=== PATIENT | female | born 1975 | race Caucasian/White ===

== ENCOUNTER 2021-07-20 17:01 | Emergency (ER) | payer MEDICAID, SELFPAY ==
[2021-07-20 17:01] VITALS: BP 130/77; PULSE 76; RESP 18; TEMP 37.1; O2SAT 99; BMI 28.3
--- NOTE | 2021-07-20 18:15 | RAD_ITS ---
STUDY: X-RAY CHEST REASON FOR EXAM: Female, 46 years old. CHEST PAIN Cough TECHNIQUE: XR Chest 1 View COMPARISON: None FINDINGS: There is no demonstrated pleural abnormality. Normal size heart. Normal mediastinum and dakota. Normal visualized pulmonary arteries. Normal visualized aortic arch and descending thoracic aorta. Normal visualized thoracic spine. Normal visualized ribs, clavicles, and shoulders. There is no demonstrated abnormality of the visualized soft tissue structures of the upper abdomen. RAD/Chest 1 View (Portable) IMPRESSION: There are no acute findings. Electronically Signed: Max Vera MD at 18:55 EST , Service support ,
--- NOTE | 2021-07-20 18:46 | EX.ED.DYSGE1 ---
HPI History of Present Illness Chief Complaint: General Illness Informant: patient Onset/Context/Timing Onset: Yesterday Context: Gradual Onset Timing: Continuous Quality: Burning, sharp Location: Substernal Worsened by: Nothing Relieved by: Nothing Associated Symptoms Associated Symptoms: Headache, myalgias Narrative Narrative: Patient presents with cough, chest pain, and headache that began yesterday. Patient states it is gradually getting worse. Patient states her pain is over her lower substernal area. Patient states it is burning and stabbing. Patient states nothing makes it worse and nothing makes it better. Patient denies any fevers or chills. Patient admits to a cough but denies any sputum production. Patient admits to some shortness of breath. Patient admits to nausea but denies any vomiting. Patient also admits to general myalgias and a headache. [facility] Medical History (Updated 07/20/21 @ 20:[address] Quique Day DO) Physical exam, pre-employment Allergy/AdvReac Type Severity Reaction Status Date / Time No Known Allergies Allergy Verified 07/20/21 17:03 Surgical History History of bunionectomy History of section Hx of tympanostomy tubes Social History Smoking Status: Smoker, status unknown ROS ROS ED Constitutional Constitutional ED: Denies chills or fever(s) Eyes Eyes: Denies blurry vision or change in vision ENT ENT ED: Denies rhinorrhea or sore throat Cardiovascular Cardiovascular: Reports chest pain; Denies palpitations Respiratory/Chest Respiratory/Chest: Reports cough and dyspnea Gastrointestinal Gastrointestinal: Reports nausea; Denies vomiting Genitourinary Genitourinary ED: Denies dysuria or hematuria Musculoskeletal Musculoskeletal: Reports myalgias; Denies back pain or neck pain Integumentary Denies abscess or rash Neurologic Neurologic: Reports headache(s); Denies weakness Allergic/Immunologic Allergic/Immunologic ED: Denies mouth swelling or urticaria EXAM Physical Exam Const Vital Signs: 07/20/21 17:01 07/20/21 18:57 07/20/21 19:01 Temperature 98.7 F 97.5 F L Temperature Source Temporal Temporal Pulse Rate 76 88 Respiratory Rate 18 17 Respiratory Effort Non-Labored Short of Breath Respiratory Pattern Normal Blood Pressure 130/77 H Blood Pressure Mean 94 Pulse Ox 99 98 Oxygen Delivery Method Room Air 07/20/21 19:03 Temperature 97.8 F Temperature Source Temporal Pulse Rate 88 Respiratory Rate 17 Respiratory Effort Respiratory Pattern Blood Pressure 106/76 Blood Pressure Mean 86 Pulse Ox 98 Oxygen Delivery Method Room Air Positive well nourished and well developed General Appearance ED: well developed HEENT Reports moist mucous membranes Neck supple and no JVD Resp normal respiratory effort and clear to auscultation bilaterally Cardio regular rate, regular rhythm and no murmurs GI normal to inspection, nondistended, normoactive bowel sounds and non-tender Palpation: soft Extremity normal to inspection General Extremety ED: Negative for edema or tenderness General Extremity: Negative for edema Neuro oriented x3, CN's II-XII intact bilaterally and no sensory deficits noted Sensorium / Orientation: alert Motor Exam: strength 5/5 throughout Psych mental status grossly normal Skin no rashes or lesions noted MDM MDM MDM Narrative Medical decision making narrative: Portable 1 view chest x-ray was obtained. On my interpretation, lung oconnell are clear. There is normal cardiac silhouette. Bony thorax is normal. There is no acute process noted. Radiologist also interpreted the x-ray and agrees. COVID-19 rapid antigen was obtained was negative. Patient was advised of her findings. Patient was advised that this is most likely a viral upper respiratory infection. Patient was instructed to take Tylenol or ibuprofen as needed for aches or fevers. Patient was instructed to follow-up with her primary care physician in 5 to 7 days. Patient understood and was agreeable with the plan. All questions were answered. Radiography Diagnostic Testing: Clinical Impression(s) from Imaging Studies Chest X-Ray 07/20/21 18:15 IMPRESSION: There are no acute findings. Electronically Signed: Max Vera MD at 18:55 EST , Service support , Discharge Plan Triage Chief Complaint: General Illness ED Provider: Quique Day Dx/Rx/DC Orders Clinical Impression: Viral URI Instructions: ED URI, Viral, No Abx (Adult) Primary Care Provider: Care Physician,No Primary Referrals: Cari Anglin MD [STAFF PHYSICIAN] - 5-7 Days Care Physician,No Primary [Primary Care Provider] - Disposition Disposition: Home, Self Care
[2021-07-20 19:01] VITALS: PULSE 88; RESP 17; TEMP 36.4; O2SAT 98
[2021-07-20 19:03] VITALS: BP 106/76; PULSE 88; RESP 17; TEMP 36.6; O2SAT 98
--- NOTE | 2021-07-20 19:06 | CM.ED ---
03/13 19:05 - Case Management - ED by Leonela Deras Acccalos Num: [id number] : 12/25/2012 Patient Age: 8 SW Note Referral Source: Case Find Referral Reason: No Primary Care Physician (PCP) SW reviewed chart and noted that patient has no PCP. SW provided patient with list of [facility] and [facility] Physician List for reference. No other issues or concerns voiced at this time. SW remains available for any additional needs. Plan: Provided patient with PCP information Leonela EDMONDS
[2021-07-20 20:36] VITALS: BP 114/74; PULSE 78; RESP 18; O2SAT 98
== END 2021-07-20 20:36 | disposition home or self-care (01) ==
PROVIDERS: Emergency Provider Emergency Medicine
DX: J06.9 Acute upper respiratory infection, unspecified (principal); Z20.822 Contact with and (suspected) exposure to COVID-19; R07.9 Chest pain, unspecified; R11.0 Nausea
CPT/HCPCS: 71045; 87426; 99282

== ENCOUNTER → 2022-03-30 | Outpatient (CLI) | payer MEDICAID, SELFPAY ==
--- NOTE | 2022-03-30 12:27 | BI_ITS ---
MAMMOGRAPHY - BILATERAL SCREENING REASON FOR EXAM: Female, 47 years old. Routine annual screening examination. PERTINENT HISTORY: Grandmothers with breast cancer. TECHNIQUE: Digital bilateral breast delfina (3D mammographic acquisition) in the CC and MLO projections. 2-D mediolateral oblique (MLO) and craniocaudad (CC) views of both breasts were obtained. CAD: Full Field Digital Mammography with Computer Added Detection was performed. COMPARISON: Comparison is made with prior outside examination 12/08/2020. FINDINGS: Breast Composition: The breasts are heterogeneously dense, which may obscure small masses. There are no dominant masses or suspicious calcifications. A tissue clip marker is seen in the central lateral aspect of the left breast. Stable benign-appearing bilateral axillary lymph nodes. No other significant abnormalities are identified. There has been no significant change since the prior study. BI/SCRN MAMM (CAD)W/DELFINA BILAT IMPRESSION: Stable bilateral screening mammogram. Yearly follow-up mammogram recommended. (A) ASSESSMENT CATEGORY: BIRADS Category 2: Benign. A letter regarding these results will be sent to the patient by the facility within 30 days. Approximately 10% of breast cancers are not detected by mammography. A normal mammogram should not delay biopsy of a clinically suspicious abnormality. [id number] Electronically Signed: Arnoldo Vega MD at 13:27 EDT ,
== END | disposition home or self-care (01) ==
LOC: OPBI 12:22
PROVIDERS: Visit Provider Family Medicine
DX: Z12.31 Encounter for screening mammogram for malignant neoplasm of breast (principal)
CPT/HCPCS: 77063; 77067

== ENCOUNTER → 2022-11-29 | Outpatient (CLI) | payer MEDICAID, SELFPAY ==
[2022-11-29 12:37] LABS: Absolute Lymphocyte Count 2.04 X10^3/uL (0.83-4.51); Absolute Neutrophil Count 3.4 X10^3/uL (2.0-7.7); Basophil# 0.03 X10^3/uL; Basophil% 0.5 % (0-1); Eosinophil# 0.12 X10^3/uL; Hematocrit 42.7 % (37-47); Hemoglobin 14.1 g/dL (12.0-15.0); Lymphocyte # 2.04 X10^3/ul (0.83-4.51); Lymphocyte % 33.7 % (19-41); Mean Corpuscular Hgb 29.5 pg (27.0-32.0); Mean Corpuscular Volume 89.3 fL (81-99); Mean Platelet Vol. 12.1 fl (6.2-12.0); Monocyte# 0.43 X10^3/uL; Monocyte% 7.1 % (0-10); NRBC Flagged by Analyzer 0 % (0-5); Neutrophil # 3.41 X10^3/uL (2.7-7.7); Neutrophil % 56.4 % (47-70); Platelet Count 249 K/mm3 (150-450); RBC Distribution Width CV 12.2 % (11.6-14.6); RBC Distribution Width SD 40.4 fl (35.1-43.9); Red Blood Count 4.78 M/mm3 (4.2-5.4); White Blood Count 6.1 K/mm3 (4.4-11.0)
[2022-11-29 13:16] LABS: ALB/GLOB Ratio 1.2 RATIO (0.9-2.4); AST(SGOT) 26 U/L (15-37); Alanine Aminotransfer ALT/SGPT 53 U/L (13-56); Alkaline Phosphatase 70 U/L (45-117); Anion Gap 5 (5-15); BUN 16 mg/dL (7-18); BUN/Creat Ratio 16.3 RATIO (10-20); Calcium,Total 9.2 mg/dL (8.5-10.1); Chloride 107 mmol/L (98-107); Cholesterol 158 mg/dL (200); Creatinine, Serum 0.98 mg/dL (0.55-1.02); EST Glomerular Filtration Rate 65 mL/min (>60); Est Glom Filt Rate - Afr Amer 78 mL/min (>60); Globulin 3.2 g/dL (2.2-4.2); Glucose 92 mg/dL (74-106); High Density Lipoprotein 34 mg/dL; Potassium 4.1 mmol/L (3.5-5.1); Protein, Total 7.2 g/dL (6.4-8.2); Sodium Level 139 mmol/L (136-145); Thyroid Stim Hormone (TSH) 1.69 uIU/mL (0.358-3.74); Triglycerides 88 mg/dL; Very Low Density Lipoprotein 18 mg/dL (5-40)
== END | disposition home or self-care (01) ==
LOC: BIMLAB 09:30
PROVIDERS: Visit Provider Nurse Practitioner Family
DX: G43.909 Migraine, unspecified, not intractable, without status migrainosus (principal); F41.9 Anxiety disorder, unspecified; F32.A Depression, unspecified; Z13.220 Encounter for screening for lipoid disorders
CPT/HCPCS: 36415; 80053; 80061; 84443; 85025

== ENCOUNTER 2023-01-16 08:46 | Emergency (ER) | payer MEDICAID, SELFPAY ==
[2023-01-16 08:47] VITALS: BP 149/71; PULSE 71; RESP 18; TEMP 36; O2SAT 99; BMI 30.9
--- NOTE | 2023-01-16 08:49 | NURSING ---
NO OLD EKGS
[2023-01-16 09:02] VITALS: O2SAT 97
--- NOTE | 2023-01-16 09:02 | EKG12_ITS ---
Test Reason : CP Blood Pressure : / mmHG Vent. Rate : 069 BPM Atrial Rate : 069 BPM P-R Int : 120 ms QRS Dur : 082 ms QT Int : 378 ms P-R-T Axes : 061 -01 036 degrees QTc Int : 405 ms Normal sinus rhythm Normal ECG Confirmed by ERNESTO KILGORE, MARCELA ([id number]), avid editor VETO POLLARD ([id number]) on 01/17/2023 9:13:51 AM Referred By: BB Confirmed By:MARCELA OROZCO MD
--- NOTE | 2023-01-16 09:03 | EDS_ITS ---
HPI History of Present Illness Chief Complaint: Chest Pain Informant: patient Narrative Narrative: Healthy 47-year-old female has been having intermittent chest discomfort for the past 3 days. She states for the most part it felt like burning in her mid chest up to her throat, but she was also having instances of heaviness where it felt like someone was sitting on her chest, and discomfort in her left shoulder. She states at times when things felt heavy it made her feel like she was having a little bit of trouble breathing but never felt frankly winded. Symptoms were more prominent at nighttime when she is lying down. No exertional symptoms, no pleuritic symptoms. No leg pain or swelling history of DVT or PE, recent immobilization, long travel, hospitalization, or surgery. She states she did try taking some antiacid last night, and it did take the burning away that she had in her throat and her chest mostly. Right now she just has some discomfort in her left shoulder that went along with this but none of the chest or throat discomfort. CVD Risk Factors: Negative for Hypertension, Diabetes, Hypercholesterolemia, Family History 1' </=55 or Smoking [facility] Medical History Anxiety and depression H/O pyloric stenosis IBS (irritable bowel syndrome) Laceration of right hand Murmur Right foot sprain Scoliosis Home Medications medroxyprogesterone 150 mg/mL intramuscular syringe 150 mg IM [id number] 11/11/22 [History Last Taken Unknown] buspirone 5 mg tablet 5 mg PO BID #180 tabs 01/10/23 [Rx Last Taken Unknown] rimegepant 75 mg disintegrating tablet (Nurtec ODT) 75 mg PO QDAY PRN migraine headache #20 tabs 01/10/23 [Rx Last Taken Unknown] pantoprazole 40 mg tablet,delayed release 40 mg PO DAILY #14 tabs 01/16/23 [Rx Last Taken Unknown] Allergy/AdvReac Type Severity Reaction Status Date / Time No Known Allergies Allergy Verified 01/10/23 15:51 Family History Mother Arthritis Arthritis or polyarthritis, rheumatoid Osteoporosis Grandmother Breast cancer Father Skin cancer Brother Seizures Surgical History History of bunionectomy History of section Hx of tympanostomy tubes Social History Smoking Status: Smoker, status unknown alcohol intake: current alcohol intake frequency: holidays/special occasions only substance use type: does not use what type of physical activity do you participate in: none ROS ROS ED Constitutional Constitutional ED: Denies chills or fever(s) Eyes Eyes: Denies change in vision or diplopia ENT ENT ED: Denies rhinorrhea or sore throat Cardiovascular Cardiovascular: Reports as per HPI and chest pain; Denies palpitations Respiratory/Chest Respiratory/Chest: Reports as per HPI and dyspnea; Denies cough Gastrointestinal Gastrointestinal: Reports nausea; Denies abdominal pain, diarrhea or vomiting Genitourinary Genitourinary ED: Denies dysuria or hematuria Musculoskeletal Musculoskeletal: Reports as per HPI and extremity pain; Denies back pain or neck pain Integumentary Denies abscess or rash Neurologic Neurologic: Denies headache(s), paresthesias or weakness Psychiatric Psychiatric: Denies anxiety or suicidal thoughts EXAM Physical Exam Const Vital Signs: 01/16/23 08:47 01/16/23 09:03 01/16/23 09:02 Temperature 96.8 F L Temperature Source Temporal Pulse Rate 71 Respiratory Rate 18 Respiratory Effort Normal Non-Labored Respiratory Pattern Normal Blood Pressure 149/71 H Blood Pressure Mean 97 Pulse Ox 99 97 Oxygen Delivery Method Room Air Room Air Positive well nourished and well developed General Appearance ED: well developed and NAD HEENT Reports moist mucous membranes normocephalic and atraumatic Eyes PERRL and EOMs intact bilaterally Neck full ROM and supple Resp normal respiratory effort and clear to auscultation bilaterally Cardio regular rate, regular rhythm and no murmurs Rate: Negative for tachycardic Peripheral Pulses: pulses 2+ throughout GI non-tender and non-distended Auscultation: normoactive bowel sounds Palpation: soft Back/Spine no CVA tenderness General Back: other FROM Extremity normal to inspection General Extremety ED: Negative for edema, pulses abnormal or tenderness General Extremity: Negative for edema or pulses abnormal Neuro oriented x3, CN's II-XII intact bilaterally and no sensory deficits noted Sensorium / Orientation: awake and alert Motor Exam: strength 5/5 throughout Skin no rashes or lesions noted and no wounds Heart Score History: Slightly/Non-Suspicious ECG: Normal Age: </= 45 years Risk Factors: No Risk Factors Troponin: </= Normal Limit Score: 0 MDM MDM MDM Narrative Medical decision making narrative: Cardiac work-up is negative including x-ray and EKG and troponin. Her symptoms completely resolved with a GI cocktail she definitely feels better. I think this is all probably due to reflux. I am going to put her on a 2-week course of pantoprazole, and encouraged her to follow-up with her doctor for further evaluation she is comfortable with that plan. Lab Data Attestation: I reviewed the patient's lab results. Labs: Laboratory Results - last 24 hr 01/16/23 01/16/23 08:55 08:55 WBC 6.0 RBC 4.75 Hgb 14.2 Hct 41.3 MCV 86.9 MCH 29.9 MCHC 34.4 RDW Std Deviation 38.7 RDW Coeff of Mayuri 12.1 Plt Count 253 MPV 11.0 Immature Gran % (Auto) 0.300 Neut % (Auto) 50.7 Lymph % (Auto) 38.1 [place] % (Auto) 8.2 Eos % (Auto) 2.2 Baso % (Auto) 0.5 Absolute Neuts (auto) 3.0 Absolute Lymphs (auto) 2.28 Nucleated RBC % 0 Sodium 139 Potassium 3.7 Chloride 108 H Carbon Dioxide 25.0 Anion Gap 6 BUN 14 Creatinine 1.05 H Estim Creat Clear Calc 55.97 Est GFR (MDRD) Af Amer 73 Est GFR (MDRD) Non-Af 60 BUN/Creatinine Ratio 13.3 Glucose 101 Calcium 9.6 Troponin I High Sens 4 Radiography Chest X-Ray - ED: 2 View, Read by ED Physician, No Acute Disease and No Infiltrates Diagnostic Testing: Clinical Impression(s) from Imaging Studies Chest X-Ray 01/16/23 09:10 IMPRESSION: Normal x-ray examination of the chest. Electronically Signed: Arnoldo Vega MD at 9:30 EDT , Rhythm Strip Rhythm Strip: Sinus Rhythm Rate: 68 Ectopy: None EKG Initial EKG: Attestation: I personally reviewed and interpreted this EKG as follows: Interpretation: Sinus Rhythm and No Acute Injury Pattern Comments: Normal EKG Discharge Plan Triage Chief Complaint: Chest Pain Other Complaint: Shortness of Breath ED Provider: Garrett Waters Dx/Rx/DC Orders Clinical Impression: Chest pain due to GERD Instructions: ED GERD (Adult) Prescriptions: New pantoprazole 40 mg tablet,delayed release (DR/EC) 40 mg PO DAILY Qty: 14 0RF No Action medroxyprogesterone 150 mg/mL syringe 150 mg IM [id number] Nurtec ODT 75 mg tablet,disintegrating 75 mg PO QDAY PRN (Reason: migraine headache) Qty: 20 1RF Rx Instructions: as a single dose buspirone 5 mg tablet 5 mg PO BID Qty: 180 2RF Primary Care Provider: Eddy Gagnon NP Referrals: Eddy Gagnon NP, [employer] [Primary Care Provider] - 1-2 Weeks Disposition Disposition: Home, Self Care
--- NOTE | 2023-01-16 09:10 | RAD_ITS ---
STUDY: X-RAY CHEST REASON FOR EXAM: Female, 47 years old. Intermittent chest pain. TECHNIQUE: PA and lateral views of the chest. COMPARISON: Comparison is made with prior study July 20, 2021. FINDINGS: EKG electrodes are seen. The lungs are clear and expanded. There is no demonstrated pleural abnormality. Normal size heart. Normal mediastinum and dakota. Normal visualized pulmonary arteries. Normal visualized aortic arch and descending thoracic aorta. Normal visualized thoracic spine. Normal visualized ribs, clavicles, and shoulders. There is no demonstrated abnormality of the visualized soft tissue structures of the upper abdomen. RAD/Chest PA and Lateral IMPRESSION: Normal x-ray examination of the chest. Electronically Signed: Arnoldo Vega MD at 9:30 EDT ,
[2023-01-16 09:18] LABS: Absolute Lymphocyte Count 2.28 X10^3/uL (0.83-4.51); Basophil# 0.03 X10^3/uL; Basophil% 0.5 % (0-1); Eosinophil# 0.13 X10^3/uL; Eosinophils% 2.2 % (0-5); Hematocrit 41.3 % (37-47); Hemoglobin 14.2 g/dL (12.0-15.0); Lymphocyte # 2.28 X10^3/ul (0.83-4.51); Lymphocyte % 38.1 % (19-41); Mean Corp Hgb Conc 34.4 g/dL (32-36); Mean Corpuscular Hgb 29.9 pg (27.0-32.0); Mean Corpuscular Volume 86.9 fL (81-99); Monocyte# 0.49 X10^3/uL; Monocyte% 8.2 % (0-10); NRBC Flagged by Analyzer 0 % (0-5); Neutrophil # 3.04 X10^3/uL (2.7-7.7); Neutrophil % 50.7 % (47-70); Platelet Count 253 K/mm3 (150-450); RBC Distribution Width CV 12.1 % (11.6-14.6); RBC Distribution Width SD 38.7 fl (35.1-43.9); Red Blood Count 4.75 M/mm3 (4.2-5.4)
[2023-01-16] MEDS: Mag Hydrox/Al Hydrox/Simeth 30 ML UDC PO (09:36)
[2023-01-16 09:39] LABS: Anion Gap 6 (5-15); BUN 14 mg/dL (7-18); BUN/Creat Ratio 13.3 RATIO (10-20); Calcium,Total 9.6 mg/dL (8.5-10.1); Chloride 108 mmol/L (98-107); Creatinine, Serum 1.05 mg/dL (0.55-1.02); EST Glomerular Filtration Rate 60 mL/min (>60); Est Glom Filt Rate - Afr Amer 73 mL/min (>60); Estimated Creatinine Clearance 55.97 ml/min; Glucose 101 mg/dL (74-106); Potassium 3.7 mmol/L (3.5-5.1); Sodium Level 139 mmol/L (136-145); Troponin-I HS 4 pg/mL (3.0-54.0)
[2023-01-16] MEDS: Pantoprazole Sodium 40 MG Tablet PO (10:17)
[2023-01-16 10:19] VITALS: PULSE 83
== END 2023-01-16 10:20 | disposition home or self-care (01) ==
PROVIDERS: Emergency Provider Emergency Medicine; PCP Nurse Practitioner Family; Visit Provider Emergency Medicine
DX: K21.9 Gastro-esophageal reflux disease without esophagitis (principal); Z79.899 Other long term (current) drug therapy
CPT/HCPCS: 71046; 80048; 84484; 85025; 93005; 99285; A4216

== ENCOUNTER 2023-10-18 17:09 | Emergency (ER) | payer MEDICAID, SELFPAY ==
[2023-10-18 17:12] VITALS: BP 121/77; PULSE 75; RESP 14; TEMP 36.4; O2SAT 100; BMI 34.4
--- NOTE | 2023-10-18 17:59 | EX.ED.VIS.HA ---
HPI History of Present Illness Chief Complaint: Headache Informant: patient Onset/Context/Timing Onset: Today and Yesterday Context: Gradual Timing: Continuous Quality -Headache: Positive for Similar Prior Headaches and Sharp Current Severity: Moderate Maximum Severity: Moderate Associated Symptoms/Injury Associated Symptoms: Positive for Nausea and Photophobia; Negative for Fever, Vomiting, Sore Throat, Sinus Pressure, Numbness, Tingling, Preceding Aura, Visual Changes, Blurred Vision or Visual Loss Injury - AGARWAL: Negative for Direct Trauma, Fall or Assault Narrative Narrative: 48-year-old female history of migraine headaches. States that last night around 6 PM she had gradual onset of a right-sided headache similar to her prior migraines. Is behind her right eye. She has associated nausea no vomiting. No fever. No diarrhea. Denies any recent head trauma. She took Zofran at home which helped with the nausea but she still has a headache. She denies any recent head trauma. She denies being on any blood thinners. She denies any sinus congestion. Prior similar symptoms: Yes Recent Illness/Hospitalization: No PFSH PFSH Medical History Anxiety and depression H/O pyloric stenosis IBS (irritable bowel syndrome) Laceration of right hand Migraine Murmur Right foot sprain Scoliosis Home Medications medroxyprogesterone 150 mg/mL intramuscular syringe 150 mg IM [id number] 11/11/22 [History Last Taken Unknown] buspirone 5 mg tablet 5 mg PO BID #180 tabs 01/10/23 [Rx Last Taken Unknown] rimegepant 75 mg disintegrating tablet (Nurtec ODT) 75 mg PO QDAY PRN migraine headache #20 tabs 01/10/23 [Rx Last Taken Unknown] Allergy/AdvReac Type Severity Reaction Status Date / Time No Known Allergies Allergy Verified 10/18/23 17:15 Family History Mother Arthritis Arthritis or polyarthritis, rheumatoid Osteoporosis Grandmother Breast cancer Father Skin cancer Brother Seizures Surgical History History of bunionectomy History of section Hx of tympanostomy tubes Social History Smoking Status: Smoker, status unknown tobacco type: cigarettes alcohol intake: current alcohol intake frequency: holidays/special occasions only substance use type: does not use what type of physical activity do you participate in: none ROS ROS ED ROS Narrative Headache. Nausea. Review of Systems ROS Unobtainable: Denies due to encephalopathy Constitutional Constitutional ED: Denies chills or fever(s) Eyes Eyes: Denies blurry vision ENT ENT ED: Denies ear pain Cardiovascular Cardiovascular: Denies chest pain or palpitations Respiratory/Chest Respiratory/Chest: Denies cough or dyspnea Gastrointestinal Gastrointestinal: Reports nausea; Denies abdominal pain, constipation, diarrhea, melena or vomiting Genitourinary Genitourinary ED: Denies dysuria or hematuria Musculoskeletal Musculoskeletal: Denies arthralgias Integumentary Denies abscess Neurologic Neurologic: Denies headache(s) Psychiatric Psychiatric: Denies anxiety Endocrine Endocrinology: Denies polydipsia or polyphagia Hematologic/Lymphatic Hematologic/Lymphatic: Denies easy bleeding, easy bruising or lymphadenopathy Allergic/Immunologic Allergic/Immunologic ED: Denies mouth swelling, tongue swelling or urticaria EXAM Physical Exam Narrative Exam Narrative: Well-appearing 48-year-old female. Vital signs are stable afebrile. H EENT exam pupils round reactive light extra motions are intact. No signs of trauma to her face or scalp. Nontender. No hematomas. No facial droop. Normal speech. Neck nontender no meningismus. Able to flex chin to chest. Lungs clear to auscultation bilaterally. Heart regular rhythm no murmur. Abdomen soft nontender. Moving all 4 extremities. 5 out of 5 global director air and climate change strength. Dorsi plantarflexion intact. [id number] and fingertip to nose within normal limits. Neurologic exam normal. Awake alert and oriented. Answering questions following commands. NIH is 0. Back nontender. Const Vital Signs: 10/18/23 17:12 Temperature 97.6 F L Temperature Source Temporal Pulse Rate 75 Respiratory Rate 14 Blood Pressure 121/77 H Blood Pressure Mean 91 Pulse Ox 100 Oxygen Delivery Method Room Air Positive well nourished and well developed; Negative for cachectic, contractures or unkempt General Appearance ED: well developed and NAD; Negative for unkempt, cachectic, contractures, cyanotic, diaphoretic or pallor Nutritional Appearance: Negative for cachectic HEENT Reports normocephalic and moist mucous membranes; Denies dry mucous membranes atraumatic; Negative for trauma, tenderness, temporal artery tenderness or vesicular rash Face and Sinus: Negative for sinus tenderness Mouth ED: No dry mucous membranes Mouth: No dry mucous membranes Eyes EOMs intact bilaterally General Eye ED: Negative for pale conjunctiva or scleral icterus Neck no lymphadenopathy, supple, no meningeal signs and no JVD General: Negative for tenderness Resp normal respiratory effort and clear to auscultation bilaterally Effort and Inspection: Negative for retractions Auscultation: Negative for rales, rhonchi, wheezes or diminished lung sounds Cardio regular rate, regular rhythm, S1 normal heart sound, S2 normal heart sound and no murmurs Rate: Negative for bradycardia or tachycardic Rhythm: Negative for abnormal rhythm GI non-tender and non-distended Auscultation: normoactive bowel sounds Palpation: soft; Negative for firm or tender Back/Spine no CVA tenderness General Back: Negative for CVA tenderness Cervical Spine: Negative for cervical spine tenderness Thoracic Spine / Upper Back: Negative for thoracic spinal tenderness Lumbar Spine / Lower Back: Negative for lumbar spinal tenderness Extremity normal to inspection, full ROM and normal capillary refill General Extremety ED: Negative for edema or tenderness General Extremity: Negative for edema Neuro oriented x3 and CN's II-XII intact bilaterally Sensorium / Orientation: awake, alert, oriented to person, oriented to place and oriented to time; Negative for orientation impaired, lethargic or stuporous Coordination / Balance: [id number] test normal and [id number] test normal Speech: speech normal Motor Exam: strength 5/5 throughout Psych Appearance: Negative for unkempt Attitude: No agitated Mood & Affect: Negative for depressed, anxious or tearful Skin General Skin Exam: Negative for jaundice or pallor Lesions: no lesions Rashes: no rashes Trauma: Negative for abrasion MDM MDM MDM Narrative Medical decision making narrative: 48-year-old female gradual onset headache that began yesterday. Similar to prior migraines with migraine headache history. Has been no trauma. No fever. No sinus congestion. She is not on any blood thinners. She has a normal neurologic exam. I do not think she needs any imaging at this time. She will be treated with IV fluids, Toradol, Benadryl and Reglan and reassessed. Repeat exam at 7 PM patient is doing well. Says she feels a lot better. Headache is resolving. She did not want a additional medication. Repeat neurologic exam is unchanged remains normal. She will be discharged home. History & Record Review Discussion w/independent historian: Patient Additional record(s) reviewed:: Prior inpatient record, Prior outpatient record, Prior ED visit and Prior labs Discharge Plan Triage Chief Complaint: Headache ED Provider: Angelito Hatfield Dx/Rx/DC Orders Clinical Impression: Migraine Instructions: ED, Migraine (Classical) Prescriptions: No Action medroxyprogesterone 150 mg/mL syringe 150 mg IM [id number] Nurtec ODT 75 mg tablet,disintegrating 75 mg PO QDAY PRN (Reason: migraine headache) Qty: 20 1RF Rx Instructions: as a single dose buspirone 5 mg tablet 5 mg PO BID Qty: 180 2RF Primary Care Provider: Maribel Maurer Referrals: Maribel Maurer, DO [Primary Care Provider] - 3-5 Days if not improving Activity Restrictions/Additional Instructions: Plenty of fluids and rest. Motrin and Tylenol for pain. Follow-up if not improving or return if feeling a lot worse. Disposition Disposition: Home, Self Care
[2023-10-18] MEDS: 0.9% Normal Saline (1000mL) 1,000 ML 999 ML IV (18:11)
[2023-10-18] MEDS: Ketorolac 30 MG/ML Syringe IV (18:12)
[2023-10-18] MEDS: Metoclopramide 10 MG/2 ML Vial 5 MG IV (18:12)
[2023-10-18] MEDS: DiphenhydrAMINE 50 MG/ML Syringe IV (18:12)
[2023-10-18 19:11] VITALS: BP 120/70; PULSE 65; RESP 16; TEMP 36.7; O2SAT 99
== END 2023-10-18 19:17 | disposition home or self-care (01) ==
PROVIDERS: Emergency Provider Emergency Medicine; PCP Family Medicine; Visit Provider Emergency Medicine
DX: G43.909 Migraine, unspecified, not intractable, without status migrainosus (principal); F17.210 Nicotine dependence, cigarettes, uncomplicated; Z79.899 Other long term (current) drug therapy
CPT/HCPCS: 96361; 96374; 96375; 99283; J7030; A4216

== ENCOUNTER → 2023-12-22 | Outpatient (CLI) | payer MEDICAID, SELFPAY ==
--- NOTE | 2023-12-22 13:26 | RAD_ITS ---
STUDY: X-RAY - LEFT KNEE REASON FOR EXAM: Female, 48 years old. Knee pain. TECHNIQUE: 4 view(s) of the knee. COMPARISON: None. FINDINGS: Normal visualized distal femur. Normal visualized proximal tibia and fibula. Normal proximal tibiofibular articulation. Normal medial femorotibial compartment. Normal lateral femorotibial compartment. Normal patellofemoral articulation. The soft tissue structures are unremarkable. RAD/Knee 4 or More Views IMPRESSION: Normal x-ray examination of the knee. Electronically Signed: Arnoldo Vega MD at 13:58 EDT ,
== END | disposition home or self-care (01) ==
LOC: MTRAD 13:26
PROVIDERS: PCP Family Medicine; Referring Provider Physician Assistant; Visit Provider Physician Assistant
DX: M25.562 Pain in left knee (principal)
CPT/HCPCS: 73564

== ENCOUNTER → 2024-01-10 | Outpatient (CLI) | payer MEDICAID, SELFPAY ==
[2024-01-12 14:09] LABS: V-Zoster IgG (Immunity) 1869 index (Immune >165)
== END | disposition home or self-care (01) ==
LOC: BIMLAB 12:08
PROVIDERS: PCP Physician Assistant; Visit Provider Physician Assistant
DX: Z02.1 Encounter for pre-employment examination (principal)
CPT/HCPCS: 36415; 86787

== ENCOUNTER → 2024-02-22 | Outpatient (CLI) | payer MEDICAID, SELFPAY ==
--- NOTE | 2024-02-22 06:42 | MRI_ITS ---
STUDY: MRI LEFT KNEE REASON FOR EXAM: Female, 49 years old. Superior and lateral pain. TECHNIQUE: Standardized fat and water weighted pulse sequences were obtained in all 3 orthogonal planes. COMPARISON: Left knee radiographs dated 12/22/2023. FINDINGS: Normal medial meniscus. Normal hyaline cartilage of the medial femorotibial compartment. There is mild osteoarthritic spur formation of the medial knee compartment. Normal medial collateral ligamentous complex (MCL). Normal distal semimembranosus, gracilis and semitendinosus tendons. Normal lateral meniscus. Normal hyaline cartilage of the lateral femorotibial compartment. There is moderate osteoarthritic spur formation of the lateral knee compartment. Normal proximal tibiofibular articulation. Normal lateral collateral (fibular) ligament. Normal popliteus tendon. Normal biceps femoris tendon. Normal anterior cruciate ligament (ACL). Normal posterior cruciate ligament (PCL). 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 Congruent patellofemoral articulation. Normal medial and lateral patellar retinaculum. Normal quadriceps tendon. Normal patellar tendon. Normal Hoffa''s fat pad. There is a small joint effusion. There is are a cluster of low signal calcified loose bodies in the posterior femorotibial joint recess, the largest measuring 9 mm in diameter. The soft tissues are unremarkable. There is no acute fracture. MRI/Lower Ext Joint Only (Routine) IMPRESSION: Tricompartment degenerative arthrosis. Small joint effusion. Cluster of ossified loose bodies in the posterior femorotibial joint recess, the largest measuring 9 mm in diameter. No discrete meniscal tear or acute ligamentous injury. Electronically Signed: Adan Yanez MD at 8:07 EDT ,
== END | disposition home or self-care (01) ==
PROVIDERS: PCP Physician Assistant; Referring Provider Physician Assistant; Visit Provider Physician Assistant
DX: M25.562 Pain in left knee (principal)
CPT/HCPCS: 73721

== ENCOUNTER 2024-02-29 07:30 | Outpatient (RCR) | payer MEDICAID, SELFPAY ==
--- NOTE | 2023-12-27 18:51 | HP.PTEVAL_ITS ---
Patient's Visit Information Visit Information Visit Information: CLEVE MOROCHO is a 48 year old F referred to Physical Therapy by ROSE MARY Anthony with a diagnosis of Left Pain Knee-PF Arthralgia. Date of Evaluation: 12/27/23 Physical Therapist: Augustina Lai DPT Visit Plan Frequency: 2x /Week Duration: 4 Weeks Plan: Focus on LE and Core Strength/Stabilization- lower extremity range of silverio on- pain mgmt US and functional mobility HEP Given IE: quad set with towel, SLR, heel slide, hamstring stretch, hip abduction with OTB, hip adduction with pillow Subjective Subjective: Patient reports that she has been having a lot of left knee pain for the last 6 months and they have been buckling- going up and down stairs and walking. Insidious onset- just wear and tear. The pain is around the whole knee- the last couple of days its been shooting up into the thigh and down to the mid calf. Worst: 01/30 Agg: stairs, exercise, squats, running, getting in/out of her husbands truck. Best: 08/02. Eases: elevated in her recliner, mobic. Sharp and shooting as well as dull and achy depending on what she is doing. No N/T in the toes. X-rays- will do an MRI after PT. No injections. Sleep: disturbed- side sleeper- with her knees bent. 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 Objective Objective: Posture: forward head, rounded shoulders- can correct with verbal cues Gait: slightly antalgic- decreased stance on the right LE- poor heel/toe pattern HR/TR: able with UE A SLS: 15 sec without UE A Palpation: tender along medial and lateral joint line ROM: 0-85 degrees- with pain at end range Strength: Core: fair minus: Hip: 4-/5 throughout, Knee: 3+/5 with pain, Ankle: 5/5 Flex: HS: moderate Gastroc: moderate Balance/Special Test Scores Lower Extremity Functional Score: 43 Goals Goal 1:: Patient will be I with HEP and progression Goal Time Frame: 4-6 Weeks Goal 2:: Patient will ambulate with a normalized gait pattern without pain Goal Time Frame: 4-6 Weeks Goal 3:: Patient will asc/desc 8 stairs recip with no HR and good pattern Goal Time Frame: 4-6 Weeks Goal 4:: Patient will demo 0-125 degrees of ROM in the left knee Goal Time Frame: 4-6 Weeks Goal 5:: Patient will report 80% improvement Goal Time Frame: 4-6 Weeks Rehabilitation Potential Physical Therapy Diagnosis: Patient presents with hypomobility- she has decreased LE and core strength/stabilization, knee ROM and muscular endurance leading to abnormal gait pattern and increased pain with ADL's. Rehabilitation Potential: Good Anticipated Interventions Patient/Client Instruction: Educate patient on: Benefits of Fitness Program Therapeutic Exercise to Include: Strength training, Endurance training, Balance training, Coordination, Agility training, Body mechanics, Postural training, Flexibilty training, Gait and locomotor training, Neuromotor development, Dynamic Lumbar Stabilization and Scapular Strength/Stabilization For the Purpose of:: To improve muscle performance and motor function TENS: Yes Cryotherapy (ice pack, ice massage): Yes Thermo therapy (hot pack): Yes Ultrasound (thermal/non thermal): Yes For the Purpose of:: To decrease pain Text: Thank you for the opportunity to evaluate your patient. For Medicare and Medicare HMO plans, please review the plan of care and approve it. It will need to be FAXED BACK to us at [phone] for Medicare purposes. For Medicare only, by signing this I certify the plan of care. Please let me know if there are questions or concerns regarding this plan of care. Physician Signature: Date:
--- NOTE | 2024-01-31 16:54 | HP.PTREVAL ---
Re-Evaluation Intro: ROSE MARY Anthony, It has been my pleasure to treat CLEVE MOROCHO over the last 9 visits for Left Pain Knee-PF Arthralgia. Please see the progress note below for an update on the physical therapy plan of care! Subjective Subjective: Patients reports that she is getting a little bit better- its more of a discomfort and soreness- not as painful. Patient reports that she went to see the PA today and he will send her to ortho and MRI. Objective Objective/Function: Posture: forward head, rounded shoulders- can correct with verbal cues Gait: slightly antalgic- decreased stance on the right LE- poor heel/toe pattern HR/TR: able with UE A SLS: 15 sec without UE A Palpation: tender along medial and lateral joint line ROM: 0-95 degrees- with pain at end range Strength: Core: fair minus: Hip: 4/5 throughout, Knee: 4/5 with pain, Ankle: 5/5 Flex: HS: moderate Gastroc: moderate Plan Plan Plan: 01/31/24: Continue with POC 2x a week for 4 weeks Focus on LE and Core Strength/Stabilization- lower extremity range of motion- pain mgmt US and functional mobility. Balance/Gait/Functional tests Balance/Special Test Scores Lower Extremity Functional Score: 24 Goals Goals Goal 1:: Patient will be I with HEP and progression Goal Time Frame: 4-6 Weeks Goal Progress: Progressing Goal 2:: Patient will ambulate with a normalized gait pattern without pain Goal Time Frame: 4-6 Weeks Goal Progress: Progressing Goal 3:: Patient will asc/desc 8 stairs recip with no HR and good pattern Goal Time Frame: 4-6 Weeks Goal Progress: Progressing Goal 4:: Patient will demo 0-125 degrees of ROM in the left knee Goal Time Frame: 4-6 Weeks Goal Progress: Progressing Goal 5:: Patient will report 80% improvement Goal Time Frame: 4-6 Weeks Goal Progress: Progressing Anticipated Interventions Anticipated Interventions Patient/Client Instruction: Educate patient on: Benefits of Fitness Program Therapeutic Exercise to Include: Strength training, Endurance training, Balance training, Coordination, Agility training, Body mechanics, Postural training, Flexibilty training, Gait and locomotor training, Neuromotor development, Dynamic Lumbar Stabilization and Scapular Strength/Stabilization For the Purpose of:: To improve muscle performance and motor function TENS: Yes Cryotherapy (ice pack, ice massage): Yes Thermo therapy (hot pack): Yes Ultrasound (thermal/non thermal): Yes For the Purpose of:: To decrease pain Re-Evaluation Ending Re-evaluation ending: Please do not hesitate to contact me at [phone] by phone or if you have questions or concerns regarding this new plan of care! Sincerely, MONICA YeeT
--- NOTE | 2024-03-26 17:54 | HP.PT.NRP ---
Patient Information Patient Information: CLEVE MOROCHO was seen in my office for initial evaluation on 12/27/23. The following Plan of Care was established for this patient: POC Established Initial Frequency: 2x /Week Initial Duration: 4 Weeks Anticipated Interventions Patient/Client Instruction: Educate patient on: Benefits of Fitness Program Therapeutic Exercise to Include: Strength training, Endurance training, Balance training, Coordination, Agility training, Body mechanics, Postural training, Flexibilty training, Gait and locomotor training, Neuromotor development, Dynamic Lumbar Stabilization and Scapular Strength/Stabilization For the Purpose of:: To improve muscle performance and motor function TENS: Yes Cryotherapy (ice pack, ice massage): Yes Thermo therapy (hot pack): Yes Ultrasound (thermal/non thermal): Yes For the Purpose of:: To decrease pain Last Seen Last Seen: This patient was last seen in our office . Pertinent comments regarding their Physical therapy will appear below: Continue HEP -appropriate for d/c At this point I will be discontinuing this patient from physical therapy. I would be happy to see this patient again in the future if found appropriate by the physician. Thank you! Augustina Lai, DPT Balance/Gait/Functional tests Balance/Special Test Scores Lower Extremity Functional Score: 30
== END 2024-02-29 19:00 | disposition home or self-care (01) ==
LOC: PT 07:30
PROVIDERS: PCP Family Medicine; Referring Provider Physician Assistant; Visit Provider Physician Assistant
DX: M25.562 Pain in left knee (principal)
CPT/HCPCS: 97014; 97035; 97110; 97162; 97530; G0283

== ENCOUNTER 2025-05-11 15:51 | Emergency (ER) | payer OTHER, MEDICAID, SELFPAY ==
[2025-05-11 15:53] VITALS: BP 119/80; PULSE 74; RESP 14; TEMP 36.1; O2SAT 97; BMI 31.8
[2025-05-11 18:41] VITALS: BP 119/80; PULSE 74; RESP 14; TEMP 36.1; O2SAT 97
== END 2025-05-11 18:58 | disposition home or self-care (01) ==
PROVIDERS: Emergency Provider Emergency Medicine; PCP Nurse Practitioner Family; Visit Provider Emergency Medicine
DX: S83.91XA Sprain of unspecified site of right knee, initial encounter (principal); W10.9XXA Fall (on) (from) unspecified stairs and steps, initial encounter; Z87.891 Personal history of nicotine dependence
CPT/HCPCS: 73564; 99282

== ENCOUNTER → 2025-05-16 | Outpatient (CLI) | payer OTHER, MEDICAID, SELFPAY ==
[2025-05-16 10:25] LABS: Hematocrit 41.2 % (37-47); Hemoglobin 14.0 g/dL (12.0-15.0); Immature Granulocytes Count 0.010 X10^3/uL (0.0-0.0); Mean Corp Hgb Conc 34.0 g/dL (32-36); Mean Corpuscular Volume 86.0 fL (81-99); Mean Platelet Vol. 11.4 fl (6.2-12.0); NRBC Flagged by Analyzer 0 % (0-5); Platelet Count 255 K/mm3 (150-450); RBC Distribution Width CV 12.6 % (11.6-14.6); RBC Distribution Width SD 39.4 fl (35.1-43.9); Red Blood Count 4.79 M/mm3 (4.2-5.4); White Blood Count 6.0 K/mm3 (4.4-11.0)
[2025-05-16 11:05] LABS: AST(SGOT) 25 U/L (<=31); Alanine Aminotransfer ALT/SGPT 30 U/L (<=34); Albumin, Serum 4.4 g/dL (3.5-5.0); Alkaline Phosphatase 68 U/L (35-104); Anion Gap 10 (5-15); BUN 15 mg/dL (4-19); BUN/Creat Ratio 16.3 RATIO (10-20); Calcium,Total 9.3 mg/dL (7.6-11.0); Carbon Dioxide 23.0 mmol/L (21.0-32.0); Chloride 108 mmol/L (98-108); Cholesterol 142 mg/dL (<=200); Ferritin 124 ng/mL (22-378); Globulin 2.3 g/dL (2.2-4.2); Glucose 95 mg/dL (70-99); Low Density Lipoprotein Calc. 98 mg/dL; Potassium 4.4 mmol/L (3.3-5.1); Triglycerides 90 mg/dL; Very Low Density Lipoprotein 18 mg/dL (5-40); Vitamin B12 271 pg/mL (180-914); Vitamin D,25 Hydroxy 23.9 ng/mL (30-100); cholesterol:hdl ratio screen 5.28
[2025-05-16 12:16] LABS: Iron 105 ug/dL (50-170); Iron Binding Capacity,Total 312 ug/dL (250-450); Iron Binding Capacity,Unsat 207 ug/dL (228-428)
[2025-05-22 15:08] LABS: Zinc, Plasma or Serum 73 ug/dL (44-115)
== END | disposition home or self-care (01) ==
LOC: VSLAB 08:48
PROVIDERS: PCP Nurse Practitioner Family; Visit Provider Nurse Practitioner Family
DX: L65.9 Nonscarring hair loss, unspecified (principal); Z13.1 Encounter for screening for diabetes mellitus; Z13.220 Encounter for screening for lipoid disorders
CPT/HCPCS: 36415; 80053; 80061; 82306; 82607; 82728; 83036; 83540; 83550; 84439; 84443; 84630; 85025; 86376; 86800

== ENCOUNTER → 2025-05-30 | Outpatient (CLI) | payer OTHER, MEDICAID, SELFPAY ==
--- NOTE | 2025-05-30 15:55 | MRI_ITS ---
PROCEDURE: MRI/Lower Ext Joint Only (Routine)
== END | disposition home or self-care (01) ==
LOC: MRI 15:50
PROVIDERS: PCP Nurse Practitioner Family; Referring Provider Physician Assistant Surgical; Visit Provider Physician Assistant Surgical
DX: S83.8X1A Sprain of other specified parts of right knee, initial encounter (principal); X58.XXXA Exposure to other specified factors, initial encounter
CPT/HCPCS: 73721

== ENCOUNTER 2025-07-16 10:37 | Observation (INO) | payer OTHER, MEDICAID, SELFPAY ==
[2025-07-16] VITALS (34 sets, daily range): BP systolic 89–125; BP diastolic 65–95; PULSE 0–127; RESP 12–18; TEMP 35.8–36.7; O2SAT 92–100; BMI 30.4; BMI 32.1
--- OUTSIDE RECORDS SUMMARY | 2025-07-16 07:01 | XMS RPT_ITS | CCD ---
Author Organization [facility] Care Team Providers Care Oriental Medicine Practitioner Name Role Phone Iris QUISPE, Zahira Unavailable Unavailable Unavailable Primary Care Provider Unavailabl e Care Physician, No Primary Primary Care Provider Unavailable Care Physician, No Primary Referring Provider Un available ROSE MARY Sommers Attending Provider Jennifer Bhat MA Unavailable Unavailable Unavailable Primary Care Provider Unavailabl e Unavailable Primary Care Provider Unavailabl e Unavailable Primary Care Provider [facility], [facility] Primary Care Pro vider [facility], [facility] Referring Provid er ROSE MARY Cornejo Attending Provider ROSE MARY Sommers Attending Provider Chelsi PROFESSOR OF INDUSTRIAL TECHNOLOGY, PROFESSOR OF INDUSTRIAL TECHNOLOGY-C Vi Attending Provider Markus Maurer DO Primary Care Provider Chelsi PROFESSOR OF INDUSTRIAL TECHNOLOGY, PROFESSOR OF INDUSTRIAL TECHNOLOGY-C Vi Primary Care Provider Chelsi PROFESSOR OF INDUSTRIAL TECHNOLOGY, PROFESSOR OF INDUSTRIAL TECHNOLOGY-C Vi Referring Provider ROSE MARY Cornejo Attending Provider Markus Maurer DO Primary Care Provider Markus Maurer DO Primary Care Provider Markus Maurer DO Primary Care Provider Sonny Bertrand Primary Care Provider [phone] Sonny Bertrand Referring Provider Vicente Sommers Attending Provider MARKUS MAURER Primary Care Unavailabl e MARKUS MAURER Primary Care Unavailabl e ZENOBIA, LURDES Referring Unavailable MARIO, MARKUS RL Primary Care Unavailabl e MARIO, MARKUS RL Primary Care Unavailabl e MARIO, MARKUS RL Primary Care Unavailabl e SELF Referring Unavailable MARIO, MARKUS RL Primary Care Unavailabl e MARIO, MARKUS RL Primary Care Unavailabl e ZENOBIA, LURDES Attending Unavailable Glenny BAZZI, Sonny Primary Care Physician [phone] Vicente Sommers Attending Physician Sonny Bertrand Primary Care Physician Sonny Bertrand Referring Provider Vicente Sommers Attending Physician [phone] Pipo PROFESSOR OF INDUSTRIAL TECHNOLOGY-C, Ivet Primary Care Physician Liu KILGORE, Dr. Eaton Attending Physician Dr. Angelito Hatfield MD Emergency Department Physici an Holger PROFESSOR OF INDUSTRIAL TECHNOLOGY-C, Susanne Primary Care Physician Holger PROFESSOR OF INDUSTRIAL TECHNOLOGY-C, Susanne Attending Physician Girma PROFESSOR OF INDUSTRIAL TECHNOLOGY-CNancy Attending Physician [phone] Susanne Wren Primary Care Unavailable Lara Us Attending Unavailable Lara Us Referring Unavailable Wayt, Sonny Primary Care Unavailable Vicente Sommers Attending Unavailable Wayt, Sonny Referring Unavailable Wayt, Sonny Primary Care Unavailable WaytTonyew Attending Unavailable Wayt, Sonny Referring Unavailable Wayt, Sonny Primary Care Unavailable Vicente Sommers Attending Unavailable Wayt, Sonny Referring Unavailable Wayt, Sonny Primary Care Unavailable Wayt, Sonny Referring Unavailable Swapnil Cornejo Attending Unavailable Wayt, Sonny Primary Care Unavailable Vicente Sommers Attending Unavailable Wayt, Sonny Referring Unavailable Derrellho, Susanne Primary Care Unavailable Wayt, Sonny Referring Unavailable Nancy Rayo Attending Unavailable Holger Susanne Primary Care Unavailable Susanne Wren Attending Unavailable Angelito Hatfield Attending Unavailable Pipo [facility] Primary Care Unavailabl e Jeramie Fabian Attending [facility]available [facility] Unavailable Medications Current Medications Medication Drug Class(es) Dates Sig (Normalized) Sig (Original) cholecalciferol 0.125 mg oral capsule (1 source) Vitamin D Start: 05-26-2025 take 1 capsule by mouth once daily Cholecalciferol (Vitamin D3) 125 mcg (5,000 unit) capsule Active 125 ug PO daily May 26, 2025 12:00am Complies with drug therapy Start: 05-26-2025 take 1 capsule by mo [facility] once daily Cholecalciferol (Vitamin D3) 125 mcg (5,000 unit) capsule Active 125 ug PO daily May 26, 2025 12:00am Complies with drug therapy doxycycline monohydrate 100 mg oral tablet (2 sources) Tetracycline-class Drug Start: 07-14-2024 End: 07-21-2024 take 1 tablet by mouth twice daily doxycycline monohydrate 100 mg tablet Indications: Lower resp. tract infection Take 1 tablet by mouth two times a day for 7 days. 14 tablet 07/14/2024 07/21/2024 Active 12 hr guaiFENesin 600 mg extended release oral tablet (1 source) Start: 10-05-2022 End: 10-15-2022 take 1 tablet by mouth twice daily guaiFENesin (MUCINEX) 600 mg 12 hr tablet Indications: Viral URI with cough Take 1 tablet by mouth twice daily for 10 days. 20 tablet 0 10/05/2022 10/15/2022 Active Comment on above: Take [address] [facility] twice daily for 10 days. hydrocortisone 25 mg/ml topical cream (1 source) Corticosteroid Start: 05-26-2025 Hydrocortisone 2.5 % cream with perineal applicator Active 1 NMA RC 1 to 2 times per day as needed for rectal pain May 26, 2025 12:00am Complies with drug therapy Start: 05-26-2025 Hydrocortisone 2.5 % cream with perineal applicator Active 1 NMA RC 1 to 2 times per day as needed for rectal pain May 26, 2025 12:00am Complies with drug therapy 1 ml medroxyPROGESTERone acetate 150 mg/ml prefilled syringe (20 sources) Progestin Start: 10-09-2024 End: 09-10-2025 medroxyPROGESTERone 150 mg injection (DEPO-PROVERA) Start: 10-09-2024 End: 02-18-2026 150 mg, INTRAMUSCULAR, EVERY 12 WEEKS, 4 doses, First dose on Mon10/09/24 at 1630, Last dose on Mon06/18/25 at 1630, Hazardous Potential Reproductive Risk Drug: Use appropriate PPE. Start: 10-11-2023 End: 09-11-2024 150 mg, INTRAMUSCULAR, EVERY 12 WEEKS, 4 doses, First dose on Mon10/11/23 at 1600, Last dose on Mon06/19/24 at 1600, Hazardous Potential Reproductive Risk Drug: Use appropriate PPE. Start: 11-11-2022 inject 150 mg by int ramuscular injection every three months Medroxyprogesterone 150 mg/mL syringe Active 150 mg IM every 3 months November 10, 2022 11:00pm Complies with drug therapy Start: 09-10-2021 End: 09-11-2024 medroxyPROGESTERone 150 mg i njection (DEPO-PROVERA) Start: 09-02-2021 End: 01-17-2026 medroxyPROGESTERone (DEPO-KS OVERA) 150 mg/mL Inject 1 mL intramuscularly every 12 weeks. 1 each 01/17/2025 01/17/2026 Active Comment on above: Inject 1 mL intramus cularly every 12 weeks. meloxicam 15 mg oral tablet (10 sources) Nonsteroidal Anti-inflammatory Drug Start: take 1 tablet by mouth once daily Meloxicam 15 mg tablet Active 15 mg PO daily May 26, 2025 12:00am Complies with drug therapy Start: 12-22-2023 End: 11-07-2024 take 1 tablet by mouth once daily Meloxicam 15 mg tablet Discontinued 15 mg PO DAILY 30 0 February 27, 2024 7:11am November 07, 2024 2:19pm Sod Sulf-Pot Chloride-Mag Sulf (1 source) Start: 05-26-2025 Sod Sulf-Pot C hloride-Mag Sulf (Sutab) 1.479-0.188- 0.225 gram tablet Active 0 PO .COMPLEX 28 0 May 26, 2025 12:00am Take orally take as directed for split dose bowel prep. Do not follow instructions on box. Complies with drug therapy vitamin b12 1 mg oral capsule (1 source) Vitamin B12 Start: 05-26-2025 Cyanocobalamin (Vitamin B-12) 1,000 mcg capsule Active 1000 ug PO .[id number] May 26, 2025 12:00am Complies with drug therapy Start: 05-26-2025 Cyanocobalamin (Vitamin B-12) 1,000 mcg capsule Active 1000 ug PO .[id number] May 26, 2025 12:00am Complies with drug therapy Completed/Discontinued Medications Medication Drug Class(es) Dates Sig (Normalized) Sig (Original) amoxicillin 500 mg oral capsule (4 sources) Penicillin-class Antibacterial Start: 03-30-2024 End: 04-04-2024 take 1 capsule by mouth twice daily Amoxicillin 500 mg capsule Discontinued 500 mg PO TWICE A DAY 10 5 0 March 29, 2024 11:00pm April 02, 2024 11:00pm April 03, 2024 11:05pm Start: 10-05-2022 End: 10-12-2022 take 1 tablet by mouth twice daily amoxicillin (AMOXIL) 875 mg tablet Indications: Other acute nonsuppurative otitis media of both ears, recurrence not specified Take 1 tablet by mouth twice daily for 7 days. 14 tablet 0 10/05/2022 10/12/2022 Active Comment on above: Take 1 tablet by ramsey twice daily for 7 days. amoxicillin 875 mg / clavulanate 125 mg oral tablet (9 sources) Penicillin-class Antibacterial Start: 11-07-2024 End: 11-17-2024 Amoxicillin-Pot Clavulanate 875-125 mg tablet Discontinued 1 {tbl} PO Q12H 20 10 0 November 06, 2024 11:00pm November 15, 2024 11:00pm November 16, 2024 11:08pm Acute sinusitis, unspecified Start: 10-03-2022 End: 10-13-2022 Amoxicillin-Pot Clavulanate 875-125 mg tablet Discontinued 1 {tbl} PO Q12H 20 10 0 October 02, 2022 11:00pm October 11, 2022 11:00pm October 12, 2022 11:05pm Acute sinusitis, unspecified Start: 10-03-2022 End: 10-13-2022 take 1 tablet by mouth every twelve hours Amoxicillin-Pot Clavulanate Discontinued 1 TABLET PO Q12H 20 10 October 03, 2022 12:00am October 13, 2022 12:05am benzonatate 200 mg oral capsule (18 sources) Non-narcotic Antitussive Start: 08-07-2024 End: 11-07-2024 take 1 capsule by mouth three times daily as needed for cough Benzonatate 200 mg capsule Discontinued 200 mg PO THREE TIMES A DAY as needed for cough 20 0 August 07, 2024 12:00am November 07, 2024 2:19pm Start: 05-22-2023 End: 10-06-2023 take 1 capsule by mouth three times daily as needed for cough Benzonatate 200 mg capsule Discontinued 200 mg PO THREE TIMES A DAY as needed for cough 20 0 May 21, 2023 11:00pm October 06, 2023 2:31pm Start: 03-01-2023 End: 04-04-2023 take 2 capsules by mouth three times daily as needed for cough Benzonatate 100 mg capsule Discontinued 200 mg PO THREE TIMES A DAY as needed for cough 30 0 February 28, 2023 11:00pm April 04, 2023 2:23pm Start: 03-01-2023 End: 04-04-2023 take 200 mg by mouth three times daily Benzonatate Discontinued 200 MG PO THREE TIMES A DAY March 01, 2023 12:00am April 04, 2023 3:23pm Start: 02-13-2022 End: 09-06-2022 take 2 capsules by mouth three times daily as needed for cough benzonatate (TESSALON PERLES) 100 mg capsule Indications: Viral illness Take 2 capsules by mouth three times daily as needed for cough. 60 capsule 0 02/13/2022 09/06/2022 Discontinued Comment on above: Take 2 capsules by m outh three times daily as needed for cough. brompheniramine maleate 0.4 mg/ml / dextromethorphan hydrobromide 2 mg/ml / pseudoephedrine hydrochloride 6 mg/ml oral solution (10 sources) alpha-Adrenergic Agonist, Uncompetitive T-zvvwnw-F-aspartate Receptor Antagonist, Sigma-1 Agonist Start: 024 End: 025 take 5 mL by mouth four times daily as needed Brompheniramine-Pse udoeph-DM (BROMFED DM) 2-30-10 mg/5 mL syrup Indications: Viral URI with cough Take 5 mL by mouth four times a day as needed. 118 mL 07/14/2024 01/17/2025 Discontinued (Course of therapy completed) 24 hr buPROPion hydrochloride 150 mg extended release oral tablet (10 sources) Aminoketone Start: End: take 1 tablet by mouth once daily buPROPion XL (WELLBUTRIN XL) 150 mg 24 hr tablet Take 1 tablet by mouth once daily. 90 tablet 1 10/28/2021 09/06/2022 Discontinued Comment on above: Take 1 tablet by ramsey once daily. busPIRone hydrochloride 5 mg oral tablet (20 sources) Start: End: take 1 tablet by mouth twice daily Buspirone 5 mg tablet Discontinued 5 mg PO TWICE A DAY 180 2 January 10, 2023 3:22pm January 10, 2024 9:52am cephalexin 500 mg oral capsule (6 sources) Cephalosporin Antibacterial Start: End: take 1 capsule by mouth every twelve hours Cephalexin 500 mg capsule Discontinued 500 mg PO Q12H 20 10 May 19, 2022 11:00pm May 28, 2022 11:00pm May 30, 2022 12:03am fluticasone propionate 0.05 mg/actuat metered dose nasal spray (20 sources) Corticosteroid Start: End: take 2 spray(s) by mouth once daily fluticasone (FLONASE) 50 mcg/actuation nasal spray Indications: Viral URI with cough Use 2 Sprays in each nostril once daily. Rinse mouth after use. 1 Each 10/05/2022 10/09/2024 Discontinued Start: 10-03-2022 End: 11-11-2022 take 50 ug nasal route every twelve hours Fluticasone Propionate (Flonase Allergy Relief) 50 mcg/actuation spray,suspension Discontinued 1 NMA INTRANASAL Q12H October 02, 2022 11:00pm November 11, 2022 4:10pm administer into each nostril Start: 10-03-2022 End: 11-11-2022 take 1 spray(s) nasal route every twelve hours Fluticasone Propionate (Flonase Allergy Relief) 50 mcg/actuation spray,suspension Discontinued 1 SPRAY INTRANASAL Q12H October 03, 2022 12:00am November 11, 2022 5:10pm administer into each nostril Comment on above: Use 2 Sprays in each nostril once daily. Rinse mouth after use. ipratropium bromide 0.021 mg/actuat metered dose nasal spray (2 sources) Anticholinergic Start : 11-07 End: 03-14 Ipratropium [place] 21 mcg (0.03 %) spray,non-aerosol Discontinued 2 NMA INTRANASAL 2 to 3 times per day as needed for postnasal drainage November 06, 2024 11:00pm March 14, 2025 2:47pm administer into each nostril Ipratropium [place] 21 mcg (0.03 %) spray,non-aerosol (1 source) Start : 11-07 End: 03-14 Ipratropium [place] 21 mcg (0.03 %) spray,non-aerosol Discontinued 2 NMA INTRANASAL 2 to 3 times per day as needed for postnasal drainage November 07, 2024 12:00am March 14, 2025 3:47pm administer into each nostril methylPREDNISolone 4 mg oral tablet (3 sources) Corticosteroid Start : 08-07 End: 11-07 take 1 tablet by mouth once Methylprednisolone (Medrol (Donnell)) 4 mg tablets,dose pack Discontinued 0 PO per package directions August 07, 2024 12:00am November 07, 2024 2:19pm PO PER PKG DIR metroNIDAZOLE 7.5 mg/ml topical cream (3 sources) Nitroimidazole Antimicrobial Start : 05-14 End: 10-09 metroNIDAZOLE 0.75 % cream 05/14/2024 10/09/2024 Discontinued pantoprazole 40 mg delayed release oral tablet (5 sources) Proton Pump Inhibitor Start : 01-16 End: 03-01 take 1 tablet by mouth once daily Pantoprazole 40 mg tablet,delayed release (DR/EC) Discontinued 40 mg PO DAILY 14 0 January 15, 2023 11:00pm March 01, 2023 3:53pm polyethylene glycol 3350 306806 mg / potassium chloride 2970 mg / sodium bicarbonate 6740 mg / sodium chloride 5860 mg / sodium sulfate 46660 mg powder for oral solution (1 source) Osmotic Laxative Start : 09-15 End: 09-15 peg 3350-Electrolytes (GOLYTELY) 236-22.74-6.74 -5.86 gram suspension Indications: Screening for colon cancer Take 4,000 mL by mouth one time only for 1 dose. Refer to printed prep instructions from your provider. 4000 mL 0 09/15/2022 09/15/2022 Comment on above: Take 4,000 mL by ramsey th one time only for 1 dose. Refer to printed prep instructions from your provider. propranolol hydrochloride 20 mg oral tablet (3 sources) beta-Adrenergic Stewart Start : 02-28 End: 11-07 take 1 tablet by mouth twice daily Propranolol 20 mg tablet Discontinued 20 mg PO TWICE A DAY 30 February 28, 2024 11:00pm November 07, 2024 2:19pm rimegepant 75 mg disintegrating oral tablet (20 sources) Start : 01-10 End: 01-17 take 1 tablet by mouth once as needed for headache Rimegepant (Nurtec Odt) 75 mg tablet,disintegrating Discontinued 75 mg PO ONCE as needed for migraine headache 12 February 29, 2024 12:02pm November 07, 2024 2:19pm as a single dose Problems Active Problems Problem Classification Problem Date Documented Da te Episodic/Chronic Administrative/social admission (20 sources) Patient encounter status; Translations: [Encounter for pre-employment examination] Episodic Anxiety disorders (20 sources) Mixed anxiety and depressive disorder; Translations: [Anxiety disorder, unspecified] Onset: 11-29-2022 11-29-2022 Chronic Contraceptive and procreative management (9 sources) Contraception ; Translations: [Encounter for surveillance of injectable contraceptive] Onset: 01-09-2025 Episodic Digestive congenital anomalies (1 source) Congenital pyloric stenosis; 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] 05-26-2025 Chronic E Codes: Fall (1 source) Fall; Translations: [Unspecified fall, initial encounter] 05-19-2025 Episodic Esophageal disorders (5 sources) Chest pain; Translations: [Gastro-esophageal reflux disease without esophagitis] 01-16-2023 Chronic Gastrointestinal hemorrhage (2 sources) Rectal hemorrhage; Translations: [Hemorrhage of anus and rectum] 05-26-2025 Episodic Headache; including migraine (17 sources) Migraine; Translations: [Migraine, unspecified, not intractable, without status migrainosus] Onset: 04-24-2025 11-29-2022 Chronic Immunizations and screening for infectious disease (8 sources) Contact with and (suspected) exposure to other viral communicable diseases; Translations: [Contact with or suspected exposure to other viral communicable disease] 10-03-2022 Episodic Nonmalignant breast conditions (1 source) Breast finding ; Translations: [Dense breast tissue] 10-17-2023 Episodic Open wounds of extremities (6 sources) Laceration of hand; Translations: [Laceration without foreign body of right hand, initial encounter] 07-05-2022 Episodic Osteoarthritis (3 sources) Disorder of patellofemoral joint; Translations: [Unilateral primary osteoarthritis, unspecified knee] 02-26-2024 Chronic Other acquired deformities (20 sources) Scoliosis deformity of spine; Translations: [Scoliosis, unspecified] Onset: 04-18-2023 10-17-2023 Chronic Other bone disease and musculoskeletal deformities (16 sources) Segmental and somatic dysfunction; Translations: [Segmental and somatic dysfunction of cervical region] 04-06-2023 Episodic Other connective tissue disease (2 sources) Ganglion cyst; Translations: [Ganglion, unspecified site] Episodic Other gastrointestinal disorders (2 sources) Altered bowel function; Translations: [Change in bowel habit] 05-26-2025 Episodic Other injuries and conditions due to external causes (1 source) Encounter for examination and observation following other accident; Translations: [Encounter for examination and observation following other accident] Onset: 05-26-2025 Episodic Other lower respiratory disease (1 source) Lower respiratory tract infection; Translations: [Unspecified acute lower respiratory infection] 07-14-2024 Episodic Other non-traumatic joint disorders (6 sources) Pain in left knee; Translations: [Patellofemoral arthralgia of left knee] 12-22-2023 Episodic Other screening for suspected conditions (not mental disorders or infectious disease) (1 source) Encounter for screening mammogram for malignant neoplasm of breast; Translations: [Encounter for screening mammogram for breast cancer] Onset: 01-23-2025 Episodic Other skin disorders (1 source) Nonscarring hair loss, unspecified; Translations: [Nonscarring hair loss, unspecified] Onset: 05-24-2025 Episodic Other upper respiratory infections (3 sources) Sinusitis; Translations: [Chronic sinusitis, unspecified] 03-30-2024 Chronic Other upper respiratory infections (20 sources) Viral upper respiratory tract infection; Translations: [Acute upper respiratory infection, unspecified] Episodic Otitis media and related conditions (4 sources) Acute secretory otitis media; Translations: [Other acute nonsuppurative otitis media, bilateral] Episodic Spondylosis; intervertebral disc disorders; other back problems (4 sources) Backache; Translations: [Dorsalgia, unspecified] 04-06-2023 Episodic Sprains and strains (10 sources) Sprain of foot; Translations: [Unspecified sprain of right foot, initial encounter] Onset: 05-30-2025 Episodic Superficial injury; contusion (1 source) Contusion of knee; Translations: [Contusion of unspecified knee, initial encounter] 05-19-2025 Episodic Unclassified (2 sources) Patient encounter status 01-17-2025 Viral infection (1 source) Viral disease; Translations: [Viral infection, unspecified] Episodic Past or Other Problems Problem Classification Problem Date Documented Da te Episodic/Chronic Fever of unknown origin (1 source) Fever, unspecified; Translations: [Fever, unspecified] Onset: 08-07-2024 Episodic Results Test Name Value Interpretation Reference Range Facility Lower Ext Joint Only (Routin e)on 05-30-2025 Lower Ext Joint Only (Routine) [facility] [address] [place], [place] [id number] Lower Ext Joint Only (Routine) MR#: [id number] Acct: [id number] Name: EUNICE MUNOZ Rep #: [id number] : 1975 F 50 From: Lavelle Perez MD PCP: NINO Boateng Status: REG CLI Study: Lower Ext Joint Only (Routine) Date of Exam: 07/30/24 Exam# [id number] Ordering Dr: Lara Us PROCEDURE: LOWER EXT JOINT ONLY (ROUTINE) 05/30/2025 REASON FOR EXAM: SPRAIN OF OTHER SPECIFIED PARTS OF RIGHT KNEE, INIT ENCOUNTER TECHNIQUE: Procedure Code: MRILEJ Modality: MR Procedure: LOWER EXT JOINT ONLY (ROUTINE) Multiplanar and multisequence images were obtained without IV contrast administration. COMPARISON: COMPARISON : May 11, 2025 x-ray FINDINGS: Bone Marrow: There is bony contusion in the anterior medial tibial plateau. There are multiple corticated osteochondral fragments in the posterior joint space with the largest measuring 0.6 cm. There is a 1.6 x 1.2 cm osteochondral fragment in the superolateral joint space. Cruciate ligaments. There is increased T2 signal and attenuation in the distal 3rd of the anterior cruciate ligament without laxity, grade 2 sprain. There is increased T2 signal, thickening attenuation in the proximal 3rd of the posterior cruciate ligament without laxity, grade 2 sprain. Collateral ligaments: The medial collateral ligament appears intact. The lateral collateral ligament complex appears intact. Menisci: There is a horizontal tear of the posterior horn of the lateral meniscus which extends to the tibial surface and to the root. There is a horizontal tear in the body of the medial meniscus which extends to the tibial surface. Effusion: There is a trace joint effusion. There is no Walter's cyst. Ligaments and Tendons: The distal quadriceps shows moderate tendinopathy without tear. The patellar tendon appears intact. Cartilage: There is severe chondromalacia in the lateral patellar facet. MRI/Lower Ext Joint Only (Routine) IMPRESSION: There is bony contusion in the anterior medial tibial plateau. There are multiple corticated osteochondral fragments in the posterior joint space with the largest measuring 0.6 cm. There is a 1.6 x 1.2 cm osteochondral fragment in the superolateral joint space. There is increased T2 signal and attenuation in the distal 3rd of the anterior cruciate ligament without laxity, grade 2 sprain. There is increased T2 signal, thickening attenuation in the proximal 3rd of the posterior cruciate ligament without laxity, grade 2 sprain. There is a horizontal tear of the posterior horn of the lateral meniscus which extends to the tibial surface and to the root. There is a horizontal tear in the body of the medial meniscus which extends to the tibial surface. There is a trace joint effusion. The distal quadriceps shows moderate tendinopathy without tear. There is severe chondromalacia in the lateral patellar facet. Reading Location: [facility] CC: NINO Wren; ROSE MARY [employer] Supervisor: Signed Normal [facility] Gastroenterology Visit Repor ton 05-26-2025 Gastroenterology Visit Report [facility] [address] [place] [address] OFFICE VISIT Date of Service: 05/26/25 MR#: [id number] Acct: [id number] Name: EUNICE MUNOZ Rep #: [id number] : 1975 Provider: NINO martinez Age/Sex: 50/F Location: [facility] Status: Signed Intake Vital Signs 03/14/25 15:47 05/11/25 15:53 05/26/25 08:30 Height 5 ft 2 in 5 ft 2 in 5 ft 2 in Weight: 174 lb BMI 31.8 BP 125/80 H Respiration 16 Pulse 74 Temp 97.9 F Temp Source Temporal Pulse Oximetry (%) 98 Oxygen Delivery Method room air Intake Visit Reasons: HEMORRHOID DIARRHEA Chief Complaint: constipation, rectal bleeding Customer Service Correspondence Clerk Required: No Accompanied by: Self Is patient in pain?: No Allergies No Known Allergies Allergy (Verified 05/26/25 08:19) Medications ???Medication ???Instructions ???Recorded ???Confirmed ???Type medroxyprogesterone 150 mg/mL 150 mg IM [id number] 11/11/22 History intramuscular syringe cholecalciferol (vitamin D3) 125 125 mcg PO QDAY 05/26/25 05/26/25 History mcg (5,000 unit) capsule cyanocobalamin (vitamin B-12) 1,000 mcg PO .[id number] 05/26/2510/15 History 1,000 mcg capsule hydrocortisone 2.5 % topical cream 1 applic KS QD-BID PRN rectal pa in 05/26/25 05/26/25 Rx with perineal applicator #30 grams meloxicam 15 mg tablet 15 mg PO QDAY 05/26/25 05/26/25 Hi story sodium sul 1.479 gram-potas ch See Rx Instructions PO .COMPLEX 05/26/25 Rx 0.188 gram-magnes sul 0.225 gram #28 tabs tablet (Sutab) PFSH Medical History (Updated 05/26/25 @ 09:46 by NINO Humphreys) Pyloric stenosis, congenital Back problem Frequent headaches Arthritis Anxiety and depression Murmur IBS (irritable bowel syndrome) Scoliosis H/O pyloric stenosis Migraine Laceration of right hand Right foot sprain Surgical History Hx of tympanostomy tubes History of bunionectomy History of section Family History Mother Arthritis Arthritis or polyarthritis, rheumatoid Osteoporosis Grandmother Breast cancer Arthritis Father Skin cancer Brother Seizures Grandfather Cancer Arthritis Social History adopted: No current occupational status: unemployed Smoking Status: Former smoker quit date: 07/24/17 alcohol intake: current alcohol intake frequency: holidays/special occasions only substance use type: does not use what type of physical activity do you participate in: none frequency: 1-2 times per week seatbelt use: always do you feel safe at home: Yes HPI HPI Chief Complaint: constipation, rectal bleeding Details: EUNICE MUNOZ, is a 50 F who presents to the office today for rectal bleeding - stools range from hard to soft - bleeding, worse since last colonoscopy in 2022 - reports worsening of constipation, using supp. at times - has had to wear a panty liner due to spotting of rectal bleeding - Colon September 2022 at [facility] per patient revealed hemorrhoids - denies any family h/o colon CA - reports she typically has a BM daily - straining with BM - but can go up to 3d without a BM - internal rectal discomfort with a BM - she has used Prep H ointment and Tucks pads - denies any weight loss - denies any changes in diet or medications - reports her water intake is good - she is a non-smoker - seldom alcohol use - denies nay fiber supplements or a probiotic ROS Const Constitutional: Positive for fatigue; No fever(s) or weight change ENT ENT: No difficulty swallowing Gastro GI: Positive for constipation and Blood in stool; No abdominal pain, belching, bloating, change in bowel habits, change in stool character, coffee ground emesis, cramping, diarrhea, heartburn, difficulty swallowing, feeling full early, excessive flatus, incontinent of stools, Vomiting blood/hematemesis, loose stools, Black,tarry stools, nausea/dyspepsia, pain with swallowing, vomiting or other Musc Musculoskeletal: Positive for Arthritis; No joint pain Skin Skin: No yellowing of the eye or itchy eyes Psych Psychiatric: No anxiety and No depression Endo Endocrine: Positive for fatigue; No weight change Aller/Imm Allergy/Immunologic: No itchy eyes Jesse/Lymp Hematologic/Lymphatic: No easy bleeding or easy bruising ROS Narrative - Gastrointestinal: Reports rectal bleeding, changes in stool consistency, and constipation. Denies rectal pain but describes internal discomfort during bowel movements. - General: Denies recent weight loss, reports consistent dietary habits primarily of water and coffee intake. - Other systems reviewed were unremark (more content not included)... Normal [facility] Thyroid Antibodieson 10-30-2 025 TG AB < 1.0 Normal 0.0-0.9 [facility] Comment on above: Order Comment: Test( s) [id number], Plasma or Serumwas developed and its performance characteristicsdetermined by [employer]. It has not been cleared or approvedby the Food and Drug Administration. Result Comment: Thyr oglobulin Antibody measured by Jayda Pinky Methodology It should be noted that the presence of thyroglobulin antibodies may not be pathogenic nor diagnostic, especially at very low levels. The assay welding machine assembler has found that four percent of individuals without evidence of thyroid disease or autoimmunity will have positive TgAb levels up to 4 IU/mL. Performed By: #### L 503.6030, L3300.6750, L501.9985, L506.1001, L506.0400, L503.0106, L501.9520, L500.4050, L500.4100, L3300.9900, L503.6550, L100.0100 ####[facility] [id number] [place], [place], [id number] THYR PEROX AB < 9 Normal 0-34 [facility] Comment on above: Order Comment: Test( s) [id number], Plasma or Serumwas developed and its performance characteristicsdetermined by [employer]. It has not been cleared or approvedby the Food and Drug Administration. Performed By: #### L 503.6030, L3300.6750, L501.9985, L506.1001, L506.0400, L503.0106, L501.9520, L500.4050, L500.4100, L3300.9900, L503.6550, L100.0100 ####[facility] [id number] [place], [address] Zinc, Plasma or Serumon 04-25 ZINC,PLASMA/SER 73 ug/dL Normal 44-115 [facility] Comment on above: Order Comment: Test( s) [id number], Plasma or Serumwas developed and its performance characteristicsdetermined by [employer]. It has not been cleared or approvedby the Food and Drug Administration. Result Comment: Dete ction Limit = 5 Performed at: [address] [id number] Solution Strategist: Leon Linares PhD, Phone: [phone] Performed at: [address] [id number] Solution Strategist: Jarrod Gordon MD, Phone: [phone] Performed By: #### L 503.6030, L3300.6750, L501.9985, L506.1001, L506.0400, L503.0106, L501.9520, L500.4050, L500.4100, L3300.9900, L503.6550, L100.0100 ####[facility] [id number] [place], [place], [phone] Absolute lymphocyte countOrd ered By: Susanne Wren on 05-16-2025 Lymphocytes Auto (Unsp spec) [#/Vol] 1.77 10*3/uL 0.83-4.51 [facility] Absolute neutrophil countOrd ered By: Susanne Wren on 05-16-2025 Neutrophils (Bld) [#/Vol] 3.7 10*3/uL 2.0-7.7 [facility] Anion gap in Serum or Plasma Ordered By: Susanne Wren on 05-16-2025 Anion gap [Moles/Vol] 10 mmol/L 12-05 [facility] Automated lymphocyte count a s percentage of total leukocytesOrdered By: Susanne Wren on 05-16-2025 Lymphocytes/100 WBC Auto (Unsp spec) 29.5 % [facility] BUN/creatinine ratioOrdered By: Susannepreston Wren on 05-16-2025 Urea nitrogen/Creatinine [Mass ratio] 16.3 mg/mg 05-12 [facility] Basophil percentageOrdered B y: Susanne Wren on 05-16-2025 Basophils/100 WBC (Bld) 0.3 % 0-1 [facility] Bilirubin, totalOrdered By: Susanne Wren on 05-16-2025 Bilirubin [Mass/Vol] 0.53 mg/dL 0.00-1.30 [facility] CBC W/Diff, Automatedon 04-24 Absolute Lymph 1.77 X10 3/uL Normal 0.83-4.51 [facility] Comment on above: Performed By: #### L 503.6030, L3300.6750, L501.9985, L506.1001, L506.0400, L503.0106, L501.9520, L500.4050, L500.4100, L3300.9900, L503.6550, L100.0100 #### [facility] [address] [facility] [place], [place], [phone] (129) Absolute Neut 3.7 X10 3/uL Normal 2.0-7.7 [facility] Comment on above: Performed By: #### L 503.6030, L3300.6750, L501.9985, L506.1001, L506.0400, L503.0106, L501.9520, L500.4050, L500.4100, L3300.9900, L503.6550, L100.0100 #### [facility] [address] [facility] [place], [place], [id number] Basophils/100 WBC (Bld) 0.3 % Normal 0-1 [facility] Comment on above: Performed By: #### L 503.6030, L3300.6750, L501.9985, L506.1001, L506.0400, L503.0106, L501.9520, L500.4050, L500.4100, L3300.9900, L503.6550, L100.0100 #### [facility] [address] [place], [place], [phone] (677) Eosinophils/100 WBC (Bld) 1.8 % Normal 0-5 [facility] Comment on above: Performed By: #### L 503.6030, L3300.6750, L501.9985, L506.1001, L506.0400, L503.0106, L501.9520, L500.4050, L500.4100, L3300.9900, L503.6550, L100.0100 #### [facility] [address] [place], [place], [phone] (851) Erythrocyte distribution width (RBC) [Ratio] 12.6 % Normal 11.6-14.6 [facility] Comment on above: Performed By: #### L 503.6030, L3300.6750, L501.9985, L506.1001, L506.0400, L503.0106, L501.9520, L500.4050, L500.4100, L3300.9900, L503.6550, L100.0100 #### [facility] [address] [place], [place], [phone] (778) Hematocrit (Bld) [Volume fraction] 41.2 % Normal 37-47 [facility] Comment on above: Performed By: #### L 503.6030, L3300.6750, L501.9985, L506.1001, L506.0400, L503.0106, L501.9520, L500.4050, L500.4100, L3300.9900, L503.6550, L100.0100 #### [facility] [address] [place], [place], [phone] (489) Hemoglobin (Bld) [Mass/Vol] 14.0 g/dL Normal 12.0-15.0 [facility] Comment on above: Performed By: #### L 503.6030, L3300.6750, L501.9985, L506.1001, L506.0400, L503.0106, L501.9520, L500.4050, L500.4100, L3300.9900, L503.6550, L100.0100 #### [facility] [address] [place], [address] ( IG% 0.200 Normal 0.0-0.9 [facility] Comment on above: Result Comment: IG% - Immature Granulocytes (promyelocytes, myelocytes and metamyelocytes) > 1% indicates that a LEFT SHIFT is Present. Performed By: #### L 503.6030, L3300.6750, L501.9985, L506.1001, L506.0400, L503.0106, L501.9520, L500.4050, L500.4100, L3300.9900, L503.6550, L100.0100 #### [facility] [address] [facility], [address] Lymphocytes/100 WBC (Bld) 29.5 % Normal 19-41 [facility] Comment on above: Performed By: #### L 503.6030, L3300.6750, L501.9985, L506.1001, L506.0400, L503.0106, L501.9520, L500.4050, L500.4100, L3300.9900, L503.6550, L100.0100 #### [facility] [address] [place], [address] MCH (RBC) [Entitic mass] 29.2 pg Normal 27.0-32.0 [facility] Comment on above: Performed By: #### L 503.6030, L3300.6750, L501.9985, L506.1001, L506.0400, L503.0106, L501.9520, L500.4050, L500.4100, L3300.9900, L503.6550, L100.0100 #### [facility] [address] [place], [address] MCHC (RBC) [Mass/Vol] 34.0 g/dL Normal 32-36 [facility] Comment on above: Performed By: #### L 503.6030, L3300.6750, L501.9985, L506.1001, L506.0400, L503.0106, L501.9520, L500.4050, L500.4100, L3300.9900, L503.6550, L100.0100 #### [facility] [address] [place], [address] MCV (RBC) [Entitic vol] 86.0 fL Normal 81-99 [facility] Comment on above: Performed By: #### L 503.6030, L3300.6750, L501.9985, L506.1001, L506.0400, L503.0106, L501.9520, L500.4050, L500.4100, L3300.9900, L503.6550, L100.0100 #### [facility] [address] [place], [address] Monocytes/100 WBC (Bld) 6.3 % Normal 0-10 [facility] Comment on above: Performed By: #### L 503.6030, L3300.6750, L501.9985, L506.1001, L506.0400, L503.0106, L501.9520, L500.4050, L500.4100, L3300.9900, L503.6550, L100.0100 #### [facility] [address] [place], [address] Neutrophils/100 WBC (Bld) 61.9 % Normal 47-70 [facility] Comment on above: Performed By: #### L 503.6030, L3300.6750, L501.9985, L506.1001, L506.0400, L503.0106, L501.9520, L500.4050, L500.4100, L3300.9900, L503.6550, L100.0100 #### [facility] [address] [place], [address] Nucleated RBC (Bld) [#/Vol] 0 10*3/uL Normal 0-5 [facility] Comment on above: Performed By: #### L 503.6030, L3300.6750, L501.9985, L506.1001, L506.0400, L503.0106, L501.9520, L500.4050, L500.4100, L3300.9900, L503.6550, L100.0100 #### [facility] [address] [place], [address] Platelet mean volume (Bld) [Entitic vol] 11.4 fL Normal 6.2-12.0 [facility] Comment on above: Performed By: #### L 503.6030, L3300.6750, L501.9985, L506.1001, L506.0400, L503.0106, L501.9520, L500.4050, L500.4100, L3300.9900, L503.6550, L100.0100 #### [facility] [address] [place], [address] Platelets (Bld) [#/Vol] 255 10*3/uL Normal 150-450 [facility] Comment on above: Performed By: #### L 503.6030, L3300.6750, L501.9985, L506.1001, L506.0400, L503.0106, L501.9520, L500.4050, L500.4100, L3300.9900, L503.6550, L100.0100 #### [facility] [address] [place], [address] RBC (Bld) [#/Vol] 4.79 10*6/uL Normal 4.2-5.4 [facility] Comment on above: Performed By: #### L 503.6030, L3300.6750, L501.9985, L506.1001, L506.0400, L503.0106, L501.9520, L500.4050, L500.4100, L3300.9900, L503.6550, L100.0100 #### [facility] [address] [place], [address] RDW SD 39.4 fl Normal 35.1-43.9 [facility] Comment on above: Performed By: #### L 503.6030, L3300.6750, L501.9985, L506.1001, L506.0400, L503.0106, L501.9520, L500.4050, L500.4100, L3300.9900, L503.6550, L100.0100 #### [facility] [address] [facility], [address] WBC (Bld) [#/Vol] 6.0 10*3/uL Normal 4.4-11.0 [facility] Comment on above: Performed By: #### L 503.6030, L3300.6750, L501.9985, L506.1001, L506.0400, L503.0106, L501.9520, L500.4050, L500.4100, L3300.9900, L503.6550, L100.0100 #### [facility] [address] [facility], [address] Calculated very low density lipoprotein (VLDL) cholesterol measurementOrdered By: Susanne Wren on 05-16-2025 Calculated very low density lipoprotein (VLDL) cholesterol measurement 18 mg/dL 5-40 [facility] Carbon dioxide, total [Moles /volume] in Central venous bloodOrdered By: Susanne Wren on 05-16-2025 CO2 [Moles/Vol] 23.0 mmol/L 21.0-32.0 [facility] Chloride assayOrdered By: Theresa Wren on 05-16-2025 Chloride [Moles/Vol] 108 mmol/L 98-108 [facility] Comprehensive Metabolic Prof ilon 05-16-2025 Albumin [Mass/Vol] 4.4 g/dL Normal 3.5-5.0 [facility] Comment on above: Performed By: #### L 503.6030, L3300.6750, L501.9985, L506.1001, L506.0400, L503.0106, L501.9520, L500.4050, L500.4100, L3300.9900, L503.6550, L100.0100 #### [facility] [address] [place], [address] Albumin/Globulin [Mass ratio] 1.9 {ratio} Normal 0.9-2.4 [facility] Comment on above: Performed By: #### L 503.6030, L3300.6750, L501.9985, L506.1001, L506.0400, L503.0106, L501.9520, L500.4050, L500.4100, L3300.9900, L503.6550, L100.0100 #### [facility] [address] [place], [place], [id number] ALK PHOS 68 U/L Normal 35-104 [facility] Comment on above: Performed By: #### L 503.6030, L3300.6750, L501.9985, L506.1001, L506.0400, L503.0106, L501.9520, L500.4050, L500.4100, L3300.9900, L503.6550, L100.0100 #### [facility] [address] [place], [place], [id number] ALT [Catalytic activity/Vol] 30 U/L Normal <=34 [facility] Comment on above: Performed By: #### L 503.6030, L3300.6750, L501.9985, L506.1001, L506.0400, L503.0106, L501.9520, L500.4050, L500.4100, L3300.9900, L503.6550, L100.0100 #### [facility] [address] [place], [place], [id number] AST [Catalytic activity/Vol] 25 U/L Normal <=31 [facility] Comment on above: Performed By: #### L 503.6030, L3300.6750, L501.9985, L506.1001, L506.0400, L503.0106, L501.9520, L500.4050, L500.4100, L3300.9900, L503.6550, L100.0100 #### [facility] [address] [place], [place], [id number] Bilirubin [Mass/Vol] 0.53 mg/dL Normal 0.00-1.30 [facility] Comment on above: Performed By: #### L 503.6030, L3300.6750, L501.9985, L506.1001, L506.0400, L503.0106, L501.9520, L500.4050, L500.4100, L3300.9900, L503.6550, L100.0100 #### [facility] [address] [place], [address] BUN/CRE 16.3 RATIO Normal 10-20 [facility] Comment on above: Performed By: #### L 503.6030, L3300.6750, L501.9985, L506.1001, L506.0400, L503.0106, L501.9520, L500.4050, L500.4100, L3300.9900, L503.6550, L100.0100 #### [facility] [address] [place], [address] Calcium [Mass/Vol] 9.3 mg/dL Normal 7.6-11.0 [facility] Comment on above: Performed By: #### L 503.6030, L3300.6750, L501.9985, L506.1001, L506.0400, L503.0106, L501.9520, L500.4050, L500.4100, L3300.9900, L503.6550, L100.0100 #### [facility] [address] [place], [address] Chloride [Moles/Vol] 108 mmol/L Normal 98-108 [facility] Comment on above: Performed By: #### L 503.6030, L3300.6750, L501.9985, L506.1001, L506.0400, L503.0106, L501.9520, L500.4050, L500.4100, L3300.9900, L503.6550, L100.0100 #### [facility] [address] [place], [address] CO2 [Moles/Vol] 23.0 mmol/L Normal 21.0-32.0 [facility] Comment on above: Performed By: #### L 503.6030, L3300.6750, L501.9985, L506.1001, L506.0400, L503.0106, L501.9520, L500.4050, L500.4100, L3300.9900, L503.6550, L100.0100 #### [facility] [address] [place], [address] Creatinine [Mass/Vol] 0.93 mg/dL Normal 0.70-1.20 [facility] Comment on above: Performed By: #### L 503.6030, L3300.6750, L501.9985, L506.1001, L506.0400, L503.0106, L501.9520, L500.4050, L500.4100, L3300.9900, L503.6550, L100.0100 #### [facility] [address] [place], [place], [phone] (100) GAP 10 Normal 5-15 [facility] Comment on above: Performed By: #### L 503.6030, L3300.6750, L501.9985, L506.1001, L506.0400, L503.0106, L501.9520, L500.4050, L500.4100, L3300.9900, L503.6550, L100.0100 #### [facility] [address] [facility] [place], [place], [id number] GFR/1.73 sq M.predicted among non-blacks MDRD (S/P/Bld) [Vol rate/Area] 76 mL/min/{1.73_m2} Normal >60 [facility] Comment on above: Result Comment: mL/m in/1.73m2 CKD-EPI Creatinine Equation (2020) Performed By: #### L 503.6030, L3300.6750, L501.9985, L506.1001, L506.0400, L503.0106, L501.9520, L500.4050, L500.4100, L3300.9900, L503.6550, L100.0100 #### [facility] [address] [place], [place], [id number] Globulin (S) [Mass/Vol] 2.3 g/dL Normal 2.2-4.2 [facility] Comment on above: Performed By: #### L 503.6030, L3300.6750, L501.9985, L506.1001, L506.0400, L503.0106, L501.9520, L500.4050, L500.4100, L3300.9900, L503.6550, L100.0100 #### [facility] [address] [place], [address] Glucose [Mass/Vol] 95 mg/dL Normal 70-99 [facility] Comment on above: Performed By: #### L 503.6030, L3300.6750, L501.9985, L506.1001, L506.0400, L503.0106, L501.9520, L500.4050, L500.4100, L3300.9900, L503.6550, L100.0100 #### [facility] [address] [place], [address] Potassium [Moles/Vol] 4.4 mmol/L Normal 3.3-5.1 [facility] Comment on above: Performed By: #### L 503.6030, L3300.6750, L501.9985, L506.1001, L506.0400, L503.0106, L501.9520, L500.4050, L500.4100, L3300.9900, L503.6550, L100.0100 #### [facility] [address] [place], [address] Sodium [Moles/Vol] 141 mmol/L Normal 133-145 [facility] Comment on above: Performed By: #### L 503.6030, L3300.6750, L501.9985, L506.1001, L506.0400, L503.0106, L501.9520, L500.4050, L500.4100, L3300.9900, L503.6550, L100.0100 #### [facility] [address] [place], [address] T PROT 6.7 g/dL Normal 5.9-8.4 [facility] Comment on above: Performed By: #### L 503.6030, L3300.6750, L501.9985, L506.1001, L506.0400, L503.0106, L501.9520, L500.4050, L500.4100, L3300.9900, L503.6550, L100.0100 #### [facility] [address] [place], [address] Urea nitrogen [Mass/Vol] 15 mg/dL Normal 4-19 [facility] Comment on above: Performed By: #### L 503.6030, L3300.6750, L501.9985, L506.1001, L506.0400, L503.0106, L501.9520, L500.4050, L500.4100, L3300.9900, L503.6550, L100.0100 #### [facility] [address] [facility] [place], [address] Eosinophil percentageOrdered By: Susanne Wren on 05-16-2025 Eosinophils/100 WBC (Bld) 1.8 % 0-5 [facility] Erythrocyte distribution wid th ratioOrdered By: Susanne Wren on 05-16-2025 Erythrocyte distribution width (RBC) [Ratio] 12.6 % 11.6-14.6 [facility] Erythrocyte distribution wid th standard deviationOrdered By: Susannepreston Wren on 05-16-2025 Erythrocyte distribution width (RBC) [Ratio] 39.4 fl 35.1-43.9 [facility] Ferritinon 05-16-2025 Ferritin [Mass/Vol] 124 ng/mL Normal 22-378 [facility] Comment on above: Performed By: #### L 503.6030, L3300.6750, L501.9985, L506.1001, L506.0400, L503.0106, L501.9520, L500.4050, L500.4100, L3300.9900, L503.6550, L100.0100 ####[facility] [id number] [place], [address] Glomerular filtration rate ( GFR) estimation/1.73 sq m using serum, plasma, or whole bOrdered By: Susanne Wren on 05-16-2025 GFR/1.73 sq M.predicted among non-blacks MDRD (S/P/Bld) [Vol rate/Area] 76 mL/min/{1.73_m2} >60 [facility] Comment on above: mL/min/1.73m2 CKD-EP I Creatinine Equation (2020) Hematocrit Auto (Bld) [Volum e fraction]Ordered By: Susanne Wren on 05-16-2025 Hematocrit (Bld) [Volume fraction] 41.2 % 37-47 [facility] Hemoglobin A1con 05-16-2025 HbA1c (Bld) [Mass fraction] 5.1 % Normal <=5.6 [facility] Comment on above: Result Comment: Norm al < 5.7 % Prediabetic 5.7 - 6.4 % Diabetic >or= 6.5 % Please note range changes. Performed By: #### L 503.6030, L3300.6750, L501.9985, L506.1001, L506.0400, L503.0106, L501.9520, L500.4050, L500.4100, L3300.9900, L503.6550, L100.0100 #### [facility] [address] [place], [place], [id number] Hemoglobin A1c percentageOrd ered By: Susanne Wren on 05-16-2025 HbA1c (Bld) [Mass fraction] 5.1 % <5.7 [facility] Comment on above: Normal < 5.7 % Predi abetic 5.7 - 6.4 % Diabetic >or= 6.5 % Please note range changes. Hemoglobin measurementOrdere d By: Susanne Wren on 05-16-2025 Hemoglobin (Bld) [Mass/Vol] 14.0 g/dL 12.0-15.0 [facility] Immature granulocytes/100 WB C Auto (Bld)Ordered By: Susanne Wren on 05-16-2025 Immature granulocytes/100 WBC (Bld) 0.200 % 0.0-0.9 [facility] Comment on above: IG% - Immature Granu locytes (promyelocytes, myelocytes and metamyelocytes) > 1% indicates that a LEFT SHIFT is Present. Iron measurement (mass/mass) Ordered By: Susanne Wren on 05-16-2025 Iron (Unsp spec) [Mass/Mass] 105 ug/dL 50-170 [facility] Iron+Iron Binding Capacityon 05-16-2025 Iron [Mass/Vol] 105 ug/dL Normal 50-170 [facility] Comment on above: Performed By: #### L 503.6030, L3300.6750, L501.9985, L506.1001, L506.0400, L503.0106, L501.9520, L500.4050, L500.4100, L3300.9900, L503.6550, L100.0100 ####[facility] [id number], [address] IRON SATURATION 33.7 Normal 13-59 [facility] Comment on above: Performed By: #### L 503.6030, L3300.6750, L501.9985, L506.1001, L506.0400, L503.0106, L501.9520, L500.4050, L500.4100, L3300.9900, L503.6550, L100.0100 ####[facility] [id number] [place], [address] TIBC 312 ug/dL Normal 250-450 [facility] Comment on above: Performed By: #### L 503.6030, L3300.6750, L501.9985, L506.1001, L506.0400, L503.0106, L501.9520, L500.4050, L500.4100, L3300.9900, L503.6550, L100.0100 ####[facility] [id number] [place], [address] UIBC 207 ug/dL Low 228-428 [facility] Comment on above: Performed By: #### L 503.6030, L3300.6750, L501.9985, L506.1001, L506.0400, L503.0106, L501.9520, L500.4050, L500.4100, L3300.9900, L503.6550, L100.0100 ####[facility] [address] [place], [place], [id number](111) LDL calc ser/plasOrdered By: Susanne Wren on 05-16-2025 Cholesterol in LDL [Mass/Vol] 98 mg/dL [facility] Comment on above: Lgzxbwdgsj=031-617 m g/dL & Higher Uasc=218 mg/dL or greaterSampson Equation 2020 for LDL-C Laboratory - Chemistry and C hemistry - challengeOrdered By: Susanne Wren on 05-16-2025 AST [Catalytic activity/Vol] 25 U/L <32 [facility] Lipid Profileon 05-16-2025 CHOL:HDL 5.28 Normal [facility] Comment on above: Performed By: #### L 503.6030, L3300.6750, L501.9985, L506.1001, L506.0400, L503.0106, L501.9520, L500.4050, L500.4100, L3300.9900, L503.6550, L100.0100 #### [facility] [address] [place], [address] (129) Cholesterol [Mass/Vol] 142 mg/dL Normal <=200 [facility] Comment on above: Result Comment: Chol esterol level, Desirable <200 mg/dL Borderline high cholesterol 200-239 mg/dL High cholesterol >=240 mg/dL Recommendations of the NCEP Adult Treatment Panel for the following risk-cutoff thresholds for the [place] population. Performed By: #### L 503.6030, L3300.6750, L501.9985, L506.1001, L506.0400, L503.0106, L501.9520, L500.4050, L500.4100, L3300.9900, L503.6550, L100.0100 #### [facility] [address] [place], [address] Cholesterol in HDL [Mass/Vol] 27 mg/dL Low [facility] Comment on above: Result Comment: [place] onal Cholesterol Education Program (NCEP) guidelines: <40 mg/dL: Low HDL-cholesterol (major risk factor for CHD) >= 60 mg/dL: High HDL-cholesterol (negative risk factor for CHD) HDL-cholesterol is affected by a number of factors, e.g. smoking, exercise, hormones, sex and age. Performed By: #### L 503.6030, L3300.6750, L501.9985, L506.1001, L506.0400, L503.0106, L501.9520, L500.4050, L500.4100, L3300.9900, L503.6550, L100.0100 #### [facility] [address] [facility] [place], [address] (985) Cholesterol in LDL [Mass/Vol] 98 mg/dL Normal [facility] Comment on above: Result Comment: Bord rzcxrv=075-497 mg/dL Higher Ybzq=728 mg/dL or greater Trammell Equation 2020 for LDL-C Performed By: #### L 503.6030, L3300.6750, L501.9985, L506.1001, L506.0400, L503.0106, L501.9520, L500.4050, L500.4100, L3300.9900, L503.6550, L100.0100 #### [facility] [address] [place], [address] (443 Cholesterol in VLDL [Mass/Vol] 18 mg/dL Normal 5-40 [facility] Comment on above: Performed By: #### L 503.6030, L3300.6750, L501.9985, L506.1001, L506.0400, L503.0106, L501.9520, L500.4050, L500.4100, L3300.9900, L503.6550, L100.0100 #### [facility] [address] [place], [address] Triglyceride [Mass/Vol] 90 mg/dL Normal [facility] Comment on above: Result Comment: The drugs N-Acetylcysteine and Metamizole may falsely depress this assay. Normal range: <150 mg/dL Borderline High: 150-199 mg/dL High: 200-499 mg/dL Very High: >500 mg/dL Performed By: #### L 503.6030, L3300.6750, L501.9985, L506.1001, L506.0400, L503.0106, L501.9520, L500.4050, L500.4100, L3300.9900, L503.6550, L100.0100 #### [facility] [address] [place], [place], [address] MCV (mean corpuscular volume ) determinationOrdered By: Susanne Wren on 05-16-2025 MCV (RBC) [Entitic vol] 86.0 fL 81-99 [facility] Mean corpuscular hemoglobin (MCH) determinationOrdered By: Susanne Wren on 05-16-2025 MCH (RBC) [Entitic mass] 29.2 pg 27.0-32.0 [facility] Mean corpuscular hemoglobin concentration (MCHC) determinationOrdered By: Susanne Wren on 05-16-2025 MCHC (RBC) [Mass/Vol] 34.0 g/dL 32-36 [facility] Mean platelet volume determi nationOrdered By: Susanne Wren on 05-16-2025 Platelet mean volume (Bld) [Entitic vol] 11.4 fL 6.2-12.0 [facility] Monocyte percentageOrdered B y: Susanne Wren on 05-16-2025 Monocytes/100 WBC (Bld) 6.3 % 0-10 [facility] Neutrophil percentageOrdered By: Susanne Wren on 05-16-2025 Neutrophils/100 WBC (Bld) 61.9 % 47-70 [facility] No Panel InformationOrdered By: Susanne Wren on 05-16-2025 Unsaturated Iron Binding Capacity 207 ug/dL Low 228-428 [facility] Nucleated red blood cell per centageOrdered By: Susanne Wren on 05-16-2025 Nucleated RBC/100 WBC (Bld) [Ratio] 0 % 0-5 [facility] Platelet countOrdered By: Theresa Wren on 05-16-2025 Platelets (Bld) [#/Vol] 255 10*3/uL 150-450 [facility] Potassium measurement (mass/ volume)Ordered By: Susanne Wren on 05-16-2025 Potassium (Unsp spec) [Mass/Vol] 4.4 mmol/L 3.3-5.1 [facility] RBC Auto (Bld) [#/Vol]Ordere d By: Susanne Wren on 05-16-2025 RBC (Bld) [#/Vol] 4.79 10*6/uL 4.2-5.4 [facility] Screening total cholesterol/ high density lipoprotein (HDL) cholesterol ratioOrdered By: Susanne Wren on 05-16-2025 Cholesterol.total/Chol esterol in HDL [Mass ratio] 5.28 {ratio} [facility] Serum creatinine measurement (mass/volume)Ordered By: Susanne Wren on 05-16-2025 Creatinine [Mass/Vol] 0.93 mg/dL 0.70-1.20 [facility] Serum globulin measurementOr dered By: Susanne Wren on 05-16-2025 Globulin (S) [Mass/Vol] 2.3 g/dL 2.2-4.2 [facility] Serum glucose measurement (m ass/volume)Ordered By: Susanne Wren on 05-16-2025 Glucose [Mass/Vol] 95 mg/dL 70-99 [facility] Serum or plasma alanine parra otransferase (ALT) measurementOrdered By: Susanne Wren on 05-16-2025 ALT [Catalytic activity/Vol] 30 U/L <35 [facility] Serum or plasma albumin robbie urement (mass/volume)Ordered By: Susanne Wren on 05-16-2025 Albumin [Mass/Vol] 4.4 g/dL 3.5-5.0 [facility] Serum or plasma albumin/glob ulin mass ratioOrdered By: Susanne Wren on 05-16-2025 Albumin/Globulin [Mass ratio] 1.9 {ratio} 0.9-2.4 [facility] Serum or plasma alkaline coleman sphatase measurementOrdered By: Susanne Wren on 05-16-2025 ALP [Catalytic activity/Vol] 68 U/L 35-104 [facility] Serum or plasma calcium robbie urement (mass/volume)Ordered By: Susanne Wren on 05-16-2025 Calcium [Mass/Vol] 9.3 mg/dL 7.6-11.0 [facility] Serum or plasma cholesterol in HDL measurement (mass/volume)Ordered By: Susanne Wren on 05-16-2025 Cholesterol in HDL [Mass/Vol] 27 mg/dL Low >40 [facility] Comment on above: National Cholesterol Education Program (NCEP) guidelines:<40 mg/dL: Low HDL-cholesterol (major risk factor for CHD)>= 60 mg/dL: High HDL-cholesterol (negative risk factor for CHD)HDL-cholesterol is affected by a number of factors, e.g. smoking, exercise, hormones, sex and age. Serum or plasma cholesterol measurement (mass/volume)Ordered By: Susanne Wren on 05-16-2025 Cholesterol [Mass/Vol] 142 mg/dL <201 [facility] Comment on above: Cholesterol level, D esirable <200 mg/dLBorderline high cholesterol 200-239 mg/dLHigh cholesterol >=240 mg/dLRecommendations of the NCEP Adult Treatment Panel for the following risk-cutoff thresholds for the [place] population. Serum or plasma ferritin tamika surement (mass/volume)Ordered By: Susanne Wren on 05-16-2025 Ferritin [Mass/Vol] 124 ng/mL 22-378 [facility] Serum or plasma iron saturat ion measurement (mass fraction)Ordered By: Susanne Wren on 05-16-2025 Iron saturation [Mass fraction] 33.7 % 13-59 [facility] Serum or plasma thyroperoxid ase antibody assay (units/volume)Ordered By: Susanne Wren on 05-16-2025 TPO Ab Qn [IU]/mL 0-34 [facility] Serum or plasma urea nitroge n measurement (mass/volume)Ordered By: Susanne Wren on 05-16-2025 Urea nitrogen [Mass/Vol] 15 mg/dL 4-19 [facility] Serum or plasma zinc measure ment (mass/volume)Ordered By: Susanne Wren on 05-16-2025 Zinc [Mass/Vol] 73 ug/dL 44-115 [facility] Comment on above: Detection Limit = 5P erformed at: [facility] [id number] [place], [place] [id number] Director: Leon Linares PhD, Phone: [phone] at: [facility] [id number] Director: Jarrod Gordon MD, Phone: [phone] Sodium levelOrdered By: Julee Wren on 05-16-2025 Sodium [Moles/Vol] 141 mmol/L 133-145 [facility] T4 Free Directon 05-16-2025 T4 FREE DIRECT 1.20 ng/dL Normal 0.76-1.46 [facility] Comment on above: Performed By: #### L 503.6030, L3300.6750, L501.9985, L506.1001, L506.0400, L503.0106, L501.9520, L500.4050, L500.4100, L3300.9900, L503.6550, L100.0100 ####[facility] [id number] [place], [place], [phone] T4 freeOrdered By: Susanne schroeder on 05-16-2025 Free T4 [Mass/Vol] 1.20 ng/dL 0.76-1.46 [facility] TSH DL <= 0.005 mIU/L QnOrde red By: Susanne Wren on 05-16-2025 TSH Qn 1.250 uIU/mL 0.300-4.200 [facility] Thyroid Stim Hormone (TSH)on 05-16-2025 TSH 1.250 uIU/mL Normal 0.300-4.200 [facility] Comment on above: Performed By: #### L 503.6030, L3300.6750, L501.9985, L506.1001, L506.0400, L503.0106, L501.9520, L500.4050, L500.4100, L3300.9900, L503.6550, L100.0100 #### [facility] [address] [place], [place], [id number] Total proteinOrdered By: Hi Wren on 05-16-2025 Protein [Mass/Vol] 6.7 g/dL 5.9-8.4 [facility] Triglycerides measurementOrd ered By: Susanne Wren on 05-16-2025 Triglyceride [Mass/Vol] 90 mg/dL <199 [facility] Comment on above: The drugs N-Acetylcy steine and Metamizole may falsely depress this assay. Normal range: <150 mg/dLBorderline High: 150-199 mg/dLHigh: 200-499 mg/dLVery High: >500 mg/dL Vitamin B12on 05-16-2025 Cobalamin (Vitamin B12) [Mass/Vol] 271 pg/mL Normal 180-914 [facility] Comment on above: Performed By: #### L 503.6030, L3300.6750, L501.9985, L506.1001, L506.0400, L503.0106, L501.9520, L500.4050, L500.4100, L3300.9900, L503.6550, L100.0100 ####[facility] [address] [place], [address] Vitamin B12 ser/plasOrdered By: Susanne Wren on 05-16-2025 Cobalamin (Vitamin B12) [Mass/Vol] 271 pg/mL 180-914 [facility] Vitamin D,25 Hydroxyon 05-16 Vitamin D 25-OH 23.9 ng/mL Low 30-100 [facility] Comment on above: Result Comment: Anamaria min D Status Deficiency: <20 ng/mL (50nmol/L) Insufficiency: 20-30 ng/mL (50-75 nmol/L) Sufficiency: 30-100 ng/mL (75-250 nmol/L) Toxicity: >100 ng/mL (>250 nmol/L) Performed By: #### L 503.6030, L3300.6750, L501.9985, L506.1001, L506.0400, L503.0106, L501.9520, L500.4050, L500.4100, L3300.9900, L503.6550, L100.0100 ####[facility] [address] [place], [address] White blood cell (WBC) count Ordered By: Susanne Wren on 05-16-2025 WBC (Bld) [#/Vol] 6.0 10*3/uL 4.4-11.0 [facility] Emergency Department Summary on 05-11-2025 Emergency Department Summary [facility] Medical Records Department [address] [facility] [facility] [address] Emergency Department Summary 05/11/25 MR#: [id number] Acct: [id number] Name: EUNICE MUNOZ Rep #: [id number] : 1975 50 From: Angelito Hatfield MD PCP: DAVIDE Oliver, PROFESSOR OF INDUSTRIAL TECHNOLOGY-C Status:REG ER Location: ED HPI History of Present Illness HPI Narrative: 50-year-old female resident was going down steps and tripped or slipped landed on both knees awkwardly. Injuring her right medial knee. No prior history or surgery to her knees. Did not hit her head no LOC no other complaints. Chief Complaint: Lower Extremity Injury Informant: patient Occured/Mechanism Mechanism/Context: Yes injury and Yes blunt trauma Onset/Context/Timing Onset: Yesterday Context: Sudden Onset Timing: Continuous Quality of Pain: Dull and Aching Current Severity: Moderate Maximum Severity: Moderate Associated Symptoms Associated Symptoms: Negative for Parasthesia, Weakness or Loss of Funtion Narrative Narrative: 50-year-old female tripped or slipped going down steps last night landed on both knees injuring her right knee immediately. No prior history or surgery. No other complaints. Prior similar symptoms: No Recent Illness/Hospitalization: No PFSH PFSH Medical History Anxiety and depression Murmur IBS (irritable bowel syndrome) Scoliosis H/O pyloric stenosis Migraine Laceration of right hand Right foot sprain Home Medications ???Medication ???Instructions ???Recorded ???Last Taken ???Type medroxyprogesterone 150 mg/mL 150 mg IM [id number] 11/11/22 Unknow n History intramuscular syringe Allergy/AdvReac Type Severity Reaction Status Date / Time No Known Allergies Allergy Verified 05/11/25 15:53 Family History Mother Arthritis Arthritis or polyarthritis, rheumatoid Osteoporosis Grandmother Breast cancer Father Skin cancer Brother Seizures Surgical History Hx of tympanostomy tubes History of bunionectomy History of section Social History adopted: No current occupational status: unemployed Smoking Status: Former smoker quit date: 07/24/17 alcohol intake: current alcohol intake frequency: holidays/special occasions only substance use type: does not use what type of physical activity do you participate in: none frequency: 1-2 times per week seatbelt use: always do you feel safe at home: Yes ROS ROS ED ROS Narrative Denies recent illness. Constitutional Constitutional ED: Denies chills or fever(s) Eyes Eyes: Denies blurry vision ENT ENT ED: Denies ear pain Cardiovascular Cardiovascular: Denies chest pain Respiratory/Chest Respiratory/Chest: Denies cough or dyspnea Gastrointestinal Gastrointestinal: Denies abdominal pain Genitourinary Genitourinary ED: Denies dysuria or hematuria Musculoskeletal Musculoskeletal: Denies arthralgias Integumentary Denies abscess or Abrasions Neurologic Neurologic: Denies headache(s) Psychiatric Psychiatric: Denies anxiety Endocrine Endocrinology: Denies polydipsia Hematologic/Lymphatic Hematologic/Lymphatic: Denies easy bleeding, easy bruising or lymphadenopathy Allergic/Immunologic Allergic/Immunologic ED: Denies mouth swelling, tongue swelling or urticaria EXAM Physical Exam Narrative Exam Narrative: 50-year-old female. Vital signs stable afebrile. No acute distress. H EENT exam pupils round react light. No trauma. Nontender no contusion. C-spine neck nontender. Back nontender. Lungs clear to auscultation bilaterally. Heart regular rhythm rate about 75 no murmur. Chest wall ribs nontender. Abdomen soft nontender. Pelvic girdle intact. Hips are nontender. Patient has normal investment counselor strength and dorsi and plantarflexion bilaterally. Normal flexion extension of both knees and hips. Pacifically the right hip ankle and foot are nontender. Normal range of motion. Right knee she has mild bruising and swelling medial right knee. She has full flexion extension knee. ACL and PCL are intact. MCL is tenderness along the medial knee but has a good endpoint. LCL is intact. With good endpoint. There is no effusion. She has no patella or patellar tendon tenderness. She can do flexion extension of the knee. Right ankle and foot are nontender neurovascularly intact. Neurologic exam she is awake alert. Answering questions following commands. GCS of 15. Const Vital Signs: 05/11/25 15:53 05/11/25 18:41 Temperature 97 F L 97 F L Temperature Source Temporal Pulse Rate 74 74 Respiratory Rate 14 14 Blood Pressure 119/80 119/80 Blood Pressure Mean 93 93 Pulse Ox 97 97 O (more content not included)... Normal [facility] Knee 4 or More Viewson 05-11 Knee 4 or More Views [facility] [address] [place] [address] Knee 4 or More Views MR#: [id number] Acct: [id number] Name: EUNICE MUNOZ (JULIE) Rep #: [id number] : 1975 F 50 From: Shahab Garcia MD PCP: DAVIDE Oliver, PROFESSOR OF INDUSTRIAL TECHNOLOGY-C Status: PRE ER Study: Knee 4 or More Views Date of Exam: 05/11/25 Exam# [id number] Ordering Dr: Provider,Ed P. PROCEDURE: RIGHT KNEE 4 OR MORE VIEWS 05/11/2025 REASON FOR EXAM: FALL-PAIN TECHNIQUE: Procedure Code: RADKN Modality: DX Procedure: KNEE 4 OR MORE VIEWS Laterality: Right COMPARISON: None. FINDINGS: There is fragmentation of superior patellar pole degenerative osteophyte, which may be acutely fractured. No significant joint effusion appreciated. No other acute fracture or dislocation. Relatively well preserved joint spaces. Dorsal fabella noted. No marked soft tissue swelling. RAD/Knee 4 or More Views IMPRESSION: Fragmentation of superior patellar pole degenerative spur/osteophyte, which may be acutely fractured. Otherwise no acute fracture or dislocation. No significant joint effusion. Reading Location: [id number] CC: [facility] PROFESSOR OF INDUSTRIAL TECHNOLOGY-C Ivet Foss; ED PHYSICIAN PROVIDER Engine Repair Supervisor: Signed [facility] Office Visit Reporton 2024 Office Visit Report [facility] [address] [place] [address] OFFICE VISIT Date of Service: 04/22/25 MR#: [id number] Acct: [id number] Patient: EUNICE MUNOZ (JULIE) Rep #: [id number] : 1975 Provider: ROSE MARY Lovelace Age/Sex: 50/F Location: [facility] Status: Signed Intake Vital Signs 03/14/25 15:47 Height 5 ft 2 in Weight: 176 lb BMI 32.1 BP 110/72 Blood Pressure Location Lt brachial Position Sitting Pulse 67 Pulse Source Monitor Temp 98.1 F Temp Source Oral Pulse Oximetry (%) 97 Oxygen Delivery Method room air Intake Visit Reasons: PE NON DOT DRUG SCREEN/[place] Chief Complaint: mirgraine Allergies No Known Allergies Allergy (Verified 03/14/25 15:47) Office Procedures [facility] Billing Sheet Testing Drug Screen Collection Only: Yes 04/22/25 3784 Date Vicente BAZZI Cosigner Signature: Date (if applicable) CC: [facility] CNNURSEon 04-08-2025 CNNURSE Nurse Visit (OBGYWM) EUNICE MUNOZ ([id number]) 1975 F [facility] Date Time Provider Department 04/08/25 3:00 PM NURSE COAL EQUIPMENT OPERATOR [facility] WSTR OBGYWM During your visit today, we recorded the following information about you: Blood pressure Weight 108/80 78.7 kg Vicente Arzola RN 04/08/2025 3:10 PM Signed Patient identified by name and date of . Eunice Munoz is here for a Depo Provera injection. Patient brought medication. Date last injected: 01/09/2025 Depo-Provera, 150 mg, administered IM right upper quadrant gluteus, Lot # [id number], expiration date 03/23/2029. Depo-Provera was given without incident. Date of last menses: No LMP recorded (lmp unknown). Patient has had an injection. Irregular bleeding - No Menses ceased - Yes Patient instructed to return to clinic in 12 weeks. [email or web address] Provider SRAVAN was present in office at time of injection. Vicente Arzola RN Allergies As of Date: 04/08/2025 (No Known Allergies) Date Reviewed: 04/08/2025 Reviewed by: Vicente Arzola, RN - Fully Assessed Reason for Visit: Depo Provera Injection [1655] Primary Visit Diagnosis:Encounter for management and injection of depo-Provera [Z30.42] Prescriptions as of 04/08/2025 - medroxyPROGESTERone (DEPO-PROVERA) 150 mg/mL Inject 1 mL intramuscularly every 12 weeks. Facility-Administered Medications as of 04/08/2025 - medroxyPROGESTERone 150 mg injection (DEPO-PROVERA) Problem List As Of Date 04/08/2025 Noted Resolved Mixed anxiety depressive disorder [F41.8] 11/29/2022 Diagnosed: 10/17/2023 Scoliosis [M41.9] 04/18/2023 Diagnosed: 10/17/2023 Disposition: Return in 12 weeks (on 07/01/2025). Follow-up and Disposition History for Encounter Date Provider Department Center 04/08/2025 [id number] COAL EQUIPMENT OPERATOR [facility] *OBGYWM Vladislav Chinchilla Encounter Status:Closed by VICENTE ARZOLA on 04/08/25 [facility] Urgent Care Visit Reporton 0 03-14-2025 Urgent Care Visit Report [facility] [address] , [address] [place] [address] OFFICE VISIT Date of Service: 03/14/25 MR#: [id number] Acct: [id number] Name: EUNICE MUNOZ Rep #: [id number] : 1975 Provider: ROSE MARY Lovelace Age/Sex: 50/F Location: [facility] Status: Signed Intake Vital Signs 02/26/24 07:59 03/14/25 15:47 Height 5 ft 2 in 5 ft 2 in Weight: 176 lb BMI 32.1 BP 110/72 Blood Pressure Location Lt brachial Position Sitting Pulse 67 Pulse Source Monitor Temp 98.1 F Temp Source Oral Pulse Oximetry (%) 97 Oxygen Delivery Method room air Intake Visit Reasons: MIGRAINE Chief Complaint: mirgraine Accompanied by: Self Allergies No Known Allergies Allergy (Verified 03/14/25 15:47) Medications ???Medication ???Instructions ???Recorded ???Confirmed ???Type medroxyprogesterone 150 mg/mL 150 mg IM [id number] 11/11/22 History intramuscular syringe Nurse's Note: Migraine, light sensitivity, nausea, hot flashes, right side of face felt tingly. X 4 days. Pain comes/goes. PFSH Medical History Anxiety and depression Murmur IBS (irritable bowel syndrome) Scoliosis H/O pyloric stenosis Migraine Laceration of right hand Right foot sprain Surgical History Hx of tympanostomy tubes History of bunionectomy History of section Family History Mother Arthritis Arthritis or polyarthritis, rheumatoid Osteoporosis Grandmother Breast cancer Father Skin cancer Brother Seizures Social History adopted: No current occupational status: unemployed Smoking Status: Former smoker quit date: 07/24/17 alcohol intake: current alcohol intake frequency: holidays/special occasions only substance use type: does not use what type of physical activity do you participate in: none frequency: 1-2 times per week seatbelt use: always do you feel safe at home: Yes HPI HPI Chief Complaint: mirgraine Details: EUNICE MUNOZ, is a 50 F who presents to the office today for complaint of migraine for the past 3-4 days - describing symptoms as light sensitivity, nausea, hot flashes, right side of face felt tingly early (though not currently). Patient denies dizziness, vomiting, cough, congestion, fever or sore throat. Patient does state that she has a history of migraines, though without prn medication to treat currently. Patient denies syncopal or near syncopal symptoms. She admits moderate to severe aching headache predominantly on the right side of her scalp. No other associated symptoms or alleviating/aggravating factors. ROS Const Constitutional: No other (6 system ROS completed with pertinent findings in the HPI otherwise normal.) Exam Const General: cooperative and healthy appearing [facility] Head: normocephalic and atraumatic Ears: hearing grossly normal bilaterally Nose: external nose normal Face and sinus: normal facial exam and face symmetric Resp Effort Inspection: normal respiratory effort Cardio Rate: regular rate Skin General: no rashes or lesions noted Neuro General: patient alert and CN's II-XI intact bilaterally Psych Appearance: grossly normal Mental Status: mental status grossly normal Diagnoses Intractable migraine with status migrainosus, unspecified migraine type G43.911 Migraine type: unspecified Status migrainosus presence: with status migrainosus Intractability: intractable Assessment and Plan Assessment and Plan (1) Migraine: Status: Chronic Qualifiers: Migraine type: unspecified Status migrainosus presence: with status migrainosus Intractability: intractable Qualified Code(s): G43.911 - Migraine, unspecified, intractable, with status migrainosus Orders: Plan Toradol and Phenergan IM injections in the office today; monitored for 20 minutes thereafter - with patient noting tolerable reduction in pain w/ c/o lightheadedness or dizziness and otherwise feeling well. Encouraged to get plenty of rest, drink lots of clear liquids, and use Tylenol or Ibuprofen (unless contraindicated) for comfort. Patient also educated on other symptomatic management techniques. To be seen in by PCP in 3 to 5 days if without complete resolution; ED sooner if worsening of symptoms. Patient advised of potential red flags and when appropriate to report to the ED. Patient verbalized understanding and agreement with all the above. Office Procedures Injections Is this a patient provided medication?: No Office Meds ketorolac 30 mg/mL injection syringe Performing Provider: ROSE MARY Dao Performing Location: [facility] (more content not included)... Normal [facility] RYNE SCREENING W TOMOon 01-23 RYNE SCREENING W DELFINA * * *Final Report* * * DATE OF EXAM: Jan 23 2025 10:12AM W 0582 - RYNE SCREENING W DELFINA / PROCEDURE REASON: multiple diagnoses * * * * Physician Interpretation * * * * RESULT: [place] [address] #[id number] - RYNE SCREENING W DELFINA HISTORY: 50 year-old patient presents for screening. Patient is asymptomatic in both breasts. Patient states no personal history of breast cancer. The patient has a family history of breast cancer. COMPARISON STUDIES: The present examination has been compared to prior imaging studies dated 03/30/2022 (mammogram) and 10/17/2023 (mammogram). MAMMOGRAM TECHNIQUE: The study was acquired using full field digital technology and interpreted from soft copy. Digital Breast Tomosynthesis (DBT) images were obtained and used to assist in the interpretation of this examination. MAMMOGRAM FINDINGS: The breasts are heterogeneously dense, which may obscure small masses. There is a biopsy marker in the left breast. No suspicious masses, calcifications or other abnormalities are seen in either breast. IMPRESSION: There is no mammographic evidence of malignancy. Routine screening mammogram is recommended. Annual mammogram will be due in 1 year. BI-RADS Category 2: Benign RISK: Based on the Tyrer-Cuzick (TC) risk assessment model, this patient has a 17.0% lifetime risk of developing breast cancer, meaning they are at average risk for developing breast cancer. However, this is only an estimate based on available history provided on the patient's questionnaire. We encourage all patients to talk with their providers about these results, further recommendations for managing breast health, and appropriate supplemental screening options if the patient has dense breast tissue. Interpreting Radiologist: Marisela Leal M.D. Electronically signed on: 01/27/2025 Engine Repair Supervisor: CHANTEL Transcribe Date/Time: Jan 23 2025 9:38A Dictated by: MARISELA LEAL MD This examination was interpreted and the report reviewed and electronically signed by: MARISELA LEAL MD on Jan 27 2025 12:48PM EST [id number] Normal [facility] CNOVon 01-17-2025 CNOV Office Visit (OBGYWM ) EUNICE MUNOZ ([id number]) 1975 F [facility] Date Time Provider Department 01/17/25 3:30 PM LURDES FREGOSO OBGYWM During your visit today, we recorded the following information about you: Blood pressure Weight Height 116/64 79.1 kg 1.565 m Lurdes Fregoso APRN.CNP 01/17/2025 3:59 PM Signed Patient declined beehive kiln charcoal burnerSonia Lozano is a 49 year old who presents for an annual gynecologic exam without complaints. 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 History LMP: 09/10/2021, Injection Age at Menarche: Age at First : Age at Menopause: Substation Engineer History Comments: Sexual Activity: Yes; Male Contraception: Injection PAST MEDICAL HISTORY Diagnosis Date Migraine Scoliosis PAST SURGICAL HISTORY Procedure Laterality Date SECTION HX 2011 COLONOSCOPY 10/19/2022 repeat in 10 years FOOT SURGERY HX Bilateral 2002 bunion FOOT SURGERY HX Right 2020 INCISION OF PYLORIC MUSCLE 1976 TONSILLECTOMY HX FAMILY HISTORY Problem Relation Age of Onset other (osteoarthritis) Mother other (diverticulitis) Mother Prostate Cancer Father and skin No Known Problems Sister No Known Problems Sister No Known Problems Sister No Known Problems Brother No Known Problems Brother SOCIAL HISTORY Social History Tobacco Use Smoking status: Never Passive exposure: Never Smokeless tobacco: Never Vaping Use Vaping status: Never Used Substance Use Topics Alcohol use: Yes Comment: rare Drug use: Never REVIEW OF SYSTEMS Abdomen: No abdominal pain, nausea, vomiting, diarrhea, or constipation. No bloating, early satiety, indigestion, or increased flatulence. Bladder: No dysuria, gross hematuria, urinary frequency, urinary urgency, +stress incontinence. Breast: No breast lumps, nipple d/c, overlying skin changes, redness or skin retraction. Allergies and current medication updated:Yes SENSITIVE EXAM: The sensitive examination was discussed with the Patient or Patient's Authorized Electric Power Line Repairer. As applicable, any other physician, advance practice provider, medical student, or other health professional student that will be observing or involved in the sensitive examination for educational or training purposes was discussed with the Patient or Authorized Electric Power Line Repairer. The Patient or Authorized Electric Power Line Repairer has agreed to proceed with the sensitive examination. (Sensitive examination includes inspection and/or palpation of the breasts, pelvis, prostate and anorectal regions). EXAM: LMP 09/10/2021 GENERAL: pleasant, female in no apparent distress HEENT: Normocephalic, atraumatic, mucus membranes moist, and no lesions DERMATOLOGY: Normal, without lesions, non-icteric, and non-hirsute BREAST: soft, non-tender, symmetric, no dominant mass, normal nipple-areolar complex, no lymphadenopathy, and no nipple discharge CHEST: Normal inspiratory effort ABDOMEN: soft, non-tender, and no masses PELVIC: external genitalia normal, normal Bartholin's glands, urethra, Mabscott's glands, no vulvar lesions, no cervical lesions, good vaginal support, physiologic discharge present, normal appearing perineal body and perianal region BIMANUAL: uterus normal size, shape and consistency, no adnexal masses, and non-tender RECTOVAGINAL: deferred. NEURO: alert and oriented x3,exam grossly non-focal EXTREMITIES: normal ASSESSMENT/PLAN: 1) Health maintenance: Pap/HPV up to date. Mammogram ordered. Nutrition, exercise and routine health maintenance exams reviewed. Calcium/Vitamin D supplementation information provided. Colon cancer screening: up to date with screening 2) Contraception: Depo Provera. Contraceptive options reviewed and information provided. 3) STD screening: Declined STD check. 4) Follow up one year or sooner as needed Lurdes Fregoso APRN.PETROPHYSICAL ENGINEER Allergies As of Date: 01/17/2025 (No Known Allergies) Date Reviewed: 01/17/2025 Reviewed by: Lurdes Fregoso APRN.PETROPHYSICAL ENGINEER - Fully Assessed Reason for Visit: Well Woman [1463] Primary Visit Diagnosis:Encounter for gynecological examination (general) (routine) without abnormal findings [Z01.419] Other Visit Diagnosis:Encounter for screening mammogram for breast cancer [Z12.31] Order(s):RYNE SCREENING W DELFINA [[id number]] Order #: [id number] FUTURE medroxyPROGESTERone (DEPO-PROVERA) 150 mg/mLInject 1 mL intramuscularly every 12 weeks.Disp: 1 eachRfl: 3 Prescriptions as of 01/17/2025 - medroxyPROGESTERone (DEPO-PROVERA) 150 mg/mL Inject 1 mL intramuscularly every 12 weeks. Facility-Administered Medications as of 01/17/2025 - med (more content not included)... Normal [facility] CNNURSEon 01-09-2025 CNNURSE Nurse Visit (OBGYWM) EUNICE MUNOZ ([id number]) 1975 F [facility] Date Time Provider Department 01/09/25 9:00 AM NURSE COAL EQUIPMENT OPERATOR [facility] WSTR OBGYWM During your visit today, we recorded the following information about you: Blood pressure Weight 108/76 79.4 kg Kerwin Lynch MA 01/09/2025 9:01 AM Signed Patient identified by name and date of . Eunice Munoz is here for a Depo Provera injection. Patient brought medication. Date last injected: 10/16/2024 Depo-Provera, 150 mg, administered IM left upper quadrant gluteus, Lot # [id number] , expiration date 06/22/2028 . Depo-Provera was given without incident. Date of last menses: Patient's last menstrual period was 09/10/2021. Irregular bleeding - No Menses ceased - Yes STD prevention discussed: Yes Patient instructed to return to clinic in 12 weeks. [email or web address]%20 dosing%20calendar.pdf Provider Jessica Owen CNM was present in office at time of injection. Allergies As of Date: 01/09/2025 (No Known Allergies) Date Reviewed: 01/09/2025 Reviewed by: Kerwin Lynch MA - Fully Assessed Reason for Visit: Depo Provera Injection [1654] Depo Provera Injection [1654] Primary Visit Diagnosis:Encounter for surveillance of other contraceptive [Z30.49] Prescriptions as of 01/09/2025 - medroxyPROGESTERone (DEPO-PROVERA) 150 mg/mL Inject 1 mL intramuscularly every 12 weeks. - Krolngftpxluqjp-Oundxjerg-I M (BROMFED DM) 2-30-10 mg/5 mL syrup Take 5 mL by mouth four times a day as needed. - NURTEC ODT 75 mg disintegrating tablet Facility-Administered Medications as of 01/09/2025 - medroxyPROGESTERone 150 mg injection (DEPO-PROVERA) Problem List As Of Date 01/09/2025 Noted Resolved Mixed anxiety depressive disorder [F41.8] 11/29/2022 Diagnosed: 10/17/2023 Scoliosis [M41.9] 04/18/2023 Diagnosed: 10/17/2023 Disposition: Return in 12 weeks (on 04/03/2025). Follow-up and Disposition History for Encounter Date Provider Department Center 01/09/2025 [id number] COAL EQUIPMENT OPERATOR [facility] *OBGYWLana Chinchilla Encounter Status:Closed by KERWIN LYNCH on 01/09/25 Normal [facility] Urgent Care Visit Reporton 0 11-07-2024 Urgent Care Visit Report [facility] [address], [address] [place] [address] OFFICE VISIT Date of Service: 11/07/24 MR#: [id number] Acct: [id number] Name: EUNICE MUNOZ Rep #: [id number] : 1975 Provider: ROSE MARY Gomez Age/Sex: 49/F Location: [facility] Status: Signed Intake Vital Signs 02/26/24 07:59 11/07/24 15:12 Height 5 ft 2 in BP 118/80 Position Sitting Pulse 77 Temp 98.0 F Temp Source Oral Pulse Oximetry (%) 99 Oxygen Delivery Method room air Intake Visit Reasons: SINUS CONGESTION Accompanied by: Self Allergies No Known Allergies Allergy (Verified 11/07/24 15:16) Medications ???Medication ???Instructions ???Recorded ???Confirmed ???Type medroxyprogesterone 150 mg/mL 150 mg IM [id number] 11/11/22 History intramuscular syringe amoxicillin 875 mg-potassium 1 tab PO Q12H 10 days #20 tabs 11/07/24 Rx clavulanate 125 mg tablet ipratropium bromide 21 mcg (0.03 2 spray intranasal BID-TID PRN 11/07/24 Rx %) nasal spray postnasal drainage #30 mL Nurse's Note: Patient has sinus pressure,drainage,coughing and ST that started on . Patient states her right ear starting bothering her this morning. [facility] Medical History Anxiety and depression Murmur IBS (irritable bowel syndrome) Scoliosis H/O pyloric stenosis Migraine Laceration of right hand Right foot sprain Surgical History Hx of tympanostomy tubes History of bunionectomy History of section Family History Mother Arthritis Arthritis or polyarthritis, rheumatoid Osteoporosis Grandmother Breast cancer Father Skin cancer Brother Seizures Social History adopted: No current occupational status: unemployed Smoking Status: Former smoker quit date: 07/24/17 alcohol intake: current alcohol intake frequency: holidays/special occasions only substance use type: does not use what type of physical activity do you participate in: none frequency: 1-2 times per week seatbelt use: always do you feel safe at home: Yes HPI HPI Details: EUNICE MUNOZ, is a 49 F who presents to the office today for complaint of sinus congestion/pressure and pain as well as right ear pain. Patient denies fever, chills or sweats. No nausea, vomiting or diarrhea. No hemoptysis, shortness of breath or difficult breathing. No loss of taste or smell. No other associated symptoms or alleviating/aggravating factors. ROS Const Constitutional: Positive for other (ROS negative x6 except what was placed in HPI) Exam Const General: cooperative and healthy appearing HENMT Head: normal to inspection Ears: hearing grossly normal bilaterally, TM's normal bilaterally, EAC's normal and TM abnormal bulging on the right and erythematous on the left Nose: nasal discharge purulent Face and sinus: sinus tenderness frontal and maxillary Mouth: oral mucosae normal Throat: abnormal tonsil bilaterally erythema and hypertrophy 1+ and postnasal drainage Resp Effort Inspection: normal respiratory effort Auscultation: Bilateral: Clear to Auscultation Cardio Palpation: normal PMI Rate: regular rate Rhythm: regular rhythm Neuro General: patient alert and CN's II-XI intact bilaterally Psych Appearance: grossly normal Mental Status: mental status grossly normal Coding Level of Care Code Off vis,est,level 3 Diagnoses Acute non-recurrent maxillary sinusitis J01.00 Sinusitis location: maxillary Chronicity: acute Recurrence: non-recurrent Acute right otitis media H66.91 Assessment and Plan Assessment and Plan (1) Sinus infection: Status: Acute Qualifiers: Sinusitis location: maxillary Chronicity: acute Recurrence: non-recurrent Qualified Code(s): J01.00 - Acute maxillary sinusitis, unspecified (2) Acute right otitis media: Status: Acute Medications: New amoxicillin-pot clavulanate 875-125 mg 1 TAB PO Q12H 10 days 20 tabs 0RF J01.90 - Acute sinusitis, unspecified ipratropium bromide administer into each nostril 2 sprays intranasal BID-TID PRN 30 mL 0RF postnasal drainage Plan Augmentin and Atrovent as prescribed today. Encouraged to get plenty of rest, drink lots of clear liquids, and use Tylenol or Ibuprofen (unless contraindicated) for fever and comfort. Patient also educated on other symptomatic management techniques. To be seen in 7-10 days if no improvement; sooner if worsening of symptoms. Patient advised of potential red flags and when appropriate to report to the ED. Patient verbalized understanding and agreement with all the above. 11/07/24 1551 Date ____ (more content not included)... Normal [facility] CNNURSEon 10-18-2024 [facility] Nurse Visit (OBGYWM) EUNICE MUNOZ ([id number]) 1975 [facility] Date Time Provider Department 10/18/24 9:00 AM NURSE COAL EQUIPMENT OPERATOR [facility] WSTR OBGYWM During your visit today, we recorded the following information about you: Blood pressure Weight 122/76 78 kg Dayami Dejesus LPN 10/18/2024 9:46 AM Signed Patient identified by name and date of . Eunice Munoz is here for a Depo Provera injection. Patient brought medication. Date last injected: 07/15/2024 Depo-Provera, 150 mg, administered IM right upper quadrant gluteus, Lot # [id number], expiration date 12/21/2028. Depo-Provera was given without incident. Date of last menses: Patient's last menstrual period was 09/10/2021. Irregular bleeding - No Menses ceased - Yes STD prevention discussed: Yes Patient instructed to return to clinic in 12 weeks. [email or web address] [email or web address]-Provera%20 dosing%20calendar.pdf Provider Amy Velazquez was present in office at time of injection. Dayami Dejesus LPN Allergies As of Date: 10/18/2024 (No Known Allergies) Date Reviewed: 10/18/2024 Reviewed by: Dayami Dejesus LPN - Fully Assessed Reason for Visit: Depo Provera Injection [1655] Primary Visit Diagnosis:Encounter for surveillance of other contraceptive [Z30.49] Order(s):UA DIP,URINE HCG (POC) [[id number]] Order #: [id number]. #:[id number] Prescriptions as of 10/18/2024 - medroxyPROGESTERone (DEPO-PROVERA) 150 mg/mL Inject 1 mL intramuscularly every 12 weeks. - Zoasnwepdmkrufi-Qrokabjtf-P M (BROMFED DM) 2-30-10 mg/5 mL syrup Take 5 mL by mouth four times a day as needed. - NURTEC ODT 75 mg disintegrating tablet Facility-Administered Medications as of 10/18/2024 - medroxyPROGESTERone 150 mg injection (DEPO-PROVERA) Problem List As Of Date 10/18/2024 Noted Resolved Mixed anxiety depressive disorder [F41.8] 11/29/2022 Diagnosed: 10/17/2023 Scoliosis [M41.9] 04/18/2023 Diagnosed: 10/17/2023 Disposition: Return in 12 weeks (on 01/10/2025). Follow-up and Disposition History for Encounter Date Provider Department Center 10/18/2024 [id number] COAL EQUIPMENT OPERATOR [facility] *OBGYWM [place] Chinchilla Encounter Status:Closed by DAYAMI DEJESUS on 10/18/24 Normal [facility] UA DIP,URINE HCG (POC)on Beta HCG ( test) Ql (U) Negative Negative [facility] Comment on above: Location:[facility], [address], [place], [address] Form Grader Operator (POCT) Internal QC [facility] Location:[facility], [address], [place], [address] [facility] POINT OF CARE [facility] Ginger 10-09-2024 CNPN Telephone (OBGYWM) EUNICE MUNOZ ([id number]) 1975 F [facility] Date Time Provider Department 10/09/24 LURDES FREGOSO OBANGIE During your visit today, we recorded the following information about you: Savanna Jimenez RN 10/09/2024 1:45 PM Signed Patient coming in today for depo nurse visit. Please file CAM order. Savanna Jimenez RN Allergies As of Date: 10/09/2024 (No Known Allergies) Date Reviewed: 07/14/2024 Reviewed by: Mireya Sorenson MA - Fully Assessed Reason for Visit: Orders [681] Primary Visit Diagnosis:Depo-Provera contraceptive status [Z30.42] Order(s):medroxyPROGESTERon e 150 mg injection (DEPO-PROVERA)Disp: Rfl: Prescriptions as of 10/09/2024 - Ebupnjvmornclkt-Swhkjrsje-L M (BROMFED DM) 2-30-10 mg/5 mL syrup Take 5 mL by mouth four times a day as needed. - medroxyPROGESTERone (DEPO-PROVERA) 150 mg/mL Inject 1 mL intramuscularly every 12 weeks. - NURTE ODT 75 mg disintegrating tablet Facility-Administered Medications as of 10/09/2024 - medroxyPROGESTERone 150 mg injection (DEPO-PROVERA) Problem List As Of Date 10/09/2024 Noted Resolved Mixed anxiety depressive disorder [F41.8] 11/29/2022 Diagnosed: 10/17/2023 Scoliosis [M41.9] 04/18/2023 Diagnosed: 10/17/2023 Prescriptions ordered this encounter Disp Refills Start End MEDROXYPROGESTERONE 150 MG/ML INTRAM* 10/09/2024 09/10/2025 Route: INTRAMUSCULA Medications Discontinued During This Encounter Prescriptions - busPIRone (BUSPAR) 5 mg tablet (Discontinued) Reported on 07/14/2024 - fluticasone (FLONASE) 50 mcg/actuation nasal spray (Discontinued) Reported on 07/14/2024 - metroNIDAZOLE 0.75 % cream (Discontinued) Encounter Status:Closed by ROMAIN DUFF on 10/09/24 Normal [facility] Urgent Care Visit Reporton 0 - Urgent Care Visit Report [facility] [address], [address] [place] [address] OFFICE VISIT Date of Service: 08/07/24 MR#: [id number] Acct: [id number] Name: EUNICE MUNOZ Rep #: [id number] : 1975 Provider: ROSE MARY Lovelace Age/Sex: 49/F Location: [facility] Status: Signed Intake Vital Signs 02/26/24 07:59 08/07/24 11:49 Height 5 ft 2 in Weight: 176 lb BMI 32.1 BP 118/70 Blood Pressure Location Lt brachial Position Sitting Respiration 12 Pulse 97 Pulse Source NIBP Temp 100.0 F H Temp Source Oral Pulse Oximetry (%) 98 Oxygen Delivery Method room air Intake Visit Reasons: BODY ACHES, COUGH, CONGESTION Chief Complaint: BA, Cough, Congestion Customer Service Correspondence Clerk Required: No Is patient in pain?: No Allergies No Known Allergies Allergy (Verified 08/07/24 11:50) Medications ???Medication ???Instructions ???Recorded ???Confirmed ???Type medroxyprogesterone 150 mg/mL 150 mg IM [id number] 11/11/22 08/07/24 History intramuscular syringe meloxicam 15 mg tablet 15 mg PO DAILY #30 tabs 02/27/24 08/07/24 Rx propranolol 20 mg tablet 20 mg PO BID #30 tabs 02/29/24 08/07/24 Rx rimegepant 75 mg disintegrating 75 mg PO ONCE PRN migraine 02/29/24 08/07/24 Rx tablet (Nurtec ODT) headache #12 tabs benzonatate 200 mg capsule 200 mg PO TID PRN cough #20 caps 08/07/24 08/07/24 Rx methylprednisolone 4 mg tablets in See Rx Instructions PO PER PKG DIR 08/07/24 08/07/24 Rx a dose pack (Medrol (Donnell)) #21 tabs Is last menstrual period known: No Post menopausal: No Patient : No Have you fallen in the past year?: No Nurse's Note: patient here for cough, BA, Congestion, wheezing, fever x2 days. Ran rapid covid/flu and RSV test. PFSH Medical History Anxiety and depression Murmur IBS (irritable bowel syndrome) Scoliosis H/O pyloric stenosis Migraine Laceration of right hand Right foot sprain Surgical History Hx of tympanostomy tubes History of bunionectomy History of section Family History Mother Arthritis Arthritis or polyarthritis, rheumatoid Osteoporosis Grandmother Breast cancer Father Skin cancer Brother Seizures Social History adopted: No current occupational status: unemployed Smoking Status: Former smoker quit date: 07/24/17 alcohol intake: current alcohol intake frequency: holidays/special occasions only substance use type: does not use what type of physical activity do you participate in: none frequency: 1-2 times per week seatbelt use: always do you feel safe at home: Yes HPI HPI Chief Complaint: BA, Cough, Congestion Details: EUNICE MUNOZ, is a 49 F who presents to the office today for [facility] for approximately 3 day history of persistent fever, chills, cough, AGARWAL, myalgias, fatigue, congestion/ runny nose, nausea, and diarrhea. Patient notes no complaints of chest pain or shortness of breath or dyspnea on exertion. Several close contacts recently dx???d w/ similar URI complaints, including family members with both influenza A and RSV currently. No xhpd-wwp-jucerwk taken to assist. No other associated symptoms and no other alleviating/aggravating factors. ROS Const Constitutional: No other (As above) Exam Const General: cooperative, healthy appearing and no acute distress Orientation: alert, awake and oriented x3 HENMT Head: normal to inspection Ears: hearing grossly normal bilaterally, external ears normal, TM's normal bilaterally and EAC's normal Nose: external nose normal, nares normal, septum normal and clear nasal discharge Face and sinus: normal facial exam, sinuses nontender and face symmetric Mouth: oral mucosae normal, lip normal, tongue normal and oropharynx normal Throat: posterior oropharynx normal, tonsils normal, uvula midline and no postnasal drainage Eyes General: appearance normal, both eyes and all related structures Neck Neck: normal visual inspection, full ROM, no lymphadenopathy, no meningeal signs and supple Neck mass: No Thyroid: thyroid normal Lymphatic: no lymphadenopathy noted Chest Chest palpation inspection: normal inspection of the chest Resp Effort Inspection: normal respiratory effort, able to speak in complete sentences and cough Quality of cough: wet (nonproductive in office today) Auscultation: Bilateral: Clear to Auscultation Cardio Palpation: normal PMI Rate: tachycardic Rhythm: regular rhythm Heart Sounds: S1 normal, S2 normal, no gallops, no murmurs and no rubs Pulses: radial pulses present Skin General: no rashes or lesions noted Neuro General: patient al (more content not included)... Normal [facility] CNNURSEon 07-15-2024 [facility] Nurse Visit (OBGYWM) EUNICE MUNOZ ([id number]) 1975 F [facility] Date Time Provider Department 07/15/24 10:00 AM NURSE COAL EQUIPMENT OPERATOR [facility] During your visit today, we recorded the following information about you: Blood pressure Weight 108/74 80.3 kg Nancy Sethi, RN 07/15/2024 10:08 AM Signed Patient identified by name and date of . Eunice Munoz is here for a Depo Provera injection. Patient brought medication. Date last injected: 04/08/24 negative UPT Depo-Provera, 150 mg, administered IM left upper quadrant gluteus, Lot # [id number], expiration date 11/21/2027. Depo-Provera was given without incident. Date of last menses: Patient's last menstrual period was 09/10/2021. Irregular bleeding - No Menses ceased - Yes Patient instructed to return to clinic on 12 weeks +/- 5 days. [email or web address] Provider Ivet Velazquez CNM was present in office at time of injection. Nancy Sethi RN Referring Provider: SELF [[id number]] Allergies As of Date: 07/15/2024 (No Known Allergies) Date Reviewed: 07/14/2024 Reviewed by: Mireya Sorenson MA - Fully Assessed Reason for Visit: Depo Provera Injection [1655] Primary Visit Diagnosis:Depo-Provera contraceptive status [Z30.42] Other Visit Diagnosis:Encounter for management and injection of depo-Provera [Z30.42] Order(s):UA DIP,URINE HCG (POC) [4746905] Order #: [id number]. #:[id number] -LAB Prescriptions as of 07/15/2024 - metroNIDAZOLE 0.75 % cream - doxycycline monohydrate 100 mg tablet Take 1 tablet by mouth two times a day for 7 days. - Vuqhrxhkacvcfas-Qewvxifnt-P M (BROMFED DM) 2-30-10 mg/5 mL syrup Take 5 mL by mouth four times a day as needed. - medroxyPROGESTERone (DEPO-PROVERA) 150 mg/mL Inject 1 mL intramuscularly every 12 weeks. - busPIRone (BUSPAR) 5 mg tablet - NURTEC ODT 75 mg disintegrating tablet - fluticasone (FLONASE) 50 mcg/actuation nasal spray Use 2 Sprays in each nostril once daily. Rinse mouth after use. Problem List As Of Date 07/15/2024 Noted Resolved Mixed anxiety depressive disorder [F41.8] 11/29/2022 Diagnosed: 10/17/2023 Scoliosis [M41.9] 04/18/2023 Diagnosed: 10/17/2023 Disposition: Return in 12 weeks (on 10/07/2024). Follow-up and Disposition History for Encounter Date Provider Department Center 07/15/2024 [id number]-MOEFO COAL EQUIPMENT OPERATOR [facility] *OBGYWM Vladislav Chinchilla Encounter Status:Closed by NANCY SETHI on 07/15/24 Normal [facility] UA DIP,URINE HCG (POC)on Beta HCG ( test) Ql (U) Negative Negative [facility] Comment on above: Location:[facility], [address], [place], [address] Form Grader Operator (POCT) Internal QC [facility] Location:[facility], [address], [place], [address] [facility] POINT OF CARE [facility] CNOVon 07-14-2024 CNOV Office Visit (UCWSTR ) EUNICE MUNOZ ([id number]) 1975 [facility] Date Time Provider Department 07/14/24 11:[address] [facility] During your visit today, we recorded the following information about you: Temperature Pulse Respiration Blood pressure 99.4 degrees 72/minute 18/minute 121/71 Weight 80.9 kg Essie Bearden APRN.PETROPHYSICAL ENGINEER 07/14/2024 12:33 PM Signed Subjective Cough Associated symptoms include chest pain (burning pain with cough) and shortness of breath. Pertinent negatives include no chills, no ear pain and no sore throat. Eunice Munoz is a 49 year old female who presents with cough, sinus and chest congestion for the past 4 days. In the past couple days cough is worse, she is having chills and she feels short of breath with activity. Feels a burning pain in her chest with the cough. She has been taking OTC cough syrup and dayquil and tessalon perles at home. None of these have helped with the cough. Cough seems worse at night. Review of Systems Constitutional: Negative for chills and fever. HENT: Positive for congestion. Negative for ear pain and sore throat. Respiratory: Positive for cough and shortness of breath. Cardiovascular: Positive for chest pain (burning pain with cough). Musculoskeletal: Negative. BP 121/71 Pulse 72 Temp 37.4 ?C (99.4 ?F) Resp 18 Wt 80.9 kg (178 lb 5.6 oz) LMP 09/10/2021 SpO2 99% BMI 33.42 kg/m? PAST MEDICAL HISTORY Diagnosis Date Migraine Scoliosis PAST SURGICAL HISTORY Procedure Laterality Date SECTION HX 2010 COLONOSCOPY 10/19/2022 repeat in 10 years FOOT SURGERY HX Bilateral 2002 bunion FOOT SURGERY HX Right 2020 INCISION OF PYLORIC MUSCLE 1976 TONSILLECTOMY HX ALLERGIES Patient has no known allergies. MEDICATIONS metroNIDAZOLE 0.75 % creamDisp: Rfl: medroxyPROGESTERone (DEPO-PROVERA) 150 mg/mLInject 1 mL intramuscularly every 12 weeks.Disp: 1 EachRfl: 3 NURTEC ODT 75 mg disintegrating tabletDisp: Rfl: doxycycline monohydrate 100 mg tabletTake 1 tablet by mouth two times a day for 7 days.Disp: 14 tabletRfl: 0 Tgifqxioaabqxal-Fsngsbhei-Z M (BROMFED DM) 2-30-10 mg/5 mL syrupTake 5 mL by mouth four times a day as needed.Disp: 118 mLRfl: 0 busPIRone (BUSPAR) 5 mg tabletDisp: Rfl: (Patient not taking: Reported on 07/14/2024) fluticasone (FLONASE) 50 mcg/actuation nasal sprayUse 2 Sprays in each nostril once daily. Rinse mouth after use.Disp: 1 EachRfl: 0 (Patient not taking: Reported on 07/14/2024) FAMILY HISTORY Problem Relation Age of Onset other (osteoarthritis) Mother other (diverticulitis) Mother Prostate Cancer Father and skin No Known Problems Sister No Known Problems Sister No Known Problems Sister No Known Problems Brother No Known Problems Brother Social History Tobacco Use Smoking status: Never Passive exposure: Never Smokeless tobacco: Never Vaping Use Vaping status: Never Used Substance Use Topics Alcohol use: Yes Comment: rare Drug use: Never Objective Physical Exam Vitals and nursing note reviewed. Constitutional: Appearance: Normal appearance. HENT: Right Ear: Tympanic membrane, ear canal and external ear normal. Left Ear: Tympanic membrane, ear canal and external ear normal. Nose: Congestion present. Mouth/Throat: Mouth: Mucous membranes are moist. Pharynx: Oropharynx is clear. Uvula midline. No oropharyngeal exudate or posterior oropharyngeal erythema. Cardiovascular: Rate and Rhythm: Normal rate and regular rhythm. Heart sounds: Normal heart sounds. Pulmonary: Effort: Pulmonary effort is normal. No respiratory distress. Breath sounds: No wheezing or rales. Comments: Right lower lobe with fine crackles Musculoskeletal: Cervical back: Neck supple. Lymphadenopathy: Cervical: No cervical adenopathy. Skin: General: Skin is warm and dry. Findings: No erythema or rash. Neurological: Mental Status: She is alert. ASSESSMENT/PLAN: 1. Viral URI with cough - ICD9: 465.9, ICD10: J06.9 (primary diagnosis) - Discussed viral etiology and rationale for treatment. - Symptomatic treatment with prn analgesia - Supportive care with fluids and rest - COVID AND INFLUENZA A/B AND RSV PCR, ROUTINE - BROMPHENIRAMINE-PSEUDOEPHED RINE-DM 2 MG-30 MG-10 MG/5 ML ORAL SYRUP 2. Lower resp. tract infection - ICD9: 519.8, ICD10: J22 - DOXYCYCLINE MONOHYDRATE 100 MG TABLET - Follow-up with your PCP in 3-5 days if symptoms have not improved or sooner if symptoms worsen - Discussed red flags and need for immediate medical evaluation if any occur. - Discussed supportive care treatment with fluids, rest and analgesia. - Discussed expected course of illness Essie Bearden APRN.Essie Colindres APRN.ANA PAULA 07/14/2024 12:33 PM Signed ASSESSMENT/PLAN: 1. Viral URI with cough - ICD9: 465.9, ICD10: J06.9 (primar (more content not included)... Normal [facility] COVID AND INFLUENZA A/B AND RSV PCR, ROUTINEon 07-14-2024 SARS-CoV-2 (COVID-19) RNA TZE+probe Ql (Unsp spec) SARS-COV-2 (AGENT OF COVID-19) RNA: Not detected INFLUENZA A RNA: Not detected INFLUENZA B RNA: Not detected RESPIRATORY SYNCYTIAL VIRUS (RSV) RNA: Not detected Normal [facility] Comment on above: Performed By: #### C VFLRS ####[facility] LABCLIA [id number] [place] [address] [place] UA DIP,URINE HCG (POC)on Beta HCG ( test) Ql (U) Negative Negative [facility] Comment on above: Location:[facility], [address] [place] [address], [place], [address] Form Grader Operator (POCT) Internal QC [facility] Location:[facility], [facility] [address], [place], [place], [id number] [place] [address] POINT OF CARE [facility] UA DIP,URINE HCG (POC)on Beta HCG ( test) Ql (U) Negative Negative [facility] Form Grader Operator (POCT) Internal QC [facility] Absolute lymphocyte countOrd ered By: Dr. Waters on 01-16-2023 Lymphocytes Auto (Unsp spec) [#/Vol] 2.28 10*3/uL 0.83-4.51 [facility] Basophil percentageOrdered B y: Dr. Waters on 01-16-2023 Basophils/100 WBC (Bld) 0.5 % 0-1 [facility] Chloride [Moles/Vol] 108 mmol/L 98-107 [facility] Eosinophils/100 WBC (Bld) 2.2 % 0-5 [facility] Glucose [Mass/Vol] 101 mg/dL 74-106 [facility] Comment on above: Fasting Glucose resu lt from 100 to 125 mg/dL suggests IMPAIRED HOMEOSTASIS per A.D.A. criteria. Neutrophils (Bld) [#/Vol] 3.0 10*3/uL 2.0-7.7 [facility] Neutrophils/100 WBC (Bld) 50.7 % 47-70 [facility] Potassium [Moles/Vol] 3.7 mmol/L 3.5-5.1 [facility] Sodium [Moles/Vol] 139 mmol/L 136-145 [facility] WBC (Bld) [#/Vol] 6.0 10*3/uL 4.4-11.0 [facility] Blood erythrocytes count (nu mber/volume)Ordered By: Dr. Waters on 01-16-2023 RBC (Bld) [#/Vol] 4.75 10*6/uL 4.2-5.4 [facility] Blood hemoglobin measurement (mass/volume)Ordered By: Dr. Waters on 01-16-2023 Hemoglobin (Bld) [Mass/Vol] 14.2 g/dL 12.0-15.0 [facility] Blood lymphocytes/100 leukoc ytesOrdered By: Dr. Waters on 01-16-2023 Lymphocytes/100 WBC (Bld) 38.1 % 19-41 [facility] Blood monocytes/100 leukocyt esOrdered By: Dr. Waters on 01-16-2023 Monocytes/100 WBC (Bld) 8.2 % 0-10 [facility] Blood platelet mean volumeOr dered By: Dr. Waters on 01-16-2023 Platelet mean volume (Bld) [Entitic vol] 11.0 fL 6.2-12.0 [facility] Determination of erythrocyte mean corpuscular volume (MCV)Ordered By: Dr. Waters on 01-16-2023 MCV (RBC) [Entitic vol] 86.9 fL 81-99 [facility] Hematocrit Auto (Bld) [Volum e fraction]Ordered By: Dr. Waters on 01-16-2023 Hematocrit (Bld) [Volume fraction] 41.3 % 37-47 [facility] Laboratory - Chemistry and C hemistry - challengeOrdered By: Dr. Waters on 01-16-2023 CO2 [Moles/Vol] 25.0 mmol/L 21.0-32.0 [facility] Urea nitrogen/Creatinine [Mass ratio] 13.3 mg/mg 10-20 [facility] Laboratory - Hematology and Cell countsOrdered By: Dr. Waters on 01-16-2023 Erythrocyte distribution width (RBC) [Entitic vol] 38.7 fL 35.1-43.9 [facility] Erythrocyte distribution width (RBC) [Ratio] 12.1 % 11.6-14.6 [facility] Immature granulocytes/100 WBC (Bld) 0.300 % 0.0-0.9 [facility] Comment on above: IG% - Immature Granu locytes (promyelocytes, myelocytes and metamyelocytes) > 1% indicates that a LEFT SHIFT is Present. MCH (RBC) [Entitic mass] 29.9 pg 27.0-32.0 [facility] Nucleated RBC/100 WBC (Bld) [Ratio] 0 % 0-5 [facility] MCHC Auto (RBC) [Mass/Vol]Or dered By: Dr. Waters on 01-16-2023 MCHC (RBC) [Mass/Vol] 34.4 g/dL 32-36 [facility] No Panel InformationOrdered By: Dr. Waters on 01-16-2023 Estimated Creatinine Clearance Calc 55.97 ml/min [facility] Estimated GFR (MDRD) Amer 73 mL/min >60 [facility] Comment on above: GFR Calc Estimated GFR (MDRD) Non-Af Amer 60 mL/min >60 [facility] Comment on above: Non- GFR Calc Troponin I High Sensitivity 4 pg/mL 3.0-54.0 [facility] Comment on above: Please Note: New [place] t Units and Gender Specific Reference Ranges. For more information see Policy Stat Procedure [place] High Sensitivity Troponin (TNIH) and attachments. Platelets bldOrdered By: Dr. Waters on 01-16-2023 Platelets (Bld) [#/Vol] 253 10*3/uL 150-450 [facility] Serum or plasma calcium robbie urement (mass/volume)Ordered By: Dr. Waters on 01-16-2023 Calcium [Mass/Vol] 9.6 mg/dL 8.5-10.1 [facility] Serum or plasma creatinine m easurement (mass/volume)Ordered By: Dr. Waters on 01-16-2023 Creatinine [Mass/Vol] 1.05 mg/dL 0.55-1.02 [facility] Comment on above: The validity of the calculated GFR & GFRAA in patients over 70 years has not been determined. Clinical correlation is essential. Serum or plasma urea nitroge n measurement (mass/volume)Ordered By: Dr. Waters on 01-16-2023 Urea nitrogen [Mass/Vol] 14 mg/dL 7-18 [facility] Thin prep Papanicolaou smear with manual screeningOrdered By: Dr. Waters on 01-16-2023 Thin prep Papanicolaou smear with manual screening 6 5-15 [facility] HCG QUAL UR B/Oon 12-26-2022 status Negative neg - pos [facility] Quality Check Yes [facility] Absolute lymphocyte countOrd ered By: Vi Gagnon on 11-29-2022 Lymphocytes Auto (Unsp spec) [#/Vol] 2.04 10*3/uL 0.83-4.51 [facility] Basophil percentageOrdered B y: Vi Chelsi on 11-29-2022 Basophils/100 WBC (Bld) 0.5 % 0-1 [facility] Bilirubin [Mass/Vol] 0.40 mg/dL 0.20-1.00 [facility] Comment on above: For patients on eltr ombopag therapy, use of Dimension [place] TBIL is not recommended. Chloride [Moles/Vol] 107 mmol/L 98-107 [facility] Cholesterol [Mass/Vol] 158 mg/dL <200 [facility] Comment on above: <200 mg/dL Desirable 200-240 mg/dL Borderline >240 mg/dL High Risk Eosinophils/100 WBC (Bld) 2.0 % 0-5 [facility] Glucose [Mass/Vol] 92 mg/dL 74-106 [facility] Neutrophils (Bld) [#/Vol] 3.4 10*3/uL 2.0-7.7 [facility] Neutrophils/100 WBC (Bld) 56.4 % 47-70 [facility] Potassium [Moles/Vol] 4.1 mmol/L 3.5-5.1 [facility] Protein [Mass/Vol] 7.2 g/dL 6.4-8.2 [facility] Sodium [Moles/Vol] 139 mmol/L 136-145 [facility] Triglyceride [Mass/Vol] 88 mg/dL <199 [facility] Comment on above: The drugs N-Acetylcy steine and Metamizole may falsely depress this assay.Serum Triglycerides Reference Interval Normal <150 mg/dL Borderline high 150 - 199 mg/dL High 200 - 499 mg/dL Very High > or = 500 mg/dL WBC (Bld) [#/Vol] 6.1 10*3/uL 4.4-11.0 [facility] Blood erythrocytes count (nu mber/volume)Ordered By: Vi Gagnon on 11-29-2022 RBC (Bld) [#/Vol] 4.78 10*6/uL 4.2-5.4 [facility] Blood hemoglobin measurement (mass/volume)Ordered By: Vi Gagnon on 11-29-2022 Hemoglobin (Bld) [Mass/Vol] 14.1 g/dL 12.0-15.0 [facility] Blood lymphocytes/100 leukoc ytesOrdered By: Vi Gagnon on 11-29-2022 Lymphocytes/100 WBC (Bld) 33.7 % 19-41 [facility] Blood monocytes/100 leukocyt esOrdered By: Vi Gagnon on 11-29-2022 Monocytes/100 WBC (Bld) 7.1 % 0-10 [facility] Blood platelet mean volumeOr dered By: Vi Gagnon on 11-29-2022 Platelet mean volume (Bld) [Entitic vol] 12.1 fL 6.2-12.0 [facility] Determination of erythrocyte mean corpuscular volume (MCV)Ordered By: Vi Gagnon on 11-29-2022 MCV (RBC) [Entitic vol] 89.3 fL 81-99 [facility] Hematocrit Auto (Bld) [Volum e fraction]Ordered By: Vi Gagnon on 11-29-2022 Hematocrit (Bld) [Volume fraction] 42.7 % 37-47 [facility] Laboratory - Chemistry and C hemistry - challengeOrdered By: Vi Gagnon on 11-29-2022 ALP [Catalytic activity/Vol] 70 U/L 45-117 [facility] ALT [Catalytic activity/Vol] 53 U/L 13-56 [facility] CO2 [Moles/Vol] 27.0 mmol/L 21.0-32.0 [facility] Globulin (S) [Mass/Vol] 3.2 g/dL 2.2-4.2 [facility] Urea nitrogen/Creatinine [Mass ratio] 16.3 mg/mg 10-20 [facility] Laboratory - Hematology and Cell countsOrdered By: Vi Gagnon on 11-29-2022 Erythrocyte distribution width (RBC) [Entitic vol] 40.4 fL 35.1-43.9 [facility] Erythrocyte distribution width (RBC) [Ratio] 12.2 % 11.6-14.6 [facility] Immature granulocytes/100 WBC (Bld) 0.300 % 0.0-0.9 [facility] Comment on above: IG% - Immature Granu locytes (promyelocytes, myelocytes and metamyelocytes) > 1% indicates that a LEFT SHIFT is Present. MCH (RBC) [Entitic mass] 29.5 pg 27.0-32.0 [facility] Nucleated RBC/100 WBC (Bld) [Ratio] 0 % 0-5 [facility] MCHC Auto (RBC) [Mass/Vol]Or dered By: Vi Gagnon on 11-29-2022 MCHC (RBC) [Mass/Vol] 33.0 g/dL 32-36 [facility] No Panel InformationOrdered By: Vi Gagnon on 11-29-2022 Estimated GFR (MDRD) Amer 78 mL/min >60 [facility] Comment on above: GFR Calc Estimated GFR (MDRD) Non-Af Amer 65 mL/min >60 [facility] Comment on above: Non- GFR Calc Thyroid Stimulating Hormone (TSH) 1.69 uIU/mL 0.358-3.74 [facility] Platelets bldOrdered By: Rebeca Gagnon on 11-29-2022 Platelets (Bld) [#/Vol] 249 10*3/uL 150-450 [facility] Serum or plasma albumin robbie urement (mass/volume)Ordered By: Vi Gagnon on 11-29-2022 Albumin [Mass/Vol] 4.0 g/dL 3.2-5.0 [facility] Serum or plasma albumin/glob ulin mass ratioOrdered By: Vi Gagnon on 11-29-2022 Albumin/Globulin [Mass ratio] 1.2 {ratio} 0.9-2.4 [facility] Serum or plasma calcium robbie urement (mass/volume)Ordered By: Vi Gagnon on 11-29-2022 Calcium [Mass/Vol] 9.2 mg/dL 8.5-10.1 [facility] Serum or plasma cholesterol in HDL measurement (mass/volume)Ordered By: Vi Gagnon on 11-29-2022 Cholesterol in HDL [Mass/Vol] 34 mg/dL >40 [facility] Comment on above: The drugs N-Acetylcy steine and Metamizole may falsely depress this assay. Reference Range HDL <40 mg/dL Low HDL Cholesterol HDL >or= 60 mg/dL High HDL Cholesterol Serum or plasma cholesterol in VLDL measurement (mass/volume)Ordered By: Vi Gagnon on 11-29-2022 Cholesterol in VLDL [Mass/Vol] 18 mg/dL 5-40 [facility] Serum or plasma creatinine m easurement (mass/volume)Ordered By: Vi Gagnon on 11-29-2022 Creatinine [Mass/Vol] 0.98 mg/dL 0.55-1.02 [facility] Comment on above: The validity of the calculated GFR & GFRAA in patients over 70 years has not been determined. Clinical correlation is essential. Serum or plasma low density lipoprotein (LDL) cholesterol measurement (mass/volume)Ordered By: Vi Gagnon on 11-29-2022 Cholesterol in LDL [Mass/Vol] 106 mg/dL 0-130 [facility] Serum or plasma urea nitroge n measurement (mass/volume)Ordered By: Vi Gagnon on 11-29-2022 Urea nitrogen [Mass/Vol] 16 mg/dL 7-18 [facility] Thin prep Papanicolaou smear with manual screeningOrdered By: Vi Gagnon on 11-29-2022 Thin prep Papanicolaou smear with manual screening 26 U/L 15-37 [facility] Thin prep Papanicolaou smear with manual screening 5 5-15 [facility] COLONOSCOPY SCREENINGon 09-22 [facility] Laboratory - Microbiology an d Antimicrobial susceptibilityon 10-03-2022 SARS-CoV-2 (COVID-19) RNA TEZ+probe Ql (Unsp spec) Not detected [facility] XR FOOT GENERAL 3V AP/LAT/OB L RIGHTon 08-31-2022 [facility] Vital Signs Date Time Vital Sign Value Performing Clinician Facility 05-26-2025 08:30-0500 Body height 157.48 cm Sonny BAZZI Work Phone: [facility] 05-26-2025 08:30-0500 Body mass index (BMI) [Ratio] 31.8 kg/m2 Sonny Wayt PA Work Phone: [facility] 05-26-2025 08:30-0500 Body temperature 97.9 [degF] Sonny Wayt PA Work Phone: [facility] 05-26-2025 08:30-0500 Body weight 78.92 kg Sonny Wayt PA Work Phone: [facility] 05-26-2025 08:30-0500 Diastolic blood pressure 80 mm[Hg] Sonny Wayt PA Work Phone: [facility] 05-26-2025 08:30-0500 Heart rate 74 /min Sonny Wayt PA Work Phone: [facility] 05-26-2025 08:30-0500 Respiratory rate 16 /min Sonny Wayt PA Work Phone: [facility] 05-26-2025 08:30-0500 SaO2% (BldA) [Mass fraction] 98 % Sonny Wayt PA Work Phone: [facility] 05-26-2025 08:30-0500 Systolic blood pressure 125 mm[Hg] Sonny Wayt PA Work Phone: [facility] 05-11-2025 18:41-0400 Body temperature 97 [degF] Sonny Wayt PA Work Phone: [facility] 05-11-2025 18:41-0400 Diastolic blood pressure 80 mm[Hg] Sonny Wayt PA Work Phone: [facility] 05-11-2025 18:41-0400 Heart rate 74 /min Sonny Wayt PA Work Phone: [facility] 05-11-2025 18:41-0400 Respiratory rate 14 /min Sonny Wayt PA Work Phone: [facility] 05-11-2025 18:41-0400 SaO2% (BldA) [Mass fraction] 97 % Sonny Wayt PA Work Phone: [facility] 05-11-2025 18:41-0400 Systolic blood pressure 119 mm[Hg] Sonny Horvatht PA Work Phone: [facility] 05-11-2025 15:53-0400 Body mass index (BMI) [Ratio] 31.8 kg/m2 Sonny Wayt PA Work Phone: [facility] 05-11-2025 15:53-0400 Body weight 79.06 kg Sonny Wayt PA Work Phone: [facility] 04-08-2025 15:04-0400 Body mass index (BMI) [Ratio] 32.15 kg/m2 Nurse Wstr Work Phone: [facility] 04-08-2025 15:04-0400 Body weight 78.74 kg Nurse Wstr Work Phone: [facility] 04-08-2025 15:04-0400 Diastolic blood pressure 80 mm[Hg] Nurse Wstr Work Phone: [facility] 04-08-2025 15:04-0400 Systolic blood pressure 108 mm[Hg] Nurse Wstr Work Phone: [facility] 03-14-2025 15:47-0400 Body height 157.48 cm Sonny Wayt PA Work Phone: [facility] 03-14-2025 15:47-0400 Body mass index (BMI) [Ratio] 32.1 kg/m2 Sonny Horvatht PA Work Phone: [facility] 03-14-2025 15:47-0400 Body temperature 98.1 [degF] Sonny Wayt PA Work Phone: [facility] 03-14-2025 15:47-0400 Body weight 79.83 kg Sonny Wayt PA Work Phone: [facility] 03-14-2025 15:47-0400 Diastolic blood pressure 72 mm[Hg] Sonny Horvatht PA Work Phone: [facility] 03-14-2025 15:47-0400 Heart rate 67 /min Sonny Murrieta PA Work Phone: [facility] 03-14-2025 15:47-0400 SaO2% (BldA) [Mass fraction] 97 % Sonny Murrieta PA Work Phone: [facility] 03-14-2025 15:47-0400 Systolic blood pressure 110 mm[Hg] Sonny Murrieta PA Work Phone: [facility] 01-17-2025 15:31-0400 Body height 156.5 cm Lurdes Koyuk INDUSTRIAL MAINTENANCE MECHANIC.PETROPHYSICAL ENGINEER Work Phone: [facility] 01-17-2025 15:31-0400 Body mass index (BMI) [Ratio] 32.3 kg/m2 Lurdes Zenobia INDUSTRIAL MAINTENANCE MECHANIC.PETROPHYSICAL ENGINEER Work Phone: [facility] 01-17-2025 15:31-0400 Body weight 79.11 kg Lurdes Koyuk INDUSTRIAL MAINTENANCE MECHANIC.PETROPHYSICAL ENGINEER Work Phone: [facility] 01-17-2025 15:31-0400 Diastolic blood pressure 64 mm[Hg] Lurdes Koyuk INDUSTRIAL MAINTENANCE MECHANIC.PETROPHYSICAL ENGINEER Work Phone: [facility] 01-17-2025 15:31-0400 Systolic blood pressure 116 mm[Hg] Lurdes Zenobia INDUSTRIAL MAINTENANCE MECHANIC.PETROPHYSICAL ENGINEER Work Phone: [facility] 01-09-2025 08:51-0400 Body mass index (BMI) [Ratio] 32.8 kg/m2 Nurse Wstr Work Phone: [facility] 01-09-2025 08:51-0400 Body weight 79.38 kg Nurse Wstr Work Phone: [facility] 01-09-2025 08:51-0400 Diastolic blood pressure 76 mm[Hg] Nurse Wstr Work Phone: [facility] 01-09-2025 08:51-0400 Systolic blood pressure 108 mm[Hg] Nurse Wstr Work Phone: [facility] 10-18-2024 09:18-0400 Body mass index (BMI) [Ratio] 32.23 kg/m2 Nurse Wstr Work Phone: [facility] 10-18-2024 09:18-0400 Body weight 78.02 kg Nurse Wstr Work Phone: [facility] 10-18-2024 09:18-0400 Diastolic blood pressure 76 mm[Hg] Nurse Wstr Work Phone: [facility] 10-18-2024 09:18-0400 Systolic blood pressure 122 mm[Hg] Nurse Wstr Work Phone: [facility] 07-15-2024 09:53-0500 Body mass index (BMI) [Ratio] 33.17 kg/m2 Nurse Wstr Work Phone: [facility] 07-15-2024 09:53-0500 Body weight 80.29 kg Nurse Wstr Work Phone: [facility] 07-15-2024 09:53-0500 Diastolic blood pressure 74 mm[Hg] Nurse Wstr Work Phone: [facility] 07-15-2024 09:53-0500 Systolic blood pressure 108 mm[Hg] Nurse Wstr Work Phone: [facility] 07-14-2024 12:15-0500 Body mass index (BMI) [Ratio] 33.42 kg/m2 Essie Bearden INDUSTRIAL MAINTENANCE MECHANIC.PETROPHYSICAL ENGINEER Work Phone: [facility] 07-14-2024 12:15-0500 Body temperature 99.39 [degF] Essie Praisler-Wood INDUSTRIAL MAINTENANCE MECHANIC.PETROPHYSICAL ENGINEER Work Phone: [facility] 07-14-2024 12:15-0500 Body weight 80.9 kg Essie Praisler-Wood INDUSTRIAL MAINTENANCE MECHANIC.PETROPHYSICAL ENGINEER Work Phone: [facility] 07-14-2024 12:15-0500 Diastolic blood pressure 71 mm[Hg] Essie Praisler-Michael INDUSTRIAL MAINTENANCE MECHANIC.PETROPHYSICAL ENGINEER Work Phone: [facility] 07-14-2024 12:15-0500 Heart rate 72 /min Essie Praluz marina-Michael INDUSTRIAL MAINTENANCE MECHANIC.PETROPHYSICAL ENGINEER Work Phone: [facility] 07-14-2024 12:15-0500 Respiratory rate 18 /min Essiehannah Bearden INDUSTRIAL MAINTENANCE MECHANIC.PETROPHYSICAL ENGINEER Work Phone: [facility] 07-14-2024 12:15-0500 SaO2% (BldA) [Mass fraction] 99 % Essiehannah Meraz-Michael INDUSTRIAL MAINTENANCE MECHANIC.PETROPHYSICAL ENGINEER Work Phone: [facility] 07-14-2024 12:15-0500 Systolic blood pressure 121 mm[Hg] Essiehannah Bearden INDUSTRIAL MAINTENANCE MECHANIC.PETROPHYSICAL ENGINEER Work Phone: [facility] 04-08-2024 15:55-0400 Body mass index (BMI) [Ratio] 32.61 kg/m2 Nurse Wstr Work Phone: [facility] 04-08-2024 15:55-0400 Body weight 78.93 kg Nurse Wstr Work Phone: [facility] 04-08-2024 15:55-0400 Diastolic blood pressure 70 mm[Hg] Nurse Wstr Work Phone: [facility] 04-08-2024 15:55-0400 Systolic blood pressure 105 mm[Hg] Nurse Wstr Work Phone: [facility] 01-05-2024 09:32-0400 Body mass index (BMI) [Ratio] 33.55 kg/m2 Nurse Wstr Work Phone: [facility] 01-05-2024 09:32-0400 Body weight 81.19 kg Nurse Wstr Work Phone: [facility] 01-05-2024 09:32-0400 Diastolic blood pressure 70 mm[Hg] Nurse Wstr Work Phone: [facility] 01-05-2024 09:32-0400 Systolic blood pressure 98 mm[Hg] Nurse Wstr Work Phone: [facility] 10-18-2023 19:11-0400 Body temperature 98.1 [degF] NINO Gagnon NP Work Phone: [facility] 10-18-2023 19:11-0400 Diastolic blood pressure 70 mm[Hg] PROFESSOR OF INDUSTRIAL TECHNOLOGY-C Vi Gagnon PROFESSOR OF INDUSTRIAL TECHNOLOGY Work Phone: [facility] 10-18-2023 19:11-0400 Heart rate 65 /min PROFESSOR OF INDUSTRIAL TECHNOLOGY-C Vi Gagnon PROFESSOR OF INDUSTRIAL TECHNOLOGY Work Phone: [facility] 10-18-2023 19:11-0400 Respiratory rate 16 /min PROFESSOR OF INDUSTRIAL TECHNOLOGY-C Vi Gagnon PROFESSOR OF INDUSTRIAL TECHNOLOGY Work Phone: [facility] 10-18-2023 19:11-0400 SaO2% (BldA) [Mass fraction] 99 % PROFESSOR OF INDUSTRIAL TECHNOLOGY-C Vi Gagnon PROFESSOR OF INDUSTRIAL TECHNOLOGY Work Phone: [facility] 10-18-2023 19:11-0400 Systolic blood pressure 120 mm[Hg] PROFESSOR OF INDUSTRIAL TECHNOLOGY-C Vi Gagnon PROFESSOR OF INDUSTRIAL TECHNOLOGY Work Phone: [facility] 10-18-2023 17:12-0400 Body height 154.94 cm PROFESSOR OF INDUSTRIAL TECHNOLOGY-C Vi Gagnon PROFESSOR OF INDUSTRIAL TECHNOLOGY Work Phone: [facility] 10-18-2023 17:12-0400 Body mass index (BMI) [Ratio] 34.4 kg/m2 PROFESSOR OF INDUSTRIAL TECHNOLOGY-C Vi Gagnon PROFESSOR OF INDUSTRIAL TECHNOLOGY Work Phone: [facility] 10-18-2023 17:12-0400 Body weight 82.72 kg PROFESSOR OF INDUSTRIAL TECHNOLOGY-C Vi Gagnon PROFESSOR OF INDUSTRIAL TECHNOLOGY Work Phone: [facility] 10-17-2023 11:29-0400 Body height 155.6 cm Lurdes Koyuk INDUSTRIAL MAINTENANCE MECHANIC.PETROPHYSICAL ENGINEER Work Phone: [facility] 10-17-2023 11:29-0400 Body weight 82.28 kg Lurdes Zenobia INDUSTRIAL MAINTENANCE MECHANIC.PETROPHYSICAL ENGINEER Work Phone: [facility] 10-17-2023 11:29-0400 Diastolic blood pressure 60 mm[Hg] Lurdes Zenobia INDUSTRIAL MAINTENANCE MECHANIC.PETROPHYSICAL ENGINEER Work Phone: [facility] 10-17-2023 11:29-0400 Systolic blood pressure 90 mm[Hg] Lurdes Zenobia INDUSTRIAL MAINTENANCE MECHANIC.PETROPHYSICAL ENGINEER Work Phone: [facility] 10-11-2023 16:11-0400 Body weight 82.56 kg Nurse Wstr Work Phone: [facility] 10-11-2023 16:11-0400 Diastolic blood pressure 70 mm[Hg] Nurse Wstr Work Phone: [facility] 10-11-2023 16:11-0400 Systolic blood pressure 102 mm[Hg] Nurse Wstr Work Phone: [facility] 10-06-2023 15:25-0400 Body temperature 98 [degF] PROFESSOR OF INDUSTRIAL TECHNOLOGY-C Vi Gagnon PROFESSOR OF INDUSTRIAL TECHNOLOGY Work Phone: [facility] 10-06-2023 15:25-0400 Diastolic blood pressure 68 mm[Hg] PROFESSOR OF INDUSTRIAL TECHNOLOGY-C Vi Gagnon PROFESSOR OF INDUSTRIAL TECHNOLOGY Work Phone: [facility] 10-06-2023 15:25-0400 Heart rate 87 /min PROFESSOR OF INDUSTRIAL TECHNOLOGY-C Vi Gagnon PROFESSOR OF INDUSTRIAL TECHNOLOGY Work Phone: [facility] 10-06-2023 15:25-0400 Respiratory rate 15 /min PROFESSOR OF INDUSTRIAL TECHNOLOGY-C Vi Gagnon PROFESSOR OF INDUSTRIAL TECHNOLOGY Work Phone: [facility] 10-06-2023 15:25-0400 SaO2% (BldA) [Mass fraction] 98 % PROFESSOR OF INDUSTRIAL TECHNOLOGY-C Vi Gagnon PROFESSOR OF INDUSTRIAL TECHNOLOGY Work Phone: [facility] 10-06-2023 15:25-0400 Systolic blood pressure 110 mm[Hg] PROFESSOR OF INDUSTRIAL TECHNOLOGY-C Vi Gagnon PROFESSOR OF INDUSTRIAL TECHNOLOGY Work Phone: [facility] 03-21-2023 09:18-0400 Body weight 81.19 kg Nurse Wstr Work Phone: [facility] 03-21-2023 09:18-0400 Diastolic blood pressure 64 mm[Hg] Nurse Wstr Work Phone: [facility] 03-21-2023 09:18-0400 Systolic blood pressure 102 mm[Hg] Nurse Wstr Work Phone: [facility] 01-16-2023 10:19-0400 Heart rate 83 /min [facility] Work Phone: 1(559)280-791526 [place] [address] 01-16-2023 09:02-0400 SaO2% (BldA) [Mass fraction] 97 % [facility] Work Phone: 7(802)347-382226 [place] [address] 01-16-2023 08:47-0400 Body height 160.02 cm [facility] Work Phone: 9(007)313-915726 [place] [address] 01-16-2023 08:47-0400 Body mass index (BMI) [Ratio] 30.9 kg/m2 [facility] Work Phone: 7(249)103-798526 [place] [address] 01-16-2023 08:47-0400 Body temperature 96.8 [degF] [facility] Work Phone: 4(198)688-157426 [place] [address] 01-16-2023 08:47-0400 Body weight 79.37 kg [facility] Work Phone: 7(826)754-669126 [place] [address] 01-16-2023 08:47-0400 Diastolic blood pressure 71 mm[Hg] [facility] Work Phone: 0(941)192-505726 [place] [address] 01-16-2023 08:47-0400 Respiratory rate 18 /min [facility] Work Phone: 4(687)428-415026 [place] [address] 01-16-2023 08:47-0400 Systolic blood pressure 149 mm[Hg] [facility] Work Phone: 6(370)112-829826 [place] [address] 01-10-2023 15:53-0400 Body mass index (BMI) [Ratio] 31.3 kg/m2 [facility] Work Phone: 2(330)880-674326 [place] [address] 01-10-2023 15:53-0400 Body temperature 98 [degF] [facility] Work Phone: 2(841)273-940326 [place] [address] 01-10-2023 15:53-0400 Body weight 80.28 kg [facility] Work Phone: 3(637)239-996726 [place] [address] 01-10-2023 15:53-0400 Diastolic blood pressure 60 mm[Hg] [facility] Work Phone: 5(779)338-794726 [place] [address] 01-10-2023 15:53-0400 Heart rate 82 /min [facility] Work Phone: 7(027)328-023895 [address] 01-10-2023 15:53-0400 Respiratory rate 16 /min [facility] Work Phone: 9(671)520-111326 [place] [address] 01-10-2023 15:53-0400 SaO2% (BldA) [Mass fraction] 97 % [facility] Work Phone: 7(834)644-256826 [place] [address] 01-10-2023 15:53-0400 Systolic blood pressure 108 mm[Hg] [facility] Work Phone: 3(443)875-861126 [place] [address] 12-26-2022 15:57-0400 Body weight 79.83 kg Nurse Wstr Work Phone: [facility] 12-26-2022 15:57-0400 Diastolic blood pressure 62 mm[Hg] Nurse Wstr Work Phone: [facility] 12-26-2022 15:57-0400 Systolic blood pressure 98 mm[Hg] Nurse Wstr Work Phone: [facility] 11-29-2022 08:51-0400 Body height 160.02 cm [facility] Work Phone: 1(180)127-902626 [place] [address] 11-29-2022 08:51-0400 Body mass index (BMI) [Ratio] 29.4 kg/m2 [facility] Work Phone: 8(958)063-002526 [place] [address] 11-29-2022 08:51-0400 Body temperature 98.8 [degF] [facility] Work Phone: 2(624)314-069226 [place] [address] 11-29-2022 08:51-0400 Body weight 75.29 kg [facility] Work Phone: 6(270)746-471026 [place] [address] 11-29-2022 08:51-0400 Diastolic blood pressure 74 mm[Hg] [facility] Work Phone: 9(931)530-401026 [place] [address] 11-29-2022 08:51-0400 Heart rate 74 /min [facility] Work Phone: 9(435)147-767226 [place] [address] 11-29-2022 08:51-0400 Respiratory rate 12 /min [facility] Work Phone: 0(779)409-796626 [place] [address] 11-29-2022 08:51-0400 SaO2% (BldA) [Mass fraction] 98 % [facility] Work Phone: [facility] 11-29-2022 08:51-0400 Systolic blood pressure 106 mm[Hg] [facility] Work Phone: [facility] 10-19-2022 10:28-0400 Heart rate 63 /min Aaliyah Aguilar MD Work Phone: [facility] 10-19-2022 10:28-0400 Respiratory rate 16 /min Aaliyah Aguilar MD Work Phone: [facility] 10-19-2022 10:28-0400 SaO2% (BldA) [Mass fraction] 100 % Aaliyah Aguilar MD Work Phone: [facility] 10-19-2022 10:18-0400 Diastolic blood pressure 61 mm[Hg] Aaliyah Aguilar MD Work Phone: [facility] 10-19-2022 10:18-0400 Systolic blood pressure 113 mm[Hg] Aaliyah Aguilar MD Work Phone: [facility] 10-19-2022 09:08-0400 Body temperature 97.39 [degF] Aaliyah Aguilar MD Work Phone: [facility] 10-05-2022 11:07-0400 Body temperature 98.6 [degF] Essie Praisler-Wood INDUSTRIAL MAINTENANCE MECHANIC.PETROPHYSICAL ENGINEER Work Phone: [facility] 10-05-2022 11:07-0400 Body weight 77.29 kg Essie Praisler-Wood INDUSTRIAL MAINTENANCE MECHANIC.PETROPHYSICAL ENGINEER Work Phone: [facility] 10-05-2022 11:07-0400 Diastolic blood pressure 64 mm[Hg] Essie Praisler-Wood INDUSTRIAL MAINTENANCE MECHANIC.PETROPHYSICAL ENGINEER Work Phone: [facility] 10-05-2022 11:07-0400 Heart rate 72 /min Essie Praisler-Wood INDUSTRIAL MAINTENANCE MECHANIC.PETROPHYSICAL ENGINEER Work Phone: [facility] 10-05-2022 11:07-0400 Respiratory rate 23 /min Essie Praluz marina-Wood INDUSTRIAL MAINTENANCE MECHANIC.PETROPHYSICAL ENGINEER Work Phone: [facility] 10-05-2022 11:07-0400 SaO2% (BldA) [Mass fraction] 100 % Essie Praisler-Wood INDUSTRIAL MAINTENANCE MECHANIC.PETROPHYSICAL ENGINEER Work Phone: [facility] 10-05-2022 11:07-0400 Systolic blood pressure 98 mm[Hg] Essie Praisler-Wood INDUSTRIAL MAINTENANCE MECHANIC.PETROPHYSICAL ENGINEER Work Phone: [facility] 10-03-2022 08:20-0400 Body temperature 97.6 [degF] [facility] Work Phone: [facility] 10-03-2022 08:20-0400 Diastolic blood pressure 76 mm[Hg] [facility] Work Phone: [facility] 10-03-2022 08:20-0400 Heart rate 71 /min [facility] Work Phone: 0(083)308-684600 [place] [address] 10-03-2022 08:20-0400 Respiratory rate 16 /min [facility] Work Phone: 2(435)230-05[address] [place] [address] 10-03-2022 08:20-0400 SaO2% (BldA) [Mass fraction] 98 % [facility] Work Phone: [facility] 10-03-2022 08:20-0400 Systolic blood pressure 108 mm[Hg] [facility] Work Phone: [facility] 09-15-2022 08:15-0500 Body height 160 cm Aaliyah Aguilar MD Work Phone: [facility] 09-15-2022 08:15-0500 Body temperature 97.9 [degF] Aaliyah Aguilar MD Work Phone: [facility] 09-15-2022 08:15-0500 Body weight 77.29 kg Aaliyah Aguilar MD Work Phone: [facility] 09-15-2022 08:15-0500 Diastolic blood pressure 78 mm[Hg] Aaliyah Aguilar MD Work Phone: [facility] 09-15-2022 08:15-0500 Heart rate 89 /min Aaliyah Aguilar MD Work Phone: [facility] 09-15-2022 08:15-0500 SaO2% (BldA) [Mass fraction] 100 % Aaliyah Aguilar MD Work Phone: [facility] 09-15-2022 08:15-0500 Systolic blood pressure 110 mm[Hg] Aaliyah Aguilar MD Work Phone: [facility] 09-06-2022 08:00-0500 Body height 156.8 cm Lurdes Zenobia INDUSTRIAL MAINTENANCE MECHANIC.PETROPHYSICAL ENGINEER Work Phone: [facility] 09-06-2022 08:00-0500 Body weight 77.47 kg Lurdes Zenobia INDUSTRIAL MAINTENANCE MECHANIC.PETROPHYSICAL ENGINEER Work Phone: [facility] 09-06-2022 08:00-0500 Diastolic blood pressure 70 mm[Hg] Lurdes Koyuk INDUSTRIAL MAINTENANCE MECHANIC.PETROPHYSICAL ENGINEER Work Phone: [facility] 09-06-2022 08:00-0500 Systolic blood pressure 100 mm[Hg] Lurdes Zenobia INDUSTRIAL MAINTENANCE MECHANIC.PETROPHYSICAL ENGINEER Work Phone: [facility] 06-08-2022 14:48-0500 Body weight 74.39 kg Nurse Wstr Work Phone: [facility] 06-08-2022 14:48-0500 Diastolic blood pressure 64 mm[Hg] Nurse Wstr Work Phone: [facility] 06-08-2022 14:48-0500 Systolic blood pressure 108 mm[Hg] Nurse Wstr Work Phone: [facility] 03-23-2022 08:23-0400 Body temperature 98.2 [degF] No Primary Care Physician [facility] Work Phone: 03-23-2022 08:23-0400 Diastolic blood pressure 66 mm[Hg] No Primary Care Physician [facility] Work Phone: 03-23-2022 08:23-0400 Heart rate 74 /min No Primary Care Physician [facility] Work Phone: 03-23-2022 08:23-0400 Respiratory rate 14 /min No Primary Care Physician [facility] Work Phone: 03-23-2022 08:23-0400 SaO2% (BldA) [Mass fraction] 99 % No Primary Care Physician [facility] Work Phone: 03-23-2022 08:23-0400 Systolic blood pressure 118 mm[Hg] No Primary Care Physician [facility] Work Phone: 02-13-2022 10:13-0400 Body temperature 98.29 [degF] Essie Praisler-Wood INDUSTRIAL MAINTENANCE MECHANIC.PETROPHYSICAL ENGINEER Work Phone: [facility] 02-13-2022 10:13-0400 Body weight 74.39 kg Essie Praisler-Wood INDUSTRIAL MAINTENANCE MECHANIC.PETROPHYSICAL ENGINEER Work Phone: [facility] 02-13-2022 10:13-0400 Diastolic blood pressure 80 mm[Hg] Essie Praisler-Wood INDUSTRIAL MAINTENANCE MECHANIC.PETROPHYSICAL ENGINEER Work Phone: [facility] 02-13-2022 10:13-0400 Heart rate 63 /min Essie Praisler-Wood INDUSTRIAL MAINTENANCE MECHANIC.PETROPHYSICAL ENGINEER Work Phone: [facility] 02-13-2022 10:13-0400 Respiratory rate 16 /min Essie Praisler-Wood INDUSTRIAL MAINTENANCE MECHANIC.PETROPHYSICAL ENGINEER Work Phone: [facility] 02-13-2022 10:13-0400 SaO2% (BldA) [Mass fraction] 98 % Essie Praisler-Wood INDUSTRIAL MAINTENANCE MECHANIC.PETROPHYSICAL ENGINEER Work Phone: [facility] 02-13-2022 10:13-0400 Systolic blood pressure 106 mm[Hg] Essie Praisler-Wood INDUSTRIAL MAINTENANCE MECHANIC.PETROPHYSICAL ENGINEER Work Phone: [facility] Encounters Encounter Date Encounter Type Care Provider Facility Start: 06-17-2025 ambulatory Jeramie Fabian Facility :[facility] Start: 05-30-2025 ambulatory Susanne Wren Facility :[facility] Start: 05-26-2025 End: 05-26-2025 ambulatory [facility] Start: 05-16-2025 End: 05-16-2025 ambulatory [facility] Facility:[facility] Start: 05-11-2025 End: 05-11-2025 Emergency department patient visit Dr. Angelito Hatfield MD -Emergency Department Work Phone: Start: 04-22-2025 End: 04-22-2025 Patient encounter procedure Vicente Ross [facility] Work Phone: Start: 04-22-2025 End: 04-22-2025 ambulatory Sonny BAZZI Work Phone: [facility] Start: 04-08-2025 End: 04-08-2025 Nursing evaluation of patient and report Nurse Ladle Puller [facility] Work Phone: OB/Gynecology Comment on above: Encounter for manage ment and injection of depo-Provera (Primary Dx) Start: 04-08-2025 End: 04-08-2025 ambulatory MARKUS MAURER Facility:[facility] Start: 04-04-2025 ambulatory Sonny Murrieta Facility:[facility] Start: 03-14-2025 End: 03-14-2025 Patient encounter procedure Vicente Ross [place] [facility] Work Phone: Start: 03-14-2025 End: 03-14-2025 ambulatory Sonny BAZZI Work Phone: -[facility] Start: 01-28-2025 End: 03-30-2025 Follow-up encounter Romain Duff MD Work Phone: OB/Gynecology Start: 01-23-2025 ambulatory MARKUS MAURER Fa cility:[facility] Start: 01-23-2025 Encounter for gynecological examination (general) (routine) without abnormal findings [facility]US MAURER [facility] Start: 01-23-2025 End: 01-23-2025 Patient encounter status [facility] Start: 01-23-2025 End: 01-23-2025 Subsequent hospital visit by physician Screen Mammo [facility] Mammogram Comment on above: Encounter for gyneco logical examination (general) (routine) without abnormal findings [Z01.419] Start: 01-17-2025 End: 01-17-2025 Patient encounter procedure Lurdes Fregoso KIM.PETROPHYSICAL ENGINEER Work Phone: OB/Gynecology Comment on above: Encounter for gyneco logical examination (general) (routine) without abnormal findings (Primary Dx); Encounter for screening mammogram for breast cancer Start: 01-17-2025 End: 01-17-2025 Patient encounter status Lurdes Fregoso KIM.PETROPHYSICAL ENGINEER Work Phone: [facility] Start: 01-17-2025 End: 01-17-2025 [facility] Facility:[facility] Start: 01-09-2025 End: 01-09-2025 Nursing evaluation of patient and report Nurse Ladle Puller [facility] Work Phone: OB/Gynecology Comment on above: Encounter for survei llance of other contraceptive (Primary Dx) Start: 01-09-2025 End: 01-09-2025 [facility] Facility:[facility] Start: 01-06-2025 End: 01-06-2025 Refill Ashly Berumen APRN.PETROPHYSICAL ENGINEER Work Phone: OB/Gynecology Comment on above: Refill Request Start: 01-03-2025 End: 01-03-2025 Refill Ashly Berumen APRN.PETROPHYSICAL ENGINEER Work Phone: OB/Gynecology Comment on above: Refill Request Start: 11-07-2024 End: 11-07-2024 ambulatory [facility] [place] Facility:[facility] Start: 10-18-2024 End: 10-18-2024 ambulatory [facility] Facility:[facility] Start: 10-18-2024 End: 10-18-2024 Nursing evaluation of patient and report Nurse Ladle Puller [facility] Work Phone: OB/Gynecology Comment on above: Encounter for survei llance of other contraceptive (Primary Dx) Start: 10-16-2024 End: 10-18-2024 Refill Ashly Berumen KIM.PETROPHYSICAL ENGINEER Work Phone: OB/Gynecology Comment on above: Appointment Start: 10-09-2024 End: 10-09-2024 Telephone encounter Lurdes Fregoso APRN.PETROPHYSICAL ENGINEER Work Phone: OB/Gynecology Comment on above: Orders Start: 08-07-2024 End: 08-07-2024 ambulatory Sonny Glenny Facility:[facility] Start: 08-03-2024 End: 08-03-2024 Letter encounter [facility] Start: 07-15-2024 End: 07-15-2024 [facility] Start: 07-15-2024 End: 07-15-2024 Nursing evaluation of patient and report Nurse Ladle Puller [facility] Work Phone: OB/Gynecology Comment on above: Depo-Provera contrac eptive status (Primary Dx); Encounter for management and injection of depo-Provera Start: 07-14-2024 End: 07-14-2024 [facility] Facility:[facility] Start: 07-14-2024 End: 07-14-2024 Patient encounter procedure Essie Bearden APRN.PETROPHYSICAL ENGINEER Work Phone: [facility] Comment on above: Viral URI with cough (Primary Dx); Lower resp. tract infection Start: 04-28-2024 End: 04-28-2024 Letter encounter [facility] Start: 04-08-2024 End: 04-08-2024 Nursing evaluation of patient and report Nurse Ladle Puller [facility] Work Phone: OB/Gynecology Comment on above: Encounter for manage ment and injection of depo-Provera (Primary Dx) Start: 01-10-2024 Patient encounter status Tony ruben Murrieta PA Work Phone: [facility] Start: 01-05-2024 End: 01-05-2024 Nursing evaluation of patient and report Nurse Ladle Puller [facility] Work Phone: OB/Gynecology Comment on above: Encounter for manage ment and injection of depo-Provera (Primary Dx) Start: 10-31-2023 Documentation procedure Mammog leti Coordinator [facility] Start: 10-31-2023 Letter encounter Mammography Coordinator [facility] Department Start: 10-18-2023 End: 10-18-2023 Emergency department patient visit PROFESSOR OF INDUSTRIAL TECHNOLOGY-C Vi Gagnon PROFESSOR OF INDUSTRIAL TECHNOLOGY Work Phone: [facility]-Emergency Department Work Phone: Start: 10-17-2023 End: 10-17-2023 Patient encounter procedure Lurdes Fregoso APRN.PETROPHYSICAL ENGINEER Work Phone: OB/Gynecology Comment on above: Encounter for gyneco logical examination (general) (routine) without abnormal findings (Primary Dx); Encounter for screening mammogram for breast cancer; Dense breast tissue; Encounter for surveillance of injectable contraceptive Start: 10-17-2023 End: 10-17-2023 Patient encounter status Lurdes Fregoso APRN.PETROPHYSICAL ENGINEER Work Phone: [facility] Start: 10-17-2023 End: 10-17-2023 Subsequent hospital visit by physician Screen Mammo [facility] Mammogram Comment on above: Encounter for screen ing mammogram for malignant neoplasm of breast [Z12.31] Start: 10-11-2023 End: 10-11-2023 Nursing evaluation of patient and report Nurse Ladle Puller [facility] Work Phone: OB/Gynecology Comment on above: Encounter for manage ment and injection of depo-Provera (Primary Dx) Start: 10-10-2023 Refill Lurdes Fregoso APRN.PETROPHYSICAL ENGINEER Work Phone: OB/Gynecology Comment on above: Refill Request Start: 10-06-2023 End: 10-06-2023 Patient encounter procedure PROFESSOR OF INDUSTRIAL TECHNOLOGY-C Vi Gagnon PROFESSOR OF INDUSTRIAL TECHNOLOGY Work Phone: [facility] Work Phone: Start: 06-23-2023 End: 06-23-2023 Patient encounter procedure PROFESSOR OF INDUSTRIAL TECHNOLOGY-C Vi Gagnon PROFESSOR OF INDUSTRIAL TECHNOLOGY Work Phone: [facility] Work Phone: Start: 03-21-2023 End: 03-21-2023 Nursing evaluation of patient and report Nurse Ladle Puller [facility] Work Phone: OB/Gynecology Comment on above: Encounter for manage ment and injection of depo-Provera (Primary Dx) Start: 01-16-2023 End: 01-16-2023 Emergency department patient visit [facility] Work Phone: [facility]-Emergency Department Start: 01-10-2023 End: 01-10-2023 Patient encounter procedure [facility] Work Phone: [facility] Start: 12-26-2022 End: 12-26-2022 Nursing evaluation of patient and report Nurse Ladle Puller [facility] Work Phone: OB/Gynecology Comment on above: Depo-Provera contrac eptive status (Primary Dx); Encounter for management and injection of depo-Provera Start: 11-29-2022 End: 11-29-2022 ambulatory [facility] [place] Work Phone: [facility] Work Phone: Start: 11-29-2022 End: 11-29-2022 Patient encounter procedure [facility] Work Phone: [facility]-Laboratory, [facility] Start: 11-29-2022 End: 11-29-2022 Patient encounter procedure [facility] Work Phone: [facility] Start: 11-14-2022 End: 11-14-2022 Patient encounter procedure [facility] Work Phone: [facility] Start: 11-11-2022 End: 11-11-2022 Patient encounter procedure [facility] Work Phone: [facility] Start: 10-24-2022 Letter encounter Blake zuniga Start: 10-19-2022 End: 10-19-2022 Subsequent hospital visit by physician Aaliyah Aguilar MD Work Phone: Ambulatory Surgery Comment on above: Screening for colon cancer [Z12.11] Start: 10-14-2022 End: 10-14-2022 Patient encounter procedure [facility] Work Phone: [facility] Start: 10-12-2022 End: 10-12-2022 Patient encounter procedure [facility] Work Phone: [facility] Start: 10-10-2022 End: 10-10-2022 Patient encounter procedure [facility] Work Phone: [facility] Start: 10-05-2022 End: 10-05-2022 Patient encounter procedure Essie Bearden APRN.PETROPHYSICAL ENGINEER Work Phone: [facility] Comment on above: Other acute nonsuppu rative otitis media of both ears, recurrence not specified (Primary Dx); Viral URI with cough Start: 10-03-2022 End: 10-03-2022 Patient encounter procedure [facility] Work Phone: [facility] Start: 09-15-2022 End: 09-15-2022 Patient encounter procedure Aaliyah Aguilar MD Work Phone: General Surgery Comment on above: Screening for colon cancer (Primary Dx) Start: 09-06-2022 End: 09-06-2022 Patient encounter procedure Lurdes Fregoso APRN.PETROPHYSICAL ENGINEER Work Phone: OB/Gynecology Comment on above: Encounter for gyneco logical examination (general) (routine) without abnormal findings (Primary Dx); Encounter for surveillance of injectable contraceptive; Encounter for screening for malignant neoplasm of colon Start: 09-06-2022 End: 09-06-2022 Patient encounter status Lurdes Fregoso APRN.PETROPHYSICAL ENGINEER Work Phone: OB/Gynecology Start: 08-31-2022 End: 08-31-2022 Subsequent hospital visit by physician Xr [facility] Work Phone: Radiology Comment on above: Ganglion cyst [M67.4 0] Start: 08-31-2022 End: 08-31-2022 Patient encounter procedure Sonny Staton Work Phone: Podiatry Comment on above: Ganglion cyst (Prima ry Dx) Start: 06-08-2022 End: 06-08-2022 Nursing evaluation of patient and report Nurse Ladle Puller [facility] Work Phone: OB/Gynecology Comment on above: Encounter for manage ment and injection of depo-Provera (Primary Dx) Start: 06-02-2022 Telephone encounter Lurdes lindsey INDUSTRIAL MAINTENANCE MECHANIC.PETROPHYSICAL ENGINEER Work Phone: OB/Gynecology Comment on above: Orders Start: 03-30-2022 End: 03-30-2022 ambulatory No Primary Care Physician [facility] Work Phone: Start: 03-30-2022 End: 03-30-2022 Patient encounter procedure No Primary Care Physician [facility]-Outpatient Breast Imaging Start: 03-24-2022 Registered Recurring No Primar y Care Physician [facility] Start: 03-23-2022 End: 03-23-2022 Patient encounter procedure No Primary Care Physician [facility] Start: 03-08-2022 Refill Lurdesluke Fregoso INDUSTRIAL MAINTENANCE MECHANIC.PETROPHYSICAL ENGINEER Work Phone: OB/Gynecology Comment on above: Refill Request Start: 02-13-2022 End: 02-13-2022 Patient encounter procedure Essie Bearden INDUSTRIAL MAINTENANCE MECHANIC.PETROPHYSICAL ENGINEER Work Phone: [facility] Comment on above: Viral illness (Prima ry Dx) Start: 12-22-2021 End: 12-22-2021 Patient encounter procedure No Primary Care Physician [facility] Start: 12-17-2021 ambulatory Jennifer Bhat MA [facility] Mirror Fabrication Supervisor rdinated Care Comment on above: POWER HOUSE ENGINEER - O THER Start: 11-01-2021 ambulatory Zahira Simmons RN [facility] C oordinated Care Comment on above: WEIGHT PROBLEM Start: 10-27-2021 ambulatory Mercedes Jackman MA [facility] Coordinated Care Comment on above: POWER HOUSE ENGINEER - O THER Procedures Date Procedure Procedure Detail Performing Clinician Start: 05-16-2025 Thyroglobulin antibo dy measurement Sonny BAZZI Work Phone: Comment on above: Thyroglobulin Antibo dy measured by [employer] InternationalMethodologyIt should be noted that the presence of thyroglobulinantibodies may not be pathogenic nor diagnostic, especiallyat very low levels. The assay welding machine assembler has found thatfour percent of individuals without evidence of thyroiddisease or autoimmunity will have positive TgAb levels upto 4 IU/mL. Start: 05-16-2025 Total iron binding c apacity measurement Sonny BAZZI Work Phone: Start: 05-16-2025 Vitamin D, 25-hydrox y measurement Sonny BAZZI Work Phone: Comment on above: Vitamin D StatusDefi ciency: <20 ng/mL (50nmol/L)Insufficiency: 20-30 ng/mL (50-75 nmol/L)Sufficiency: 30-100 ng/mL (75-250 nmol/L)Toxicity: >100 ng/mL (>250 nmol/L) Start: 05-11-2025 Radiologic exam knee complete 4/more views Sonny BAZZI Work Phone: Start: 10-18-2024 UA DIP,URINE HCG (POC) Ivet Velazquez APRN.CNM Work Phone: Start: 07-15-2024 UA DIP,URINE HCG (POC) Ivet Velazquez APRN.CNM Work Phone: Start: 04-08-2024 UA DIP,URINE HCG (POC) [facility] Provider Start: 10-11-2023 UA DIP,URINE HCG (POC) [facility] Provider Start: 01-16-2023 Plain chest X-ray [facility] Work Phone: Start: 12-26-2022 Urine test visual color cmprsn sadiq Owen INDUSTRIAL MAINTENANCE MECHANIC.CNM Work Phone: Start: 10-19-2022 Colonoscopy flx dx w /collj spec when pfrmd Aaliyah Aguilar MD Work Phone: Start: 10-19-2022 Colonoscopy Nurse Wstr Work Phone: Start: 08-31-2022 Radex foot complete minimum 3 views Sonny Staton Work Phone: Start: 03-30-2022 Screening mammography N o Primary Care Physician Start: 03-23-2022 X-ray of both feet No P rimary Care Physician Start: 10-15-2021 Lipid 1996 panel - S darius or Plasma Aaliyah Aguilar MD Work Phone: Plan of Treatment Date Care Activity Detail Author Start: 10-19-2032 Colonoscopy COLONOSCOPY [facility] Start: 10-19-2032 COLORECTAL CANCER SCREENING COLORECTAL CANCER SCREENING [facility] Start: 10-19-2032 Screening for malignant neoplasm of colon [facility] Start: 04-21-2032 Urine microalbumin profile DTaP,Tdap,Td Vaccine (3 - Td or Tdap) [facility] Start: 2027 Shingles (RZV) Vaccine (1 of 2) Shingles (RZV) Vaccine (1 of 2) [facility] Start: 10-15-2026 Lipid 1996 panel - Serum or Plasma Lipid Screening [facility] Start: 10-15-2026 Lipid panel Lipid Screening [facility] Start: 10-15-2026 LIPID SCREEN LIPID SCREEN [facility] Start: 09-02-2026 HPV TESTING HPV TESTING [facility] Start: 09-02-2026 PAP TESTING PAP TESTING [facility] Start: 09-02-2026 Screening for malignant neoplasm of cervix [facility] Start: 01-23-2026 Screening for malignant neoplasm of breast Mammogram Screening [facility] Start: 01-20-2026 End: 01-20-2026 Patient encounter procedure 01/20/2026 11:30 AM EDT Office Visit OB/Gynecology [address] [place] [address] Lurdes Fregoso APRN.PETROPHYSICAL ENGINEER [address] [place] [address] Annual OB/Gynecology Comment on above: Annual Start: 07-01-2025 End: 07-01-2025 Nursing evaluation of patient and report 07/01/2025 4:00 PM EST Nurse Visit OB/Gynecology [address] [place] [address] Wstr, Nurse Ladle Puller [facility] [address] [place] [address] Depo OB/Gynecology Comment on above: Depo Start: 05-26-2025 End: 05-26-2025 Patient encounter procedure Change in bowel habits -[facility] Work Phone: Start: 05-16-2025 End: 05-16-2025 Patient encounter procedure Departed Clinical -Laboratory Rosalia Ascencio Start: 05-11-2025 [facility] Start: 04-03-2025 End: 04-03-2025 Nursing evaluation of patient and report 04/03/2025 3:00 PM EDT Nurse Visit OB/Gynecology [address] [address] Wstr, Nurse Ladle Puller [facility] [address] [facility] [place] [address] Depo injection OB/Gynecology Comment on above: Depo injection Start: 03-24-2025 Influenza vaccination [facility] Start: 01-23-2025 End: 01-23-2025 Patient encounter procedure 01/23/2025 9:30 AM EDT Appointment Mammogram [address] [place] [address] Encounter for gynecological examination (general) (routine) without abnormal findings [Z01.419]; Encounter for screening mammogram for breast cancer [Z12.31] Mammogram Comment on above: Encounter for gynecological examination (general) (routine) without abnormal findings [Z01.419]; Encounter for screening mammogram for breast cancer [Z12.31] Start: 01-10-2025 End: 01-10-2025 Patient encounter procedure 01/10/2025 3:00 PM EDT Office Visit OB/Gynecology [address] [place] [address] Lurdes Fregoso APRN.PETROPHYSICAL ENGINEER [address] [place] [address] Annual OB/Gynecology Comment on above: Annual Start: 01-09-2025 End: 01-09-2025 Nursing evaluation of patient and report OB/Gynecology Comment on above: Depo Depo-Pt. needs to sc hedule Annual Exam Start: 10-29-2024 End: 10-29-2024 Patient encounter procedure Mammogram Comment on above: screen annual (R/S from pro vider out on 10/17) Start: 10-17-2024 End: 10-17-2024 Patient encounter procedure Mammogram Comment on above: annual Start: 10-17-2024 End: 10-17-2024 Nursing evaluation of patient and report 10/17/2024 9:00 AM EDT Nurse Visit OB/Gynecology [address] [place] [address] Wstr, Nurse Ladle Puller [facility] [address] [place] [address] Depo OB/Gynecology Comment on above: Depo Start: 10-16-2024 Screening for malignant neoplasm of breast Mammogram Screening [facility] Start: 10-07-2024 End: 10-07-2024 Nursing evaluation of patient and report 10/07/2024 4:00 PM EDT Nurse Visit OB/Gynecology [address] [place] [address] Wstr, Nurse Ladle Puller [facility] [address] [place] [address] Depo OB/Gynecology Comment on above: Depo Start: 07-15-2024 End: 07-15-2024 Nursing evaluation of patient and report 07/15/2024 10:00 AM EST Nurse Visit OB/Gynecology [address] [place] [address] Wstr, Nurse Ladle Puller [facility] [address] [facility] [place] [address] depo OB/Gynecology Comment on above: depo Start: 07-01-2024 End: 07-01-2024 Nursing evaluation of patient and report 07/01/2024 3:00 PM EST Nurse Visit OB/Gynecology [address] [place] [address] Wstr, Nurse Ladle Puller [facility] [address] [facility] [place] [address] depo shot OB/Gynecology Comment on above: depo shot Start: 03-29-2024 End: 03-29-2024 Nursing evaluation of patient and report 03/29/2024 9:00 AM EDT Nurse Visit OB/Gynecology [address] [place] [address] Wstr, Nurse Ladle Puller [facility] [address] [place] [address] Depo OB/Gynecology Comment on above: Depo Start: 03-24-2024 COVID-19 Vaccine ( season) COVID-19 Vaccine ( season) [facility] Start: 03-24-2024 COVID-19 Vaccine ( season) COVID-19 Vaccine ( season) [facility] Start: 03-24-2024 Covid-19 Vaccine ( season) Covid-19 Vaccine () [facility] Start: 03-24-2024 Covid-19 Vaccine ( season) Covid-19 Vaccine ( season) [facility] Start: 03-24-2024 Influenza vaccination Influenza Vaccine (#1) [facility] Start: 10-18-2023 [facility] Start: 07-24-2023 Depression Assessment Depression Assessment [facility] Start: 03-24-2023 Covid-19 Vaccine ( season) Covid-19 Vaccine () [facility] Start: 03-24-2023 Influenza vaccination [facility] Start: 01-16-2023 End: 01-16-2023 [facility] Start: 07-24-2022 DEPRESSION ASSESSMENT DEPRESSION ASSESSMENT [facility] Start: 03-24-2022 Influenza vaccination INFLUENZA (#1) [facility] Start: 02-13-2022 End: 02-27-2022 Influenza virus A and B RNA and SARS-CoV-2 (COVID-19) N gene panel - Respiratory specimen by TEZ with probe detection CAREGIVER COVID + FLU A/B, ROUTINE Microbiology Routine Viral illness Expected: 02/13/2022, Expires: 02/27/[address] [facility] Work Phone: Comment on above: Expected: 02/13/2022, Expires: Start: 2022 Cholesterol [Mass/volume] in Serum or Plasma Cholesterol [facility] Start: 2022 COLOGUARD (FIT-DNA) COLOGUARD (FIT-DNA) [facility] Start: 2022 Colonoscopy COLONOSCOPY [facility] Start: 2022 COLORECTAL CANCER SCREENING COLORECTAL CANCER SCREENING [facility] Start: [address] COLONOGRAPHY [facility] Start: 2022 DIABETES SCREEN DIABETES SCREEN [facility] Start: 2022 Diabetes Screening Diabetes Screening [facility] Start: 2022 FECAL OCCULT BLOOD FECAL OCCULT BLOOD [facility] Start: 2022 Lipid panel Cholesterol [facility] Start: 2022 Screening for malignant neoplasm of colon [facility] Start: 2022 SIGMOIDOSCOPY SIGMOIDOSCOPY [facility] Start: 12-01-2021 COVID-19 VACCINE (3 - Booster for Ananya series) COVID-19 VACCINE (3 - Booster for Ananya series) [facility] Start: 07-24-2021 DEPRESSION ASSESSMENT DEPRESSION ASSESSMENT [facility] Start: 2017 Mammography [facility] Start: 2017 Screening for malignant neoplasm of breast [facility] Start: 1998 Screening for malignant neoplasm of cervix Pap Smear [facility] Start: 01-22-1996 Hepatitis A (HAV) Vaccine (optional start 19+ years) Hepatitis A (HAV) Vaccine (optional start 19+ years) [facility] Start: 01-22-1996 Hepatitis B vaccination Hepatitis B (HBV) Vaccine (1 of 3 - 19+ 3-dose series) [facility] Start: 01-22-1996 Hepatitis B Vaccine (1 of 3 - 19+ 3-dose series) Hepatitis B Vaccine (1 of 3 - 19+ 3-dose series) [facility] Start: 01-22-1996 Tetanus vaccination Tetanus (Td or Tdap) Booster [facility] Start: 01-22-1996 Urine microalbumin profile DTAP,TDAP,TD (1 - Tdap) [facility] Start: 1995 HEPATITIS C SCREENING HEPATITIS C SCREENING [facility] Start: 1995 [facility] Start: 1995 HIV SCREENING HIV SCREENING [facility] Start: 1995 HIV screening HIV Screening [facility] Start: 1995 Tetanus + diphtheria + acellular pertussis vaccine (product) Tdap Booster [facility] Start: 01-22-1992 HIV screening HIV Test [facility] Start: 1989 Adult depression screening assessment DEPRESSION SCREENING [facility] Start: 1977 COVID-19 Vaccine (#1) COVID-19 Vaccine (#1) [facility] Start: 1977 HEPATITIS B (1 of 3 - 3-dose series) HEPATITIS B (1 of 3 - 3-dose series) [facility] Start: 1977 Hepatitis B Vaccine (1 of 3 - 3-dose series) Hepatitis B Vaccine (1 of 3 - 3-dose series) [facility] Start: 1977 Screening for malignant neoplasm of colon Colonoscopy [facility] COVID & INFLUENZA A/ B & RSV PCR, ROUTINE COVID & INFLUENZA A/B & RSV PCR, ROUTINE Microbiology Routine Viral URI with cough Ordered: 07/14/[address] [facility] Work Phone: Comment on above: Ordered: 07/14/2024 End: 11-15-2024 DBT Breast - bilateral screening RYNE SCREENING [facility] Radiology Routine Encounter for screening mammogram for breast cancer Dense breast tissue 1 Occurrences starting 10/17/2023 until 11/15/[address] [facility] Work Phone: Comment on above: 1 Occurrences starting 10/17/2023 until 11/15/2024 DBT Breast - bilater al screening RYNE SCREENING [facility] Radiology Routine Encounter for screening mammogram for malignant neoplasm of breast 10/17/2023 11:20 AM EDT [facility] Work Phone: End: 02-16-2026 DBT Breast - bilateral screening RYNE SCREENING [facility] Radiology Routine Encounter for gynecological examination (general) (routine) without abnormal findings Encounter for screening mammogram for breast cancer 1 Occurrences starting 01/17/2025 until 02/16/[address] [facility] Work Phone: Comment on above: 1 Occurrences starting 01/17/2025 until 02/16/2026 DBT Breast - bilater al screening RYNE SCREENING [facility] Radiology Routine Encounter for gynecological examination (general) (routine) without abnormal findings Encounter for screening mammogram for breast cancer 01/23/2025 10:12 AM EDT [facility] Work Phone: Patient Education [facility] Work Phone: Patient referral [facility] Work Phone: End: 09-15-2023 Screening colonoscopy COLONOSCOPY SCREENING Endoscopy Routine Screening for colon cancer 1 Occurrences starting 09/15/2022 until 09/15/[address] [facility] Work Phone: Comment on above: 1 Occurrences starting 09/15/2022 until 09/15/2023 End: 09-30-2023 XR FOOT GENERAL 3V AP/LAT/OBL RIGHT XR FOOT GENERAL 3V AP/LAT/OBL RIGHT Radiology Routine Ganglion cyst 1 Occurrences starting 08/31/2022 until 09/30/[address] [facility] Work Phone: Comment on above: 1 Occurrences starting 08/31/2022 until 09/30/2023 XR FOOT GENERAL 3V AP/LAT/OBL RIGHT XR FOOT GENERAL 3V AP/LAT/OBL RIGHT Radiology Routine Ganglion cyst 08/31/2022 1:48 PM EST [facility] Work Phone: [facility] Immunizations Immunization Date Immunization Notes Care Provider Shaila beaver 06-23-2023 influenza, injectabl e, quadrivalent, preservative free PROFESSOR OF INDUSTRIAL TECHNOLOGY-C Vi Gagnon PROFESSOR OF INDUSTRIAL TECHNOLOGY Work Phone: [facility] 06-23-2023 influenza virus vaccine, unspecified formulation Nurse [facility]str Work Phone: [facility] 06-10-2022 influenza, injectabl e, quadrivalent, preservative free PROFESSOR OF INDUSTRIAL TECHNOLOGY-C Vi Gagnon PROFESSOR OF INDUSTRIAL TECHNOLOGY Work Phone: [facility] 06-10-2022 influenza, seasonal, injectable [facility] Work Phone: [facility] 06-10-2022 influenza virus vaccine, unspecified formulation Aaliyah Aguilar MD Work Phone: [facility] 04-21-2022 tetanus toxoid, redu eldon diphtheria toxoid, and acellular pertussis vaccine, adsorbed [facility] Work Phone: [facility] 2022 tetanus toxoid, redu eldon diphtheria toxoid, and acellular pertussis vaccine, adsorbed No Primary Care Physician [facility] 10-06-2021 Covid (Pfizer) [facility] Work Phone: [facility] 10-06-2021 COVID-19 vaccine, ag e 12+ yr ([employer] - [facility]) Mercedes Jackman MA [facility] Work Phone: 07-26-2021 influenza, injectabl e, quadrivalent, contains preservative Lurdes Zenobia INDUSTRIAL MAINTENANCE MECHANIC.PETROPHYSICAL ENGINEER Work Phone: [facility] 07-26-2021 influenza, injectabl e, quadrivalent, preservative free PROFESSOR OF INDUSTRIAL TECHNOLOGY-C Vi Gagnon PROFESSOR OF INDUSTRIAL TECHNOLOGY Work Phone: [facility] 07-26-2021 influenza, seasonal, injectable [facility] Work Phone: [facility] 12-08-2020 COVID-19 vaccine (ANANYA) Mercedes Jackman MA [facility] Work Phone: Payers Date Payer Category Payer Unknown [id number] 2024 Self-pay [id number] 2023 Medicaid [id number] 2023 Private Health Insurance [facility] [id number] 2023-Present [phone] [address] [place] [address] PPO [id number] 2021 Private Health Insurance EHP AET NA EHP STAFF/NON STAFF / EHP [facility] [id number] 2021-Present [address] [place] [phone] EPO [id number] 2021 Medicaid [employer] [employer] [employer] [id number] 2021-Present [phone] [address] [place] [address] Medicaid [id number] 2021 Medicaid [id number] Unknown [facility] [id number] Unknown [id number] Unknown [id number] Unknown [id number] Unknown [id number] Unknown [id number] Unknown [id number] Unknown [id number] Unknown [id number] Unknown [id number] Unknown [id number] Social History Date Type Detail Facility Start: 07-24-2021 End: 10-17-2023 Tobacco smoking status NHIS Never smoked tobacco [facility] Start: 07-24-2021 End: 10-17-2023 Tobacco use and exposure Smokeless tobacco non-user [facility] Start: 10-13-2021 End: 01-17-2025 Alcohol intake Current drinker of alcohol (finding) [facility] Start: 09-02-2021 History SDOH Alcohol Comment rare [facility] Start: 1975 Sex Assigned At Female C [facility] Start: 10-03-2021 End: 03-09-2022 Exposure to SARS-CoV-2 (event) Not sure [facility] Start: 03-23-2022 End: 10-18-2023 Tobacco smoking status NHIS Unknown if ever smoked [facility] Start: 1975 Sex Assigned At Not on file [facility] Start: 11-23-2022 End: 03-21-2023 History of Social function [facility] Start: 11-23-2022 End: 03-21-2023 Tobacco use panel [facility] Start: 06-23-2021 National Score (1-100), lower number is lower risk 72 [facility] Start: 08-31-2021 Gender identity Identifies as female gender (finding) [facility] Start: 08-31-2021 Sexual orientation Heterosexual (fin ding) [facility] Start: 07-29-2022 Sex Female (finding) [facility] Start: 01-10-2024 End: 05-26-2025 Tobacco smoking status NHIS Ex-smoker (finding) [facility] NEGATED: Highlighted row [facility] NEGATED: Highlighted rowStart: NINF History of tobacco use Passive smoker [facility] Goals Date Patient Goal Desired Activity /State Mental Status Date Assessment Result Facility 10-18-2023 Cognitive function Level Of Cons ciousness Awake;Alert;Appropriate;Follow s Commands [facility] Work Phone: 01-16-2023 Cognitive function Voice/Name [facility] [place] Work Phone: Clinical Notes 11-01-2021 to 05-11-2025 Note Date & Type Note Facility 05-11-2025 Discharge summary [facility] 05-11-2025 Radiology Diagnostic study note [facility] Imaging Services [address] [place] [id number] Knee 4 or More Views MR#: [id number] Acct: [id number] Name: EUNICE MUNOZ (JULIE) Rep #: [id number] : 1975 F 50 From: Juan Manuel Garcia MD PCP: DAVIDE Oliver, PROFESSOR OF INDUSTRIAL TECHNOLOGY-C Status: PRE ER Study:Knee 4 or More Views Date of Exam: 05/11/25 Exam# [id number] Ordering Dr: Provider ,Ed P. PROCEDURE: RIGHT KNEE 4 OR MORE VIEWS 05/11/2025 REASON FOR EXAM: FALL-PAIN TECHNIQUE: Procedure Code: RADKN Modality: DX Procedure: KNEE 4 OR MORE VIEWS Laterality: Right COMPARISON: None. FINDINGS: There is fragmentation of superior patellar pole degenerative osteophyte, which may be acutely fractured. No significant joint effusion appreciated. No other acute fracture or dislocation. Relatively well preserved joint spaces. Dorsal fabella noted. No marked soft tissue swelling. RAD/Knee 4 or More Views IMPRESSION: Fragmentation of superior patellar pole degenerative spur/osteophyte, which may be acutely fractured. Otherwise no acute fracture or dislocation. No significant joint effusion. Reading Location: [id number] CC: [facility] PROFESSOR OF INDUSTRIAL TECHNOLOGY-C Ivet Foss; ED PHYSICIAN PROVIDER ~ Engine Repair Supervisor: Signed [facility] 05-11-2025 Discharge summary Note Date/Time May 11, 2025 7:47pm [facility] Medical Records Department [address] [place] [address] Emergency Department Summary 05/11/25 MR#: [id number] Acct: [id number] Name: EUNICE MUNOZ HARSH Rep #:[id number] : 1975 50 From: Angelito Hatfield MD PCP: Ivet Foss, Joey, PROFESSOR OF INDUSTRIAL TECHNOLOGY-C Statu s:REG ER Location: ED HPI History of Present Illness HPI Narrative: 50-year-old female resident was going down steps and tripped or slipped landed on both knees awkwardly. Injuring her right medial knee. No prior history or surgery to her knees. Did not hit her head no LOC no other complaints. Chief Complaint: Lower Extremity Injury Informant: patient Occured/Mechanism Mechanism/Context: Yes injury and Yes blunt trauma Onset/Context/Timing Onset: Yesterday Context: Sudden Onset Timing: Continuous Quality of Pain: Dull and Aching Current Severity: Moderate Maximum Severity: Moderate Associated Symptoms Associated Symptoms: Negative for Parasthesia, Weakness or Loss of Funtion Narrative Narrative: 50-year-old female tripped or slipped going down steps last night landed on bothknees injuring her right knee immediately. No prior history or surgery. No other complaints. Prior similar symptoms: No Recent Illness/Hospitalization: No PFSH PFSH Medical History Anxiety and depression Murmur IBS (irritable bowel syndrome) Scoliosis H/O pyloric stenosis Migraine Laceration of right hand Right foot sprain Home Medications ?Medication ?Instructions ?Recorded ?Last Taken ?Type medroxyprogesterone 150 mg/mL 150 mg IM [id number] 11/11 Unknown History intramuscular syringe Allergy/AdvReac Type Severity Reaction Status Date / Time No Known Allergies Allergy Verified 05/11/25 15:53 Family History Mother Arthritis Arthritis or polyarthritis, rheumatoid Osteoporosis Grandmother Breast cancer Father Skin cancer Brother Seizures Surgical History Hx of tympanostomy tubes History of bunionectomy History of section Social History adopted: No current occupational status: unemployed Smoking Status: Former smoker quit date: 07/24/17 alcohol intake: current alcohol intake frequency: holidays/special occasions only substance use type: does not use what type of physical activity do you participate in: none frequency: 1-2 times per week seatbelt use: always do you feel safe at home: Yes ROS ROS ED ROS Narrative Denies recent illness. Constitutional Constitutional ED: Denies chills or fever(s) Eyes Eyes: Denies blurry vision ENT ENT ED: Denies ear pain Cardiovascular Cardiovascular: Denies chest pain Respiratory/Chest Respiratory/Chest: Denies cough or dyspnea Gastrointestinal Gastrointestinal: Denies abdominal pain Genitourinary Genitourinary ED: Denies dysuria or hematuria Musculoskeletal Musculoskeletal: Denies arthralgias Integumentary Denies abscess or Abrasions Neurologic Neurologic: Denies headache(s) Psychiatric Psychiatric: Denies anxiety Endocrine Endocrinology: Denies polydipsia Hematologic/Lymphatic Hematologic/Lymphatic: Denies easy bleeding, easy bruising or lymphadenopathy Allergic/Immunologic Allergic/Immunologic ED: Denies mouth swelling, tongue swelling or urticaria EXAM Physical Exam Narrative Exam Narrative: 50-year-old female. Vital signs stable afebrile. No acute distress. H EENT exam pupils round react light. No trauma. Nontender no contusion. C-spine neck nontender. Back nontender. Lungs clear to auscultation bilaterally. Heart regular rhythm rate about 75 no murmur. Chest wall ribs nontender. Abdomen soft nontender. Pelvic girdle intact. Hips are nontender. Patient hasnormal investment counselor strength and dorsi and plantarflexion bilaterally. Normal flexion extension of both knees and hips. Pacifically the right hip ankle and foot are nontender. Normal range of motion. Right knee she has mild bruising and swelling medial right knee. She has full flexion extension knee. ACL and PCL are intact. MCL is tenderness along the medial knee but has a good endpoint. LCL is intact. With good endpoint. There is no effusion. She has no patella or patellar tendon tenderness. She can do flexion extension of the knee. Rightankle and foot are nontender neurovascularly intact. Neurologic exam she is awake alert. Answering questions following commands. GCS of 15. Const Vital Signs: 05/11/25 15:53 05/11/25 18:41 Temperature 97 F L 97 F L Temperature Source Temporal Pulse Rate 74 74 Respiratory Rate 14 14 Blood Pressure 119/80 119/80 Blood Pressure Mean 93 93 Pulse Ox 97 97 Oxygen Delivery Method Room Air MDM MDM MDM Narrative Medical decision making narrative: 50-year-old fell yesterday going down steps injuring her right knee. Exam is consistent with a contusion and may be right MCL sprain. She has normal flexionextension. There is no effusion. No bony deformity. There is no suprapatellartenderness. History & Record Review Discussion w/independent historian: Patient Additional record(s) reviewed:: Prior outpatient record, Prior ED visit and Prior labs Radiography Diagnostic Testing: Clinical Impression(s) from Imaging Studies Knee X-Ray 05/11/25 16:20 IMPRESSION: Fragmentation of superior patellar pole degenerative spur/osteophyte, which may be acutely fractured. Otherwise no acute fracture or dislocation. No significant joint effusion. Reading Location: [id number] Right knee x-ray, 4 views, interpreted by myself and the radiologist shows chronic calcifications consistent with arthritis and suprapatellar tendon calcification acute. No acute fracture. No dislocation. Radiologist made noteof suprapatellar tendon calcification. She has absolutely no tenderness over that site. This is not an acute fracture. Discharge Plan Triage Chief Complaint: Lower Extremity Injury ED Provider: Angelito Hatfield Dx/Rx/DC Orders Clinical Impression: Contusion of knee, Knee sprain, Fall Instructions: ED Contusion, Lower Extremity, ED Knee Sprain Prescriptions: No Action medroxyprogesterone 150 mg/mL syringe 150 mg IM [id number] Primary Care Provider: Ivet Foss Referrals: Ivet Foss, PROFESSOR OF INDUSTRIAL TECHNOLOGY-C [Primary Care Provider, Family Practice] - 1 Week if not improving Activity Restrictions/Additional Instructions: Direct trauma to the knee causing a contusion and sprain or strain of your rightmedial collateral ligament. Ice to the area decrease pain and swelling. Elevate. Motrin for pain and swelling Tylenol for pain. This should progressively improve. You can get an [id number] copper or a neoprene or Velcro sleeve for your knee at like a sporting goods store or a pharmacy. Just use it for a week or 2 and it should progressively get better. Follow-up if not improving. Print Language: Japanese Disposition Disposition: Home, Self Care What to do if you have Problems For any increased pain, shortness of breath, bleeding, nausea or vomiting, chestpain, or any unexpected problems, contact your Primary Care Provider. Call [facility] ([phone]) or report to the closest Emergency Room. Call 911 if necessary. 05/11/251846 <Electronically signed by Angelito Hatfield MD> Cosigner Signature (if applicable): CC: Joey PROFESSOR OF INDUSTRIAL TECHNOLOGYCindy Foss ~ Signed [facility] Work Phone: 1(194) 176-860809-30-2025 [facility] [address] [place] [address] OFFICE VISIT Date of Service: 04/22/25 MR#: [id number] Acct: [id number] Patient: EUNICE MUNOZ (JULIE) Rep #: [id number] : 1975 Provider: ROSE MARY Lovelace Age/Sex: 50/F Location: [facility] Status: Signed Intake Vital Signs 03/14/25 15:47 Height 5 ft 2 in Weight: 176 lb BMI 32.1 BP 110/72 Blood Pressure Location Lt brachial Position Sitting Pulse 67 Pulse Source Monitor Temp 98.1 F Temp Source Oral Pulse Oximetry (%) 97 Oxygen Delivery Method room air Intake Visit Reasons: PE NON DOT DRUG SCREEN/[facility] AVALOS Chief Complaint: mirgraine Allergies No Known Allergies Allergy (Verified 03/14/25 15:47) Office Procedures [facility] Billing Sheet Testing Drug Screen Collection Only: Yes 04/22/25 1704 s ROSE MARY BAZZI> Date _ Vicente Parnell Signature: Date (if applicable) CC: ~ [facility]09-30-2025 Progress note Author Vicente Ross [facility] Note Date/Time April 22, 2025 5:04pm [facility] [address] [place] [address] OFFICE VISIT Date of Service: 04/22/25 MR#: [id number] Acct: [id number] Patient: EUNICE MUNOZ (JULIE) Rep #: [id number] : 1975 Provider: ROSE MARY Lovelace Age/Sex: 50/F Location: [facility] Status: Signed Intake Vital Signs 03/14/25 15:47 Height 5 ft 2 in Weight: 176 lb BMI 32.1 BP 110/72 Blood Pressure Location Lt brachial Position Sitting Pulse 67 Pulse Source Monitor Temp 98.1 F Temp Source Oral Pulse Oximetry (%) 97 Oxygen Delivery Method room air Intake Visit Reasons: PE NON DOT DRUG SCREEN/[facility] Chief Complaint: mirgraine Allergies No Known Allergies Allergy (Verified 03/14/25 15:47) Office Procedures [facility] Billing Sheet Testing Drug Screen Collection Only: Yes 04/22/25 8031 <Electronically signed by Vicente BAZZI> Date _ Vicente BAZZI Cosigner Signature: Date (if applicable) CC: ~ [facility] Work Phone: 1(400) 368-180509-16-2025 NoteHNO ID: [id number] Author: VICENTE ARZOLA RN Service: ? Author Type: Registered Nurse Type: Progress Notes Filed: 04/08/2025 15:10 Note Text: Patient identified by name and date of . Eunice Munoz is here for a Depo Provera injection. Patient brought medication. Date last injected: 01/09/2025 Depo-Provera, 150 mg, administered IM right upper quadrant gluteus, Lot # [id number], expiration date 03/23/2029. Depo-Provera was given without incident. Date of last menses: No LMP recorded (lmp unknown). Patient has had an injection. Irregular bleeding - No Menses ceased - Yes Patient instructed to return to clinic in 12 weeks. [email or web address] Provider SRAVAN was present in office at time of injection. Vic[facility] History of Present illness Narrative* Vicente Arzola RN - 04/08/2025 2:53 PM EDT Patient identified by name and date of . Eunice Munoz is here for a Depo Provera injection. Patient brought medication. Date last injected: 01/09/2025 Depo-Provera, 150 mg, administered IM right upper quadrant gluteus, Lot # [id number], expiration date 03/23/2029. Depo-Provera was given without incident. Date of last menses: No LMP recorded (lmp unknown). Patient has had an injection. Irregular bleeding - No Menses ceased - Yes Patient instructed to return to clinic in 12 weeks. [email or web address] Provider SRAVAN was present in office at time of injection. Vicente Arzola RN documented [facility] History of Present illness Narrative* Emelia Mary, Aaliyah Tech - 01/23/2025 9:30 AM EDT Radiology Service Progress Note PATIENT NAME: Eunice Munoz DATE OF SERVICE: January 23, 2025 TIME: 9:10 AM PATIENT IDENTITY VERIFICATION COMPLETED USING TWO (2) IDENTIFIERS: Name and Date of confirmedby patient verbally. FALL SCREENING: Has the patient had 2 falls in the last year or 1 fall with injury or currently using an Ambulatory Assistive Device (Walker, Cane, Wheelchair, Crutches, etc.)? No PATIENT GENDER DATA: Assigned female at . status: : No status:NO. PATIENT RELEVANT IMPLANT DATA REVIEWED: Not Applicable PATIENT PRESENTS WITH AN IMPLANTABLE OR ATTACHED JOURNEYMAN PRESSMAN: No RADIOLOGY DEPARTMENT: Mammography PERIPHERAL IV DATA: Not applicable SIGNED BY: Aaliyah Drummond January 23, 2025 9:10 AM documented in this encounterMer[facility]-2025 NoteHNO ID: [id number] Author: EMELIA MARY Mammo Tech Service: ? Author Type: Conservation Policy Analyst Type: Progress Notes Filed: 01/23/2025 09:10 Note Text: Radiology Service Progress Note PATIENT NAME: Eunice Munoz DATE OF SERVICE: January 23, 2025 TIME: 9:10 AM PATIENT IDENTITY VERIFICATION COMPLETED USING TWO (2) IDENTIFIERS: Name and Date of confirmed by patient verbally. FALL SCREENING: Has the patient had 2 falls in the last year or 1 fall with injury or currently using an Ambulatory Assistive Device (Walker, Cane, Wheelchair, Crutches, etc.)? No PATIENT GENDER DATA: Assigned female at . status: : No status: NO. PATIENT RELEVANT IMPLANT DATA REVIEWED: Not Applicable PATIENT PRESENTS WITH AN IMPLANTABLE OR ATTACHED JOURNEYMAN PRESSMAN: No RADIOLOGY DEPARTMENT: Mammography PERIPHERAL IV DATA: Not applicable SIGNED BY: Aaliyah Drummond January 23, 2025 9:10 [facility]06-27-2025 NoteHNO ID: [id number] Author: LURDES FREGOSO APRN.PETROPHYSICAL ENGINEER Service: ? Author Type: Nurse Practitioner Type: Progress Notes Filed: 01/17/2025 15:59 Note Text: Patient declined beehive kiln charcoal burnerSonia Lozano is a 49 year old who presents for an annual gynecologic exam without complaints. 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 History LMP: 09/10/2021, Injection Age at Menarche: Age at First : Age at Menopause: Substation Engineer History Comments: Sexual Activity: Yes; Male Contraception: Injection PAST MEDICAL HISTORY Diagnosis Date Migraine Scoliosis PAST SURGICAL HISTORY Procedure Laterality Date SECTION HX 2010 COLONOSCOPY 10/19/2022 repeat in 10 years FOOT SURGERY HX Bilateral 2002 bunion FOOT SURGERY HX Right 2020 INCISION OF PYLORIC MUSCLE 1977 TONSILLECTOMY HX FAMILY HISTORY Problem Relation Age of Onset other (osteoarthritis) Mother other (diverticulitis) Mother Prostate Cancer Father and skin No Known Problems Sister No Known Problems Sister No Known Problems Sister No Known Problems Brother No Known Problems Brother SOCIAL HISTORY Social History Tobacco Use Smoking status: Never Passive exposure: Never Smokeless tobacco: Never Vaping Use Vaping status: Never Used Substance Use Topics Alcohol use: Yes Comment: rare Drug use: Never REVIEW OF SYSTEMS Abdomen: No abdominal pain, nausea, vomiting, diarrhea, or constipation. No bloating, early satiety, indigestion, or increased flatulence. Bladder: No dysuria, gross hematuria, urinary frequency, urinary urgency, +stress incontinence. Breast: No breast lumps, nipple d/c, overlying skin changes, redness or skin retraction. Allergies and current medication updated:Yes SENSITIVE EXAM: The sensitive examination was discussed with the Patient or Patient's Authorized Electric Power Line Repairer. As applicable, any other physician, advance practice provider, medical student, or other health professional student that will be observing or involved in the sensitive examination for educational or training purposes was discussed with the Patient or Authorized Electric Power Line Repairer. The Patient or Authorized Electric Power Line Repairer has agreed to proceed with the sensitive examination. (Sensitive examination includes inspection and/or palpation of the breasts, pelvis, prostate and anorectal regions). EXAM: LMP 09/10/2021 GENERAL: pleasant, female in no apparent distress HEENT: Normocephalic, atraumatic, mucus membranes moist, and no lesions DERMATOLOGY: Normal, without lesions, non-icteric, and non-hirsute BREAST: soft, non-tender, symmetric, no dominant mass, normal nipple-areolar complex, no lymphadenopathy, and no nipple discharge CHEST: Normal inspiratory effort ABDOMEN: soft, non-tender, and no masses PELVIC: external genitalia normal, normal Bartholin's glands, urethra, Mabscott's glands, no vulvar lesions, no cervical lesions, good vaginal support, physiologic discharge present, normal appearing perineal body and perianal region BIMANUAL: uterus normal size, shape and consistency, no adnexal masses, and non-tender RECTOVAGINAL: deferred. NEURO: alert and oriented x3,exam grossly non-focal EXTREMITIES: normal ASSESSMENT/PLAN: 1) Health maintenance: Pap/HPV up to date. Mammogram ordered. Nutrition, exercise and routine health maintenance exams reviewed. Calcium/Vitamin D supplementation information provided. Colon cancer screening: up to date with screening 2) Contraception: Depo Provera. Contraceptive options reviewed and information provided. 3) STD screening: Declined STD check. 4) Follow up one year or sooner as needed Lurdes Fregoso APRN.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 Marta is a 49 year old who presents for an annual gynecologic exam without complaints. 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 History LMP: 09/10/2021, Injection Age at Menarche: Age at First : Age at Menopause: Substation Engineer History Comments: Sexual Activity: Yes; Male Contraception: Injection PAST MEDICAL HISTORY Diagnosis Date Migraine Scoliosis PAST SURGICAL HISTORY Procedure Laterality Date SECTION HX 2011 COLONOSCOPY 10/19/2022 repeat in 10 years FOOT SURGERY HX Bilateral 2002 bunion FOOT SURGERY HX Right 2020 INCISION OF PYLORIC MUSCLE 1976 TONSILLECTOMY HX FAMILY HISTORY Problem Relation Age of Onset other (osteoarthritis) Mother other (diverticulitis) Mother Prostate Cancer Father and skin No Known Problems Sister No Known Problems Sister No Known Problems Sister No Known Problems Brother No Known Problems Brother SOCIAL HISTORY Social History Tobacco Use Smoking status: Never Passive exposure: Never Smokeless tobacco: Never Vaping Use Vaping status: Never Used Substance Use Topics Alcohol use: Yes Comment: rare Drug use: Never REVIEW OF SYSTEMS Abdomen: No abdominal pain, nausea, vomiting, diarrhea, or constipation. No bloating, early satiety, indigestion, or increased flatulence. Bladder: No dysuria, gross hematuria, urinary frequency, urinary urgency, +stress incontinence. Breast: No breast lumps, nipple d/c, overlying skin changes, redness or skin retraction. Allergies and current medication updated:Yes SENSITIVE EXAM: The sensitive examination was discussed with the Patient or Patient's Authorized Electric Power Line Repairer. As applicable, any other physician, advance practice provider, medical student, or other health professional student that will be observing or involved in the sensitive examination for educational or training purposes was discussed with the Patient or Authorized Electric Power Line Repairer. The Patient or Authorized Electric Power Line Repairer has agreed to proceed with the sensitive examination. (Sensitive examination includes inspection and/or palpation of the breasts, pelvis, prostate and anorectal regions). EXAM: LMP 09/10/2021 GENERAL: pleasant, female in no apparent distress HEENT: Normocephalic, atraumatic, mucus membranes moist, and no lesions DERMATOLOGY: Normal, without lesions, non-icteric, and non-hirsute BREAST: soft, non-tender, symmetric, no dominant mass, normal nipple-areolar complex, no lymphadenopathy, and no nipple discharge CHEST: Normal inspiratory effort ABDOMEN: soft, non-tender, and no masses PELVIC: external genitalia normal, normal Bartholin's glands, urethra, Mabscott's glands, no vulvar lesions, no cervical lesions, good vaginal support, physiologic discharge present, normal appearing perineal body and perianal region BIMANUAL: uterus normal size, shape and consistency, no adnexal masses, and non-tender RECTOVAGINAL: deferred. NEURO: alert and oriented x3,exam grossly non-focal EXTREMITIES: normal ASSESSMENT/PLAN: 1) Health maintenance: Pap/HPV up to date. Mammogram ordered. Nutrition, exercise and routine health maintenance exams reviewed. Calcium/Vitamin D supplementation information provided. Colon cancer screening: up to date with screening 2) Contraception: Depo Provera. Contraceptive options reviewed and information provided. 3) STD screening: Declined STD check. 4) Follow up one year or sooner as needed Lurdes Fregoso APRN.ANA PAULA documented in this encounterMer[facility]06-19-2025 NoteHNO ID: [id number] Author: KERWIN LYNCH MA Service: ? Author Type: Install Technician Type: Progress Notes Filed: 01/09/2025 09:01 Note Text: Patient identified by name and date of . Eunice Munoz is here for a Depo Provera injection. Patient brought medication. Date last injected: 10/16/2024 Depo-Provera, 150 mg, administered IM left upper quadrant gluteus, Lot # [id number] , expiration date 06/22/2028 . Depo-Provera was given without incident. Date of last menses: Patient's last menstrual period was 09/10/2021. Irregular bleeding - No Menses ceased - Yes STD prevention discussed: Yes Patient instructed to return to clinic in 12 weeks. [email or web address] Provider Jessica Owen CNM was present in office at time of injection. [facility]06-19-2025 History of Present illness Narrative* Kerwin Lynch MA - 01/09/2025 8:48 AM EDT Patient identified by name and date of . Eunice Munoz is here for a Depo Provera injection. Patient brought medication. Date last injected: 10/16/2024 Depo-Provera, 150 mg, administered IM left upper quadrant gluteus, Lot # [id number] , expiration date 06/22/2028 . Depo-Provera was given without incident. Date of last menses: Patient's last menstrual period was 09/10/2021. Irregular bleeding - No Menses ceased - Yes STD prevention discussed: Yes Patient instructed to return to clinic in 12 weeks. [email or web address] Provider Jessica Owen CNM was present in office at time of injection. [facility] Telephone encounter Note * Telephone Encounter - Sapphire Bateman RN - 01/06/2025 11:17 AM EDT Refill request received via [employer]. Patient last seen for annual exam on 10/17/23. Patient has upcoming nurse visit for Depo injection on 01/09/25. Appointment note updated to have patient schedule annual. Sapphire Bateman RN [facility]06-16-2025 Miscellaneous Notes* Telephone Encounter - Sapphire Bateman RN - 01/06/2025 11:17 AM EDT Refill request received via [employer]. Patient last seen for annual exam on 10/17/23. Patient has upcoming nurse visit for Depo injection on 01/09/25. Appointment note updated to have patient schedule annual. Sapphire Bateman RN documented [facility] encounter[facility]03-28-[facility] Telephone encounter Note * Telephone Encounter - Nancy Sethi RN - 10/18/2024 9:11 AM EDT Patient here in the office now for Depo. Nancy Sethi RN [facility]03-28-2025 Miscellaneous Notes* Telephone Encounter - Nancy Sethi RN - 10/18/2024 9:11 AM EDT Patient here in the office now for Depo. Nancy Sethi RN documented in this encounterMer[facility]03-28-2025 NoteHNO ID: [id number] Author: DAYAMI DEJESUS LPN Service: ? Author Type: LICENSED NURSE Type: Progress Notes Filed: 10/18/2024 09:46 Note Text: Patient identified by name and date of . Eunice Munoz is here for a Depo Provera injection. Patient brought medication. Date last injected: 07/15/2024 Depo-Provera, 150 mg, administered IM right upper quadrant gluteus, Lot # [id number], expiration date 12/21/2028. Depo-Provera was given without incident. Date of last menses: Patient's last menstrual period was 09/10/2021. Irregular bleeding - No Menses ceased - Yes STD prevention discussed: Yes Patient instructed to return to clinic in 12 weeks. [email or web address] Provider Amy Velazquez was present in office at time of injection. [facility] History of Present illness Narrative* Dayami Dejesus LPN - 10/18/2024 9:02 AM EDT Patient identified by name and date of . Eunice Munoz is here for a Depo Provera injection. Patient brought medication. Date last injected: 07/15/2024 Depo-Provera, 150 mg, administered IM right upper quadrant gluteus, Lot # [id number], expiration date 12/21/2028. Depo-Provera was given without incident. Date of last menses: Patient's last menstrual period was 09/10/2021. Irregular bleeding - No Menses ceased - Yes STD prevention discussed: Yes Patient instructed to return to clinic in 12 weeks. [email or web address] Provider Amy Velazquez was present in office at time of injection. Dayami Dejesus LPN documented in this encounterMer[facility]03-[facility]25 Telephone encounter Note * Telephone Encounter - Dayami Dejesus LPN - 10/16/2024 4:54 PM EDT RM patient called to schedule nurse visit for depo injection. [facility]03-26-[facility] Miscellaneous Notes* Telephone Encounter - Dayami Dejesus LPN - 10/16/2024 4:54 PM EDT RM patient called to schedule nurse visit for depo injection. Needs Rx sent to [facility] documented in this encounterMer[facility]03-[facility]25 Telephone encounter Note * Telephone Encounter - Savanna Jimenez RN - 10/09/2024 1:44 PM EDT Patient coming in today for depo nurse visit. Please file CAM order. Savanna Jimenez RN [facility]03-19-2025 Miscellaneous Notes* Telephone Encounter - Savnana Jimenez RN - 10/09/2024 1:44 PM EDT Patient coming in today for depo nurse visit. Please file CAM order. Savanna Jimenez RN documented in this encounterMer[facility]12-23-2024 NoteHNO ID: [id number] Author: NANCY SETHI RN Service: ? Author Type: Registered Nurse Type: Progress Notes Filed: 07/15/2024 10:08 Note Text: Patient identified by name and date of . Eunice Munoz is here for a Depo Provera injection. Patient brought medication. Date last injected: 04/08/24 negative UPT Depo-Provera, 150 mg, administered IM left upper quadrant gluteus, Lot # [id number], expiration date 11/21/2027. Depo-Provera was given without incident. Date of last menses: Patient's last menstrual period was 09/10/2021. Irregular bleeding - No Menses ceased - Yes Patient instructed to return to clinic on 12 weeks +/- 5 days. [email or web address] Provider Ivet Velazquez CNM was present in office at time of injection. [facility] RN[facility] History of Present illness Narrative* Nancy Sethi RN - 07/15/2024 9:46 AM EST Patient identified by name and date of . Eunice Munoz is here for a Depo Provera injection. Patient brought medication. Date last injected: 04/08/24 negative UPT Depo-Provera, 150 mg, administered IM left upper quadrant gluteus, Lot # [id number], expiration date 11/21/2027. Depo-Provera was given without incident. Date of last menses: Patient's last menstrual period was 09/10/2021. Irregular bleeding - No Menses ceased - Yes Patient instructed to return to clinic on 12 weeks +/- 5 days. [email or web address] Provider Ivet Velazquez CNM was present in office at time of injection. Nancy Sethi RN documented in this encounterMer[facility]12-22-2024 Instructions* Patient Instructions* Essie Bearden, KIM.PETROPHYSICAL ENGINEER - 07/14/2024 12:33 PM EST ASSESSMENT/PLAN: 1. Viral URI with cough - ICD9: 465.9, ICD10: J06.9 (primary diagnosis) - Discussed viral etiology and rationale for treatment. - Symptomatic treatment with prn analgesia - Supportive care with fluids and rest - COVID & INFLUENZA A/B & RSV PCR, ROUTINE - [id number] 2 MG-30 MG-10 MG/5 ML ORAL SYRUP 2. Lower resp. tract infection - ICD9: 519.8, ICD10: J22 - DOXYCYCLINE MONOHYDRATE 100 MG TABLET - Follow-up with your PCP in 3-5 days if symptoms have not improved or sooner if symptoms worsen - Discussed red flags and need for immediate medical evaluation if any occur. - Discussed supportive care treatment with fluids, rest and analgesia. - Discussed expected course of illness Essie Bearden APRN.[facility] PATIENT INFO PNEUMONIA OVERVIEW Pneumonia is an infection of the lungs. It is a serious illness that can affect people of any age, although it is most serious in the very young, people over the age of 65, and those with underlying medical problems such as congestive heart disease, diabetes, and chronic lung disease. It is most common during the winter months, and occurs more often in smokers and men. This article will focus on community-acquired pneumonia (CAP), which refers to pneumonia that develops in people in the community, rather than in a hospital, fdc, or assisted-living facility. About four million cases of CAP occur each year in the [place], and approximately 20 percentof people require hospitalization. LUNG FUNCTION As we breathe, air is inhaled through the nose and mouth, and travels through the trachea and the bronchi to the bronchioles. At the end of the bronchioles, there are tiny air sacs, called alveoli. Alveoli have thin, porous santiago that contain capillaries. The mouth and respiratory tract are constantly exposed to microorganisms as air is inhaled through the nose and mouth. However, the body's defenses are usually able prevent microorganisms from entering and infecting the lungs. These defenses include the immune system, the specialized shape of the nose and pharynx, the ability to cough, and fine hair-like structures called cilia located on the bronchi. Pneumonia can develop if your defenses are not adequate or the microorganism is particularly strong. As microorganisms multiply, the alveoli become inflamed and accumulate fluid. These changes lead tothe symptoms of pneumonia. HIGH-RISK GROUPS Some groups of adults are at a greater risk of developing pneumonia. These include people who: Are greater than 65 years old Are cigarette smokers Are malnourished due to health conditions or lack of access to food Have underlying lung disease, including cystic fibrosis, asthma, or chronic obstructive pulmonary disease (emphysema) Have other underlying medical problems, including diabetes or heart disease Have a weakened immune system due to HIV, organ transplant, chemotherapy, or chronic steroid use Have difficulty coughing due to stroke, sedating drugs or alcohol, or limited mobility Have had a recent viral upper respiratory tract infection including influenza PNEUMONIA CAUSES Pneumonia can be caused by a variety of microorganisms, including viruses, bacteria, and less commonly, fungi. The most common cause of pneumonia in the [place] is the bacterium Streptococcus pneumoniae, or pneumococcus. Viruses are estimated to be the cause of adult CAP in at least 20 percent of cases. Fungi rarely cause pneumonia in people who are generally healthy; people with a weakened immune system (those with HIV, organ transplant patients, or those on chemotherapy) are at higher risk of fungal infection. Other organisms, such as Mycoplasma, are a common cause of mild pneumonia but can occasionally cause serious disease. PNEUMONIA SYMPTOMS Common symptoms of pneumonia include shortness of breath, pain with breathing, a rapid heart and breathing rate, nausea, vomiting, diarrhea, and a cough that often produces green or yellow sputum; occasionally the sputum is rust colored. Most people have a fever (temperature greater than 100.5 F or38 C), although elderly people have fever less often. Shaking chills (called rigors) and a change in mental status (confusion, unclear thinking) can occur. The characteristics of pneumonia are different than those of a more common infection, acute viral bronchitis, which does not usually cause fever and does not require treatment with an antibiotic. PNEUMONIA DIAGNOSIS Pneumonia is usually diagnosed with a medical history and physical examination, and sometimes a chest x-ray. The need for further testing depends upon the severity of the illness and the person's risk of complications. Blood oxygen measurement -- Pneumonia can decrease the amount of oxygen available in the blood. As a result, a blood oxygen level is often measured by attaching a small clip to the finger or ear thatuses infrared light. In those who are sicker, the oxygen level may be measured by withdrawing a sample of blood from an artery. PNEUMONIA TREATMENT The goal of treatment for patients with CAP is to treat the infection and prevent complications. Initial treatment of CAP is based upon the organism that is likely to be causing pneumonia (called empiric treatment). Most patients improve with empiric treatment. Hospital versus home care -- Most patients are treated for CAP at home with oral antibiotics. People who are seriously ill or are at increased risk for complications may be hospitalized. Hospital monitoring usually includes measurement of heart and breathing rate, temperature, and oxygen levels. Hos pitalized patients are usually given intravenous (IV) antibiotics initially. The number of days spent in the hospital is variable, and depends upon how a person responds to treatment and if there areunderlying medical problems. Some patients, including people with previous lung damage or disease, a weakened immune system, or infection in more than one lobe of the lungs (called multilobar pneumonia), may be slow to recover and require a longer hospitalization. Antibiotic choice -- A number of antibiotic treatment regimens exist for treatment of CAP. The choice of which antibiotic to use is based upon several factors, including the person's underlying medical problems and the likelihood of being infected with a bacteria that is resistant to specific drugs. People with certain underlying medical problems and those who have used antibiotics in the past three months have a higher risk of infection with drug resistant bacteria. For all antibiotic regimens,it is important to finish the entire course of medication and take it exactly as directed. EXPECTED RECOVERY FROM PNEUMONIA A person with pneumonia usually begins to improve after three to five days of antibiotic treatment.Improvement may be defined as feeling better or having fewer symptoms, such as cough and fever. Fatigue and a persistent, but milder, cough can last for up to one month, although most people are ableto resume their usual activities within seven days. Patients treated in the hospital may require three weeks or more to resume normal activities. All patients, whether treated at home or in the hospital, should take special care of themselves during the recovery period. This includes getting adequate rest at night and taking naps during the day if needed. Patients should drink fluids to avoid becoming dehydrated; there is no specific amount of fluid recommended, but thirst is a good indicator of the need to drink more fluids. Patients should be sure to finish all of their antibiotic medication, even if they feel better after a few days. WHEN TO SEEK HELP Anyone who suspects that they have pneumonia should seek medical care as soon as possible. Pneumonia is a serious illness that can be life-threatening if not treated, especially for people who are older than 65 years, alcoholic, have underlying medical problems, or a weakened immune system. People with the following symptoms should see their healthcare provider promptly: Fever and cough with phlegm that does not improve or worsens New shortness of breath with normal daily activities Chest pain with breathing Feeling suddenly worse after a cold or the flu PREVENTION The pneumococcal vaccine is one of the most effective ways to prevent pneumonia. Smoking cessation is another important way to prevent pneumonia. Infection control -- Infection control measures can help to prevent the spread of any type of infection, including pneumonia. Infection control is most commonly practiced in healthcare settings, but is useful in the community as well. Simple practices such as frequent hand washing with soap and water or alcohol-based hand rubs can be effective. Because pneumonia is spread by contact with infected respiratory secretions, people with pneumonia should limit [id number] contact with uninfected family and friends. The mouth and nose should be covered while coughing or sneezing, and tissues should be disposed of immediately. Sneezing/coughing into the sleeve of one's clothing (at the inner elbow) is another means of containing sprays of saliva and secretions and has the advantage of not contaminating the hands. documented in this encounterMer[facility]12-22-2024 NoteHNO ID: [id number] Author: ESSIE BEARDEN APRN.PETROPHYSICAL ENGINEER Service: ? Author Type: Nurse Practitioner Type: Progress Notes Filed: 07/14/2024 12:33 Note Text: Subjective Cough Associated symptoms include chest pain (burning pain with cough) and shortness of breath. Pertinent negatives include no chills, no ear pain and no sore throat. Eunice Munoz is a 49 year old female who presents with cough, sinus and chest congestion for the past 4 days. In the past couple days cough is worse, she is having chills and she feels short of breath with activity. Feels a burning pain in her chest with the cough. She has been taking OTC cough syrup and dayquil and tessalon perles at home. None of these have helped with the cough. Cough seems worse at night. Review of Systems Constitutional: Negative for chills and fever. HENT: Positive for congestion. Negative for ear pain and sore throat. Respiratory: Positive for cough and shortness of breath. Cardiovascular: Positive for chest pain (burning pain with cough). Musculoskeletal: Negative. BP 121/71 Pulse 72 Temp 37.4 ?C (99.4 ?F) Resp 18 Wt 80.9 kg (178 lb 5.6 oz) LMP 09/10/2021 SpO2 99% BMI 33.42 kg/m? PAST MEDICAL HISTORY Diagnosis Date Migraine Scoliosis PAST SURGICAL HISTORY Procedure Laterality Date SECTION HX 2011 COLONOSCOPY 10/19/2022 repeat in 10 years FOOT SURGERY HX Bilateral 2002 bunion FOOT SURGERY HX Right 2020 INCISION OF PYLORIC MUSCLE 1976 TONSILLECTOMY HX ALLERGIES Patient has no known allergies. MEDICATIONS metroNIDAZOLE 0.75 % creamDisp: Rfl: medroxyPROGESTERone (DEPO-PROVERA) 150 mg/mLInject 1 mL intramuscularly every 12 weeks.Disp: 1 EachRfl: 3 NURTEC ODT 75 mg disintegrating tabletDisp: Rfl: doxycycline monohydrate 100 mg tabletTake 1 tablet by mouth two times a day for 7 days.Disp: 14 tabletRfl: 0 Tbkungrcxznyoob-Mwnpegzgd-LD (BROMFED DM) 2-30-10 mg/5 mL syrupTake 5 mL by mouth four times a day as needed.Disp: 118 mLRfl: 0 busPIRone (BUSPAR) 5 mg tabletDisp: Rfl: (Patient not taking: Reported on 07/14/2024) fluticasone (FLONASE) 50 mcg/actuation nasal sprayUse 2 Sprays in each nostril once daily. Rinse mouth after use.Disp: 1 EachRfl: 0 (Patient not taking: Reported on 07/14/2024) FAMILY HISTORY Problem Relation Age of Onset other (osteoarthritis) Mother other (diverticulitis) Mother Prostate Cancer Father and skin No Known Problems Sister No Known Problems Sister No Known Problems Sister No Known Problems Brother No Known Problems Brother Social History Tobacco Use Smoking status: Never Passive exposure: Never Smokeless tobacco: Never Vaping Use Vaping status: Never Used Substance Use Topics Alcohol use: Yes Comment: rare Drug use: Never Objective Physical Exam Vitals and nursing note reviewed. Constitutional: Appearance: Normal appearance. HENT: Right Ear: Tympanic membrane, ear canal and external ear normal. Left Ear: Tympanic membrane, ear canal and external ear normal. Nose: Congestion present. Mouth/Throat: Mouth: Mucous membranes are moist. Pharynx: Oropharynx is clear. Uvula midline. No oropharyngeal exudate or posterior oropharyngeal erythema. Cardiovascular: Rate and Rhythm: Normal rate and regular rhythm. Heart sounds: Normal heart sounds. Pulmonary: Effort: Pulmonary effort is normal. No respiratory distress. Breath sounds: No wheezing or rales. Comments: Right lower lobe with fine crackles Musculoskeletal: Cervical back: Neck supple. Lymphadenopathy: Cervical: No cervical adenopathy. Skin: General: Skin is warm and dry. Findings: No erythema or rash. Neurological: Mental Status: She is alert. ASSESSMENT/PLAN: 1. Viral URI with cough - ICD9: 465.9, ICD10: J06.9 (primary diagnosis) - Discussed viral etiology and rationale for treatment. - Symptomatic treatment with prn analgesia - Supportive care with fluids and rest - COVID AND INFLUENZA A/B AND RSV PCR, ROUTINE - [id number] 2 MG-30 MG-10 MG/5 ML ORAL SYRUP 2. Lower resp. tract infection - ICD9: 519.8, ICD10: J22 - DOXYCYCLINE MONOHYDRATE 100 MG TABLET - Follow-up with your PCP in 3-5 days if symptoms have not improved or sooner if symptoms worsen - Discussed red flags and need for immediate medical evaluation if any occur. - Discussed supportive care treatment with fluids, rest and analgesia. - Discussed expected course of illness Essie Bearden APRN.[facility]12-22-2024 History of Present illness Narrative* Essie Bearden APRN.PETROPHYSICAL ENGINEER - 07/14/2024 12:27 PM EST Subjective Cough Associated symptoms include chest pain (burning pain with cough) and shortness of breath. Pertinentnegatives include no chills, no ear pain and no sore throat. Eunice Munoz is a 49 year old female who presents with cough, sinus and chest congestion for the past 4 days. In the past couple days cough is worse, she is having chills and she feels short of breath with activity. Feels a burning pain in her chest with the cough. She has been taking OTC cough syrup and dayquil and tessalon perles at home. None of these have helped with the cough. Cough seems worse at night. Review of Systems Constitutional: Negative for chills and fever. HENT: Positive for congestion. Negative for ear pain and sore throat. Respiratory: Positive for cough and shortness of breath. Cardiovascular: Positive for chest pain (burning pain with cough). Musculoskeletal: Negative. BP 121/71 Pulse 72 Temp 37.4 C (99.4 F) Resp 18 Wt 80.9 kg (178 lb 5.6 oz) LMP 09/10/2021 SpO2 99% BMI 33.42 kg/m PAST MEDICAL HISTORY Diagnosis Date Migraine Scoliosis PAST SURGICAL HISTORY Procedure Laterality Date SECTION HX 2010 COLONOSCOPY 10/19/2022 repeat in 10 years FOOT SURGERY HX Bilateral 2002 bunion FOOT SURGERY HX Right 2020 INCISION OF PYLORIC MUSCLE 1976 TONSILLECTOMY HX ALLERGIES Patient has no known allergies. MEDICATIONS metroNIDAZOLE 0.75 % cream^^Disp: ^Rfl: medroxyPROGESTERone (DEPO-PROVERA) 150 mg/mL^Inject 1 mL intramuscularly every 12 weeks.^Disp: 1 Each^Rfl: 3 NURTEC ODT 75 mg disintegrating tablet^^Disp: ^Rfl: doxycycline monohydrate 100 mg tablet^Take 1 tablet by mouth two times a day for 7 days.^Disp: 14 tablet^Rfl: 0 Xsuxalampgtftnu-Pgmrzuuos-NH (BROMFED DM) 2-30-10 mg/5 mL syrup^Take 5 mL by mouth four times a dayas needed.^Disp: 118 mL^Rfl: 0 busPIRone (BUSPAR) 5 mg tablet^^Disp: ^Rfl: (Patient not taking: Reported on 07/14/2024) fluticasone (FLONASE) 50 mcg/actuation nasal spray^Use 2 Sprays in each nostril once daily. Rinse mouth after use.^Disp: 1 Each^Rfl: 0 (Patient not taking: Reported on 07/14/2024) FAMILY HISTORY Problem Relation Age of Onset other (osteoarthritis) Mother other (diverticulitis) Mother Prostate Cancer Father and skin No Known Problems Sister No Known Problems Sister No Known Problems Sister No Known Problems Brother No Known Problems Brother Social History Tobacco Use Smoking status: Never Passive exposure: Never Smokeless tobacco: Never Vaping Use Vaping status: Never Used Substance Use Topics Alcohol use: Yes Comment: rare Drug use: Never Objective Physical Exam Vitals and nursing note reviewed. Constitutional: Appearance: Normal appearance. HENT: Right Ear: Tympanic membrane, ear canal and external ear normal. Left Ear: Tympanic membrane, ear canal and external ear normal. Nose: Congestion present. Mouth/Throat: Mouth: Mucous membranes are moist. Pharynx: Oropharynx is clear. Uvula midline. No oropharyngeal exudate or posterior oropharyngeal erythema. Cardiovascular: Rate and Rhythm: Normal rate and regular rhythm. Heart sounds: Normal heart sounds. Pulmonary: Effort: Pulmonary effort is normal. No respiratory distress. Breath sounds: No wheezing or rales. Comments: Right lower lobe with fine crackles Musculoskeletal: Cervical back: Neck supple. Lymphadenopathy: Cervical: No cervical adenopathy. Skin: General: Skin is warm and dry. Findings: No erythema or rash. Neurological: Mental Status: She is alert. ASSESSMENT/PLAN: 1. Viral URI with cough - ICD9: 465.9, ICD10: J06.9 (primary diagnosis) - Discussed viral etiology and rationale for treatment. - Symptomatic treatment with prn analgesia - Supportive care with fluids and rest - COVID & INFLUENZA A/B & RSV PCR, ROUTINE - [id number] 2 MG-30 MG-10 MG/5 ML ORAL SYRUP 2. Lower resp. tract infection - ICD9: 519.8, ICD10: J22 - DOXYCYCLINE MONOHYDRATE 100 MG TABLET - Follow-up with your PCP in 3-5 days if symptoms have not improved or sooner if symptoms worsen - Discussed red flags and need for immediate medical evaluation if any occur. - Discussed supportive care treatment with fluids, rest and analgesia. - Discussed expected course of illness Essie Bearden APRN.PETROPHYSICAL ENGINEER documented in this encounterMer[facility]09-16-[facility] History of Present illness Narrative* Savanna Jimenez RN - 04/08/2024 3:54 PM EDT Patient identified by name and date of . Eunice Munoz is here for a Depo Provera injection. Patient brought medication. Date last injected: 01/05/2024 - negative test Depo-Provera, 150 mg, administered IM right upper quadrant gluteus, Lot # [id number], expiration date 10/22/2027. Depo-Provera was given without incident. Date of last menses: Patient's last menstrual period was 09/10/2021. Irregular bleeding - No Menses ceased - Yes Patient instructed to return to clinic on 12 weeks. [email or web address] Provider Dr. Duff was present in office at time of injection. Savanna Jimenez RN documented in this encounterMer[facility]06-14-2024 History of Present illness Narrative* Nancy Sethi RN - 01/05/2024 9:29 AM EDT Patient identified by name and date of . Eunice Munoz is here for a Depo Provera injection. Patient brought medication. Date last injected: 10/11/23 Depo-Provera, 150 mg, administered IM left upper quadrant gluteus, Lot # [id number], expiration date 08/2025. Depo-Provera was given without incident. Date of last menses: Patient's last menstrual period was 09/10/2021. Medication verified by dispensing pharmacist. Patient instructed to return to clinic on 12 weeks. [email or web address] Provider Lori Briceño MD was present in office at time of injection. Nancy Sethi RN documented in this encounterMercy Health [facility]iff[facility]04-09-2024 Miscellaneous Notes* Letter - Coordinator, Mammography - 10/31/2023 1:04 PM EDT October 31, 2023 PID: [id number] Eunice Munoz [address] [place] [address] Dear Ms. Munoz, Your prior imaging studies have arrived and been compared to your current study. We are pleased to inform you that the results of your recent breast imaging exam on 10/17/2023 are normal. Your mammogram demonstrates that you have dense breast tissue, which could hide abnormalities. Dense breast tissue, in and of itself, is a relatively common condition. Therefore, this information is not provided to cause undue concern; rather, it is to raise your awareness and promote discussion with your health care provider regarding the presence of dense breast tissue in addition to other riskfactors. Early detection of cancer is very important. We also understand recommendations regarding breast cancer screening are controversial. Please discuss with your primary care provider which strategy is best for you and whether a mammogram is right for you. Your imaging studies and report will be kept on [facility] as part of your permanent medical record and are available for your continuing care. Thank you for allowing us to help in meeting your health care needs. Sincerely, Dr. Santoyo Interpreting Radiologist [facility] (Normal Old Films compared) documented in this encounterMercy Health Tiff[facility]03-27-2024 Discharge summary Author Angelito Hatfield [facility] October 18, 2023 7:04pm Note Date/Time October 18, 2023 6:0 3pm [facility] Medical Records Department [address] [place] [address] Emergency Department Summary 10/18/23 MR#: [id number] Acct: [id number] Name: EUNICE MUNOZ Rep #:[id number] : 1975 48 From: Angelito Hatfield MD PCP: Markus Maurer, DO Status:REG E R Location: ED HPI History of Present Illness Chief Complaint: Headache Informant: patient Onset/Context/Timing Onset: Today and Yesterday Context: Gradual Timing: Continuous Quality -Headache: Positive for Similar Prior Headaches and Sharp Current Severity: Moderate Maximum Severity: Moderate Associated Symptoms/Injury Associated Symptoms: Positive for Nausea and Photophobia; Negative for Fever, Vomiting, Sore Throat, Sinus Pressure, Numbness, Tingling, Preceding Aura, Visual Changes, Blurred Vision or Visual Loss Injury - AGARWAL: Negative for Direct Trauma, Fall or Assault Narrative Narrative: 48-year-old female history of migraine headaches. States that last night around6 PM she had gradual onset of a right-sided headache similar to her prior migraines. Is behind her right eye. She has associated nausea no vomiting. Nofever. No diarrhea. Denies any recent head trauma. She took Zofran at home which helped with the nausea but she still has a headache. She denies any recent head trauma. She denies being on any blood thinners. She denies any sinus congestion. Prior similar symptoms: Yes Recent Illness/Hospitalization: No PFSH PFSH Medical History Anxiety and depression H/O pyloric stenosis IBS (irritable bowel syndrome) Laceration of right hand Migraine Murmur Right foot sprain Scoliosis Home Medications medroxyprogesterone 150 mg/mL intramuscular syringe 150 mg IM [id number] 11/11/22 [History Last Taken Unknown] buspirone 5 mg tablet 5 mg PO BID #180 tabs 01/10/23 [Rx Last Taken Unknown] rimegepant 75 mg disintegrating tablet (Nurtec ODT) 75 mg PO QDAY PRN migraine headache #20 tabs 01/10/23 [Rx Last Taken Unknown] Allergy/AdvReac Type Severity Reaction Status Date / Time No Known Allergies Allergy Verified 10/18/23 17:15 Family History Mother Arthritis Arthritis or polyarthritis, rheumatoid Osteoporosis Grandmother Breast cancer Father Skin cancer Brother Seizures Surgical History History of bunionectomy History of section Hx of tympanostomy tubes Social History Smoking Status: Smoker, status unknown tobacco type: cigarettes alcohol intake: current alcohol intake frequency: holidays/special occasions only substance use type: does not use what type of physical activity do you participate in: none ROS ROS ED ROS Narrative Headache. Nausea. Review of Systems ROS Unobtainable: Denies due to encephalopathy Constitutional Constitutional ED: Denies chills or fever(s) Eyes Eyes: Denies blurry vision ENT ENT ED: Denies ear pain Cardiovascular Cardiovascular: Denies chest pain or palpitations Respiratory/Chest Respiratory/Chest: Denies cough or dyspnea Gastrointestinal Gastrointestinal: Reports nausea; Denies abdominal pain, constipation, diarrhea,melena or vomiting Genitourinary Genitourinary ED: Denies dysuria or hematuria Musculoskeletal Musculoskeletal: Denies arthralgias Integumentary Denies abscess Neurologic Neurologic: Denies headache(s) Psychiatric Psychiatric: Denies anxiety Endocrine Endocrinology: Denies polydipsia or polyphagia Hematologic/Lymphatic Hematologic/Lymphatic: Denies easy bleeding, easy bruising or lymphadenopathy Allergic/Immunologic Allergic/Immunologic ED: Denies mouth swelling, tongue swelling or urticaria EXAM Physical Exam Narrative Exam Narrative: Well-appearing 48-year-old female. Vital signs are stable afebrile. H EENT exam pupils round reactive light extra motions are intact. No signs of trauma to her face or scalp. Nontender. No hematomas. No facial droop. Normal speech. Neck nontender no meningismus. Able to flex chin to chest. Lungs clear to auscultation bilaterally. Heart regular rhythm no murmur. Abdomen soft nontender. Moving all 4 extremities. 5 out of 5 investment counselor strength. Dorsi plantarflexion intact. [id number] and fingertip to nose within normal limits. Neurologic exam normal. Awake alert and oriented. Answering questions following commands. NIH is 0. Back nontender. Const Vital Signs: 10/18/23 17:12 Temperature 97.6 F L Temperature Source Temporal Pulse Rate 75 Respiratory Rate 14 Blood Pressure 121/77 H Blood Pressure Mean 91 Pulse Ox 100 Oxygen Delivery Method Room Air Positive well nourished and well developed; Negative for cachectic, contracturesor unkempt General Appearance ED: well developed and NAD; Negative for unkempt, cachectic, contractures, cyanotic, diaphoretic or pallor Nutritional Appearance: Negative for cachectic HEENT Reports normocephalic and moist mucous membranes; Denies dry mucous membranes atraumatic; Negative for trauma, tenderness, temporal artery tenderness or vesicular rash Face and Sinus: Negative for sinus tenderness Mouth ED: No dry mucous membranes Mouth: No dry mucous membranes Eyes EOMs intact bilaterally General Eye ED: Negative for pale conjunctiva or scleral icterus Neck no lymphadenopathy, supple, no meningeal signs and no JVD General: Negative for tenderness Resp normal respiratory effort and clear to auscultation bilaterally Effort and Inspection: Negative for retractions Auscultation: Negative for rales, rhonchi, wheezes or diminished lung sounds Cardio regular rate, regular rhythm, S1 normal heart sound, S2 normal heart sound and no murmurs Rate: Negative for bradycardia or tachycardic Rhythm: Negative for abnormal rhythm GI non-tender and non-distended Auscultation: normoactive bowel sounds Palpation: soft; Negative for firm or tender Back/Spine no CVA tenderness General Back: Negative for CVA tenderness Cervical Spine: Negative for cervical spine tenderness Thoracic Spine / Upper Back: Negative for thoracic spinal tenderness Lumbar Spine / Lower Back: Negative for lumbar spinal tenderness Extremity normal to inspection, full ROM and normal capillary refill General Extremety ED: Negative for edema or tenderness General Extremity: Negative for edema Neuro oriented x3 and CN's II-XII intact bilaterally Sensorium / Orientation: awake, alert, oriented to person, oriented to place andoriented to time; Negative for orientation impaired, lethargic or stuporous Coordination / Balance: [id number] test normal and qnxi-to-lour test normal Speech: speech normal Motor Exam: strength 5/5 throughout Psych Appearance: Negative for unkempt Attitude: No agitated Mood & Affect: Negative for depressed, anxious or tearful Skin General Skin Exam: Negative for jaundice or pallor Lesions: no lesions Rashes: no rashes Trauma: Negative for abrasion MDM MDM MDM Narrative Medical decision making narrative: 48-year-old female gradual onset headache that began yesterday. Similar to prior migraines with migraine headache history. Has been no trauma. No fever. No sinus congestion. She is not on any blood thinners. She has a normal neurologic exam. I do not think she needs any imaging at this time. She will be treated with IV fluids, Toradol, Benadryl and Reglan and reassessed. Repeat exam at 7 PM patient is doing well. Says she feels a lot better. Headache is resolving. She did not want a additional medication. Repeat neurologic exam is unchanged remains normal. She will be discharged home. History & Record Review Discussion w/independent historian: Patient Additional record(s) reviewed:: Prior inpatient record, Prior outpatient record,Prior ED visit and Prior labs Discharge Plan Triage Chief Complaint: Headache ED Provider: Angelito Hatfield Dx/Rx/DC Orders Clinical Impression: Migraine Instructions: ED, Migraine (Classical) Prescriptions: No Action medroxyprogesterone 150 mg/mL syringe 150 mg IM [id number] Nurtec ODT 75 mg tablet,disintegrating 75 mg PO QDAY PRN (Reason: migraine headache) Qty: 20 1RF Rx Instructions: as a single dose buspirone 5 mg tablet 5 mg PO BID Qty: 180 2RF Primary Care Provider: Markus Maurer Referrals: Markus Maurer, DO [Primary Care Provider] - 3-5 Days if not improving Activity Restrictions/Additional Instructions: Plenty of fluids and rest. Motrin and Tylenol for pain. Follow-up if not improving or return if feeling a lot worse. Disposition Disposition: Home, Self Care What to do if you have Problems For any increased pain, shortness of breath, bleeding, nausea or vomiting, chestpain, or any unexpected problems, contact your Primary Care Provider. Call [facility] ([phone]) or report to the closest Emergency Room. Call 911 if necessary. 10/18/231903 <Electronically signed by Angelito Hatfield MD> Cosigner Signature (if applicable): CC: Markus Maurer DO ~ Signed [facility] Work Phone: 1(856) 331-218103-26-2024 History of Present illness Narrative* Lurdes Fregoso APRN.PETROPHYSICAL ENGINEER - 10/17/2023 11:29 AM EDT Mens Locker Room Attendant offered: Patient declines. Marta is a 48 year old who presents for an annual gynecologic exam without complaints. Menses: no menses Contraception: Depo Provera HPV vaccine: No Last Pap: 09/10/2021 normal HPV: 09/07/2021 negative History of abnormal pap: Yes Last mammogram: 2023 pending Sexually active: Yes Pain with intercourse: No Postcoital bleeding: No OB History T2 L2 SAB1 IAB0 Ectopic0 Multiple0 Live Births2 Substation Engineer History LMP: 09/10/2021, Injection Age at Menarche: Age at First : Age at Menopause: Substation Engineer History Comments: Sexual Activity: Yes; Male Contraception: Injection PAST MEDICAL HISTORY Diagnosis Date Migraine Scoliosis PAST SURGICAL HISTORY Procedure Laterality Date SECTION HX 2011 COLONOSCOPY 10/19/2022 repeat in 10 years FOOT SURGERY HX Bilateral 2002 bunion FOOT SURGERY HX Right 2020 INCISION OF PYLORIC MUSCLE 1977 TONSILLECTOMY HX FAMILY HISTORY Problem Relation Age of Onset other (osteoarthritis) Mother other (diverticulitis) Mother Prostate Cancer Father and skin No Known Problems Sister No Known Problems Sister No Known Problems Sister No Known Problems Brother No Known Problems Brother SOCIAL HISTORY Social History Tobacco Use Smoking status: Never Passive exposure: Never Smokeless tobacco: Never Vaping Use Vaping Use: Never used Substance Use Topics Alcohol use: Yes Comment: rare Drug use: Never REVIEW OF SYSTEMS Abdomen: No abdominal pain, nausea, vomiting, diarrhea, or constipation. No bloating, early satiety, indigestion, or increased flatulence. Bladder: No dysuria, gross hematuria, urinary frequency, urinary urgency, or incontinence. Breast: No breast lumps, nipple d/c, overlying skin changes, redness or skin retraction. Allergies and current medication updated:Yes EXAM: Ht 5' 1.25 (1.56m) Wt 181 lb 6.4 oz (82.3kg) LMP 09/10/2021 BMI 33.99 kg/(m^2). GENERAL: pleasant, female in no apparent distress HEENT: Normocephalic, atraumatic, mucus membranes moist, and no lesions NECK: Supple, full range of motion, no adenopathy, and thyroid normal DERMATOLOGY: Normal, without lesions, non-icteric, and non-hirsute BREAST: soft, non-tender, symmetric, no dominant mass, normal nipple-areolar complex, no lymphadenopathy, and no nipple discharge CHEST: Normal inspiratory effort ABDOMEN: soft, non-tender, and no masses PELVIC: external genitalia normal, normal Bartholin's glands, urethra, Mabscott's glands, no vulvar lesions, no cervical lesions, good vaginal support, physiologic discharge present, normal appearing perineal body and perianal region BIMANUAL: uterus normal size, shape and consistency, no adnexal masses, and non-tender RECTOVAGINAL: deferred. NEURO: alert and oriented x3,exam grossly non-focal EXTREMITIES: normal ASSESSMENT/PLAN: 1) Health maintenance: Pap/HPV up to date. Mammogram up to date . Nutrition, exercise and routine health maintenance exams reviewed. Calcium/Vitamin D supplementation information provided. 2) Contraception: Depo Provera. Contraceptive options reviewed and information provided. 3) STD screening: Declined STD check. 4) Follow up one year or sooner as needed Lurdes Fregoso APRN.CNP documented in this encounterMercy [facility]03-26-2024 History of Present illness Narrative* Jessica Yeager, RT(R) - 10/17/2023 10:50 AM EDT Radiology Service Progress Note PATIENT NAME: Eunice Munoz DATE OF SERVICE: October 17, 2023 TIME: 10:48 AM PATIENT IDENTITY VERIFICATION COMPLETED USING TWO (2) IDENTIFIERS: Name and Date of confirmedby patient verbally. FALL SCREENING: Has the patient had 2 falls in the last year or 1 fall with injury or currently using an Ambulatory Assistive Device (Walker, Cane, Wheelchair, Crutches, etc.)? No PATIENT GENDER DATA: Female. status: : No status: NO. PATIENT RELEVANT IMPLANT DATA REVIEWED: Not Applicable PATIENT PRESENTS WITH AN IMPLANTABLE OR ATTACHED JOURNEYMAN PRESSMAN: No RADIOLOGY DEPARTMENT: Mammography PERIPHERAL IV DATA: Not applicable SIGNED BY: RT Dionicio(R) October 17, 2023 10:48 AM documented in this encounterMercy Health [facility]03-20-2024 History of Present illness Narrative* Nancy Sethi RN - 10/11/2023 4:08 PM EDT Patient identified by name and date of . Eunice Munoz is here for a Depo Provera injection. Patient brought medication. Date last injected: out of range - negative UPT Depo-Provera, 150 mg, administered IM right upper quadrant gluteus, Lot # [id number], expiration date 10/2024. Depo-Provera was given without incident. Date of last menses: Patient's last menstrual period was 09/10/2021. Medication verified by dispensing pharmacist Patient instructed to return to clinic on 12 weeks. [email or web address] Provider Ivet Velazquez CNM was present in office at time of injection. Nancy Sethi RN documented in this encounterMercy Health [facility]03-19-2024 Miscellaneous Notes* Telephone Encounter - Savanna Jimenez RN - 10/10/2023 1:22 PM EDT Next depo nurse visit scheduled for tomorrow. DNA Directhart message sent in different encounter to schedule annual while in office tomorrow. CAM order pending too. Requested Prescriptions Pending Prescriptions Disp Refills medroxyPROGESTERone (DEPO-PROVERA) 150 mg/mL 1 Each 0 Sig: Inject 1 mL intramuscularly every 12 weeks. medroxyPROGESTERone 150 mg injection (DEPO-PROVERA) Savanna Jimenez RN documented in this encounterMercy Health [facility]08-29-2023 History of Present illness Narrative* Savanna Jimenez RN - 03/21/2023 9:16 AM EDT Patient identified by name and date of . Eunice Munoz is here for a Depo Provera injection. Patient brought medication. Date last injected: 12/26/22 Depo-Provera, 150 mg, administered IM left upper quadrant gluteus, Lot # [id number], expiration date 10/21/2024. Depo-Provera was given without incident. Date of last menses: Patient's last menstrual period was 09/10/2021. Irregular bleeding - No Menses ceased - Yes STD prevention discussed: Yes Patient instructed to return to clinic on 12 weeks. [email or web address] Provider Dr. Briceño was present in office at time of injection. Savanna Jimenez RN documented in this encounterMercy Health [facility]06-05-2023 History of Present illness Narrative* Nancy Sethi RN - 12/26/2022 3:55 PM EDT Patient identified by name and date of . Eunice Munoz is here for a Depo Provera injection. Patient brought medication. Date last injected: 08/31/22 - negative test. Depo-Provera, 150 mg, administered IM right upper quadrant gluteus, Lot # [id number], expiration date 08/2024. Depo-Provera was given without incident. Medication verified by dispensing pharmacist Patient instructed to return to clinic on 12 weeks. [email or web address] Provider Jessica Owen CNM was present in office at time of injection. Nancy Sethi RN documented in this encounterMercy Health [facility]03-29-2023 History and physical note * Aaliyah Aguilar MD - 10/19/2022 10:30 AM EDT UPDATED PROCEDURAL SEDATION HISTORY AND PHYSICAL EXAMINATION SERVICE DATE: 10/19/2022 SERVICE TIME: 9:02 PHYSICAL EXAM MUST BE COMPLETED ON ADMISSION PROCEDURE: colonoscopy, possible biopsies Procedure Indications: screening for colon cancer The History and Physical (completed in the past 30 days) has been reviewed and the patient has beenexamined. The contents accurately reflect the patient's condition with the following additions or revisions since the H&P was completed. ASA Class: ASA Class:: Patient with mild systemic disease Examination indicates no changes. AIRWAY: Airway Visualization of Uvula: Yes Mouth opening greater than 2 fingerbreadths: Yes Neck Full Range of Motion: Yes LUNGS: Lungs clear to auscultation CARDIAC: Regular rhythm,Regular rate Provisional Diagnosis/Treatment Plan: colonoscopy, possible biopsies SEDATION GOAL: Moderate This H&P can be found in the Electronic Medical Record. SIGNATURE: Aaliyah Aguilar MD PATIENT NAME: Eunice Munoz DATE: October 19, 2022 TIME: 9:04 AM Source Note - Aaliyah Aguilar MD - 10/19/2022 10:30 AM EDT HISTORY AND PHYSICAL Eunice Munoz 1975 REFERRING PHYSICIAN: No ref. provider found CHIEF COMPLAINT: Consult (colonoscopy) HPI: The patient is a 47 year old female referred for endoscopy. Eunice notes occasional BRBPR, she states that she has known hemorrhoids. She complains of abdominal bloating. She states that she [place] colon[place], no report available at the time of this encounter. She notes chronic constipation, may not have a bowel movement up to three days and needs to take a laxative. She notes hard stools. She notes no colon cancer in her immediate family. PAST MEDICAL HISTORY Diagnosis Date Migraine Scoliosis PAST SURGICAL HISTORY Procedure Laterality Date SECTION HX 2010 FOOT SURGERY HX Bilateral 2002 bunion FOOT SURGERY HX Right 2020 INCISION OF PYLORIC MUSCLE 1976 Current Outpatient Medications Medication Sig medroxyPROGESTERone (DEPO-PROVERA) 150 mg/mL Inject 1 mL intramuscularly every 12 weeks. ALLERGIES: Patient has no known allergies. PERSONAL HISTORY: Social History Tobacco Use Smoking status: Never Smokeless tobacco: Never Vaping Use Vaping Use: Never used Substance Use Topics Alcohol use: Yes Comment: rare Drug use: Never FAMILY HISTORY Problem Relation Age of Onset Prostate Cancer Father and skin The review of systems data was entered by the nurse and reviewed by in Nursing Notes: Iza Jean-Baptiste LPN 09/15/2022 8:20 AM Signed REVIEW OF SYSTEMS: General: The patient denies fatigue, denies weight loss, NOTES weight gain, denies feeling hot, anddenies feelings of cold. Eyes: The patient denies glaucoma, denies eye injury/surgery, wears glasses or contacts. Ear/Nose/Throat: The patient denies allergies, denies hayfever, NOTES ear infections, and denies bloody noses. Cardiovascular: The patient denies chest pain, denies heart disease, denies high blood pressure,denies cardiac stent, denies prior heart attack, denies irregular heart beat, denies high cholesterol, denies poor circulation, denies heart failure, other cardiac issues, denies claudication, denies cold feet, denies peripheral arterial stent. Respiratory: The patient denies tuberculosis, denies pneumonia, denies frequent cough, denies pulmonary embolism, denies shortness of breath, and denies coughing up blood. Gastrointestinal: The patient denies difficulty swallowing, denies acid reflux, denies ulcers, denies vomiting, denies jaundice/hepatitis, denies gallbladder problems, denies black or tarry stools, NOTES hemorrhoids, NOTES bleeding from rectum, denies diverticulitis, NOTES constipation, denies diarrhea, denies loss of stool control, and denies hernias. Kidney/Bladder: The patient denies kidney stones, denies urine infections, and denies bloody urine. Skin: The patient denies a history of skin cancer, denies bleeding/changing moles, and denies a history of skin rash. Neurologic: The patient denies a history of epilepsy/convulsions, denies headaches, denies head/spinal injuries, and denies stroke/TIA. Psychiatric: The patient denies psychiatric medications, denies depression, and denies voices, denies substance abuse. Endocrine: The patient denies thyroid disorders, denies diabetes, and denies hormonal problems. Hematologic: The patient denies a history of bruising, denies bleeding, and denies anemia, denies blood clots. Infections: The patient denies a history of measles and mumps, denies rheumatic fever, and denies sexually transmitted diseases. Musculoskeletal: The patient denies back pain/injury, NOTES back problems, denies sciatica, denies knee/foot trouble, denies arthritis, or denies gout. When was patient's last Mammogram screening? 2021 Last Colonoscopy: 2017 Iza Jean-Baptiste LPN PHYSICAL EXAMINATION: General: The patient is 47 year old female, well nourished, well hydrated in no acute distress. Thepatient is oriented to time, place, and person. VITALS: Blood pressure 110/78, pulse 89, temperature 36.6 C (97.9 F), height 160 cm (5' 3), pgigbr53.3 kg (170 lb 6.4 oz), last menstrual period 09/10/2021, SpO2 100 %. Body mass index is 30.19 kg/m . Head: Normal cephalic, atraumatic Eyes: pupils are equally round, sclera are clear/anicteric Neck is supple with no tracheal deviation Respiratory: Normal respiratory excursion and pattern. Abdominal exam: benign Extremities: no clubbing, cyanosis or edema. Neuro: non focal Psych: normal mood IMPRESSION: screening for colon cancer PLAN: I have discussed the above with the patient. I have offered colonoscopy, possible biopsies I have explained the procedure to the patient. I have counseled the patient as to the risks of the procedure, including but not limited to: infection, bleeding, injury to any intrabdominal organs such as liver/spleen, perforation of the GI tract,inability to complete the procedure, complications of anesthesia, etc. - the patient understands. The patient wishes to proceed. I have answered all questions to the patient s satisfaction and the patient has no further questions. Diagnoses: (Z12.11) Screening for colon cancer (primary encounter diagnosis) * Aaliyah Aguilar MD - 10/19/2022 10:30 AM EDT HISTORY AND PHYSICAL Eunice Munoz 1975 REFERRING PHYSICIAN: No ref. provider found CHIEF COMPLAINT: Consult (colonoscopy) HPI: The patient is a 47 year old female referred for endoscopy. Eunice notes occasional BRBPR, she states that she has known hemorrhoids. She complains of abdominal bloating. She states that she [place], no report available at the time of this encounter. She notes chronic constipation, may not have a bowel movement up to three days and needs to take a laxative. She notes hard stools. She notes no colon cancer in her immediate family. PAST MEDICAL HISTORY Diagnosis Date Migraine Scoliosis PAST SURGICAL HISTORY Procedure Laterality Date SECTION HX 2011 FOOT SURGERY HX Bilateral 2002 bunion FOOT SURGERY HX Right 2020 INCISION OF PYLORIC MUSCLE 1976 Current Outpatient Medications Medication Sig medroxyPROGESTERone (DEPO-PROVERA) 150 mg/mL Inject 1 mL intramuscularly every 12 weeks. ALLERGIES: Patient has no known allergies. PERSONAL HISTORY: Social History Tobacco Use Smoking status: Never Smokeless tobacco: Never Vaping Use Vaping Use: Never used Substance Use Topics Alcohol use: Yes Comment: rare Drug use: Never FAMILY HISTORY Problem Relation Age of Onset Prostate Cancer Father and skin The review of systems data was entered by the nurse and reviewed by in Nursing Notes: Iza Jean-Baptiste LPN 09/15/2022 8:20 AM Signed REVIEW OF SYSTEMS: General: The patient denies fatigue, denies weight loss, NOTES weight gain, denies feeling hot, anddenies feelings of cold. Eyes: The patient denies glaucoma, denies eye injury/surgery, wears glasses or contacts. Ear/Nose/Throat: The patient denies allergies, denies hayfever, NOTES ear infections, and denies bloody noses. Cardiovascular: The patient denies chest pain, denies heart disease, denies high blood pressure,denies cardiac stent, denies prior heart attack, denies irregular heart beat, denies high cholesterol, denies poor circulation, denies heart failure, other cardiac issues, denies claudication, denies cold feet, denies peripheral arterial stent. Respiratory: The patient denies tuberculosis, denies pneumonia, denies frequent cough, denies pulmonary embolism, denies shortness of breath, and denies coughing up blood. Gastrointestinal: The patient denies difficulty swallowing, denies acid reflux, denies ulcers, denies vomiting, denies jaundice/hepatitis, denies gallbladder problems, denies black or tarry stools, NOTES hemorrhoids, NOTES bleeding from rectum, denies diverticulitis, NOTES constipation, denies diarrhea, denies loss of stool control, and denies hernias. Kidney/Bladder: The patient denies kidney stones, denies urine infections, and denies bloody urine. Skin: The patient denies a history of skin cancer, denies bleeding/changing moles, and denies a history of skin rash. Neurologic: The patient denies a history of epilepsy/convulsions, denies headaches, denies head/spinal injuries, and denies stroke/TIA. Psychiatric: The patient denies psychiatric medications, denies depression, and denies voices, denies substance abuse. Endocrine: The patient denies thyroid disorders, denies diabetes, and denies hormonal problems. Hematologic: The patient denies a history of bruising, denies bleeding, and denies anemia, denies blood clots. Infections: The patient denies a history of measles and mumps, denies rheumatic fever, and denies sexually transmitted diseases. Musculoskeletal: The patient denies back pain/injury, NOTES back problems, denies sciatica, denies knee/foot trouble, denies arthritis, or denies gout. When was patient's last Mammogram screening? 2021 Last Colonoscopy: 2018 Iza Jean-Baptiste LPN PHYSICAL EXAMINATION: General: The patient is 47 year old female, well nourished, well hydrated in no acute distress. Thepatient is oriented to time, place, and person. VITALS: Blood pressure 110/78, pulse 89, temperature 36.6 C (97.9 F), height 160 cm (5' 3), gohoql40.3 kg (170 lb 6.4 oz), last menstrual period 09/10/2021, SpO2 100 %. Body mass index is 30.19 kg/m . Head: Normal cephalic, atraumatic Eyes: pupils are equally round, sclera are clear/anicteric Neck is supple with no tracheal deviation Respiratory: Normal respiratory excursion and pattern. Abdominal exam: benign Extremities: no clubbing, cyanosis or edema. Neuro: non focal Psych: normal mood IMPRESSION: screening for colon cancer PLAN: I have discussed the above with the patient. I have offered colonoscopy, possible biopsies I have explained the procedure to the patient. I have counseled the patient as to the risks of the procedure, including but not limited to: infection, bleeding, injury to any intrabdominal organs such as liver/spleen, perforation of the GI tract,inability to complete the procedure, complications of anesthesia, etc. - the patient understands. The patient wishes to proceed. I have answered all questions to the patient s satisfaction and the patient has no further questions. Diagnoses: (Z12.11) Screening for colon cancer (primary encounter diagnosis) documented in [facility]Mer[facility] Nurse Note* Kristina Vázquez RN - 10/19/2022 9:48 AM EDT Arrived in phase II via cart. Left lateral position. Sedated, but responds to verbal stimuli. Colornormal; skin warm and dry. Respirations wnl and unlabored. Abdomen soft and with + bowel sounds in quads X 4. Patient resting comfortably. Kristina Vázquez RN documented in this encounterMer[facility]03-15-2023 Instructions* Patient Instructions* Essie Bearden APRN.ANA PAULA - 10/05/2022 11:23 AM EDT ASSESSMENT/PLAN: 1. Other acute nonsuppurative otitis media of both ears, recurrence not specified - ICD9: 381.00, ICD10: H65.193 (primary diagnosis) - Will begin treatment with as per antibiotic as written, see orders - Supportive care with plenty of fluids, rest, and analgesia prn. - AMOXICILLIN 875 MG TABLET 2. Viral URI with cough - ICD9: 465.9, ICD10: J06.9 - Discussed viral etiology and rationale for treatment. - Symptomatic treatment with prn analgesia - Supportive care with fluids and rest - GUAIFENESIN ER 600 MG TABLET, EXTENDED RELEASE 12 HR - FLUTICASONE PROPIONATE 50 MCG/ACTUATION NASAL SPRAY,SUSPENSION - offered COVID/flu testing, patient declined. - Follow-up with your PCP in 3-5 days if symptoms have not improved or sooner if symptoms worsen - Discussed red flags and need for immediate medical evaluation if any occur. - Discussed supportive care treatment with fluids, rest and analgesia. - Discussed expected course of illness Essie Bearden APRN.ANA PAULA documented in this encounterMer[facility]03-[facility]-2023 History of Present illness Narrative* Essie Bearden APRN.ANA PAULA - 10/05/2022 11:20 AM EDT Subjective Cough Associated symptoms include ear pain and sore throat. Pertinent negatives include no chest pain, nochills, no myalgias and no shortness of breath. Eunice Munoz is a 47 year old female who presents with 3 days of sore throat, cough, congestion, right ear ache. She states at the onset of the illness she had chills, body aches and headache but these have resolved. She has not had any known sick contacts. She took 2 days of amoxicillin and tessalon perles and dayquil. Review of Systems Constitutional: Negative for chills, fever and malaise/fatigue. HENT: Positive for congestion, ear pain and sore throat. Respiratory: Positive for cough. Negative for shortness of breath. Cardiovascular: Negative for chest pain. Gastrointestinal: Negative for diarrhea, nausea and vomiting. Musculoskeletal: Negative for myalgias. BP 98/64 Pulse 72 Temp 37 C (98.6 F) Resp 23 Wt 77.3 kg (170 lb 6.4 oz) LMP 09/10/2021 SpO2 100% BMI 30.19 kg/m PAST MEDICAL HISTORY Diagnosis Date Migraine Scoliosis PAST SURGICAL HISTORY Procedure Laterality Date SECTION HX 2011 FOOT SURGERY HX Bilateral 2002 bunion FOOT SURGERY HX Right 2020 INCISION OF PYLORIC MUSCLE 1976 ALLERGIES Patient has no known allergies. MEDICATIONS medroxyPROGESTERone (DEPO-PROVERA) 150 mg/mL^Inject 1 mL intramuscularly every 12 weeks.^Disp: 1 Each^Rfl: 3 amoxicillin (AMOXIL) 875 mg tablet^Take 1 tablet by mouth twice daily for 7 days.^Disp: 14 tablet^Rfl: 0 guaiFENesin (MUCINEX) 600 mg 12 hr tablet^Take 1 tablet by mouth twice daily for 10 days.^Disp: 20 tablet^Rfl: 0 fluticasone (FLONASE) 50 mcg/actuation nasal spray^Use 2 Sprays in each nostril once daily. Rinse mouth after use.^Disp: 1 Each^Rfl: 0 FAMILY HISTORY Problem Relation Age of Onset Prostate Cancer Father and skin Social History Tobacco Use Smoking status: Never Smokeless tobacco: Never Vaping Use Vaping Use: Never used Substance Use Topics Alcohol use: Yes Comment: rare Drug use: Never Objective Physical Exam Vitals and nursing note reviewed. Constitutional: General: She is not in acute distress. Appearance: Normal appearance. She is not toxic-appearing. HENT: Right Ear: Ear canal and external ear normal. Tympanic membrane is injected and bulging. Left Ear: Ear canal and external ear normal. Tympanic membrane is injected and erythematous. Nose: Nose normal. Mouth/Throat: Pharynx: Uvula midline. No oropharyngeal exudate or posterior oropharyngeal erythema. Cardiovascular: Rate and Rhythm: Normal rate and regular rhythm. Heart sounds: Normal heart sounds. Pulmonary: Effort: Pulmonary effort is normal. No respiratory distress. Breath sounds: Normal breath sounds. No wheezing or rales. Musculoskeletal: Cervical back: Neck supple. Lymphadenopathy: Cervical: No cervical adenopathy. Skin: General: Skin is warm and dry. Findings: No erythema or rash. Neurological: Mental Status: She is alert. ASSESSMENT/PLAN: 1. Other acute nonsuppurative otitis media of both ears, recurrence not specified - ICD9: 381.00, ICD10: H65.193 (primary diagnosis) - Will begin treatment with as per antibiotic as written, see orders - Supportive care with plenty of fluids, rest, and analgesia prn. - AMOXICILLIN 875 MG TABLET 2. Viral URI with cough - ICD9: 465.9, ICD10: J06.9 - Discussed viral etiology and rationale for treatment. - Symptomatic treatment with prn analgesia - Supportive care with fluids and rest - GUAIFENESIN ER 600 MG TABLET, EXTENDED RELEASE 12 HR - FLUTICASONE PROPIONATE 50 MCG/ACTUATION NASAL SPRAY,SUSPENSION - offered COVID/flu testing, patient declined. - Follow-up with your PCP in 3-5 days if symptoms have not improved or sooner if symptoms worsen - Discussed red flags and need for immediate medical evaluation if any occur. - Discussed supportive care treatment with fluids, rest and analgesia. - Discussed expected course of illness Essie Bearden APRN.ANA PAULA documented in this encounterMer[facility]02-24-[facility]23 History of Present illness Narrative* Aaliyah Aguilar MD - 09/16/2022 1:58 PM EST HISTORY AND PHYSICAL Eunice Munoz 1975 REFERRING PHYSICIAN: No ref. provider found CHIEF COMPLAINT: Consult (colonoscopy) HPI: The patient is a 47 year old female referred for endoscopy. Eunice notes occasional BRBPR, she states that she has known hemorrhoids. She complains of abdominal bloating. She states that she had a colonoscopy several [place] ago, [place], no report available at the time of this encounter. She notes chronic constipation, may not have a bowel movement up to three days and needs to take a laxative. She notes hard stools. She notes no colon cancer in her immediate family. PAST MEDICAL HISTORY Diagnosis Date Migraine Scoliosis PAST SURGICAL HISTORY Procedure Laterality Date SECTION HX 2010 FOOT SURGERY HX Bilateral 2002 bunion FOOT SURGERY HX Right 2020 INCISION OF PYLORIC MUSCLE 1976 Current Outpatient Medications Medication Sig medroxyPROGESTERone (DEPO-PROVERA) 150 mg/mL Inject 1 mL intramuscularly every 12 weeks. ALLERGIES: Patient has no known allergies. PERSONAL HISTORY: Social History Tobacco Use Smoking status: Never Smokeless tobacco: Never Vaping Use Vaping Use: Never used Substance Use Topics Alcohol use: Yes Comment: rare Drug use: Never FAMILY HISTORY Problem Relation Age of Onset Prostate Cancer Father and skin The review of systems data was entered by the nurse and reviewed by me Nursing Notes: Iza Jean-Baptiste LPN 09/15/2022 8:20 AM Signed REVIEW OF SYSTEMS: General: The patient denies fatigue, denies weight loss, NOTES weight gain, denies feeling hot, anddenies feelings of cold. Eyes: The patient denies glaucoma, denies eye injury/surgery, wears glasses or contacts. Ear/Nose/Throat: The patient denies allergies, denies hayfever, NOTES ear infections, and denies bloody noses. Cardiovascular: The patient denies chest pain, denies heart disease, denies high blood pressure,denies cardiac stent, denies prior heart attack, denies irregular heart beat, denies high cholesterol, denies poor circulation, denies heart failure, other cardiac issues, denies claudication, denies cold feet, denies peripheral arterial stent. Respiratory: The patient denies tuberculosis, denies pneumonia, denies frequent cough, denies pulmonary embolism, denies shortness of breath, and denies coughing up blood. Gastrointestinal: The patient denies difficulty swallowing, denies acid reflux, denies ulcers, denies vomiting, denies jaundice/hepatitis, denies gallbladder problems, denies black or tarry stools, NOTES hemorrhoids, NOTES bleeding from rectum, denies diverticulitis, NOTES constipation, denies diarrhea, denies loss of stool control, and denies hernias. Kidney/Bladder: The patient denies kidney stones, denies urine infections, and denies bloody urine. Skin: The patient denies a history of skin cancer, denies bleeding/changing moles, and denies a history of skin rash. Neurologic: The patient denies a history of epilepsy/convulsions, denies headaches, denies head/spinal injuries, and denies stroke/TIA. Psychiatric: The patient denies psychiatric medications, denies depression, and denies voices, denies substance abuse. Endocrine: The patient denies thyroid disorders, denies diabetes, and denies hormonal problems. Hematologic: The patient denies a history of bruising, denies bleeding, and denies anemia, denies blood clots. Infections: The patient denies a history of measles and mumps, denies rheumatic fever, and denies sexually transmitted diseases. Musculoskeletal: The patient denies back pain/injury, NOTES back problems, denies sciatica, denies knee/foot trouble, denies arthritis, or denies gout. When was patient's last Mammogram screening? 2021 Last Colonoscopy: 2017 Iza Jean-Baptiste LPN PHYSICAL EXAMINATION: General: The patient is 47 year old female, well nourished, well hydrated in no acute distress. Thepatient is oriented to time, place, and person. VITALS: Blood pressure 110/78, pulse 89, temperature 36.6 C (97.9 F), height 160 cm (5' 3), jqxluw63.3 kg (170 lb 6.4 oz), last menstrual period 09/10/2021, SpO2 100 %. Body mass index is 30.19 kg/m . Head: Normal cephalic, atraumatic Eyes: pupils are equally round, sclera are clear/anicteric Neck is supple with no tracheal deviation Respiratory: Normal respiratory excursion and pattern. Abdominal exam: benign Extremities: no clubbing, cyanosis or edema. Neuro: non focal Psych: normal mood Assessment IMPRESSION: screening for colon cancer PLAN: I have discussed the above with the patient. I have offered colonoscopy, possible biopsies I have explained the procedure to the patient. I have counseled the patient as to the risks of the procedure, including but not limited to: infection, bleeding, injury to any intrabdominal organs such as liver/spleen, perforation of the GI tract,inability to complete the procedure, complications of anesthesia, etc. - the patient understands. The patient wishes to proceed. I have answered all questions to the patient s satisfaction and the patient has no further questions. Diagnoses: (Z12.11) Screening for colon cancer (primary encounter diagnosis) I have confirmed and edited as necessary, the PFSH and ROS obtained by others. Return to Clinic: The patient will be scheduled [facility]. I spent a total of 35 minutes on the date of the service which included preparing to see the patient with review of any pertinent laboratory studies/radiological imaging/medical records, fyia-jx-xhevbywzdyk care, obtaining oral medical history from the patient in this encounter, performing a medically appropriate examination, counseling and educating the patient/family/caregiver, and ordering and/or scheduling of medications/tests/procedures, and completing appropriate medical documentation. Aaliyah Aguilar MD documented in this encounterMer[facility]02-23-2023 Instructions* Patient Instructions* Aaliyah Aguilar MD - 09/15/2022 8:29 AM EST Images from the original note were not included. Bowel Preparation Instructions for: Golytely, Nulytely, Trilyte or Colyte (polyethylene glycol 3350and electrolytes) IF YOU DO NOT FOLLOW THESE DIRECTIONS, YOUR COLONOSCOPY WILL BE CANCELLED. Wu Instructions: Your bowel must be empty so that your doctor can clearly view your colon. Follow all of the instructions in this handout EXACTLY as they are written. Do NOT eat any solid food the ENTIRE day before your colonoscopy. Drink only clear liquids. Buy your bowel preparation at least 5 days before your colonoscopy. TRANSPORTATION on the Day of Your Exam A responsible person MUST be present with you at Check In prior to your colonoscopy and REMAIN in the endoscopy area until you are discharged. You are NOT ALLOWED to drive, take a taxi or bus, or leave the Endoscopy Center ALONE. If you do not have a responsible truck driver instructor (family member or friend) with you to take you home, your exam cannot be done with sedation and will be cancelled. Please bring a list of all of your current medications, including any Over-the Counter medications with you. Medications If you take insulin, diabetic medications or blood thinners such as Coumadin (warfarin), Plavix (clopidogrel), Ticlid (ticlopidine hydrochloride), Agrylin (anagrelide), Xarelto (Rivaroxaban), Pradaxa(Dabigatran), Eliquis (Apixaban), and Effient (Prasugrel). You MUST call the doctors who orders those medicines for instructions on altering the dosage before your colonoscopy. All other medications should be taken the day of the exam with a sip of water including ASPIRIN. Five (5) Days Before Your Colonoscopy Do NOT take medicines that stop diarrhea - such as Imodium, Kaopectate, or Pepto Bismol. Do NOT take fiber supplements - such as Metamucil, Citrucel, or Perdiem. Do NOT take products that contain iron - such as multi-vitamins (the label lists what is in the products). Do NOT take Vitamin E. Buy the prescription bowel preparation solution at your local pharmacy or drugstore pharmacy. 1 06/2019 Bowel Preparation Instructions for: Golytely, Nulytely, Trilyte or Colyte (polyethylene glycol 3350and electrolytes) Three (3) Days Before Your Colonoscopy Do NOT eat high-fiber foods - such as popcorn, beans, seeds (flax, sunflower, quinoa), multigrain bread, nuts, salad/vegetables, or fresh and dried fruit. One (1) Day Before Your Colonoscopy Only drink clear liquids the ENTIRE DAY before your colonoscopy. Do NOT eat any solid foods. Drink at least 8 ounces of clear liquids every hour after waking up. The clear liquids you can drink include: Clear Liquid (NO RED LIQUIDS) DO NOT DRINK Gatorade, Pedialyte or Powerade Clear broth or bouillon Coffee or tea (no milk or non-dairy creamer) Carbonated and non-carbonated soft drinks Shawn-Aid or other fruit flavored drinks Strained fruit juices (no pulp) Jell-O, popsicles, hard candy Water Alcohol Milk or non-dairy creamers Noodles or vegetables in soup Juice with pulp Liquid you cannot see through Do not use tobacco/vaping products The bowel preparation solution will be consumed in two parts. Mix the solution the evening before your colonoscopy and refrigerate before drinking. You may add the flavor pack that came with the bowel preparation. Do NOT add ice, sugar or any other flavorings to the solution. Part 1 At 6:00 PM - Evening before your colonoscopy Drink an 8-oz glass of bowel preparation every 10 minutes for a total of 8 glasses. You may continue to drink clear liquids until midnight. Part 2 On the day of your colonoscopy you may drink clear liquids up to (three) 3 hours before your procedure. 4 1/2 hours before your colonoscopy Drink an 8-oz glass of bowel preparation every 10 minutes for a total of 8 glasses. Fifteen (15) minutes later, drink an 8-oz glass of clear liquids every 15 minutes for a total of 2 glasses. You may continue to drink clear liquids up to (three) 3 hours before your exam. 2 06/2019 documented in this encounterMer[facility]02-[facility]23 Nurse Note* Iza Jean-Baptiste LPN - 09/15/2022 8:19 AM EST REVIEW OF SYSTEMS: General: The patient denies fatigue, denies weight loss, NOTES weight gain, denies feeling hot, anddenies feelings of cold. Eyes: The patient denies glaucoma, denies eye injury/surgery, wears glasses or contacts. Ear/Nose/Throat: The patient denies allergies, denies hayfever, NOTES ear infections, and denies bloody noses. Cardiovascular: The patient denies chest pain, denies heart disease, denies high blood pressure,denies cardiac stent, denies prior heart attack, denies irregular heart beat, denies high cholesterol, denies poor circulation, denies heart failure, other cardiac issues, denies claudication, denies cold feet, denies peripheral arterial stent. Respiratory: The patient denies tuberculosis, denies pneumonia, denies frequent cough, denies pulmonary embolism, denies shortness of breath, and denies coughing up blood. Gastrointestinal: The patient denies difficulty swallowing, denies acid reflux, denies ulcers, denies vomiting, denies jaundice/hepatitis, denies gallbladder problems, denies black or tarry stools, NOTES hemorrhoids, NOTES bleeding from rectum, denies diverticulitis, NOTES constipation, denies diarrhea, denies loss of stool control, and denies hernias. Kidney/Bladder: The patient denies kidney stones, denies urine infections, and denies bloody urine. Skin: The patient denies a history of skin cancer, denies bleeding/changing moles, and denies a history of skin rash. Neurologic: The patient denies a history of epilepsy/convulsions, denies headaches, denies head/spinal injuries, and denies stroke/TIA. Psychiatric: The patient denies psychiatric medications, denies depression, and denies voices, denies substance abuse. Endocrine: The patient denies thyroid disorders, denies diabetes, and denies hormonal problems. Hematologic: The patient denies a history of bruising, denies bleeding, and denies anemia, denies blood clots. Infections: The patient denies a history of measles and mumps, denies rheumatic fever, and denies sexually transmitted diseases. Musculoskeletal: The patient denies back pain/injury, NOTES back problems, denies sciatica, denies knee/foot trouble, denies arthritis, or denies gout. When was patient's last Mammogram screening? 2021 Last Colonoscopy: 2017 Iza Jean-Baptiste LPN documented in this encounterMer[facility]02-14-[facility] History of Present illness Narrative* Lurdes Fregoso, INDUSTRIAL MAINTENANCE MECHANIC.PETROPHYSICAL ENGINEER - 09/06/2022 7:58 AM EST Marta is a 47 year old who presents for an annual gynecologic exam without complaints. 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 LMP: 09/10/2021, Injection Age at Menarche: Age at First : Age at Menopause: Substation Engineer History Comments: Sexual Activity: Yes; Male Contraception: None PAST MEDICAL HISTORY Diagnosis Date Migraine Scoliosis PAST SURGICAL HISTORY Procedure Laterality Date SECTION HX 2011 FOOT SURGERY HX Bilateral 2002 bunion FOOT SURGERY HX Right 2020 INCISION OF PYLORIC MUSCLE 1976 FAMILY HISTORY Problem Relation Age of Onset Prostate Cancer Father and skin SOCIAL HISTORY Social History Tobacco Use Smoking status: Never Smokeless tobacco: Never Vaping Use Vaping Use: Never used Substance Use Topics Alcohol use: Yes Comment: rare Drug use: Never REVIEW OF SYSTEMS Abdomen: No abdominal pain, nausea, vomiting, diarrhea. No early satiety, indigestion, or increasedflatulence. +bloating +constipation Bladder: No dysuria, gross hematuria, urinary frequency, urinary urgency, or incontinence. Breast: No breast lumps, nipple d/c, overlying skin changes, redness or skin retraction. Allergies and current medication updated:Yes EXAM: Ht 5' 1.75 (1.57m) Wt 170 lb 12.8 oz (77.5kg) LMP 09/10/2021 BMI 31.51 kg/(m^2). GENERAL: pleasant, female in no apparent distress HEENT: Normocephalic, atraumatic, and no lesions NECK: Supple, full range of motion, no adenopathy, and thyroid normal DERMATOLOGY: Normal, without lesions, non-icteric, and non-hirsute BREAST: soft, non-tender, symmetric, no dominant mass, normal nipple-areolar complex, no lymphadenopathy, and no nipple discharge CHEST: Normal inspiratory effort ABDOMEN: soft, non-tender, and no masses PELVIC: external genitalia normal, normal Bartholin's glands, urethra, Mabscott's glands, no vulvar lesions, no cervical lesions, good vaginal support, physiologic discharge present, normal appearing perineal body and perianal region BIMANUAL: uterus normal size, shape and consistency, no adnexal masses, and non-tender RECTOVAGINAL: deferred. NEURO: alert and oriented x3,exam grossly non-focal EXTREMITIES: normal ASSESSMENT/PLAN: 1. Encounter for gynecological examination (general) (routine) without abnormal findings - ICD9: V72.31, ICD10: Z01.419 (primary diagnosis) - Completed pelvic and breast exam - Colon cancer screening reviewed and colonoscopy recommended - Follow up for annual exam in one year. 2. Encounter for surveillance of injectable contraceptive - ICD9: V25.49, ICD10: Z30.42 - Depo Provera renewed. 3. Encounter for screening for malignant neoplasm of colon - ICD9: V76.51, ICD10: Z12.11 - CONSULT TO GENERAL SURGERY Lurdes Fregoso APRN.CNP documented in this encounterMercy Health [facility]02-08-2023 History of Present illness Narrative* Johana Collado RT(R) - 08/31/2022 1:30 PM EST Radiology Service Progress Note PATIENT NAME: Eunice Munoz DATE OF SERVICE: August 31, 2022 TIME: 1:40 PM PATIENT IDENTITY VERIFICATION COMPLETED USING TWO (2) IDENTIFIERS: Name and Date of confirmedby patient verbally. FALL SCREENING: Has the patient had 2 falls in the last year or 1 fall with injury or currently using an Ambulatory Assistive Device (Walker, Cane, Wheelchair, Crutches, etc.)? No PATIENT GENDER DATA: Female. status: : No status: NO. PATIENT RELEVANT IMPLANT DATA REVIEWED: Yes RADIOLOGY DEPARTMENT: General X-ray: Exam(s) Completed: Lower Extremity X- Ray(s): Foot, Right and Wt. Bearing PERIPHERAL IV DATA: Not applicable SIGNED BY: RT Jeb(R) August 31, 2022 1:40 PM documented in this encounterMercy Health [facility]02-08-2023 Instructions* Patient Instructions* Sonny Maderamino - 08/31/2022 1:23 PM EST Get xray to further access Could pop the cyst vs aspirate vs removal Will get xrays and then discuss further thereafter. documented in this encounterMercy Health [facility]02-08-2023 History of Present illness Narrative* Sonny Maderamino - 08/31/2022 1:15 PM EST Initial Podiatric Office Visit: Chief Complaint: This 47 year old female who presents with chief complaint:cyst of right 4th toe HPI Patient presents to clinic for evaluation of right foot She has small cyst of right 4th toe, distal aspect. This has been present for several years. She has had multiple surgeris on her foot which did help with the cyst but the cyst is slowly returning. She denies any pain but she states the cyst is getting larger. PAIN EVALUATION No data found in the last 1 encounters. No results found for: HBA1C PCP: No primary care provider on file. PAST MEDICAL HISTORY Diagnosis Date Migraine Current Outpatient Medications Medication Sig medroxyPROGESTERone (DEPO-PROVERA) 150 mg/mL Inject 1 mL intramuscularly every 12 weeks. benzonatate (TESSALON PERLES) 100 mg capsule Take 2 capsules by mouth three times daily as needed for cough. (Patient not taking: Reported on 08/31/2022) buPROPion XL (WELLBUTRIN XL) 150 mg 24 hr tablet Take 1 tablet by mouth once daily. (Patient not taking: No sig reported) Current Facility-Administered Medications Medication Dose Route Frequency medroxyPROGESTERone 150 mg injection (DEPO-PROVERA) 150 mg INTRAMUSCULAR every 12 weeks ALLERGIES No Known Allergies PAST SURGICAL HISTORY Procedure Laterality Date SECTION HX 2011 FOOT SURGERY HX Bilateral 2002 bunion FOOT SURGERY HX Right 2020 INCISION OF PYLORIC MUSCLE 1976 FAMILY HISTORY Problem Relation Age of Onset Prostate Cancer Father and skin Social History Tobacco Use Smoking status: Never Smokeless tobacco: Never Vaping Use Vaping Use: Never used Substance Use Topics Alcohol use: Yes Comment: rare Drug use: Never REVIEW OF SYSTEMS GENERAL: Negative for Malaise, significant weight loss, fever RESPIRATORY: Negative for cough, wheezing and shortness of breath CARDIOVASCULAR: Negative for chest pain, leg swelling and palpitations GI: Negative for abdominal discomfort, blood in stools or black stools and change in bowel habits : Negative for dysuria, frequency and incontinence MUSCULOSKELETAL: Negative for joint pain or swelling, back pain, and muscle pain. SKIN: Negative for lesions, rash, and itching. HEMATOLOGY/LYMPHOLOGY Negative for prolonged bleeding, bruising easily, and swollen nodes. ENDOCRINE: Negative for cold or heat intolerance, polyuria, polydipsia and goiter. NEURO: negative Physical Exam: Constitutional: Pt is a well developed 47 year old female who is alert, oriented and cooperative Eyes: Following during examination. No redness or drainage. Respiratory: RR normal and nonlabored. Even breathing. No evidence of distress or shortness of breath. Psychology: Patient is engaged during conversation. Normal affect and mood. Does not appear depressed or anxious during encounter. Vascular: Dorsalis pedis and posterior tibial pulses palpable right Capillary Fill time < 5 seconds to digits 1-5 right Skin temperature warm to warm proximal to distal right Hair growth present to digits Neurological: intact light touch/epicritic sensation right intact protective sensation no significant neurological deficits Dermatological: Nails 1-5 right appear normal. Webspaces clean and dry 1-4 right. Skin appears well hydrated and supple. good color, texture, turgor. No open lesions present. No callosities present. 2 mm cyst to medial aspect of right 4th toe Musculoskeletal/Orthopaedic: Patient has no pain to palpation of right foot Radiographs: ordered ASSESSMENT: (M67.40) Ganglion cyst (primary encounter diagnosis) PLAN: 1. History and physical examination performed. 2. Discussed likley ganglion of right 4th toe. She has popped this multiple of times. Discussed aspiration vs surgical removal vs surgical removal with fusion of dipj. 3. Will get xrays and can discuss options thereafter. 4. Patient states there is no pain at this time. Can monitor but will call with results of xrays Sonny Staton DPM Podiatry [address] [facility] [address] Dept: [phone] Dept * Diane Perez RN - 08/31/2022 1:06 PM EST Patient presents with: Right 4th Toe - New Patient, Cyst Patient c/o cyst to R 4th toe. Rubs when she wears certain shoes - hey dudes. She has popped it before and clear drainage came out. She has had these in the past. documented in this encounterMercy Health [facility]11-16-2022 History of Present illness Narrative* Savanna Jimenez RN - 06/08/2022 2:47 PM EST Patient identified by name and date of . Eunice Munoz is here for a Depo Provera injection. Patient brought medication. Date last injected: 03/09/22 Depo-Provera, 150 mg, administered IM left upper quadrant gluteus, Lot # [id number], expiration date 11/2023. Depo-Provera was given without incident. Date of last menses: Patient's last menstrual period was 09/10/2021. Irregular bleeding - No Menses ceased - Yes Patient instructed to return to clinic on 12 weeks. [email or web address] Provider Dr. Gusman was present in office at time of injection. Savanna Jimenez RN documented in this encounterMercy Health [facility]11-10-2022 Miscellaneous Notes* Telephone Encounter - Lurdes Fregoso APRN.CNP - 06/02/2022 8:28 AM EST Order filed. Lurdes Fregoso APRN.CNP * Telephone Encounter - Deepthi Mccain LPN - 06/02/2022 7:59 AM EST Please see pended cam order below. Deepthi Mccain LPN documented in this encounterMercy Health [facility]10-05-2022 Miscellaneous Notes* [facility] Outreach Note - Jennifer Bhat MA - 04/27/2022 2:08 PM EDT Member on Termed list. No [facility] Number Coverage Terminated on 11/20/21 Closed from Weight Program documented in this encounterMercy Health [facility]07-24-2022 History of Present illness Narrative* Essie Bearden APRN.PETROPHYSICAL ENGINEER - 02/13/2022 10:33 AM EDT Subjective HPI Eunice Munoz is a 47 year old female who presents 3 days of cough, congestion, sore throatand runny nose. Also had some body aches and chills. She denies any known sick contacts. She took sudafed and nasal spray. Review of Systems Constitutional: Positive for chills. Negative for fever. HENT: Positive for congestion and sore throat. Respiratory: Positive for cough. Cardiovascular: Negative. Musculoskeletal: Positive for myalgias. Neurological: Negative for headaches. BP 106/80 Pulse 63 Temp 36.8 C (98.3 F) Resp 16 Wt 74.4 kg (164 lb) LMP 09/10/2021 [id number]% BMI 29.05 kg/m PAST MEDICAL HISTORY Diagnosis Date Migraine PAST SURGICAL HISTORY Procedure Laterality Date SECTION HX 2011 FOOT SURGERY HX Bilateral 2002 bunion FOOT SURGERY HX Right 2020 INCISION OF PYLORIC MUSCLE 1976 ALLERGIES Patient has no known allergies. MEDICATIONS buPROPion XL (WELLBUTRIN XL) 150 mg 24 hr tablet Take 1 tablet by mouth once daily. medroxyPROGESTERone (DEPO-PROVERA) 150 mg/mL Inject 1 mL intramuscularly every 12 weeks. benzonatate (TESSALON PERLES) 100 mg capsule Take 2 capsules by mouth three times daily as needed for cough. FAMILY HISTORY Problem Relation Age of Onset Prostate Cancer Father and skin Social History Tobacco Use Smoking status: Never Smoker Smokeless tobacco: Never Used Vaping Use Vaping Use: Never used Substance Use Topics Alcohol use: Yes Comment: rare Drug use: Never Objective Physical Exam Vitals and nursing note reviewed. Constitutional: Appearance: Normal appearance. HENT: Right Ear: Tympanic membrane, ear canal and external ear normal. Left Ear: Tympanic membrane, ear canal and external ear normal. Nose: Nose normal. Mouth/Throat: Mouth: Mucous membranes are moist. Pharynx: Oropharynx is clear. Uvula midline. No oropharyngeal exudate or posterior oropharyngeal erythema. Cardiovascular: Rate and Rhythm: Normal rate and regular rhythm. Heart sounds: Normal heart sounds. Pulmonary: Effort: Pulmonary effort is normal. No respiratory distress. Breath sounds: Normal breath sounds. No wheezing or rales. Musculoskeletal: Cervical back: Neck supple. Lymphadenopathy: Cervical: No cervical adenopathy. Skin: General: Skin is warm and dry. Findings: No erythema or rash. Neurological: Mental Status: She is alert. ASSESSMENT/PLAN: 1. Viral illness - ICD9: 079.99, ICD10: B34.9 - Discussed viral etiology and rationale for treatment. - Symptomatic treatment with prn analgesia - Supportive care with fluids and rest - CAREGIVER COVID + FLU A/B, ROUTINE - BENZONATATE 100 MG CAPSULE - Follow-up with your PCP in 3-5 days if symptoms have not improved or sooner if symptoms worsen - Discussed red flags and need for immediate medical evaluation if any occur. - Discussed supportive care treatment with fluids, rest and analgesia. - Discussed expected course of illness Essie Bearden APRN.CNP documented in this encounterMercy Health [facility]07-24-2022 Instructions* Patient Instructions* Essie Bearden APRN.CNP - 02/13/2022 10:32 AM EDT ASSESSMENT/PLAN: 1. Viral illness - ICD9: 079.99, ICD10: B34.9 - Discussed viral etiology and rationale for treatment. - Symptomatic treatment with prn analgesia - Supportive care with fluids and rest - CAREGIVER COVID + FLU A/B, ROUTINE - BENZONATATE 100 MG CAPSULE - Follow-up with your PCP in 3-5 days if symptoms have not improved or sooner if symptoms worsen - Discussed red flags and need for immediate medical evaluation if any occur. - Discussed supportive care treatment with fluids, rest and analgesia. - Discussed expected course of illness Essie Bearden APRN.PETROPHYSICAL ENGINEER Beginning Home Isolation Isolation is used to separate people infected with SARS-CoV-2, the virus that causes COVID-19, frompeople who are not infected. People who are in isolation should stay home until it s safe for them to be around others. In the home, anyone sick or infected should separate themselves from others by staying in a specific sick room or area and using a separate bathroom (if available). Isolation or Quarantine: What's the difference? Quarantine keeps someone who might have been exposed to the virus away from others. Isolation keeps someone who is infected with the virus away from others, even in their home. Who needs to isolate People who have COVID-19 People who have symptoms of COVID-19 and are able to recover at home People who have no symptoms (are asymptomatic) but have tested positive for infection with SARS-CoV-2 Steps to take Stay home except to get medical care Monitor your symptoms. Stay in a separate room from other household members, if possible Use a separate bathroom, if possible Avoid contact with other members of the household and pets Don t share personal household items, like cups, towels, and utensils Wear a mask when around other people, if you are able to When to seek emergency medical attention Look for emergency warning signs* for COVID-19. If someone is showing any of these signs, seek emergency medical care immediately: Trouble breathing Persistent pain or pressure in the chest New confusion Inability to wake or stay awake Bluish lips or face *This list is not all possible symptoms. Please call your medical provider for any other symptoms that are severe or concerning to you. Call 911 or call ahead to your local emergency facility: Notify the unisaw operator that you are seeking care for someone who has or may have COVID-19. Ending Home Isolation - When you can be around others after you had or likely had COVID-19 When you can be around others after you had or likely had COVID-19 If You Test Positive for COVID-19 (Isolation) Everyone, regardless of vaccination status: 1. Stay home for 5 days. Note: Day 0 is your first day of symptoms or the date of collection of a positive viral test if no symptoms. Day 1 is the first full day after symptoms developed or test specimen was collected. 2. If you have no symptoms or your symptoms are resolving after 5 days, you can leave your house. 3. Continue to wear a mask around others for 5 additional days. If you have a fever, continue to stay home until your fever resolves, even if it is longer than 5 days. If You Were Exposed to Someone with COVID-19 (Quarantine) If you: 1. Have been boosted OR 2. Completed the primary series of Pfizer or Moderna vaccine within the last 6 months OR 3. Completed the primary series of J&J vaccine within the last 2 months THEN: 1. Wear a mask around others for 10 days. 2. Test on day 5, if possible. If you develop symptoms get a test and stay home. If You Were Exposed to Someone with COVID-19 (Quarantine) If you: 1. Completed the primary series of Pfizer or Moderna vaccine over 6 months ago and are not boosted OR 2. Completed the primary series of J&J over 2 months ago and are not boosted OR 3. Are unvaccinated THEN: 1. Stay home for 5 days. After that continue to wear a mask around others for 5 additional days. 2. If you can't quarantine you must wear a mask for 10 days. 3. Test on day 5 if possible. If you develop symptoms get a test and stay home. I had COVID-19 or I tested positive for COVID-19 and I have a weakened immune system If you have a weakened immune system (immunocompromised) due to a health condition or medication, you might need to stay home and isolate longer than 10 days. Talk to your healthcare provider for more information. Your doctor may work with an infectious disease expert at your local health department to determinewhen you can be around others. How to Manage Common Symptoms Associated with COVID for Adults Fever- Fever is a temperature over 100.4 F and can occur when the body is fighting an infection. Tohelp treat a fever: Drink plenty of fluids and stay well hydrated. Eat small amounts of easy to digest food. Rest. Your body needs rest to recover, but getting up and moving around the house frequently is a good idea. You should try to continue doing your normal daily activities (bathing, toileting, grooming, cooking), though you will probably feel tired, and need to rest often. Avoid any heavy activity or exercise, as this will increase your body temperature. Dress in light clothing and stay covered in a light sheet. Keep the room temperature cool. Take a slightly warm (not cold or cool) bath, or apply damp washcloths to the forehead and wrists. Cough- Cough is a common symptom associated with COVID and can be bothersome. To help treat a cough: Stay well hydrated. Try warm water or tea with lemon and/or honey to help soothe the cough. Use a humidifier to add moisture to the air. Try a product with menthol, like a cough drop or a rub for your chest such as Vicks, which can helpreduce cough. Try cough drops. Avoid smoking and other strong odors or perfumes. Try breathing exercises to keep your lungs open and clear. Take a big deep breath through your noseand hold for 5 seconds before slowly releasing. Repeat frequently, while you are awake. Congestion- Runny nose or nasal congestion can occur with COVID. Treatment can help relieve symptoms: Try OTC nasal saline spray, or nasal saline rinse to relieve mucus congestion. Nasal strips can help keep nasal passages open, to increase airflow. Elevating your head with an extra pillow in bed can help reduce congestion. Using a humidifier can increase moisture in the air, and make breathing easier. Sore Throat- Another common symptom with COVID, can be managed at home by: Stay well hydrated. Gargle with salt water mix teaspoon salt with 1 cup of warm water and gargle. This helps to loosen mucus in the back of the throat and may reduce discomfort. Try ice chips, popsicles or lozenges to soothe the throat. Nausea/Vomiting/Diarrhea- These are common symptoms, and staying hydrated is most important. If you are nauseous or vomiting, start with small sips of water every 10-15 minutes and increase astolerated. You can try sucking an ice cube too. If tolerating, you can try pedialyte or Gatorade, or flat sprite or sol-patricia. Start slowly and increase as you are able to. Instead of meals, try smaller, more frequent snacks. Try eating bland foods like crackers, toast, rice, and applesauce. Avoid spicy, greasy or fried foods and dairy containing foods. Even if you aren't feeling hungry due to lack of smell or taste, it is important to try to take in some food when you are able. After drinking and eating, rest in an upright position for up to two hours as needed to help decrease nauseous feelings. Try closing your eyes, avoid moving and watching TV. Avoid strong odors that can make you feel more nauseated. When to seek emergency medical attention Look for emergency warning signs for COVID-19. If having any of these symptoms, seek emergency medical care immediately: Trouble breathing Persistent pain or pressure in the chest New confusion Inability to wake or stay awake Bluish lips or face *This list is not all possible symptoms. Please call your medical provider for any other symptoms that are severe or concerning to you. documented in this encounterMercy Health [facility]iffin Hospital04-11-2022 Miscellaneous Notes* [facility] Outreach Note - Zahira Simmons RN - 11/01/2021 8:55 AM EDT WEIGHT GOAL lbs BMI Points Last 3 Encounter BP Readings: Date: BP: 10/13/2021 102/68 09/23/2021 118/78 09/02/2021 112/68 Last 3 LDL readings: LDL Cholesterol (mg/dL) Date Value 10/15/2021 94 No results found for: LDLCHOLDIR No results found for: HBA1C) MEDICATIONS PER RX DATABASE none Adherent with medication refills N/A Enroll in weight management [facility] Transfer to [place] documented in this encounterMercy Health Tiffin HospitalDischarge summary Author Dr. Waters [facility] January 16, 2023 10:08am Note Date/Time January 16, 2023 9:07 am [facility] Medical Records Department [address] [place] [address] Emergency Department Summary 01/16/23 MR#: [id number] Acct: [id number] Name: EUNICE MUNOZ Rep #:[id number] : 1975 47 From: Garrett Waters MD PCP: Vi Gagnon, PROFESSOR OF INDUSTRIAL TECHNOLOGY-C Status:REG ER Location: ED HPI History of Present Illness Chief Complaint: Chest Pain Informant: patient Narrative Narrative: Healthy 47-year-old female has been having intermittent chest discomfort for thepast 3 days. She states for the most part it felt like burning in her mid chestup to her throat, but she was also having instances of heaviness where it felt like someone was sitting on her chest, and discomfort in her left shoulder. Shestates at times when things felt heavy it made her feel like she was having a little bit of trouble breathing but never felt frankly winded. Symptoms were more prominent at nighttime when she is lying down. No exertional symptoms, no pleuritic symptoms. No leg pain or swelling history of DVT or PE, recent immobilization, long travel, hospitalization, or surgery. She states she did try taking some antiacid last night, and it did take the burning away that she had in her throat and her chest mostly. Right now she just has some discomfort in her left shoulder that went along with this but none of the chest or throat discomfort. CVD Risk Factors: Negative for Hypertension, Diabetes, Hypercholesterolemia, Family History 1' </=55 or Smoking [facility] Medical History Anxiety and depression H/O pyloric stenosis IBS (irritable bowel syndrome) Laceration of right hand Murmur Right foot sprain Scoliosis Home Medications medroxyprogesterone 150 mg/mL intramuscular syringe 150 mg IM [id number] 11/11/22 [History Last Taken Unknown] buspirone 5 mg tablet 5 mg PO BID #180 tabs 01/10/23 [Rx Last Taken Unknown] rimegepant 75 mg disintegrating tablet (Nurtec ODT) 75 mg PO QDAY PRN migraine headache #20 tabs 01/10/23 [Rx Last Taken Unknown] pantoprazole 40 mg tablet,delayed release 40 mg PO DAILY #14 tabs 01/16/23 [Rx Last Taken Unknown] Allergy/AdvReac Type Severity Reaction Status Date / Time No Known Allergies Allergy Verified 01/10/23 15:51 Family History Mother Arthritis Arthritis or polyarthritis, rheumatoid Osteoporosis Grandmother Breast cancer Father Skin cancer Brother Seizures Surgical History History of bunionectomy History of section Hx of tympanostomy tubes Social History Smoking Status: Smoker, status unknown alcohol intake: current alcohol intake frequency: holidays/special occasions only substance use type: does not use what type of physical activity do you participate in: none ROS ROS ED Constitutional Constitutional ED: Denies chills or fever(s) Eyes Eyes: Denies change in vision or diplopia ENT ENT ED: Denies rhinorrhea or sore throat Cardiovascular Cardiovascular: Reports as per HPI and chest pain; Denies palpitations Respiratory/Chest Respiratory/Chest: Reports as per HPI and dyspnea; Denies cough Gastrointestinal Gastrointestinal: Reports nausea; Denies abdominal pain, diarrhea or vomiting Genitourinary Genitourinary ED: Denies dysuria or hematuria Musculoskeletal Musculoskeletal: Reports as per HPI and extremity pain; Denies back pain or neckpain Integumentary Denies abscess or rash Neurologic Neurologic: Denies headache(s), paresthesias or weakness Psychiatric Psychiatric: Denies anxiety or suicidal thoughts EXAM Physical Exam Const Vital Signs: 01/16/23 08:47 01/16/23 09:03 01/16/23 09:02 Temperature 96.8 F L Temperature Source Temporal Pulse Rate 71 Respiratory Rate 18 Respiratory Effort Normal Non-Labored Respiratory Pattern Normal Blood Pressure 149/71 H Blood Pressure Mean 97 Pulse Ox 99 97 Oxygen Delivery Method Room Air Room Air Positive well nourished and well developed General Appearance ED: well developed and NAD HEENT Reports moist mucous membranes normocephalic and atraumatic Eyes PERRL and EOMs intact bilaterally Neck full ROM and supple Resp normal respiratory effort and clear to auscultation bilaterally Cardio regular rate, regular rhythm and no murmurs Rate: Negative for tachycardic Peripheral Pulses: pulses 2+ throughout GI non-tender and non-distended Auscultation: normoactive bowel sounds Palpation: soft Back/Spine no CVA tenderness General Back: other FROM Extremity normal to inspection General Extremety ED: Negative for edema, pulses abnormal or tenderness General Extremity: Negative for edema or pulses abnormal Neuro oriented x3, CN's II-XII intact bilaterally and no sensory deficits noted Sensorium / Orientation: awake and alert Motor Exam: strength 5/5 throughout Skin no rashes or lesions noted and no wounds Heart Score History: Slightly/Non-Suspicious ECG: Normal Age: </= 45 years Risk Factors: No Risk Factors Troponin: </= Normal Limit Score: 0 MDM MDM MDM Narrative Medical decision making narrative: Cardiac work-up is negative including x-ray and EKG and troponin. Her symptoms completely resolved with a GI cocktail she definitely feels better. I think this is all probably due to reflux. I am going to put her on a 2-week course ofpantoprazole, and encouraged her to follow-up with her doctor for further evaluation she is comfortable with that plan. Lab Data Attestation: I reviewed the patient's lab results. Labs: Laboratory Results - last 24 hr 01/16/23 01/16/23 08:55 08:55 WBC 6.0 RBC 4.75 Hgb 14.2 Hct 41.3 MCV 86.9 MCH 29.9 MCHC 34.4 RDW Std Deviation 38.7 RDW Coeff of Mayuri 12.1 Plt Count 253 MPV 11.0 Immature Gran % (Auto) 0.300 Neut % (Auto) 50.7 Lymph % (Auto) 38.1 Hockley % (Auto) 8.2 Eos % (Auto) 2.2 Baso % (Auto) 0.5 Absolute Neuts (auto) 3.0 Absolute Lymphs (auto) 2.28 Nucleated RBC % 0 Sodium 139 Potassium 3.7 Chloride 108 H Carbon Dioxide 25.0 Anion Gap 6 BUN 14 Creatinine 1.05 H Estim Creat Clear Calc 55.97 Est GFR (MDRD) Af Amer 73 Est GFR (MDRD) Non-Af 60 BUN/Creatinine Ratio 13.3 Glucose 101 Calcium 9.6 Troponin I High Sens 4 Radiography Chest X-Ray - ED: 2 View, Read by ED Physician, No Acute Disease and No Infiltrates Diagnostic Testing: Clinical Impression(s) from Imaging Studies Chest X-Ray 01/16/23 09:10 IMPRESSION: Normal x-ray examination of the chest. Electronically Signed: Arnoldo Vega MD at 9:30 EDT , Rhythm Strip Rhythm Strip: Sinus Rhythm Rate: 68 Ectopy: None EKG Initial EKG: Attestation: I personally reviewed and interpreted this EKG as follows: Interpretation: Sinus Rhythm and No Acute Injury Pattern Comments: Normal EKG Discharge Plan Triage Chief Complaint: Chest Pain Other Complaint: Shortness of Breath ED Provider: Garrett Waters Dx/Rx/DC Orders Clinical Impression: Chest pain due to GERD Instructions: ED GERD (Adult) Prescriptions: New pantoprazole 40 mg tablet,delayed release (DR/EC) 40 mg PO DAILY Qty: 14 0RF No Action medroxyprogesterone 150 mg/mL syringe 150 mg IM [id number] Nurtec ODT 75 mg tablet,disintegrating 75 mg PO QDAY PRN (Reason: migraine headache) Qty: 20 1RF Rx Instructions: as a single dose buspirone 5 mg tablet 5 mg PO BID Qty: 180 2RF Primary Care Provider: Vi Gagnon NP Referrals: Vi Gagnon NP, PROFESSOR OF INDUSTRIAL TECHNOLOGY-C [Primary Care Provider] - 1-2 Weeks Disposition Disposition: Home, Self Care What to do if you have Problems For any increased pain, shortness of breath, bleeding, nausea or vomiting, chestpain, or any unexpected problems, contact your Primary Care Provider. Call [facility] ([phone]) or report to the closest Emergency Room. Call 911 if necessary. 01/16/23 1008 <Electronically signed by Garrett Waters MD> Cosigner Signature (if applicable): CC: PROFESSOR OF INDUSTRIAL TECHNOLOGY-Joey Gagnon ~ Signed [facility] Work Phone: Evaluation note* Diagnosis Viral illness- Primary Unspecified viral infection, in conditions classified elsewhere and of unspecified site documented in this encounter [facility] note* Diagnosis Onset Date Resolution Status Physical exam, pre-employment acute Right foot sprain acute [facility] Work Phone: Evaluation note* Diagnosis Encounter for management and injection of depo-Provera- Primary Surveillance of other previously prescribed contraceptive method documented in this encounter [facility] note* Diagnosis Encounter for management and injection of depo-Provera- Primary Surveillance of other previously prescribed contraceptive method documented in this encounter [facility] note* Diagnosis Ganglion cyst- Primary Ganglion, unspecified documented in this encounter [facility] note* Diagnosis Encounter for gynecological examination (general) (routine) without abnormal findings- Primary Encounter for surveillance of injectable contraceptive Surveillance of other previously prescribed contraceptive method Encounter for screening for malignant neoplasm of colon Special screening for malignant neoplasms, colon [facility] Diagnosis Screening for colon cancer- Primary Special screening for malignant neoplasms, colon [facility] Diagnosis Other acute nonsuppurative otitis media of both ears, recurrence not specified- Primary Viral URI with cough Acute upper respiratory infections of unspecified site [facility] Diagnosis Onset Date Resolution Status Acute sinusitis acute Contact with or suspected ex posure to other viral communicable disease acute Migraine chronic Anxiety and depression chron ic Migraine chronic [facility] Work Phone: Evaluation note* Diagnosis Depo-Provera contraceptive status- Primary Surveillance of other previously prescribed contraceptive method Encounter for management and injection of depo-Provera Surveillance of other previously prescribed contraceptive method [facility] Diagnosis Onset Date Resolution Status Acute sinusitis acute Contact with or suspected ex posure to other viral communicable disease acute Migraine chronic Anxiety and depression chron ic Migraine chronic Anxiety and depression chron ic Migraine chronic [facility] Work Phone: Evaluation note* Diagnosis Encounter for management and injection of depo-Provera- Primary Surveillance of other previously prescribed contraceptive method [facility] Diagnosis Ganglion cyst Ganglion, unspecified [facility] Diagnosis Screening for colon cancer- Primary Special screening for malignant neoplasms, colon [facility] Diagnosis Encounter for management and injection of depo-Provera- Primary Surveillance of other previously prescribed contraceptive method [facility] Diagnosis Encounter for gynecological examination (general) (routine) without abnormal findings- Primary Encounter for screening mammogram for breast cancer Dense breast tissue Encounter for surveillance of injectable contraceptive Surveillance of other previously prescribed contraceptive method [facility] Diagnosis Encounter for screening mammogram for malignant neoplasm of breast Other screening mammogram [facility]* Diagnosis Onset Date Resolution Status Migraine chronic [facility] Work Phone: Evaluation note* Diagnosis Encounter for management and injection of depo-Provera- Primary Surveillance of other previously prescribed contraceptive method documented in this encounter [facility] note* Diagnosis Viral URI with cough- Primary Acute upper respiratory infections of unspecified site Lower resp. tract infection Other diseases of respiratory system, not elsewhere classified documented in this encounter [facility] note* Diagnosis Depo-Provera contraceptive status- Primary Surveillance of other previously prescribed contraceptive method Encounter for management and injection of depo-Provera Surveillance of other previously prescribed contraceptive method documented in this encounter [facility] note* Diagnosis Depo-Provera contraceptive status- Primary Surveillance of other previously prescribed contraceptive method [facility] Diagnosis Encounter for surveillance of other contraceptive- Primary [facility] Diagnosis Encounter for surveillance of other contraceptive- Primary documented in this encounter [facility] note* Diagnosis Encounter for gynecological examination (general) (routine) without abnormal findings- Primary Encounter for screening mammogram for breast cancer documented in this encounter [facility] note* Diagnosis Encounter for gynecological examination (general) (routine) without abnormal findings Encounter for screening mammogram for breast cancer documented in this encounter [facility] noteNo assessment information availableEman[facility] Work Phone: Evaluation [facility]* Diagnosis Onset Date Resolution Status Admit Date Change in bowel habits acute No [id number] 8:11am Rectal bleeding acute May 26, 2025 8:11am [facility] Work Phone: Hospital Discharge instructions Additional Instructions Plenty of fluids and rest. Motrin and Tylenol for pain. Follow-up if not improving or return if feeling a lot worse.[facility] Work Phone: Hospital Discharge instructionsAdditional Instructions Direct trauma to the knee causing a contusion and sprain or strain of your right medial collateral ligament. Ice to the area decrease pain and swelling. Elevate. Motrin for pain and swelling Tylenol for pain. This should progressively improve. You can get an [id number] copper or a neoprene or Velcro sleeve for your knee at like a sporting goods store or a pharmacy. Just use it for a week or 2 and it should progressively get better. Follow-up if not improving.[facility]: [facility] Diagnostic Procedure Only (Routine) - Closed Specialty Diagnoses / Procedures Referred By Contac t Referred To Contact XR IMAGING Diagnoses Ganglion cyst Procedures XR FOOT GENERAL 3V AP/LAT/OBL RIGHT RADEX FOOT COMPLETE MINIMUM 3 VIEWS Sonny Staton [address] [place] [address] Xr Imaging Referral ID Status Reason Start Date Expiration Date V isits Requested Visits Authorized [id number] Closed Auto-Generate d Referral 08/31/2022 09/30/2023 1 1 [facility] for referral (narrative)* Outpatient Procedure (Routine) - Authorized Specialty Diagnoses / Procedures Referred By Contac t Referred To Contact [facility] Diagnoses Screening for colon cancer Procedures COLONOSCOPY SCREENING COLONOSCOPY FLX DX W/COLLJ SPEC WHEN PFRMD Aaliyah Aguilar MD [address] [place] [address] [facility] [address] [place] [address] Referral ID Status Reason Start Date Expiration Date Visits Requested Visits Authorized [id number] Authorized Auto-Generat ed Referral 09/15/2022 09/15/2023 1 1 [facility] for referral (narrative)* Diagnostic Procedure Only (Routine) - Closed Specialty Diagnoses / Procedures Referred By Contac t Referred To Contact XR IMAGING Diagnoses Ganglion cyst Procedures XR FOOT GENERAL 3V AP/LAT/OBL RIGHT RADEX FOOT COMPLETE MINIMUM 3 VIEWS Sonny Staton [address] [place] [address] [place] [address] Referral ID Status Reason Start Date Expiration Date V isits Requested Visits Authorized [id number] Closed Auto-Generate d Referral 08/31/2022 09/30/2023 1 1 [facility] for referral (narrative)* Outpatient Procedure (Routine) - Closed Specialty Diagnoses / Procedures Referred By Contac t Referred To Contact [facility] Diagnoses Screening for colon cancer Procedures COLONOSCOPY SCREENING COLONOSCOPY FLX DX W/COLLJ SPEC WHEN Aaliyah Nelson MD [address] [place] [address] [facility] [address] [place] [address] Referral ID Status Reason Start Date Expiration Date V isits Requested Visits Authorized [id number] Closed Auto-Generate d Referral 09/15/2022 09/15/2023 1 1 [facility] for referral (narrative)* Diagnostic Procedure Only (Routine) - Authorized Specialty Diagnoses / Procedures Referred By Contac t Referred To Contact [facility] Diagnoses Encounter for screening mammogram for breast cancer Dense breast tissue Procedures RYNE SCREENING W DELFINA SCREENING DIGITAL BREAST TOMOSYNTHESIS BI SCREENING MAMMOGRAPHY BI 2-VIEW BREAST INC Lurdes Perdomo, RADHA [address] [place] [address] [facility] [address] [place] [phone] Referral ID Status Reason Start Date Expiration Date Visits Requested Visits Authorized [id number] Authorized Auto-Generat ed Referral 10/17/2023 11/15/2024 1 1 [facility] for referral (narrative)No reason for referral information availableW[facility] Work Phone: Reason for visit Narrative* Diagnostic Procedure Only (Routine) - Closed Specialty Diagnoses / Procedures Referred By Contac t Referred To Contact XR IMAGING Diagnoses Ganglion cyst Procedures XR FOOT GENERAL 3V AP/LAT/OBL RIGHT RADEX FOOT COMPLETE MINIMUM 3 VIEWS Sonny Staton [address] [place] [address] [place] [address] Referral ID Status Reason Start Date Expiration Date V isits Requested Visits Authorized [id number] Closed Auto-Generate d Referral 08/31/2022 09/30/2023 1 1 [facility] for visit Narrative* Outpatient Procedure (Routine) - Closed Specialty Diagnoses / Procedures Referred By Ezio t Referred To Contact [facility] Diagnoses Screening for colon cancer Procedures COLONOSCOPY SCREENING COLONOSCOPY FLX DX W/COLLJ SPEC WHEN Aaliyah Nelson MD [address] [place] [address] [facility] [address] [place] [address] Referral ID Status Reason Start Date Expiration Date V isits Requested Visits Authorized [id number] Closed Auto-Generate d Referral 09/15/2022 09/15/2023 1 1 [facility] for visit Narrative* Diagnostic Procedure Only (Routine) - Closed Specialty Diagnoses / Procedures Referred By Ezio live Referred To Contact [facility] Diagnoses Encounter for screening mammogram for malignant neoplasm of breast Procedures RYNE SCREENING W DELFINA SCREENING DIGITAL BREAST TOMOSYNTHESIS BI SCREENING MAMMOGRAPHY BI 2-VIEW BREAST INC CAD KoyukLurdes, INDUSTRIAL MAINTENANCE MECHANIC.PETROPHYSICAL ENGINEER [address] [place] [address] [facility] [address] [place] [address] Referral ID Status Reason Start Date Expiration Date V isits Requested Visits Authorized [id number] Closed Auto-Generate d Referral 07/28/2023 08/25/2024 1 1 [facility] for visit Narrative* Diagnostic Procedure Only (Routine) - Closed Specialty Diagnoses / Procedures Referred By Ezio t Referred To Contact [facility] Diagnoses Encounter for gynecological examination (general) (routine) without abnormal findings Encounter for screening mammogram for breast cancer Procedures RYNE SCREENING W DELFINA SCREENING DIGITAL BREAST TOMOSYNTHESIS BI SCREENING MAMMOGRAPHY BI 2-VIEW BREAST INC CAD ZenobiaLurdes, INDUSTRIAL MAINTENANCE MECHANIC.PETROPHYSICAL ENGINEER [address] [facility] [place] [address] Phone: tel: fax: [facility] [address] [place] [address] Referral ID Status Reason Start Date Expiration Date V isits Requested Visits Authorized [id number] Closed Auto-Generate d Referral 01/17/2025 02/16/2026 1 1 [facility] Health Concerns Infection Onset Date Last Indicated Resolved Time COVID-19 Rule-Out 02/13/2022 02/13/2022 Infection Onset Date Last Indicated Resolved Time COVID-19 Rule-Out 02/13/2022 02/13/2022 02/13/2022 8:41 PM EDT Chief Complaint and Reason for Visit Chief Complaint PE PHYSICAL/[employer] RIGHT FOOT PAIN RIGHT FOOT XRAY screening Reason for Visit Physical exam, pre-e mployment Right foot sprain Chief Complaint CONGESTION/AGARWAL/BA/SOR E THROAT COVID TEST/BMS EMPLOYEE TB TEST/SELF PAY TB READ MIGRAINE 2ND STEP TB PROFESSOR OF INDUSTRIAL TECHNOLOGY. EST CARE (REQ. VI) Reason for Visit Acute sinusitis Contact with or suspected exposure to other viral communicable disease Migraine Anxiety and depression Migraine Chief Complaint CONGESTION/AGARWAL/BA/SOR E THROAT COVID TEST/BMS EMPLOYEE TB TEST/SELF PAY TB READ MIGRAINE 2ND STEP TB PROFESSOR OF INDUSTRIAL TECHNOLOGY. EST CARE (REQ. VI) 6 wk FU chest pain, sob Reason for Visit Acute sinusitis Contact with or suspected exposure to other viral communicable disease Migraine Anxiety and depression Migraine Anxiety and depression Migraine Chief Complaint FLU VACCINE migraine MIGRAINE Reason for Visit Migraine Chief Complaint Admit Date MIGRAINE March 14, 2025 3: 41pm Chief Complaint Admit Date MIGRAINE March 14, 2025 3: 41pm PE NON DOT DRUG SCREEN/[place] S eptember 2024 3:28pm Chief Complaint Admit Date MIGRAINE March 14, 2025 3: 41pm PE NON DOT DRUG SCREEN/[place] eptember 2024 3:28pm knee pain May 11, 2025 3 :51pm HEMORRHOID DIARRHEA May 26, 2025 8 :11am Reason for Visit Admit Date Change in bowel habits May 26 8:11am Rectal bleeding May 26, 2025 8 :11am Advance Directives No Advanced Directives Records Found Advance Directive Response Recorded Date/ Time Living Will No July 20 7:57pm Power of Water Resource Agent No July 20, 2021 7:57pm Advance Directive Response Recorded Date/ Time Living Will No January 16, 2023 9:06am Power of Water Resource Agent No January 16 9:06am Advance Directive Response Recorded Date/ Time Living Will No October 18, 2023 6:18pm Power of Water Resource Agent No October 17 6:18pm Advance Directive Response Recorded Date/ Time Do you have a Healthcare Power of Water Resource Agent? No May 11, 2025 4:57pm Medications Administered Section Active Administered Medications - up to 3 most recent administrations Medication Order MAR Action Action Date Dose Rate Site medroxyPROGESTERone 150 mg injection (DEPO-PROVERA) 150 mg, INTRAMUSCULAR, EVERY 12 WEEKS, 4 doses, First dose on Mon06/02/22 at 0830, Last dose on Mon02/09/23 at 0830, Hazardous Potential Reproductive Risk Drug: Use appropriate PPE. Given 06/08/2022 2:55 PM EST 150 mg Buttocks, Left Active Administered Medications - up to 3 most recent administrations Medication Order MAR Action Action Date Dose Rate Site medroxyPROGESTERone 150 mg injection (DEPO-PROVERA) 150 mg, INTRAMUSCULAR, EVERY 12 WEEKS, 4 doses, First dose on Mon09/06/22 at 0900, Last dose on Mon05/16/23 at 0900, Hazardous Potential Reproductive Risk Drug: Use appropriate PPE. Given 12/26/2022 4:26 PM EDT 150 mg Buttocks, Right Active Administered Medications - up to 3 most recent administrations Medication Order MAR Action Action Date Dose Rate Site medroxyPROGESTERone 150 mg injection (DEPO-PROVERA) 150 mg, INTRAMUSCULAR, EVERY 12 WEEKS, 4 doses, First dose on Mon09/06/22 at 0900, Last dose on Mon05/16/23 at 0900, Hazardous Potential Reproductive Risk Drug: Use appropriate PPE. Given 03/21/2023 9:29 AM EDT 150 mg Buttocks, Left Given 12/26/2022 4:26 PM EDT 150 mg Bu ttocks, Right Inactive Administered Medications - up to 3 most recent administrations Medication Order MAR Action Action Date Dose Rate Site diphenhydrAMINE 12.5-50 mg injection (BENADRYL) 12.5-50 mg, INTRAVENOUS, DIRECTED, Starting on Mon10/19/22 at 0930, Until Mon10/19/22 at 1329, DOSING DIRECTED BY PHYSICIAN FOR PROCEDURAL SEDATION ONLY, Intraprocedure Given 10/19/2022 9:22 AM EDT 50 mg fentaNYL 50 mcg/mL 25-100 mcg injection (SUBLIMAZE) 25-100 mcg, INTRAVENOUS, DIRECTED, Starting on Mon10/19/22 at 0930, Until Mon10/19/22 at 1329, DOSING DIRECTED BY PHYSICIAN FOR PROCEDURAL SEDATION ONLY, Intraprocedure Given 10/19/2022 9:27 AM EDT 50 mcg Given 10/19/2022 9:20 AM EDT 50 mcg lactated ringers iv infusion 75 mL/hr, INTRAVENOUS, CONTINUOUS, Starting on Mon10/19/22 at 0930, Until Mon10/19/22 at 0949, Preprocedure New Bag/Syringe/Bottle 10/19/2022 9:13 AM EDT 30 mL/hr 30 mL/hr midazolam 1-5 mg injection (VERSED) 1-5 mg, INTRAVENOUS, DIRECTED, Starting on Mon10/19/22 at 0930, Until Mon10/19/22 at 1329, DOSING DIRECTED BY PHYSICIAN FOR PROCEDURAL SEDATION ONLY, Intraprocedure Given 10/19/2022 9:27 AM EDT 2 mg Given 10/19/2022 9:20 AM EDT 3 mg Reason for Referral Specialty Diagnoses / Procedures Referred By Ezio t Referred To Contact General Surgery Diagnoses Encounter for screening for malignant neoplasm of colon Procedures CONSULT TO GENERAL SURGERY OFFICE/OUTPATIENT [facility] 60-74 MINUTES Lurdes Fregoso APRN.PETROPHYSICAL ENGINEER [address] [facility] [place] [place] [address] Referral ID Status Reason Start Date Expiration Date Visits Requested Visits Authorized [id number] Authorized PCP Requested Referral 09/06/2022 09/06/2023 1 1 Family History No Family History Records Found Relationship Condition Age at Onset Recorded Date/T dutch mother Arthritis Unknown Rheumatoid arthritis Unknown Osteoporosis Unknown grandmother Malignant neoplasm of breast Unknown father Malignant neoplasm of skin Unknown brother Seizures Unknown Relationship Condition Age at Onset Recorded Date/T dutch mother Arthritis Unknown Rheumatoid arthritis Unknown Osteoporosis Unknown grandmother Malignant neoplasm of breast Unknown Arthritis Unknown father Malignant neoplasm of skin Unknown brother Seizures Unknown grandfather Malignant neoplasm Unknown Summary Purpose Additional Source Comments Source Comments (unrecognize d section and content) In the event this informatio n is protected by the Federal Confidentiality of Alcohol and Drug Abuse Patient Records regulations: The Federal rules restrict any use of the information to criminally investigate or prosecute any alcohol or drug abuse patient.[facility]In the event this information is protected by the Federal Confidentiality of Alcohol and Drug Abuse Patient Records regulations: The Federal rules restrict any use of the information to criminally investigate or prosecute any alcohol or drug abuse patient.[facility] HospitalIn the event this information is protected by the Federal Confidentiality of Alcohol and Drug Abuse Patient Records regulations: The Federal rules restrict any use of the information to criminally investigate or prosecute any alcohol or drug abuse patient.[facility] HospitalIn the event this information is protected by the Federal Confidentiality of Alcohol and Drug Abuse Patient Records regulations: The Federal rules restrict any use of the information to criminally investigate or prosecute any alcohol or drug abuse patient.[facility] HospitalIn the event this information is protected by the Federal Confidentiality of Alcohol and Drug Abuse Patient Records regulations: The Federal rules restrict any use of the information to criminally investigate or prosecute any alcohol or drug abuse patient.[facility] HospitalIn the event this information is protected by the Federal Confidentiality of Alcohol and Drug Abuse Patient Records regulations: The Federal rules restrict any use of the information to criminally investigate or prosecute any alcohol or drug abuse patient.[facility] HospitalIn the event this information is protected by the Federal Confidentiality of Alcohol and Drug Abuse Patient Records regulations: The Federal rules restrict any use of the information to criminally investigate or prosecute any alcohol or drug abuse patient.[facility] HospitalIn the event this information is protected by the Federal Confidentiality of Alcohol and Drug Abuse Patient Records regulations: The Federal rules restrict any use of the information to criminally investigate or prosecute any alcohol or drug abuse patient.[facility] HospitalIn the event this information is protected by the Federal Confidentiality of Alcohol and Drug Abuse Patient Records regulations: The Federal rules restrict any use of the information to criminally investigate or prosecute any alcohol or drug abuse patient.[facility] HospitalIn the event this information is protected by the Federal Confidentiality of Alcohol and Drug Abuse Patient Records regulations: The Federal rules restrict any use of the information to criminally investigate or prosecute any alcohol or drug abuse patient.[facility] HospitalIn the event this information is protected by the Federal Confidentiality of Alcohol and Drug Abuse Patient Records regulations: The Federal rules restrict any use of the information to criminally investigate or prosecute any alcohol or drug abuse patient.[facility] HospitalIn the event this information is protected by the Federal Confidentiality of Alcohol and Drug Abuse Patient Records regulations: The Federal rules restrict any use of the information to criminally investigate or prosecute any alcohol or drug abuse patient.[facility] HospitalIn the event this information is protected by the Federal Confidentiality of Alcohol and Drug Abuse Patient Records regulations: The Federal rules restrict any use of the information to criminally investigate or prosecute any alcohol or drug abuse patient.[facility] HospitalIn the event this information is protected by the Federal Confidentiality of Alcohol and Drug Abuse Patient Records regulations: The Federal rules restrict any use of the information to criminally investigate or prosecute any alcohol or drug abuse patient.[facility] HospitalIn the event this information is protected by the Federal Confidentiality of Alcohol and Drug Abuse Patient Records regulations: The Federal rules restrict any use of the information to criminally investigate or prosecute any alcohol or drug abuse patient.[facility] HospitalIn the event this information is protected by the Federal Confidentiality of Alcohol and Drug Abuse Patient Records regulations: The Federal rules restrict any use of the information to criminally investigate or prosecute any alcohol or drug abuse patient.[facility] HospitalIn the event this information is protected by the Federal Confidentiality of Alcohol and Drug Abuse Patient Records regulations: The Federal rules restrict any use of the information to criminally investigate or prosecute any alcohol or drug abuse patient.[facility] HospitalIn the event this information is protected by the Federal Confidentiality of Alcohol and Drug Abuse Patient Records regulations: The Federal rules restrict any use of the information to criminally investigate or prosecute any alcohol or drug abuse patient.[facility] HospitalIn the event this information is protected by the Federal Confidentiality of Alcohol and Drug Abuse Patient Records regulations: The Federal rules restrict any use of the information to criminally investigate or prosecute any alcohol or drug abuse patient.[facility] HospitalIn the event this information is protected by the Federal Confidentiality of Alcohol and Drug Abuse Patient Records regulations: The Federal rules restrict any use of the information to criminally investigate or prosecute any alcohol or drug abuse patient.[facility] HospitalIn the event this information is protected by the Federal Confidentiality of Alcohol and Drug Abuse Patient Records regulations: The Federal rules restrict any use of the information to criminally investigate or prosecute any alcohol or drug abuse patient.[facility] HospitalIn the event this information is protected by the Federal Confidentiality of Alcohol and Drug Abuse Patient Records regulations: The Federal rules restrict any use of the information to criminally investigate or prosecute any alcohol or drug abuse patient.[facility] HospitalIn the event this information is protected by the Federal Confidentiality of Alcohol and Drug Abuse Patient Records regulations: The Federal rules restrict any use of the information to criminally investigate or prosecute any alcohol or drug abuse patient.[facility] HospitalIn the event this information is protected by the Federal Confidentiality of Alcohol and Drug Abuse Patient Records regulations: The Federal rules restrict any use of the information to criminally investigate or prosecute any alcohol or drug abuse patient.[facility] HospitalIn the event this information is protected by the Federal Confidentiality of Alcohol and Drug Abuse Patient Records regulations: The Federal rules restrict any use of the information to criminally investigate or prosecute any alcohol or drug abuse patient.[facility] HospitalIn the event this information is protected by the Federal Confidentiality of Alcohol and Drug Abuse Patient Records regulations: The Federal rules restrict any use of the information to criminally investigate or prosecute any alcohol or drug abuse patient.[facility] HospitalIn the event this information is protected by the Federal Confidentiality of Alcohol and Drug Abuse Patient Records regulations: The Federal rules restrict any use of the information to criminally investigate or prosecute any alcohol or drug abuse patient.[facility] HospitalIn the event this information is protected by the Federal Confidentiality of Alcohol and Drug Abuse Patient Records regulations: The Federal rules restrict any use of the information to criminally investigate or prosecute any alcohol or drug abuse patient.[facility] HospitalIn the event this information is protected by the Federal Confidentiality of Alcohol and Drug Abuse Patient Records regulations: The Federal rules restrict any use of the information to criminally investigate or prosecute any alcohol or drug abuse patient.[facility] HospitalIn the event this information is protected by the Federal Confidentiality of Alcohol and Drug Abuse Patient Records regulations: The Federal rules restrict any use of the information to criminally investigate or prosecute any alcohol or drug abuse patient.[facility] HospitalIn the event this information is protected by the Federal Confidentiality of Alcohol and Drug Abuse Patient Records regulations: The Federal rules restrict any use of the information to criminally investigate or prosecute any alcohol or drug abuse patient.[facility] HospitalIn the event this information is protected by the Federal Confidentiality of Alcohol and Drug Abuse Patient Records regulations: The Federal rules restrict any use of the information to criminally investigate or prosecute any alcohol or drug abuse patient.[facility] HospitalIn the event this information is protected by the Federal Confidentiality of Alcohol and Drug Abuse Patient Records regulations: The Federal rules restrict any use of the information to criminally investigate or prosecute any alcohol or drug abuse patient.[facility] HospitalIn the event this information is protected by the Federal Confidentiality of Alcohol and Drug Abuse Patient Records regulations: The Federal rules restrict any use of the information to criminally investigate or prosecute any alcohol or drug abuse patient.[facility] HospitalIn the event this information is protected by the Federal Confidentiality of Alcohol and Drug Abuse Patient Records regulations: The Federal rules restrict any use of the information to criminally investigate or prosecute any alcohol or drug abuse patient.[facility] Reason for Visit (unrecogniz ed section and content) Reason Onset Date Comments Milker Machine - Other 10/27/2021 Reason Onset Date Comments Weight Problem 11/01/2021 Reason Comments Cough sore throat, runny n ose, x3days Reason Onset Date Comments Refill Request 03/08/2022 Reason Onset Date Comments Milker Machine - Other 12/17/2021 Reason Comments Orders Reason Onset Date Comments Depo Provera Injection 06/08/2022 Specialty Diagnoses / Procedures Referred By Conthernando t Referred To Contact COAL EQUIPMENT OPERATOR Diagnoses Depo shot Procedures DEPO PROVERA INJECTION Self Wstr, Nurse Ladle Puller [facility] [address] [place] [address] Referral ID Status Reason Start Date Expiration Date V isits Requested Visits Authorized [id number] Authorized 07/24/2021 07/23/2022 4 4 Reason Comments New Patient Cyst Reason Comments Yearly Exam Reason Comments Consult colonoscopy Reason Comments Cough Sore throat, congest ion, right ear pain x 3 days Reason Onset Date Comments Depo Provera Injection 12/26/2022 Reason Onset Date Comments Depo Provera Injection 03/21/2023 Reason Onset Date Comments Refill Request 10/10/2023 Reason Onset Date Comments Depo Provera Injection 10/11/2023 Reason Onset Date Comments Depo Provera Injection 01/05/2024 Reason Onset Date Comments Depo Provera Injection 04/08/2024 Reason Comments Cough Chest congestion, wh eezing, R ear pain x4 days Reason Onset Date Comments Depo Provera Injection 07/15/2024 Reason Onset Date Comments Depo Provera Injection 10/18/2024 Reason Comments Refill Request Reason Onset Date Comments Refill Request 01/06/2025 Reason Onset Date Comments Depo Provera Injection Depo Provera Injection 01/09/2025 Reason Comments Well Woman Reason Comments Depo Provera Injection Care Teams (unrecognized sec tion and content) Oriental Medicine Practitioner Relationship Specialty Start Date End Date Zahira Simmons RN P Milker Machine 10/27/21 Oriental Medicine Practitioner Relationship Specialty Start Date End Date Zahira Simmons RN P Milker Machine 10/27/21 Oriental Medicine Practitioner Relationship Specialty Start Date End Date Jennifer Bhat MA [facility] Milker Machine 11/02/21 12/21/21 Team Status: Active Member Role Status Dates [facility] [place] Primary Care Provider A ctive Team Status: Inactive Member Role Status Dates [facility] [place] Primary Care Provider, Referring Provider Active Swapnil Broderick PA, PA Attending Provider Active Team Status: Inactive Member Role Status Dates [facility] [place] Primary Care Provider, Referring Provider Active Vi Gagnon PROFESSOR OF INDUSTRIAL TECHNOLOGY, PROFESSOR OF INDUSTRIAL TECHNOLOGY-C Attending Provider Active Team Status: Inactive Member Role Status Dates [facility] [place] Primary Care Provider, Referring Provider Active Vicente Ross PA, PA Attending Provider Active Team Status: Inactive Member Role Status Dates [facility] [place] Primary Care Provider A ctive Vi Gagnon PROFESSOR OF INDUSTRIAL TECHNOLOGY, PROFESSOR OF INDUSTRIAL TECHNOLOGY-C Attending Provider Active Team Status: Active Member Role Status Dates Vi Gagnon PROFESSOR OF INDUSTRIAL TECHNOLOGY, PROFESSOR OF INDUSTRIAL TECHNOLOGY-C Primary Care Provider Active Team Status: Inactive Member Role Status Dates Vi Gagnon PROFESSOR OF INDUSTRIAL TECHNOLOGY, PROFESSOR OF INDUSTRIAL TECHNOLOGY-C Primary Care Provider Active Dr. Garrett Waters MD Emergency Provider Active Oriental Medicine Practitioner Relationship Specialty Start Date End Date Markus Maurer, DO [address] [place] [address] PCP - General Family Medicine 09/18/23 Oriental Medicine Practitioner Relationship Specialty Start Date End Date Markus Maurer DO [address] [place] [address] PCP - General Family Medicine 09/18/23 Oriental Medicine Practitioner Relationship Specialty Start Date End Date Markus Maurer DO [address] [place] [address] PCP - General Family Medicine 09/18/23 Oriental Medicine Practitioner Relationship Specialty Start Date End Date Markus Maurer, DO [address] [place] [address] PCP - General Family Medicine 09/18/23 Team Status: Active Member Role Status Dates Markus Maurer DO Primary Care Provider Active Team Status: Inactive Member Role Status Dates Vi Gagnon PROFESSOR OF INDUSTRIAL TECHNOLOGY, PROFESSOR OF INDUSTRIAL TECHNOLOGY-C Primary Care Provider, Juliane moyer Active Swapnil BAZZI, PA Attending Provider Active Team Status: Inactive Member Role Status Dates Swapnil BAZZI PA Attending Provider Active Team Status: Inactive Member Role Status Dates Dr. Angelito Hatfield MD Emergency Provider Active Markus Maurer DO Primary Care Provider Active Oriental Medicine Practitioner Relationship Specialty Start Date End Date Markus Maurer DO [address] [address] [place] [address] PCP - General Family Medicine 09/18/23 Oriental Medicine Practitioner Relationship Specialty Start Date End Date Markus Maurer DO [address] [facility] [address] [place] [address] PCP - General Family Medicine 09/18/23 Oriental Medicine Practitioner Relationship Specialty Start Date End Date Markus Maurer DO [address] [facility] [address] [place] [address] PCP - General Family Medicine 09/18/23 Oriental Medicine Practitioner Relationship Specialty Start Date End Date Markus Maurer DO PCP - General Family Medicine 09/18/23 Oriental Medicine Practitioner Relationship Specialty Start Date End Date Markus Maurer DO PCP - General Family Medicine 09/18/23 Oriental Medicine Practitioner Relationship Specialty Start Date End Date Markus Maurer DO PCP - General Family Medicine 09/18/23 Oriental Medicine Practitioner Relationship Specialty Start Date End Date Markus Maurer DO PCP - General Family Medicine 09/18/23 Oriental Medicine Practitioner Relationship Specialty Start Date End Date Markus Maurer DO PCP - General Family Medicine 09/18/23 Oriental Medicine Practitioner Relationship Specialty Start Date End Date Markus Maurer DO PCP - General Family Medicine 09/18/23 Oriental Medicine Practitioner Relationship Specialty Start Date End Date Markus Maurer DO PCP - General Family Medicine 09/18/23 Oriental Medicine Practitioner Relationship Specialty Start Date End Date Markus Maurer DO PCP - General Family Medicine 09/18/23 Team Status: Active Member Role/Relationship Status Dates ROSE MARY Del Rosario Primary Care Provider Active Team Status: Inactive Member Role/Relationship Status Dates ROSE MARY Del Rosario Primary Care Provider Active Start: March 14, 2025 End: March 14, 2025 Sonny BAZZI PA Referring Provider Active St art: March 14, 2025 End: March 14, 2025 Vicente BAZZI PA Attending Provider Active Start: March 14, 2025 End: March 14, 2025 Team Status: Active Member Role/Relationship Status Dates Sonny BAZZI PA Primary care physician Active Team Status: Inactive Member Role/Relationship Status Dates Sonny BAZZI PA Primary care physician Active Start: March 14, 2025 End: March 14, 2025 Sonny BAZZI PA Referring Provider Active St art: March 14, 2025 End: March 14, 2025 Vicente BAZZI PA Attending physician Active Start: March 14, 2025 End: March 14, 2025 Team Status: Inactive Member Role/Relationship Status Dates Sonny Wayt PA, PA Primary care physician Active Start: April 22, 2025 End: April 22, 2025 ROSE MARY Del Rosario Referring Provider Active St art: April 22, 2025 End: April 22, 2025 ROSE MARY Dao Attending physician Active Start: April 22, 2025 End: April 22, 2025 Team Status: Active Member Role/Relationship Status Dates NINO Boateng Primary care physician Active Team Status: Inactive Member Role/Relationship Status Dates RYNE LemusC Primary care physician Acti ve Start: May 11, 2025 End: May 11, 2025 Dr. Angelito Hatfield MD Attending physician Active Start: May 11, 2025 End: May 11, 2025 Dr. Angelito Hatfield MD Emergency [facility] Physician Active Start: May 11, 2025 End: May 11, 2025 Team Status: Inactive Member Role/Relationship Status Dates NINO Boateng Primary care physician Active Start: May 16, 2025 End: May 16, 2025 NINO Boateng Attending physician Active Start: May 16, 2025 End: May 16, 2025 Team Status: Inactive Member Role/Relationship Status Dates ROSE MARY Del Rosario Referring Provider Active St art: May 26, 2025 End: May 26, 2025 NINO Humphreys Attending physician Active Start: May 26, 2025 End: May 26, 2025 NINO Boateng Primary care physician Active Start: May 26, 2025 End: May 26, 2025 Goals (unrecognized section and content) Goals may be documented in a n alternate sectionGoals may be documented in an alternate sectionGoals may be documented in an alternate section Active Administered Medications - up to 3 most recent administrations Administered Medications (un recognized section and content) Medication Order MAR Action Action Date Dose Rate Site medroxyPROGESTERone 150 mg injection (DEPO-PROVERA) 150 mg, INTRAMUSCULAR, EVERY 12 WEEKS, 4 doses, First dose on Mon10/11/23 at 1600, Last dose on Mon06/19/24 at 1600, Hazardous Potential Reproductive Risk Drug: Use appropriate PPE. Given 10/11/2023 4:23 PM EDT 150 mg Buttocks, Right INFORMATION SOURCE (unrecogn ized section and content) DATE CREATED AUTHOR 04/09/2025 [facility] DATE CREATED AUTHOR AUTHOR'S BURTON ZAMBRANO 06/04/2025 [facility] FOR RECORDS PERTAINING TO PATIENTS WHO ARE OR HAVE BEEN ENROLLED IN A CHEMICAL DEPENDENCY/SUBSTANCEABUSE PROGRAM, SOME INFORMATION MAY BE OMITTED. This clinical summary was aggregated from multiple sources. Caution should be exercised in using it in the provision of clinical care. This summary normalizes information from multiple sources, and as a consequence, information in this document may materially change the coding, format and clinical context of patient data. In addition, data may be omitted in some cases. CLINICAL DECISIONS SHOULD BE BASED ON THE PRIMARY CLINICAL RECORDS. [facility]. provides no warranty or guarantee of the accuracy or completeness of information in this document.
[2025-07-16 07:11] LABS: Internal QC Validated? YES +Cl - CLEAR BKGD; Pregnancy, Urine Negative Negative
--- NOTE | 2025-07-16 07:12 | HP.PCM_ITS ---
HPI - General HPI Narrative CLEVE MOROCHO, is a 50 F who presents for right knee arthroscopy removal loose body repair of the medial and lateral meniscus tears (LM possible root repair). Risks alternatives benefits discussed. Knee marked. No change to history and physical exam. Narcotic counseling and postoperative instructions given the patient understands no further questions or concerns. MR#: [id number] Acct: [id number] Name: CLEVE MOROCHO Rep #: [id number] : 1975 Provider: Dr. Sheng Gentile MD Age/Sex: 50/F Location: [facility] [place] Status: Signed Intake Vital Signs 06/09/2508:21 06/12/2513:58 Height 5 ft 2 in 5 ft 2 in Weight: 173 lb 170 lb BMI 31.6 31.1 Intake Visit Reasons: RIGHT KNEE Chief Complaint: Right Knee Pain Accompanied by: Self Is patient in pain?: Yes Pain scale (1-10): 5 Allergies No Known Allergies Allergy (Verified 06/12/25 14:00) Medications ?Medication ?Instructions ?Recorded ?Confirmed ?Type medroxyprogesterone 150 mg/mL 150 mg IM [id number] 11/11/22 06/12/25 His tory intramuscular syringe cholecalciferol (vitamin D3) 125 125 mcg PO QDAY 05/26/25 06/12/25 Histor y mcg (5,000 unit) capsule cyanocobalamin (vitamin B-12) 1,000 mcg PO .[id number] 05/26/25 06/12/25 History 1,000 mcg capsule hydrocortisone 2.5 % topical cream 1 applic IL QD-BID PRN rectal pain 05/2606/12/25 Rx with perineal applicator #30 grams Have you fallen in the past year?: Yes PFSH Medical History Loose body of right knee Tear of medial meniscus of right knee Tear of lateral meniscus of right knee Osteoarthritis of right knee Right knee pain Pyloric stenosis, congenital Back problem Frequent headaches Arthritis Anxiety and depression Murmur IBS (irritable bowel syndrome) Scoliosis H/O pyloric stenosis Migraine Laceration of right hand Right foot sprain Surgical History Hx of tympanostomy tubes History of bunionectomy History of section Family History Mother Arthritis Arthritis or polyarthritis, rheumatoid Osteoporosis Grandmother Breast cancer Arthritis Father Skin cancer Brother Seizures Grandfather Cancer Arthritis Social History adopted: No current occupational status: unemployed Smoking Status: Former smoker quit date: 07/24/17 alcohol intake: current alcohol intake frequency: holidays/special occasions only substance use type: does not use what type of physical activity do you participate in: none frequency: 1-2 times per week seatbelt use: always do you feel safe at home: Yes HPI RIGHT KNEE Details: This documentation accurately reflects the service provided and the decisions made by me, Dr. Sheng Gentile MD 06/12/25 0653. Part of today?s visit was documented by [ ], acting as scribe. CLEVE MOROCHO is a 50 year old F here today for FU R knee pain, meniscus tears, loose body, PF OA. Had cortisone injection last time. It helped somewhat. But still painful on the medial side. At the school with book fare, and it flared it up again, sore but not intolerable still feeling the loose body move around. Coding Level of Care Code Off vis,est,level 4 Diagnoses Tear of medial meniscus of right knee S83.241A Tear of lateral meniscus of right knee S83.281A Osteoarthritis of right knee M17.11 Right knee pain M25.561 Loose body of right knee M23.41 Additional Codes Intake - Is patient in pain?: Yes (1125F) Assessment and Plan Assessment and Plan (1) Tear of medial meniscus of right knee: Status: Acute Plan: 50-year-old female with right knee pain and mechanical symptoms meniscus tears on both sides advanced patellofemoral osteoarthritis, bone contusion and possible loose body sensations due to the osteochondral fragment. Overall we went over the diagnosis prognosis of her treatment options. Can continue treating this nonoperatively however try cortisone injection or consider right knee arthroscopy removal loose body repair of the medial and lateral meniscus tears could not address the arthritis in this manner. Patient understands and wants to go ahead with a right knee arthroscopy removal loose body repair of the medial and lateral meniscus tears (LM possible root repair). Pros and cons risks and benefits were discussed with the patient including but not limited to infection, pain, stiffness, bleeding, damage to surrounding structures, neurovascular injury, recurrence or retear, failure or wear of hardw are or fixation, instability, fracture, deep vein thrombosis and pulmonary embolism, anesthetic risks, , patient dissatisfaction, need for further surgery and other risks. Patient understood and wished to proceed with surgery, and signed the informed consent documentation. (2) Tear of lateral meniscus of right knee: Status: Acute (3) Osteoarthritis of right knee: Status: Acute (4) Right knee pain: Status: Acute (5) Loose body of right knee: Status: Acute Clinical Quality Measures Falls Risk Screening/Assistive Devices Have you fallen in the past year?: Yes Ortho Exam General General: Yes no acute distress Neurologic: Yes alert and Yes oriented x3 Psychologic: Yes reasonable and appropriate Right Knee Skin/Wound: Yes CDI, Yes healed, No erythema, No ecchymosis and No swelling PFSH Medical History Injury of head and neck History of stress test Wears glasses Hx of fracture of face bones Loss of consciousness Non-smoker Loose body of right knee Tear of lateral meniscus of right knee Arthritis IBS (irritable bowel syndrome) H/O pyloric stenosis Migraine Home Medications ?Medication ?Instructions ?Recorded ?Last Taken ?Type medroxyprogesterone 150 mg/mL 150 mg IM [id number] 11/1107/07/25 History intramuscular syringe cholecalciferol (vitamin D3) 125 125 mcg PO QDAY 05/26 Unknown History mcg (5,000 unit) capsule cyanocobalamin (vitamin B-12) 1,000 mcg IM QMONTH 06/2307/15/25 History 1,000 mcg/mL injection solution xghfdulasybrrbc-qxomgwnmzubwjwr-OC 7.5 ml PO Q4-6H PRN cold symptoms 07/10/25 07/15/25 Rx 2 mg-30 mg-10 mg/5 mL oral syrup #100 mL (Bromfed DM) Allergy/AdvReac Type Severity Reaction Status Date / Time No Known Allergies Allergy Verified 07/10/25 15:38 Family History Mother Arthritis Arthritis or polyarthritis, rheumatoid Osteoporosis Grandmother Breast cancer Arthritis Father Skin cancer Brother Seizures Grandfather Cancer Arthritis Surgical History Hx of eye surgery Hx of colonoscopy Hx of tympanostomy tubes History of bunionectomy History of section Social History adopted: No current occupational status: unemployed Smoking Status: Former smoker quit date: 07/24/17 alcohol intake: current alcohol intake frequency: holidays/special occasions only substance use type: does not use what type of physical activity do you participate in: none frequency: 1-2 times per week seatbelt use: always do you feel safe at home: Yes Patient's Goals Of Care . What would you like to achieve or improve as a result of your hospital stay?: n/a Results Lab / Micro Data Labs: Laboratory Results - last 24 hr 07/16/25 07:00: Urine Test Negative
--- NOTE | 2025-07-16 07:21 | PRE.ANES_ITS ---
ASA Classification* ASA Classification ASA Classification: 2 Assessment & Plan Anesthesia* Anesthesia Assessment Anesthesia Assessment: Discussed sedation and/or anesthesia options, risks, benefits, and alternatives with patient/parents/legal guardian/POA. Questions invited. The patient/parents/legal guardian/POA seems to understand and agrees to proceed with anesthesia plan. Reviewed the physical assessment, medical history, allergy history and patient home medications list prior to surgery/procedure/anesthetic and documented any changes. Performed airway and anesthesia risk assessments. Anesthesia Type Anesthesia Type: General and Block (only if requested by surgeon) Anesthesia Focused Assessment* Temperature: 98.1 F Pulse Rate: 74 Blood Pressure: 123/79 Respiratory Rate: 16 Pulse Ox: 97 Airway Assessment Mouth opens: >3 cm Mallampati Score: II Labs Anesthesia Preop lab: CBC WBC, (4.4-11.0) 6.0 K/mm3 05/16/25, 08:50 RBC, (4.2-5.4) 4.79 M/mm3 05/16/25, 08:50 Hgb, (12.0-15.0) 14.0 g/dL 05/16/25, 08:50 Hct, (37-47) 41.2 % 05/16/25, 08:50 Plt Count, (150-450) 255 K/mm3 05/16/25, 08:50 CHEMISTRY Potassium, (3.3-5.1) 4.4 mmol/L 05/16/25, 08:50 Sodium, (133-145) 141 mmol/L 05/16/25, 08:50 BUN, (4-19) 15 mg/dL 05/16/25, 08:50 Creatinine, (0.70-1.20) 0.93 mg/dL 05/16/25, 08:50 Glucose, (70-99) 95 mg/dL 05/16/25, 08:50 TSH, (0.300-4.200) 1.250 uIU/mL 05/16/25, 08:50 COAG Urine Test Negative Negative Today, 07:00 Pre-Assessment Diagnosis/Proposed Procedure Planned Operative Procedure(s): RIGHT KNEE ARTHROSCOPY REMOVAL LOOSE BODY MEDIAL AND LATERAL MENISCUS REPAIR Anesthesia History 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 When Was Last Pacemaker Check QUESTION #4 FULL TEXT: You/Your Family Experience fever (hyperthermia) with Anesthesia Last Oral Intake Last Oral intake: Last Oral Intake NPO since 00:00 07/16/25 07:17 Meds taken in AM with sips of No 07/16/25 07:17 water? Meds patient instructed to take am of surgery PONV PONV - consulting software engineer: PONV - consulting software engineer Female Yes 07/09/25 09:47 HX of Motion Sickness No 07/09/25 09:47 HX of N/V After Surgery No 07/09/25 09:47 Non-Smoker Yes 07/09/25 09:47 Duration of Surgery greater Yes 07/09/25 09:47 than 60 minutes Number of Risk Factors 3 07/09/25 09:47 PONV Score Moderate Risk 07/09/25 09:47 Height & Weight Height & Weight: Anesthesia: Height & Weight Height 5 ft 3 in 07/16/25 07:17 Weight: 78 kg 07/16/25 07:17 Body Mass Index (BMI) 30.4 07/16/25 07:17 Respiratory Assessment Respiratory Assessment - consulting software engineer: Respiratory Tract Infection Hx - consulting software engineer Hx Respiratory Tract Infection Yes: HEAD COLD 07/09/25 09:47 STOP Sleep Apnea STOP Sleep Apnea - consulting software engineer: STOP Sleep Apnea - consulting software engineer Hx Hypertension No 07/09/25 09:47 Hx Sleep Apnea No 07/09/25 09:47 CPAP BIPAP Do you snore loudly (louder Yes 07/09/25 09:47 than talking or can be heard Do you often feel tired/ No 07/09/25 09:47 fatigued/ sleepy during daytime? Has anyone observed you stop No 07/09/25 09:47 breathing during sleep? STOP Results Negative 07/09/25 09:47 QUESTION #5 FULL TEXT : Do you snore loudly (louder than talking or can be heard through closed doors)? Tobacco Use History Tobacco Use History - consulting software engineer: Tobacco Use History - consulting software engineer Tobacco Use Smoking Status Former smoker 07/09/25 09:47 Hx Tobacco Use No 07/09/25 09:47 Years Smoking Packs Smoked per Day Smoking Cessation Date was No - quit smoking greater 07/09/25 09:47 within the last 15 years than 15 years ago Hx Smoking Cessation Date Hx Smoking Cessation No 07/09/25 09:47 Counseling Hematologic Medial History Hematologic Hx - consulting software engineer: Hematologic Medical Hx - supervisor diagnostic Hx of Blood Transfusion No 07/09/25 09:47 Hx of Transfusion in last 3 No 07/09/25 09:47 Months Date of Last Transfusion (if within last 3 months) Ever experience any problems No 07/09/25 09:47 with transfusion(s)? Specify any problems Hx of Preganancy in last 3 No 07/09/25 09:47 Months Nurse Filling Out Transfusion DSCHRIBER 07/09/25 09:47 & Questions: Date: 07/09/25 07/09/25 09:47 Time: 09:50 07/09/25 09:47 Patient unable to answer at this time (ie. confused, unrespo /Reproduction History /Reproductive History - consulting software engineer: /Reproductive Hx- consulting software engineer Hx Now No 07/09/25 09:47 Gestational Age (in weeks): EDC: Hx Hx Para Hx Section SAB No 07/09/25 09:47 Does the father of the baby or his family experience fever w Father of the baby Malignant Hypertension history comment Active Medications Active Medications: Current Medications Generic Name Dose Route Start Last Admin Trade Name Freq PRN Reason Stop Dose Admin Cefazolin Sodium 2 gm/ Sodium 110 mls @ 200 mls/hr 07/16/25 07:00 Chloride IV 07/16/25 07:32 [facility] Medical History Injury of head and neck History of stress test Wears glasses Hx of fracture of face bones Loss of consciousness Non-smoker Loose body of right knee Tear of lateral meniscus of right knee Arthritis IBS (irritable bowel syndrome) H/O pyloric stenosis Migraine Home Medications ?Medication ?Instructions ?Recorded ?Last Taken ?Type medroxyprogesterone 150 mg/mL 150 mg IM [id number] 11/1107/07/25 History intramuscular syringe cholecalciferol (vitamin D3) 125 125 mcg PO QDAY 05/26 Unknown History mcg (5,000 unit) capsule cyanocobalamin (vitamin B-12) 1,000 mcg IM QMONTH 06/2307/15/25 History 1,000 mcg/mL injection solution padhpabudmxxkam-tsntkujpwnlxstn-UE 7.5 ml PO Q4-6H PRN cold symptoms 07/10/25 07/15/25 Rx 2 mg-30 mg-10 mg/5 mL oral syrup #100 mL (Bromfed DM) Allergy/AdvReac Type Severity Reaction Status Date / Time No Known Allergies Allergy Verified 07/10/25 15:38 Family History Mother Arthritis Arthritis or polyarthritis, rheumatoid Osteoporosis Grandmother Breast cancer Arthritis Father Skin cancer Brother Seizures Grandfather Cancer Arthritis Surgical History Hx of eye surgery Hx of colonoscopy Hx of tympanostomy tubes History of bunionectomy History of section Social History adopted: No current occupational status: unemployed Smoking Status: Former smoker quit date: 07/24/17 alcohol intake: current alcohol intake frequency: holidays/special occasions only substance use type: does not use what type of physical activity do you participate in: none frequency: 1-2 times per week seatbelt use: always do you feel safe at home: Yes Review of Systems (Anesthesia) ROS Narrative System reviewed and no additional complaints, except as documented.
[2025-07-16] MEDS: Lactated Ringers 1,000 ML 15 ML IV (07:22)
[2025-07-16] MEDS: Cefazolin 1 GM/5 ML Vial 2 GM IV (08:10)
[2025-07-16] MEDS: Midazolam 2 MG/2 ML Syringe IV (08:10)
[2025-07-16] MEDS: Lidocaine 1% (5 ml sdv) 5 ML Vial 8 ML IV (08:15)
[2025-07-16] MEDS: fentaNYL 100 MCG/2 ML Ampul IV (08:25)
[2025-07-16] MEDS: Epinephrine (1 mg/ml) 1 MG/ML VIAL (08:30)
--- NOTE | 2025-07-16 09:21 | PCM.OPRPT ---
Procedures Musculoskeletal [id number]-[id number]: Other Procedure See Report Operative Report (Standard) Operative Information Date of Procedure: 07/16/25 Pre-Operative Diagnosis: Right knee loose bodies and medial and lateral meniscus tears Post-Operative Diagnosis: Same Surgery/Procedure Performed: Right knee arthroscopy, removal loose bodies, medial meniscus repair, partial lateral meniscectomy, limited debridement foam fabricator: Yes Attic Fans Mechanic: andrew Tasks completed by first assistant manager: Retracting Type of Anesthesia: General and Local RN Documented Start/Stop Times: Operation Date: 07/16/25 08:30 Case Time Into Pre-Op 07/16/25 07:08 Out of Pre-Op 07/16/25 08:07 Anesthesia Start 07/16/25 08:10 Into Room 07/16/25 08:10 Procedure Start 07/16/25 08:30 Procedure End 07/16/25 09:20 Procedure Start Time: 08:30 Procedure Stop Time: 09:20 Select all DRAINS/GRAFTS/IMPLANTS that apply: Implanted device Implanted device details: arthrex all inside fiberstitch meniscus repair devices x 3 Estimated Blood Loss: 10 Specimen collected: No Description of surgery: Patient brought to the operating room theater. Placed supine the table. General anesthesia induced. 2 g IV Ancef administered prior to the start of the case. All bony prominences padded. SCD on the nonoperative leg. Tourniquet applied to the right thigh appropriately padded. Lower extremity prepped and draped in the usual sterile fashion with chlorhexidine-based prep solution allowing over 3 minutes drying time prior to draping. Preoperative timeout performed to confirm the site patient and surgery. Began by elevating the limb inflating the tourniquet to 250 mmHg. Made standard anterolateral anteromedial arthroscopy portal incisions as well as accessory anterolateral and accessory anteromedial portals as well as superior anterior medial portal. Inserted the arthroscope into the intra-articular portion of the joint performed full diagnostic arthroscopy. Immediately upon entering the suprapatellar pouch there is a large loose body as described on the MRI removed this. There was grade 1-2 changes along the trochlea and undersurface patella gently debrided that performed a chondroplasty as well as gentle debridement of osteophyte at the medial aspect of the distal femur at the trochlea. There is the start of a loose body on the medial side and removed that debrided that gentle debridement also of a plica in the prepatellar fat pad that was impinging. Remove the ligamentum mucosum and debrided that. ACL PCL were normal and stable. Placed leg in [id number]. Into the lateral compartment there was grade 3 changes again debrided at stable margins especially at the tibial side there was a full-thickness crack and development of full-thickness cartilage lesion I debrided down to stable margins. The posterior root was stable intact but there was tearing of the posterior horn. This looked in on repair both in the lateral compartment is quite tight so I performed a gentle debridement of the lateral meniscus for a partial lateral meniscectomy. I then performed pie crusting of the medial collateral ligament at the origin to open up the medial compartment. There was tearing vertically oriented as well as horizontal tearing of the mid aspect as well as posterior horn of the medial meniscus. The medial meniscus root appeared intact. I achieved the Gillquist view. I removed a number of loose bodies from posterior to the PCL as well as described and viewed on the MRI. I then used a rasp to stimulate healing at the medial meniscus tear and then used 3 Arthrex 1.5 mm all inside fiber stitch sutures in a vertical mattress fashion to repair the medial meniscus. Arthroscopy pictures taken and saved throughout the case onto the system. Intra-articular aspect thoroughly irrigated. Wounds cleaned with wet dry dressing followed by using 10 cc of core percent bupivacaine instilled in around the soft tissue sites. Portal sites closed with 3-0 Monocryl sutures. Skin cleaned with wet dry dressing followed application of Steri-Strips Adaptic 4 x 4 gauze ABD dressing Andrea wrap loosely wrapped with a hinged knee brace locked in full extension. Patient woken up from the general anesthetic transferred off the operating table taken to postanesthetic care unit in stable condition. All sponge needle instrument counts were correct no complications plan for the patient discharge home according to the surgery criteria. Patient to be put on aspirin 81 mg p.o. twice daily for VTE prophylaxis discharge home weightbearing as tolerated in full extension in the brace with crutches for 6 weeks. CPT 80588, 65386, 44878, 77997 Surgical Findings: As above Complications Complications: No Admit VTE Documentation VTE Present on Admission: No VTE Mechan Device Prophylaxis: SCD's VTE Pharm Prophylaxis ordered?: Yes
--- NOTE | 2025-07-16 09:28 | DCINST_ITS ---
Discharge Instructions Diet Discharge Diet: No restrictions Activity Discharge Activity: Return to Normal Activity Weight Bearing Status: Weight bearing as tolerated Lifting Restrictions: brace locked straight, WBAT with crutches Keep extremity elevated above heart level: Operative Extremity Additional Activity Instructions:: ok to remove brace at rest, no flexion over 90 degrees Dressing / Incision Call your doctor if your incision/area has: Continuous Slow Oozing, Sudden Increased Bleeding, Increased Pain/ Swelling, Increased Redness, Foul Smelling Discharge and Swelling at the incision site Call your doctor if you observe: Fever of 101 or Higher, Coldness, Increased Pain and Numbness or Tingling Change Dressing in: 2 days Follow Up Care Please Follow Up With: Sheng Gentile MD When: within 2 weeks Test Results: Test results from this visit will be discussed in further detail at your follow- up appointment, if applicable. Discharge Plan Admission Attending Provider: Sheng Gentile Primary Care Provider: Susanne Wren Instructions Patient Instructions: Surgery for Meniscus Tear Print Language: [place] Discharge Orders/Prescriptions Prescriptions: New oxycodone-acetaminophen [Percocet] 5-325 mg tablet 1 tab PO Q4H MDD 6 PRN (Reason: pain) 5 Days Qty: 20 0RF No Action medroxyprogesterone 150 mg/mL syringe 150 mg IM [id number] cholecalciferol (vitamin D3) 125 mcg (5,000 unit) capsule 125 mcg PO QDAY [id number]-wzdysbjfv-UW [Bromfed DM] 2-30-10 mg/5 mL syrup 7.5 ml PO Q4-6H PRN (Reason: cold symptoms) Qty: 100 0RF cyanocobalamin (vitamin B-12) 1,000 mcg/mL solution 1,000 mcg IM QMONTH Patient Comments: [NO ORIGINAL SIG] Referrals / Follow Up: Sheng Gentile MD [Med Staff - Active Staff, Orthopedics] Susanne Wren MILLING PLANER OPERATOR-C [Primary Care Provider, Family Practice] Disposition Disposition (needs filled in before D/C Order can be placed): Home, Self Care
--- NOTE | 2025-07-16 09:30 | PCM.POST.ANE ---
Anesthesia: Postop Eval I Current Vital Signs Temperature: 97.8 F Pulse Rate: 89 Blood Pressure: 113/85 Respiratory Rate: 16 Pulse Ox: 95 Assessment Airway patent: Yes Spontaneous unlabored respirations: Yes nausea: No Vomiting: No Anesthesia Complication: No Fluid Hydration Crystalloid volume administer (ml): 900 Total IV fluid infused: 900 Progress Note Anesthesia document: Postop Eval 1 completed: Yes
--- NOTE | 2025-07-16 09:31 | EX.PCM.DISCH ---
Discharge Instructions Diet Discharge Diet: No restrictions Activity Weight Bearing Status: Weight bearing as tolerated Keep extremity elevated above heart level: Operative Extremity Additional Activity Instructions:: ok to remove brace at rest, no flexion over 90 degrees Dressing / Incision Call your doctor if your incision/area has: Continuous Slow Oozing, Sudden Increased Bleeding, Increased Pain/ Swelling, Increased Redness, Foul Smelling Discharge and Swelling at the incision site Call your doctor if you observe: Fever of 101 or Higher, Coldness, Increased Pain and Numbness or Tingling Follow Up Care Please Follow Up With: Sheng Gentile MD Test Results: Test results from this visit will be discussed in further detail at your follow-up appointment, if applicable. Discharge Plan Admission Attending Provider: Sheng Gentile Primary Care Provider: Susanne Wren Instructions Patient Instructions: Surgery for Meniscus Tear Print Language: [place] Citizen Discharge Orders/Prescriptions Prescriptions: New oxycodone-acetaminophen [Percocet] 5-325 mg tablet 1 tab PO Q4H MDD 6 PRN (Reason: pain) 5 Days Qty: 20 0RF aspirin 81 mg tablet 81 mg PO BID MDD 2 30 Days Qty: 60 0RF No Action medroxyprogesterone 150 mg/mL syringe 150 mg IM [id number] cholecalciferol (vitamin D3) 125 mcg (5,000 unit) capsule 125 mcg PO QDAY [id number]-sravbslry-TX [Bromfed DM] 2-30-10 mg/5 mL syrup 7.5 ml PO Q4-6H PRN (Reason: cold symptoms) Qty: 100 0RF cyanocobalamin (vitamin B-12) 1,000 mcg/mL solution 1,000 mcg IM QMONTH Patient Comments: [NO ORIGINAL SIG] Referrals / Follow Up: Sheng Gentile MD [Med Staff - Active Staff, Orthopedics] Susanne Wren, SYSTEMS OPERATOR-C [Primary Care Provider, Family Practice] Disposition Disposition (needs filled in before D/C Order can be placed): Home, Self Care
--- NOTE | 2025-07-16 09:40 | SUR.PHASEI ---
AT APPROX 0940, PATIENT STATES, I FEEL LIKE I'M GOING TO PASS OUT. PATIENT PINK, WARM, HR 50'S, DENIES NAUSEA. FENTANYL 25 MCG WAS GIVEN AT 0933 FOR 7-8/10 RIGHT KNEE PAIN, WAS TEARFUL, MOANING & GRIMACING. OPENED IVF TO WIDE OPEN, WHEN I TURNED AROUND, PATIENT AGAIN STATED SHE FEELS FAINT AND REPORTED NAUSEA. HR WAS DECREASING INTO 40'S, 30'S, THEN ASYSTOLE; LAID PATIENT FLAT AND HIT CODE LIGHT WITH IMMEDIATE RESPONSE FROM ANESTHESIA AND STAFF. SEE CODE BLUE DOCUMENTATION. AFTER ATROPINE WAS GIVEN, PATIENT AROUSABLE, TEARFUL. DR MTZ UPDATED FAMILY. CANDACE FLORES, SEJAL, RODRIGUE & BIBI AT BEDSIDE. PATIENT UPDATED. NO LONGER NAUSEATED. REMAINS FLAT.
--- NOTE | 2025-07-16 09:40 | EKG12_ITS ---
Test Reason : POST CODE Blood Pressure : */* mmHG Vent. Rate : 105 BPM Atrial Rate : 105 BPM P-R Int : 142 ms QRS Dur : 92 ms QT Int : 350 ms P-R-T Axes : 73 3 31 degrees QTcB Int : 462 ms Sinus tachycardia Otherwise normal ECG When compared with ECG of 16-Jan-2023 08:52, Vent. rate has increased by 36 bpm QT has lengthened Confirmed by Eulalio Jung ([id number]), editor map RIC BREAUX ([id number]) on 07/18/2025 8:28:21 AM Referred By: Sheng Gentile Confirmed By: Eulalio Jung
[2025-07-16 10:21] LABS: Troponin T High Sensitivity 20 ng/L (<=14)
--- NOTE | 2025-07-16 10:41 | PCM.HP.STD ---
HPI - General General Date of Admission: 07/16/25 Date of Service: 07/16/25 Chief Complaint: Syncope HPI Narrative CLEVE MOROCHO, is a 50 F who presented to [facility] [place] for outpatient meniscal repair of her right knee with Dr. Gentile. The surgery went well and the patient was in the PACU. She complained of intense right lower extremity pain and they were preparing to do a nerve block however she complained of lightheadedness and the feeling that she was going to pass out. Fluids were opened wide by the nursing staff and the patient bradycardia down developed hypotension and had a periods of sinus pause that were about 5 seconds long. There were 4 episodes of this. She had no signs of heart block prior to that or following. She was given 1 dose of atropine by anesthesia at which time her heart rate began to improve and along with that her blood pressure improved. Mentation slowly improved with improved blood pressure and heart rate as cardiac output increased. CBC, CMP, troponin, magnesium, phosphorus were all sent and pending at the time of admission. We are highly suspicious of vasovagal syncope. EKG was performed and was normal sinus rhythm with normal intervals and no ST-T wave changes concerning for acute ischemia. She will be admitted to the intensive care unit for close monitoring with an echocardiogram, cardiac enzymes cycling, ongoing telemetry monitoring and cardiology consultation. If workup is negative anticipate discharge in the next 24 hours. [facility] Medical History Injury of head and neck History of stress test Wears glasses Hx of fracture of face bones Loss of consciousness Non-smoker Loose body of right knee Tear of lateral meniscus of right knee Arthritis IBS (irritable bowel syndrome) H/O pyloric stenosis Migraine Home Medications ?Medication ?Instructions ?Recorded ?Last Taken ?Type medroxyprogesterone 150 mg/mL 150 mg IM [id number] 11/11/22 07/07/25 History intramuscular syringe cholecalciferol (vitamin D3) 125 125 mcg PO QDAY 05/26/25 Unknown History mcg (5,000 unit) capsule cyanocobalamin (vitamin B-12) 1,000 mcg IM QMONTH 07/09/25 07/15/25 History 1,000 mcg/mL injection solution [id number] 7.5 ml PO Q4-6H PRN cold symptoms 07/10/25 07/15/25 Rx 2 mg-30 mg-10 mg/5 mL oral syrup #100 mL (Bromfed DM) aspirin 81 mg tablet 81 mg PO BID vte prop 1 month #60 07/16/25 Unknown Rx tabs oxycodone-acetaminophen 5 mg-325 1 tab PO Q4H PRN pain 5 days #20 07/16/25 Unknown Rx mg tablet (Percocet) tabs Allergy/AdvReac Type Severity Reaction Status Date / Time No Known Allergies Allergy Verified 07/10/25 15:38 Family History Mother Arthritis Arthritis or polyarthritis, rheumatoid Osteoporosis Grandmother Breast cancer Arthritis Father Skin cancer Brother Seizures Grandfather Cancer Arthritis Surgical History Hx of eye surgery Hx of colonoscopy Hx of tympanostomy tubes History of bunionectomy History of section Social History adopted: No current occupational status: unemployed Smoking Status: Former smoker quit date: 07/24/17 alcohol intake: current alcohol intake frequency: holidays/special occasions only substance use type: does not use what type of physical activity do you participate in: none frequency: 1-2 times per week seatbelt use: always do you feel safe at home: Yes ROS Review of Systems ROS Unobtainable: due to mental status Patient's Goals Of Care . What would you like to achieve or improve as a result of your hospital stay?: make sure heart ok Vital Signs Vital Signs Vital Signs: 07/16/25 07:16 07/16/25 07:17 07/16/25 07:19 Temperature 98.1 F Temperature Source Temporal Pulse Rate 74 Pulse Rate [1] Pulse Strength Respiratory Rate 16 Respiratory Pattern Normal Blood Pressure 123/79 H Blood Pressure Mean 93 Blood Pressure Source Monitor Blood Pressure Position Semi-Fowlers Blood Pressure Location Left Arm Baseline BP 123/79 Pulse Ox 97 Oxygen Delivery Method Room Air Oxygen Flow Rate (L/min) 07/16/25 07:21 07/16/25 09:26 07/16/25 09:26 Temperature 98.1 F 96.6 F L Temperature Source Temporal Pulse Rate 74 84 Pulse Rate [1] Pulse Strength Normal (2+) Respiratory Rate 16 18 Respiratory Pattern Normal Blood Pressure 123/79 H 113/85 H Blood Pressure Mean 94 Blood Pressure Source Monitor Blood Pressure Position Semi-Fowlers Blood Pressure Location Right Arm Baseline BP 123/79 Pulse Ox 97 95 Oxygen Delivery Method Room Air Oxygen Flow Rate (L/min) 07/16/25 09:30 07/16/25 09:35 07/16/25 09:40 Temperature 97.8 F Temperature Source Pulse Rate 89 75 62 Pulse Rate [1] Pulse Strength Respiratory Rate 16 18 14 Respiratory Pattern Blood Pressure 113/85 H 101/74 89/67 L Blood Pressure Mean 83 74 Blood Pressure Source Monitor Monitor Blood Pressure Position Semi-Fowlers Supine Blood Pressure Location Right Arm Right Arm Baseline BP 123/79 123/79 Pulse Ox 95 96 95 Oxygen Delivery Method Room Air Room Air Oxygen Flow Rate (L/min) 07/16/25 09:40 07/16/25 09:43 07/16/25 09:46 Temperature Temperature Source Pulse Rate 98 Pulse Rate [1] 0 L Pulse Strength Respiratory Rate 12 12 12 Respiratory Pattern Blood Pressure 119/85 H 90/73 125/83 H Blood Pressure Mean 78 97 Blood Pressure Source Monitor Monitor Blood Pressure Position Supine Supine Blood Pressure Location Right Arm Right Arm Baseline BP 123/79 123/79 Pulse Ox 95 94 92 Oxygen Delivery Method Room Air Ambu-Bag Room Air Oxygen Flow Rate (L/min) 15 5 07/16/25 09:51 07/16/25 09:54 07/16/25 09:57 Temperature Temperature Source Pulse Rate 111 H 106 H 98 Pulse Rate [1] Pulse Strength Respiratory Rate 14 14 16 Respiratory Pattern Blood Pressure 105/77 111/82 H 106/74 Blood Pressure Mean 86 91 84 Blood Pressure Source Monitor Monitor Monitor Blood Pressure Position Supine Supine Supine Blood Pressure Location Right Arm Right Arm Right Arm Baseline BP 123/79 123/79 123/79 Pulse Ox 94 95 93 Oxygen Delivery Method Nasal Cannula Nasal Cannula Nasal Cannula Oxygen Flow Rate (L/min) 5 5 5 07/16/25 10:00 07/16/25 10:06 07/16/25 10:12 Temperature Temperature Source Pulse Rate 127 H 103 H 102 H Pulse Rate [1] Pulse Strength Respiratory Rate 16 16 16 Respiratory Pattern Blood Pressure 123/92 H 112/85 H 118/82 H Blood Pressure Mean 102 94 94 Blood Pressure Source Monitor Monitor Monitor Blood Pressure Position Supine Supine Supine Blood Pressure Location Right Arm Right Arm Right Arm Baseline BP 123/79 123/79 123/79 Pulse Ox 95 96 97 Oxygen Delivery Method Nasal Cannula Nasal Cannula Nasal Cannula Oxygen Flow Rate (L/min) 5 2 2 07/16/25 10:15 Temperature Temperature Source Pulse Rate 99 Pulse Rate [1] Pulse Strength Respiratory Rate 16 Respiratory Pattern Blood Pressure 113/83 H Blood Pressure Mean 93 Blood Pressure Source Monitor Blood Pressure Position Supine Blood Pressure Location Right Arm Baseline BP 123/79 Pulse Ox 98 Oxygen Delivery Method Nasal Cannula Oxygen Flow Rate (L/min) 2 Weight Weight: 78 kg Body Mass Index (BMI) 30.4 Physical Exam Const no apparent distress and well nourished; Negative for average body habitus Constitutional Narrative: Middle-aged, white female, obese, lying in bed in PACU, initially nonresponsive with slow arousal and by the time I left was alert and oriented x 3 General Appearance: cooperative HEENT normocephalic and head/scalp atraumatic HEENT Narrative: Mallampati 3, no thrush Resp normal respiratory effort, no retractions, no use of accessory muscles and clear to auscultation bilaterally Auscultation: Negative for rales, rhonchi or wheezes Cardio regular rhythm, S1 normal heart sound, S2 normal heart sound, no murmurs, no rub, no gallops and no clicks; Negative for regular rate Cardio Narrative: Initially sinus bradycardia then accelerated to sinus tachycardia after atropine GI normal to inspection, nondistended, normoactive bowel sounds, soft to palpation and non-tender Extremity no clubbing, cyanosis or edema Extremity Narrative: Right knee wrapped postoperatively, pedal pulses are 2+, radial pulses are 2+ Neuro moves all extremities and no focal motor deficits Psych Psych Narrative: Patient was tearful and anxious and appropriate for the current situation Results Lab / Micro Data Labs: Laboratory Results - last 24 hr 07/16/25 07:00: Urine Test Negative 07/16/25 10:00: Troponin T High Sens 20 H 07/16/25 10:05: POC Glucose 122 H Assessment & Plan Assessment/Plan (1) Syncope: (2) Sinus pause: PLAN: Plan Syncope with sinus pause x 4 - Resultant CODE BLUE called in PACU postop meniscal repair - Received atropine x 1 with complete resolution - Rhythm strips reviewed and patient had about 4 or 5-second pauses--> was having considerable pain in the time and was hypotensive in conjunction with her pauses - Highly suspect elevated basal vagal tone and vasovagal syncope related to intense pain - Check echocardiogram - Cycle cardiac enzymes - Check electrolytes including potassium, magnesium, phosphorus - Monitor on telemetry in the intensive care unit - Cardiology consult Right knee meniscal repair - Management per orthopedic surgery - Postop day [address] Gentile GADIEL - CPAP ordered - Use at at bedtime and with naps Obesity - BMI 30.5 - Recommend weight loss - Complicates treatment, prognosis, outcomes Remote tobacco abuse - Encouraged ongoing cessation DVT prophylaxis - Per orthopedic surgery with recent meniscal repair CODE STATUS - Full code Charges/Coding Visit Charges Inpatient E&M: 75371 Init Hosp L2
--- NOTE | 2025-07-16 10:55 | ECHOD_ITS ---
Reason For Study Reason For Study: SYNCOPE Procedure This was a 2D Doppler, Color Flow transthoracic echocardiogram. The patient is in sinus rhythm. Patient scanned supine due to post-op knee surgery. Exam performed portable in ICU/CCU. Left Ventricle Normal LV size. Normal left ventricular thickness. The estimated ejection fraction is 50???55 %. Normal diastology for age. Right Ventricle Normal RV size. Normal systolic function. Atria The left and right atria are normal. Mitral Valve Normal mitral valve. There is no mitral valve stenosis. Trivial mitral valve insufficiency. Tricuspid Valve Normal tricuspid valve. There is no tricuspid stenosis. Trivial tricuspid valve insufficiency. Aortic Valve Trisinus/trileaflet aortic valve. There is no aortic valve stenosis. Trivial aortic valve insufficiency. Pulmonic Valve Normal pulmonic valve. There is no pulmonic valvular stenosis. Trivial pulmonic valve insufficiency identified. Great Vessels Ascending aorta normal size measured at 2.9 cm. Normal sized IVC that collapses with respiration/sniff. Pericardium/Pleural No pericardial effusion. MMode/2D Measurements & Calculations LVIDd: 4.5 cm IVSd: 0.77 cm LVOT diam: 2.0 cm LVIDs: 2.9 cm LVPWd: 0.79 cm LVOT area: 3.0 cm2 RVDd: 2.7 cm FS: 35.3 % Ao root diam: 2.9 cm asc Aorta Diam: 2.9 cm LAV(MOD- bp): 26.7 ml LAV(MOD- bp) Indexed: 14.7 ml/m2 LAV(MOD- sp2): 29.8 ml LAV(MOD- sp4): 23.8 ml LVAd ap4: 21.9 cm2 LVAd ap2: 19.4 cm2 EDV(MOD- bp): 58.1 ml LVLd ap4: 6.7 cm LVLd ap2: 6.2 cm ESV(MOD- bp): 27.4 ml EDV(MOD-sp4): 60.7 ml EDV(MOD-sp2): 51.6 ml EF(MOD- bp): 52.8 % EDV(sp4-el): 60.9 ml EDV(sp2-el): 51.6 ml LVAs ap4: 13.8 cm2 LVAs ap2: 11.3 cm2 LVLs ap4: 5.4 cm LVLs ap2: 4.8 cm ESV(MOD-sp4): 29.7 ml ESV(MOD-sp2): 22.6 ml ESV(sp4-el): 30.1 ml ESV(sp2-el): 22.5 ml EF(MOD-sp4): 51.1 % EF(MOD-sp2): 56.1 % EF(sp4-el): 50.7 % SV(MOD-sp4): 31.0 ml SV(MOD-sp2): 28.9 ml SV(sp4- el): 30.9 ml SI(MOD-sp4): 17.1 ml/m2 SI(MOD-sp2): 15.9 ml/m2 Ao sinus diam: 3.[address] Junction: 2.6 cm LA A4 area: 11.7 cm2 LA dimension(2D): 3.0 cm TAPSE: 1.9 cm RA A4 area: 9.8 cm2 Time Measurements MV dec time: 0.12 sec Doppler Measurements & Calculations MV E max benedict: 54.4 cm/sec Lat Peak E' Benedict: 11.1 cm/sec Med Peak E' Benedict: 8.7 cm/sec MV A max benedict: 59.8 cm/sec E/E' lat: 4.9 E/E' med: 6.3 MV E/A: 0.91 MV dec slope: 452.3 cm/sec2 Ao V2 max: 89.9 cm/sec LV V1 max: 70.5 cm/sec Ao max P.2 mmHg LV V1 max P.0 mmHg Ao V2 mean: 69.7 cm/sec LV V1 mean P.2 mmHg Ao mean P.0 mmHg LV V1 mean: 51.2 cm/sec Ao V2 VTI: 17.1 cm LV V1 VTI: 15.5 cm AV (velocity ratio): 0.90 AIDEN(I,D): 2.7 cm2 AIDEN(V,D): 2.3 cm2 SV(LVOT): 46.3 ml PA V2 max: 47.5 cm/sec TR max benedict: 193.2 cm/sec TR max P.9 mmHg ECHO/Echo Complete Interpretation Summary The estimated ejection fraction is 50???55 %. Normal diastology for age. Normal sized IVC that collapses with respiration/sniff. No significant valvular heart disease appreciated. Ordering Physician: Shey Yanez Referring Physician: JOSH KHAN Performed By: Jessica Lloyd RDCS
--- NOTE | 2025-07-16 11:02 | POSTOPAN2_ITS ---
Anesthesia Postop Eval I Sum Postop Eval Completion status Anesthesia document: Postop Eval 1 completed: Yes Anesthesia Postop Eval I Summary Anesthesia Postop Eval I Summary: Anesthesia Postop Eval I: Assessment Summary Airway patent Yes 07/16/25 09:30 [email or web address] Spontaneous unlabored Yes 07/16/25 09:30 [email or web address] respirations Mental status nausea No 07/16/25 09:30 [email or web address] Vomiting No 07/16/25 09:30 [email or web address] Anesthesia Postop Eval I: Fluid Summary Crystalloid volume administer 900 07/16/25 09:30 [email or web address] (ml) Colloids volume administered ( ml) Blood Product volume administered (ml) Total IV fluid infused 900 07/16/25 09:30 [email or web address] Anesthesia Postop Eval I: Summary Notes Anesthesia Complication No 07/16/25 09:30 [email or web address] Anesthesia Complication Comment: Post-operative progress note Anesthesia: Postop Eval II Evaluation Mental status: Awake and Calm Pain Level: 4 nausea: No Vomiting: No Progress Note Post-operative progress note: Patient had what appeared to be vagal response in PACU. This was shortly after 25 mcg of fentanyl given. She became bradycardic and unresponsive. Code was called. Patient did have a few chest compressions. Was given 0.4 of atropine. Excellent response and became responsive very quickly. Pupils were reactive. Patient still stated that she was having pain so no Narcan was given. Dr. Gentile and hospitalist is aware and decided to admit to the hospital for appropriate postop care. Complications Anesthesia Complication: No
--- OUTSIDE RECORDS SUMMARY | 2025-07-16 11:13 | XMS RPT_ITS | CCD ---
Author Organization [facility] CliniSymd Care Team Providers Care Panel Maker Name Role Phone Iris QUISPE, Zahira Unavailable Unavailable Unavailable Primary Care Provider Unavailabl e Care Physician, No Primary Primary Care Provider Unavailable Care Physician, No Primary Referring Provider Un available ROSE MARY Sommers Attending Provider Jennifer Bhat MA Unavailable Unavailable Unavailable Primary Care Provider Unavailabl e Unavailable Primary Care Provider Unavailabl e Unavailable Primary Care Provider [facility], [facility] Primary Care Pro vider [facility], [facility] Referring Provid er ROSE MARY Cornejo Attending Provider ROSE MARY Sommers Attending Provider Chelsi 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 SPECIALIST, 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 SPECIALIST-C Vi Attending Provider Markus Maurer DO Primary Care Provider Chelsi 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 SPECIALIST, 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 SPECIALIST-C Vi Primary Care Provider Chelsi 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 SPECIALIST, 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 SPECIALIST-C Vi Referring Provider ROSE MARY Cornejo Attending Provider Markus Maurer DO Primary Care Provider Markus Maurer DO Primary Care Provider Markus Maurer DO Primary Care Provider Sonny Bertrand Primary Care Provider [phone] Sonny Bertrand Referring Provider Vicente Sommers Attending Provider MARKUS MAURER Primary Care Unavailabl e MARKUS MAURER Primary Care Unavailabl e ZENOBIA, LURDES Referring Unavailable MAROI, MARKUS RL Primary Care Unavailabl e MARIO, MARKUS RL Primary Care Unavailabl e MARIO, MARKUS RL Primary Care Unavailabl e SELF Referring Unavailable MARIO, MARKUS RL Primary Care Unavailabl e MARIO, MARKUS RL Primary Care Unavailabl e ZENOBIA, LURDES Attending Unavailable Glenny BAZZI, Sonny Primary Care Physician [phone] Vicente Sommers Attending Physician Sonny Bertrand Primary Care Physician Sonny Bertrand Referring Provider Vicente Sommers Attending Physician Pipo 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 SPECIALIST-C, Ivet Primary Care Physician Liu KILGORE, Dr. Eaton Attending Physician Dr. Angelito Hatfield MD Emergency Department Physici an Holger 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 SPECIALIST-C, Susanne Primary Care Physician Holger 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 SPECIALIST-C, Susanne Attending Physician Girma 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 SPECIALIST-CNancy Attending Physician Susanne Wren Primary Care Unavailable Lara Us Attending Unavailable Lara Us Referring Unavailable Wayt, Sonny Primary Care Unavailable Viecnte Sommers Attending Unavailable Wayt, Sonny Referring Unavailable [...] Attending Unavailable Angelito Hatfield Attending Unavailable Pipo [facility], [facility] Primary Care Unavailabl e Jeramie Fabian Attending Unavailable Derrellmary [facility] Susanne Primary Care Unavailable Medications Current [...] take 1 capsule by mo [facility] once daily Cholecalciferol (Vitamin D3) 125 mcg [...] Comment on above: Take 1 tablet by [facility] twice daily for 10 days. hydrocortisone 25 [...] njection (DEPO-PROVERA) Start: 09-02-2021 End: 01-17-2026 medroxyPROGESTERone (DEPO-ME OVERA) 150 mg/mL Inject 1 mL intramuscularly [...] 1,000 mcg capsule Active 1000 ug PO .K3Ipior May 26, 2025 12:00am Complies with drug therapy Start: 05-26-2025 Cyanocobalamin (Vitamin B-12) 1,000 mcg capsule Active 1000 ug PO .[id number] May 26, 2025 12:00am Complies with drug [...] oral solution (10 sources) alpha-Adrenergic Agonist, Uncompetitive R-chyjqo-S-aspartate Receptor Antagonist, Sigma-1 Agonist Start: 024 End: [...] Anticholinergic Start : 11-07 End: 03-14 Ipratropium [place] 21 mcg (0.03 %) spray,non-aerosol Discontinued 2 NMA INTRANASAL 2 to 3 times per day as needed for postnasal drainage November 06, 2024 11:00pm March 14, 2025 2:47pm administer into each nostril Ipratropium [place] 21 mcg (0.03 %) spray,non-aerosol (1 source) Start : 11-07 End: 03-14 Ipratropium [place] 21 mcg (0.03 %) spray,non-aerosol Discontinued 2 [...] March 01, 2023 3:53pm polyethylene glycol 3350 111836 mg / potassium chloride 2970 mg / sodium bicarbonate 6740 mg / sodium chloride 5860 mg / sodium sulfate 68429 mg powder for oral solution (1 source) [...] e)on 05-30-2025 Lower Ext Joint Only (Routine) [facility] Imaging Services [address], [place] [id number] Lower Ext Joint Only (Routine) MR#: [id number] Acct: [id number] Name: EUNICE MUNOZ Rep #: [id number] : 1975 F 50 From: Lavelle Perez MD PCP: NINO Boateng Status: REG CLI Study: Lower Ext Joint Only (Routine) Date of Exam: 07/30/24 Exam# [id number] Ordering Dr: Lara Us PROCEDURE: LOWER EXT [...] ALEYDA CC: NINO Wren; ROSE MARY Lao Dishtank Operator: Signed Normal [facility] Gastroenterology Visit Repor ton 05-26-2025 Gastroenterology Visit Report [facility]enterology [address] [place] [address] OFFICE VISIT Date of Service: 05/26/25 MR#: [id number] Acct: [id number] Name: EUNICE MUNOZ Rep #: [id number] : 1975 Provider: NINO martinez Age/Sex: 50/F Location: [facility] Status: Signed Intake Vital Signs 03/14/25 15:47 05/11/25 15:53 05/26/25 08:30 Height 5 ft 2 in 5 ft 2 in 5 ft 2 in Weight: 174 lb BMI 31.8 BP 125/80 H Respiration 16 Pulse 74 Temp 97.9 F Temp Source Temporal Pulse Oximetry (%) 98 Oxygen Delivery Method room air Intake Visit Reasons: HEMORRHOID DIARRHEA Chief Complaint: constipation, rectal bleeding Acid Filler Required: No Accompanied by: Self Is patient in pain?: No Allergies No Known Allergies Allergy (Verified 05/26/25 08:19) Medications ???Medication ???Instructions ???Recorded ???Confirmed ???Type medroxyprogesterone 150 mg/mL 150 mg IM [id number] 11/11/22 History intramuscular syringe cholecalciferol (vitamin D3) 125 125 mcg PO QDAY 05/26/25 05/26/25 History mcg (5,000 unit) capsule cyanocobalamin (vitamin B-12) 1,000 mcg PO .[id number] 05/26/2510/15 History 1,000 mcg capsule hydrocortisone 2.5 % topical cream 1 applic ME QD-BID PRN rectal pa in 05/26/25 05/26/25 [...] were unremark (more content not included)... Normal [facility] Thyroid Antibodieson 10-30-2 025 TG AB < 1.0 Normal 0.0-0.9 [facility] Comment on above: Order Comment: Test( s) 009094-Gucc, Plasma or Serumwas developed and its performance characteristicsdetermined by [employer]. It has not been cleared or approvedby the Food and Drug Administration. Result Comment: Thyr oglobulin Antibody measured by Jayda Pinky Methodology It should be noted that the presence of thyroglobulin antibodies may not be pathogenic nor diagnostic, especially at very low levels. The assay quality control coordinator has found that four percent of individuals without evidence of thyroid disease or autoimmunity will have positive TgAb levels up to 4 IU/mL. Performed By: #### L 503.6030, L3300.6750, L501.9985, L506.1001, L506.0400, L503.0106, L501.9520, L500.4050, L500.4100, L3300.9900, L503.6550, L100.0100 ####[facility] [address] [place], [place], [id number] THYR PEROX AB < 9 Normal 0-34 [facility] Comment on above: Order Comment: Test( s) [id number], Plasma or Serumwas developed and its performance characteristicsdetermined by [employer]. It has not been cleared or approvedby the Food and Drug Administration. Performed By: #### L 503.6030, L3300.6750, L501.9985, L506.1001, L506.0400, L503.0106, L501.9520, L500.4050, L500.4100, L3300.9900, L503.6550, L100.0100 ####[facility] [address] [place], [address] Zinc, Plasma or Serumon 04-25 ZINC,PLASMA/SER 73 ug/dL Normal 44-115 [facility] Comment on above: Order Comment: Test( s) [id number]-Omhy, Plasma or Serumwas developed and its performance characteristicsdetermined by [employer]. It has not been cleared or approvedby the Food and Drug Administration. Result Comment: Dete ction Limit = 5 Performed at: [address] [id number] Director Of Home Health Services: Leon Linares PhD, Phone: [phone] Performed at: [address] [id number] Director Of Home Health Services: Jarrod Gordon MD, Phone: [phone] Performed By: #### L 503.6030, L3300.6750, L501.9985, L506.1001, L506.0400, L503.0106, L501.9520, L500.4050, L500.4100, L3300.9900, L503.6550, L100.0100 ####[facility] [address] [place], [place], [id number] Absolute lymphocyte countOrd ered By: Susanne Wren on 05-16-2025 Lymphocytes Auto (Unsp spec) [#/Vol] 1.77 10*3/uL 0.83-4.51 [facility] Absolute neutrophil countOrd ered By: Susanne Wren on 05-16-2025 Neutrophils (Bld) [#/Vol] 3.7 10*3/uL 2.0-7.7 [facility] Anion gap in Serum or Plasma Ordered By: Susanne Wren on 05-16-2025 Anion gap [Moles/Vol] 10 mmol/L 12-05 [facility] Automated lymphocyte count a s percentage of total leukocytesOrdered By: Susanne Wren on 05-16-2025 Lymphocytes/100 WBC Auto (Unsp spec) 29.5 % [facility] BUN/creatinine ratioOrdered By: Susannepreston Wren on 05-16-2025 Urea nitrogen/Creatinine [Mass ratio] 16.3 mg/mg 05-12 [facility] Basophil percentageOrdered B y: Susanne Wren on 05-16-2025 Basophils/100 WBC (Bld) 0.3 % 0-1 [facility] Bilirubin, totalOrdered By: Susanne Wren on 05-16-2025 Bilirubin [Mass/Vol] 0.53 mg/dL 0.00-1.30 [facility] CBC W/Diff, Automatedon 04-24 Absolute Lymph 1.77 X10 3/uL Normal 0.83-4.51 [facility] Comment on above: Performed By: #### L 503.6030, L3300.6750, L501.9985, L506.1001, L506.0400, L503.0106, L501.9520, L500.4050, L500.4100, L3300.9900, L503.6550, L100.0100 #### [facility] [address] [facility] [address] [place], [place], [id number] (841) Absolute Neut 3.7 X10 3/uL Normal 2.0-7.7 [facility] Comment on above: Performed By: #### L 503.6030, L3300.6750, L501.9985, L506.1001, L506.0400, L503.0106, L501.9520, L500.4050, L500.4100, L3300.9900, L503.6550, L100.0100 #### [facility] [address] [facility] [facility] [address] [place], [place], [id number] Basophils/100 WBC (Bld) 0.3 % Normal 0-1 [facility] Comment on above: Performed By: #### L 503.6030, L3300.6750, L501.9985, L506.1001, L506.0400, L503.0106, L501.9520, L500.4050, L500.4100, L3300.9900, L503.6550, L100.0100 #### [facility] [address] [place], [place], [id number] (582) Eosinophils/100 WBC (Bld) 1.8 % Normal 0-5 [facility] Comment on above: Performed By: #### L 503.6030, L3300.6750, L501.9985, L506.1001, L506.0400, L503.0106, L501.9520, L500.4050, L500.4100, L3300.9900, L503.6550, L100.0100 #### [facility] [address] [place], [place], [id number] (316) Erythrocyte distribution width (RBC) [Ratio] 12.6 % Normal 11.6-14.6 [facility] Comment on above: Performed By: #### L 503.6030, L3300.6750, L501.9985, L506.1001, L506.0400, L503.0106, L501.9520, L500.4050, L500.4100, L3300.9900, L503.6550, L100.0100 #### [facility] [address] [place], [place], [id number] (673) Hematocrit (Bld) [Volume fraction] 41.2 % Normal 37-47 [facility] Comment on above: Performed By: #### L 503.6030, L3300.6750, L501.9985, L506.1001, L506.0400, L503.0106, L501.9520, L500.4050, L500.4100, L3300.9900, L503.6550, L100.0100 #### [facility] [address] [place], [place], [id number] (972) Hemoglobin (Bld) [Mass/Vol] 14.0 g/dL Normal 12.0-15.0 [facility] Comment on above: Performed By: #### L 503.6030, L3300.6750, L501.9985, L506.1001, L506.0400, L503.0106, L501.9520, L500.4050, L500.4100, L3300.9900, L503.6550, L100.0100 #### [facility] [address] [place], [address] ( IG% 0.200 Normal 0.0-0.9 [facility] Comment on above: Result Comment: IG% - Immature Granulocytes (promyelocytes, myelocytes and metamyelocytes) > 1% indicates that a LEFT SHIFT is Present. Performed By: #### L 503.6030, L3300.6750, L501.9985, L506.1001, L506.0400, L503.0106, L501.9520, L500.4050, L500.4100, L3300.9900, L503.6550, L100.0100 #### [facility] [address] [place], [address] Lymphocytes/100 WBC (Bld) 29.5 % Normal 19-41 [facility] Comment on above: Performed By: #### L 503.6030, L3300.6750, L501.9985, L506.1001, L506.0400, L503.0106, L501.9520, L500.4050, L500.4100, L3300.9900, L503.6550, L100.0100 #### [facility] [address] [place], [address] MCH (RBC) [Entitic mass] 29.2 pg Normal 27.0-32.0 [facility] Comment on above: Performed By: #### L 503.6030, L3300.6750, L501.9985, L506.1001, L506.0400, L503.0106, L501.9520, L500.4050, L500.4100, L3300.9900, L503.6550, L100.0100 #### [facility] [address] [place], [address] MCHC (RBC) [Mass/Vol] 34.0 g/dL Normal 32-36 [facility] Comment on above: Performed By: #### L 503.6030, L3300.6750, L501.9985, L506.1001, L506.0400, L503.0106, L501.9520, L500.4050, L500.4100, L3300.9900, L503.6550, L100.0100 #### [facility] [address] [place], [address] MCV (RBC) [Entitic vol] 86.0 fL Normal 81-99 [facility] Comment on above: Performed By: #### L 503.6030, L3300.6750, L501.9985, L506.1001, L506.0400, L503.0106, L501.9520, L500.4050, L500.4100, L3300.9900, L503.6550, L100.0100 #### [facility] [address] [place], [address] Monocytes/100 WBC (Bld) 6.3 % Normal 0-10 [facility] Comment on above: Performed By: #### L 503.6030, L3300.6750, L501.9985, L506.1001, L506.0400, L503.0106, L501.9520, L500.4050, L500.4100, L3300.9900, L503.6550, L100.0100 #### [facility] [address] [place], [address] Neutrophils/100 WBC (Bld) 61.9 % Normal 47-70 [facility] Comment on above: Performed By: #### L 503.6030, L3300.6750, L501.9985, L506.1001, L506.0400, L503.0106, L501.9520, L500.4050, L500.4100, L3300.9900, L503.6550, L100.0100 #### [facility] [address] [place], [address] Nucleated RBC (Bld) [#/Vol] 0 10*3/uL Normal 0-5 [facility] Comment on above: Performed By: #### L 503.6030, L3300.6750, L501.9985, L506.1001, L506.0400, L503.0106, L501.9520, L500.4050, L500.4100, L3300.9900, L503.6550, L100.0100 #### [facility] [address] [place], [address] Platelet mean volume (Bld) [Entitic vol] 11.4 fL Normal 6.2-12.0 [facility] Comment on above: Performed By: #### L 503.6030, L3300.6750, L501.9985, L506.1001, L506.0400, L503.0106, L501.9520, L500.4050, L500.4100, L3300.9900, L503.6550, L100.0100 #### [facility] [address] [place], [address] Platelets (Bld) [#/Vol] 255 10*3/uL Normal 150-450 [facility] Comment on above: Performed By: #### L 503.6030, L3300.6750, L501.9985, L506.1001, L506.0400, L503.0106, L501.9520, L500.4050, L500.4100, L3300.9900, L503.6550, L100.0100 #### [facility] [address] [place], [address] RBC (Bld) [#/Vol] 4.79 10*6/uL Normal 4.2-5.4 [facility] Comment on above: Performed By: #### L 503.6030, L3300.6750, L501.9985, L506.1001, L506.0400, L503.0106, L501.9520, L500.4050, L500.4100, L3300.9900, L503.6550, L100.0100 #### [facility] [address] [place], [address] RDW SD 39.4 fl Normal 35.1-43.9 [facility] Comment on above: Performed By: #### L 503.6030, L3300.6750, L501.9985, L506.1001, L506.0400, L503.0106, L501.9520, L500.4050, L500.4100, L3300.9900, L503.6550, L100.0100 #### [facility] [address] [place], [address] WBC (Bld) [#/Vol] 6.0 10*3/uL Normal 4.4-11.0 [facility] Comment on above: Performed By: #### L 503.6030, L3300.6750, L501.9985, L506.1001, L506.0400, L503.0106, L501.9520, L500.4050, L500.4100, L3300.9900, L503.6550, L100.0100 #### [facility] [address] [place], [address] Calculated very low density lipoprotein (VLDL) cholesterol measurementOrdered By: Susanne Wren on 05-16-2025 Calculated very low density lipoprotein (VLDL) cholesterol measurement 18 mg/dL 5-40 [facility] Carbon dioxide, total [Moles /volume] in Central venous bloodOrdered By: Susanne Wren on 05-16-2025 CO2 [Moles/Vol] 23.0 mmol/L 21.0-32.0 [facility] Chloride assayOrdered By: Theresa Wren on 05-16-2025 Chloride [Moles/Vol] 108 mmol/L 98-108 [facility] Comprehensive Metabolic Prof ilon 05-16-2025 Albumin [Mass/Vol] 4.4 g/dL Normal 3.5-5.0 [facility] Comment on above: Performed By: #### L 503.6030, L3300.6750, L501.9985, L506.1001, L506.0400, L503.0106, L501.9520, L500.4050, L500.4100, L3300.9900, L503.6550, L100.0100 #### [facility] [address] [place], [address] Albumin/Globulin [Mass ratio] 1.9 {ratio} Normal 0.9-2.4 [facility] Comment on above: Performed By: #### L 503.6030, L3300.6750, L501.9985, L506.1001, L506.0400, L503.0106, L501.9520, L500.4050, L500.4100, L3300.9900, L503.6550, L100.0100 #### [facility] [address] [place], [place], [id number] ALK PHOS 68 U/L Normal 35-104 [facility] Comment on above: Performed By: #### L 503.6030, L3300.6750, L501.9985, L506.1001, L506.0400, L503.0106, L501.9520, L500.4050, L500.4100, L3300.9900, L503.6550, L100.0100 #### [facility] [address] [place], [place], [id number] ALT [Catalytic activity/Vol] 30 U/L Normal <=34 [facility] Comment on above: Performed By: #### L 503.6030, L3300.6750, L501.9985, L506.1001, L506.0400, L503.0106, L501.9520, L500.4050, L500.4100, L3300.9900, L503.6550, L100.0100 #### [facility] [address] [place], [place], [id number] AST [Catalytic activity/Vol] 25 U/L Normal <=31 [facility] Comment on above: Performed By: #### L 503.6030, L3300.6750, L501.9985, L506.1001, L506.0400, L503.0106, L501.9520, L500.4050, L500.4100, L3300.9900, L503.6550, L100.0100 #### [facility] [address] [place], [place], [id number] Bilirubin [Mass/Vol] 0.53 mg/dL Normal 0.00-1.30 [facility] Comment on above: Performed By: #### L 503.6030, L3300.6750, L501.9985, L506.1001, L506.0400, L503.0106, L501.9520, L500.4050, L500.4100, L3300.9900, L503.6550, L100.0100 #### [facility] [address] [place], [address] BUN/CRE 16.3 RATIO Normal 10-20 [facility] Comment on above: Performed By: #### L 503.6030, L3300.6750, L501.9985, L506.1001, L506.0400, L503.0106, L501.9520, L500.4050, L500.4100, L3300.9900, L503.6550, L100.0100 #### [facility] [address] [place], [address] Calcium [Mass/Vol] 9.3 mg/dL Normal 7.6-11.0 [facility] Comment on above: Performed By: #### L 503.6030, L3300.6750, L501.9985, L506.1001, L506.0400, L503.0106, L501.9520, L500.4050, L500.4100, L3300.9900, L503.6550, L100.0100 #### [facility] [address] [place], [address] Chloride [Moles/Vol] 108 mmol/L Normal 98-108 [facility] Comment on above: Performed By: #### L 503.6030, L3300.6750, L501.9985, L506.1001, L506.0400, L503.0106, L501.9520, L500.4050, L500.4100, L3300.9900, L503.6550, L100.0100 #### [facility] [address] [place], [address] CO2 [Moles/Vol] 23.0 mmol/L Normal 21.0-32.0 [facility] Comment on above: Performed By: #### L 503.6030, L3300.6750, L501.9985, L506.1001, L506.0400, L503.0106, L501.9520, L500.4050, L500.4100, L3300.9900, L503.6550, L100.0100 #### [facility] [address] [place], [address] Creatinine [Mass/Vol] 0.93 mg/dL Normal 0.70-1.20 [facility] Comment on above: Performed By: #### L 503.6030, L3300.6750, L501.9985, L506.1001, L506.0400, L503.0106, L501.9520, L500.4050, L500.4100, L3300.9900, L503.6550, L100.0100 #### [facility] [address] [facility] [place], [place], [id number] (535) GAP 10 Normal 5-15 [facility] Comment on above: Performed By: #### L 503.6030, L3300.6750, L501.9985, L506.1001, L506.0400, L503.0106, L501.9520, L500.4050, L500.4100, L3300.9900, L503.6550, L100.0100 #### [facility] [address] [facility] [address] [place], [place], [id number] GFR/1.73 sq M.predicted among non-blacks MDRD (S/P/Bld) [Vol rate/Area] 76 mL/min/{1.73_m2} Normal >60 [facility] Comment on above: Result Comment: mL/m in/1.73m2 CKD-EPI Creatinine Equation (2020) Performed By: #### L 503.6030, L3300.6750, L501.9985, L506.1001, L506.0400, L503.0106, L501.9520, L500.4050, L500.4100, L3300.9900, L503.6550, L100.0100 #### [facility] [address] [place], [place], [id number] Globulin (S) [Mass/Vol] 2.3 g/dL Normal 2.2-4.2 [facility] Comment on above: Performed By: #### L 503.6030, L3300.6750, L501.9985, L506.1001, L506.0400, L503.0106, L501.9520, L500.4050, L500.4100, L3300.9900, L503.6550, L100.0100 #### [facility] [address] [place], [address] Glucose [Mass/Vol] 95 mg/dL Normal 70-99 [facility] Comment on above: Performed By: #### L 503.6030, L3300.6750, L501.9985, L506.1001, L506.0400, L503.0106, L501.9520, L500.4050, L500.4100, L3300.9900, L503.6550, L100.0100 #### [facility] [address] [place], [address] Potassium [Moles/Vol] 4.4 mmol/L Normal 3.3-5.1 [facility] Comment on above: Performed By: #### L 503.6030, L3300.6750, L501.9985, L506.1001, L506.0400, L503.0106, L501.9520, L500.4050, L500.4100, L3300.9900, L503.6550, L100.0100 #### [facility] [address] [place], [address] Sodium [Moles/Vol] 141 mmol/L Normal 133-145 [facility] Comment on above: Performed By: #### L 503.6030, L3300.6750, L501.9985, L506.1001, L506.0400, L503.0106, L501.9520, L500.4050, L500.4100, L3300.9900, L503.6550, L100.0100 #### [facility] [address] [place], [address] T PROT 6.7 g/dL Normal 5.9-8.4 [facility] Comment on above: Performed By: #### L 503.6030, L3300.6750, L501.9985, L506.1001, L506.0400, L503.0106, L501.9520, L500.4050, L500.4100, L3300.9900, L503.6550, L100.0100 #### [facility] [address] [place], [address] Urea nitrogen [Mass/Vol] 15 mg/dL Normal 4-19 [facility] Comment on above: Performed By: #### L 503.6030, L3300.6750, L501.9985, L506.1001, L506.0400, L503.0106, L501.9520, L500.4050, L500.4100, L3300.9900, L503.6550, L100.0100 #### [facility] [address] [facility] [place], [address] Eosinophil percentageOrdered By: Susanne Wren on 05-16-2025 Eosinophils/100 WBC (Bld) 1.8 % 0-5 [facility] Erythrocyte distribution wid th ratioOrdered By: Susanne Wren on 05-16-2025 Erythrocyte distribution width (RBC) [Ratio] 12.6 % 11.6-14.6 [facility] Erythrocyte distribution wid th standard deviationOrdered By: Susannepreston Wren on 05-16-2025 Erythrocyte distribution width (RBC) [Ratio] 39.4 fl 35.1-43.9 [facility] Ferritinon 05-16-2025 Ferritin [Mass/Vol] 124 ng/mL Normal 22-378 [facility] Comment on above: Performed By: #### L 503.6030, L3300.6750, L501.9985, L506.1001, L506.0400, L503.0106, L501.9520, L500.4050, L500.4100, L3300.9900, L503.6550, L100.0100 ####[facility] [id number] [place], [address] Glomerular filtration rate ( GFR) estimation/1.73 sq m using serum, plasma, or whole bOrdered By: Susanne Wren on 05-16-2025 GFR/1.73 sq M.predicted among non-blacks MDRD (S/P/Bld) [Vol rate/Area] 76 mL/min/{1.73_m2} >60 [facility] Comment on above: mL/min/1.73m2 CKD-EP I Creatinine Equation (2020) Hematocrit Auto (Bld) [Volum e fraction]Ordered By: Susanne Wren on 05-16-2025 Hematocrit (Bld) [Volume fraction] 41.2 % 37-47 [facility] Hemoglobin A1con 05-16-2025 HbA1c (Bld) [Mass fraction] 5.1 % Normal <=5.6 [facility] Comment on above: Result Comment: Norm al < 5.7 % Prediabetic 5.7 - 6.4 % Diabetic >or= 6.5 % Please note range changes. Performed By: #### L 503.6030, L3300.6750, L501.9985, L506.1001, L506.0400, L503.0106, L501.9520, L500.4050, L500.4100, L3300.9900, L503.6550, L100.0100 #### [facility]. [place], [place], [id number] Hemoglobin A1c percentageOrd ered By: Susanne Wren on 05-16-2025 HbA1c (Bld) [Mass fraction] 5.1 % <5.7 [facility] Comment on above: Normal < 5.7 % Predi abetic 5.7 - 6.4 % Diabetic >or= 6.5 % Please note range changes. Hemoglobin measurementOrdere d By: Susanne Wren on 05-16-2025 Hemoglobin (Bld) [Mass/Vol] 14.0 g/dL 12.0-15.0 [facility] Immature granulocytes/100 WB C Auto (Bld)Ordered By: Susanne Wren on 05-16-2025 Immature granulocytes/100 WBC (Bld) 0.200 % 0.0-0.9 [facility] Comment on above: IG% - Immature Granu locytes (promyelocytes, myelocytes and metamyelocytes) > 1% indicates that a LEFT SHIFT is Present. Iron measurement (mass/mass) Ordered By: Susanne Wren on 05-16-2025 Iron (Unsp spec) [Mass/Mass] 105 ug/dL 50-170 [facility] Iron+Iron Binding Capacityon 05-16-2025 Iron [Mass/Vol] 105 ug/dL Normal 50-170 [facility] Comment on above: Performed By: #### L 503.6030, L3300.6750, L501.9985, L506.1001, L506.0400, L503.0106, L501.9520, L500.4050, L500.4100, L3300.9900, L503.6550, L100.0100 ####[facility] [address], [address] IRON SATURATION 33.7 Normal 13-59 [facility] Comment on above: Performed By: #### L 503.6030, L3300.6750, L501.9985, L506.1001, L506.0400, L503.0106, L501.9520, L500.4050, L500.4100, L3300.9900, L503.6550, L100.0100 ####[facility] [address], [address] TIBC 312 ug/dL Normal 250-450 [facility] Comment on above: Performed By: #### L 503.6030, L3300.6750, L501.9985, L506.1001, L506.0400, L503.0106, L501.9520, L500.4050, L500.4100, L3300.9900, L503.6550, L100.0100 ####[facility] [address], [address] UIBC 207 ug/dL Low 228-428 [facility] Comment on above: Performed By: #### L 503.6030, L3300.6750, L501.9985, L506.1001, L506.0400, L503.0106, L501.9520, L500.4050, L500.4100, L3300.9900, L503.6550, L100.0100 ####[facility] [address] [place], [place], [phone](235) LDL calc ser/plasOrdered By: Susanne Wren on 05-16-2025 Cholesterol in LDL [Mass/Vol] 98 mg/dL [facility] Comment on above: Fjjlzxkqpx=987-034 m g/dL & Higher Auzu=786 mg/dL or greaterSampson Equation 2020 for LDL-C Laboratory - Chemistry and C hemistry - challengeOrdered By: Susanne Wren on 05-16-2025 AST [Catalytic activity/Vol] 25 U/L <32 [facility] Lipid Profileon 05-16-2025 CHOL:HDL 5.28 Normal [facility] Comment on above: Performed By: #### L 503.6030, L3300.6750, L501.9985, L506.1001, L506.0400, L503.0106, L501.9520, L500.4050, L500.4100, L3300.9900, L503.6550, L100.0100 #### [facility] [address] [place], [address] (561) Cholesterol [Mass/Vol] 142 mg/dL Normal <=200 [facility] Comment on above: Result Comment: Chol esterol level, Desirable <200 mg/dL Borderline high cholesterol 200-239 mg/dL High cholesterol >=240 mg/dL Recommendations of the NCEP Adult Treatment Panel for the following risk-cutoff thresholds for the [place] population. Performed By: #### L 503.6030, L3300.6750, L501.9985, L506.1001, L506.0400, L503.0106, L501.9520, L500.4050, L500.4100, L3300.9900, L503.6550, L100.0100 #### [facility] [address] [place], [address] Cholesterol in HDL [Mass/Vol] 27 mg/dL Low [facility] Comment on above: Result Comment: Shoshana [...] L501.9520, L500.4050, L500.4100, L3300.9900, L503.6550, L100.0100 #### [facility] [address] [facility] [place], [address] (777) Cholesterol in LDL [Mass/Vol] 98 mg/dL Normal [facility] Comment on above: Result Comment: Bord lvzlsb=149-339 mg/dL Higher Ikgs=255 mg/dL or greater Trammell Equation 2020 for LDL-C Performed By: #### L 503.6030, L3300.6750, L501.9985, L506.1001, L506.0400, L503.0106, L501.9520, L500.4050, L500.4100, L3300.9900, L503.6550, L100.0100 #### [facility] [address] [place], [address] ([address] Cholesterol in VLDL [Mass/Vol] 18 mg/dL Normal 5-40 [facility] Comment on above: Performed By: #### L 503.6030, L3300.6750, L501.9985, L506.1001, L506.0400, L503.0106, L501.9520, L500.4050, L500.4100, L3300.9900, L503.6550, L100.0100 #### [facility] [address] [place], [address] Triglyceride [Mass/Vol] 90 mg/dL Normal [facility] Comment on above: Result Comment: The drugs N-Acetylcysteine and Metamizole may falsely depress this assay. Normal range: <150 mg/dL Borderline High: 150-199 mg/dL High: 200-499 mg/dL Very High: >500 mg/dL Performed By: #### L 503.6030, L3300.6750, L501.9985, L506.1001, L506.0400, L503.0106, L501.9520, L500.4050, L500.4100, L3300.9900, L503.6550, L100.0100 #### [facility] [address] [place], [place], [address] MCV (mean corpuscular volume ) determinationOrdered By: Susanne Wren on 05-16-2025 MCV (RBC) [Entitic vol] 86.0 fL 81-99 [facility] Mean corpuscular hemoglobin (MCH) determinationOrdered By: Susanne Wren on 05-16-2025 MCH (RBC) [Entitic mass] 29.2 pg 27.0-32.0 [facility] Mean corpuscular hemoglobin concentration (MCHC) determinationOrdered By: Susanne Wren on 05-16-2025 MCHC (RBC) [Mass/Vol] 34.0 g/dL 32-36 [facility] Mean platelet volume determi nationOrdered By: Susanne Wren on 05-16-2025 Platelet mean volume (Bld) [Entitic vol] 11.4 fL 6.2-12.0 [facility] Monocyte percentageOrdered B y: Susanne Wren on 05-16-2025 Monocytes/100 WBC (Bld) 6.3 % 0-10 [facility] Neutrophil percentageOrdered By: Susanne Wren on 05-16-2025 Neutrophils/100 WBC (Bld) 61.9 % 47-70 [facility] No Panel InformationOrdered By: Susanne Wren on 05-16-2025 Unsaturated Iron Binding Capacity 207 ug/dL Low 228-428 [facility] Nucleated red blood cell per centageOrdered By: Susanne Wren on 05-16-2025 Nucleated RBC/100 WBC (Bld) [Ratio] 0 % 0-5 [facility] Platelet countOrdered By: Theresa Wren on 05-16-2025 Platelets (Bld) [#/Vol] 255 10*3/uL 150-450 [facility] Potassium measurement (mass/ volume)Ordered By: Susanne Wren on 05-16-2025 Potassium (Unsp spec) [Mass/Vol] 4.4 mmol/L 3.3-5.1 [facility] RBC Auto (Bld) [#/Vol]Ordere d By: Susanne Wren on 05-16-2025 RBC (Bld) [#/Vol] 4.79 10*6/uL 4.2-5.4 [facility] Screening total cholesterol/ high density lipoprotein (HDL) cholesterol ratioOrdered By: Susanne Wren on 05-16-2025 Cholesterol.total/Chol esterol in HDL [Mass ratio] 5.28 {ratio} [facility] Serum creatinine measurement (mass/volume)Ordered By: Susanne Wren on 05-16-2025 Creatinine [Mass/Vol] 0.93 mg/dL 0.70-1.20 [facility] Serum globulin measurementOr dered By: Susanne Wren on 05-16-2025 Globulin (S) [Mass/Vol] 2.3 g/dL 2.2-4.2 [facility] Serum glucose measurement (m ass/volume)Ordered By: Susanne Wren on 05-16-2025 Glucose [Mass/Vol] 95 mg/dL 70-99 [facility] Serum or plasma alanine parra otransferase (ALT) measurementOrdered By: Susanne Wren on 05-16-2025 ALT [Catalytic activity/Vol] 30 U/L <35 [facility] Serum or plasma albumin robbie urement (mass/volume)Ordered By: Susanne Wren on 05-16-2025 Albumin [Mass/Vol] 4.4 g/dL 3.5-5.0 [facility] Serum or plasma albumin/glob ulin mass ratioOrdered By: Susanne Wren on 05-16-2025 Albumin/Globulin [Mass ratio] 1.9 {ratio} 0.9-2.4 [facility] Serum or plasma alkaline coleman sphatase measurementOrdered By: Susanne Wren on 05-16-2025 ALP [Catalytic activity/Vol] 68 U/L 35-104 [facility] Serum or plasma calcium robbie urement (mass/volume)Ordered By: Susanne Wren on 05-16-2025 Calcium [Mass/Vol] 9.3 mg/dL 7.6-11.0 [facility] Serum or plasma cholesterol in HDL measurement (mass/volume)Ordered By: Susanne Wren on 05-16-2025 Cholesterol in HDL [Mass/Vol] 27 mg/dL Low >40 [facility] Comment on above: National Cholesterol Education Program (NCEP) guidelines:<40 mg/dL: Low HDL-cholesterol (major risk factor for CHD)>= 60 mg/dL: High HDL-cholesterol (negative risk factor for CHD)HDL-cholesterol is affected by a number of factors, e.g. smoking, exercise, hormones, sex and age. Serum or plasma cholesterol measurement (mass/volume)Ordered By: Susanne Wren on 05-16-2025 Cholesterol [Mass/Vol] 142 mg/dL <201 [facility] Comment on above: Cholesterol level, D esirable <200 mg/dLBorderline high cholesterol 200-239 mg/dLHigh cholesterol >=240 mg/dLRecommendations of the NCEP Adult Treatment Panel for the following risk-cutoff thresholds for the [place] population. Serum or plasma ferritin tamika surement (mass/volume)Ordered By: Susanne Wren on 05-16-2025 Ferritin [Mass/Vol] 124 ng/mL 22-378 [facility] Serum or plasma iron saturat ion measurement (mass fraction)Ordered By: Susanne Wren on 05-16-2025 Iron saturation [Mass fraction] 33.7 % 13-59 [facility] Serum or plasma thyroperoxid ase antibody assay (units/volume)Ordered By: Susanne Wren on 05-16-2025 TPO Ab Qn [IU]/mL 0-34 [facility] Serum or plasma urea nitroge n measurement (mass/volume)Ordered By: Susanne Wren on 05-16-2025 Urea nitrogen [Mass/Vol] 15 mg/dL 4-19 [facility] Serum or plasma zinc measure ment (mass/volume)Ordered By: Susanne Wren on 05-16-2025 Zinc [Mass/Vol] 73 ug/dL 44-115 [facility] Comment on above: Detection Limit = 5P erformed at: [facility] [address] [place], [place] [id number] Director: Leon Linares PhD, Phone: [phone] at: [facility] [address] [id number] Director: Jarrod Gordon MD, Phone: [phone] Sodium levelOrdered By: Julee Wren on 05-16-2025 Sodium [Moles/Vol] 141 mmol/L 133-145 [facility] T4 Free Directon 05-16-2025 T4 FREE DIRECT 1.20 ng/dL Normal 0.76-1.46 [facility] Comment on above: Performed By: #### L 503.6030, L3300.6750, L501.9985, L506.1001, L506.0400, L503.0106, L501.9520, L500.4050, L500.4100, L3300.9900, L503.6550, L100.0100 ####[facility] [address] [place], [place], [id number] T4 freeOrdered By: Susanne schroeder on 05-16-2025 Free T4 [Mass/Vol] 1.20 ng/dL 0.76-1.46 [facility] TSH DL <= 0.005 mIU/L QnOrde red By: Susanne Wren on 05-16-2025 TSH Qn 1.250 uIU/mL 0.300-4.200 [facility] Thyroid Stim Hormone (TSH)on 05-16-2025 TSH 1.250 uIU/mL Normal 0.300-4.200 [facility] Comment on above: Performed By: #### L 503.6030, L3300.6750, L501.9985, L506.1001, L506.0400, L503.0106, L501.9520, L500.4050, L500.4100, L3300.9900, L503.6550, L100.0100 #### [facility] [address] [place], [place], [id number] Total proteinOrdered By: Hi Wren on 05-16-2025 Protein [Mass/Vol] 6.7 g/dL 5.9-8.4 [facility] Triglycerides measurementOrd ered By: Susanne Wren on 05-16-2025 Triglyceride [Mass/Vol] 90 mg/dL <199 [facility] Comment on above: The drugs N-Acetylcy steine and Metamizole may falsely depress this assay. Normal range: <150 mg/dLBorderline High: 150-199 mg/dLHigh: 200-499 mg/dLVery High: >500 mg/dL Vitamin B12on 05-16-2025 Cobalamin (Vitamin B12) [Mass/Vol] 271 pg/mL Normal 180-914 [facility] Comment on above: Performed By: #### L 503.6030, L3300.6750, L501.9985, L506.1001, L506.0400, L503.0106, L501.9520, L500.4050, L500.4100, L3300.9900, L503.6550, L100.0100 ####[facility] [address] [place], [address] Vitamin B12 ser/plasOrdered By: Susanne Wren on 05-16-2025 Cobalamin (Vitamin B12) [Mass/Vol] 271 pg/mL 180-914 [facility] Vitamin D,25 Hydroxyon 05-16 Vitamin D 25-OH 23.9 ng/mL Low 30-100 [facility] Comment on above: Result Comment: Anamaria min D Status Deficiency: <20 ng/mL (50nmol/L) Insufficiency: 20-30 ng/mL (50-75 nmol/L) Sufficiency: 30-100 ng/mL (75-250 nmol/L) Toxicity: >100 ng/mL (>250 nmol/L) Performed By: #### L 503.6030, L3300.6750, L501.9985, L506.1001, L506.0400, L503.0106, L501.9520, L500.4050, L500.4100, L3300.9900, L503.6550, L100.0100 ####[facility] [address] [place], [address] White blood cell (WBC) count Ordered By: Susanne Wren on 05-16-2025 WBC (Bld) [#/Vol] 6.0 10*3/uL 4.4-11.0 [facility] Emergency Department Summary on 05-11-2025 Emergency Department Summary [facility] Medical Records Department [address] [place] [address] Emergency Department Summary 05/11/25 MR#: [id number] Acct: [id number] Name: EUNICE MUNOZ Rep #: [id number] : 1975 50 From: Angelito Hatfield MD PCP: DAVIDE Oliver, 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 SPECIALIST-C Status:REG ER Location: ED HPI History of [...] ???Type medroxyprogesterone 150 mg/mL 150 mg IM [id number] 11/11/22 Unknow n History intramuscular syringe Allergy/AdvReac [...] intact. Hips are nontender. Patient has normal snap shearer strength and dorsi and plantarflexion bilaterally. Normal [...] 97 O (more content not included)... Normal [facility] Knee 4 or More Viewson 05-11 Knee 4 or More Views [facility] Imaging Services [address] [place] [address] Knee 4 or More Views MR#: [id number] Acct: [id number] Name: EUNICE MUNOZ (JULIE) Rep #: [id number] : 1975 F 50 From: Shahab Garcia MD PCP: DAVIDE Oliver, 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 SPECIALIST-C Status: PRE ER Study: Knee 4 or More Views Date of Exam: 05/11/25 Exam# [id number] Ordering Dr: Provider,Ed P. PROCEDURE: RIGHT KNEE [...] dislocation. No significant joint effusion. Reading Location: [id number] CC: [facility] 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 SPECIALIST-C Ivet Foss; ED PHYSICIAN PROVIDER Dishtank Operator: Signed [facility] Office Visit Reporton [address] [facility] [address] [place] [address] OFFICE VISIT Date of Service: 04/22/25 MR#: [id number] Acct: [id number] Patient: EUNICE MUNOZ (JULIE) Rep #: [id number] : 1975 Provider: ROSE MARY Lovelace Age/Sex: 50/F Location: [facility] Status: Signed Intake Vital Signs 03/14/25 15:47 [...] Testing Drug Screen Collection Only: Yes 04/22/25 6134 Date Vicente BAZZI Cosigner Signature: Date (if applicable) CC: [facility] CNNURSEon 04-08-2025 CNNURSE Nurse Visit (OBGYWM) EUNICE MUNOZ ([id number]) 1975 F [facility] Date Time Provider Department 04/08/25 3:00 PM NURSE APPEALS REVIEWER [facility] WSTR OBGYWM During your visit today, we recorded the following information about you: Blood pressure Weight 108/80 78.7 kg Vicente Arzola RN 04/08/2025 3:10 PM Signed Patient identified by name and date of . Eunice Munoz is here for a Depo Provera injection. Patient brought medication. Date last injected: 01/09/2025 Depo-Provera, 150 mg, administered IM right upper quadrant gluteus, Lot # [id number], expiration date 03/23/2029. Depo-Provera was given without [...] for Encounter Date Provider Department Center 04/08/2025 [id number] APPEALS REVIEWER [facility] *OBGYWM [place] Chinchilla Encounter Status:Closed by VICENTE ARZOLA on 04/08/25 [facility] Urgent Care Visit Reporton 0 03-14-2025 Urgent Care Visit Report [facility] [address] , [address] [place] [address] OFFICE VISIT Date of Service: 03/14/25 MR#: [id number] Acct: [id number] Name: EUNICE MUNOZ Rep #: [id number] : 1975 Provider: ROSE MARY Lovelace Age/Sex: 50/F Location: [facility] Status: Signed Intake Vital Signs 02/26/24 07:59 [...] ???Type medroxyprogesterone 150 mg/mL 150 mg IM [id number] 11/11/22 History intramuscular syringe Nurse's Note: Migraine, [...] Exam Const General: cooperative and healthy appearing [facility] Head: normocephalic and atraumatic Ears: hearing [...] Clinic Adminis (more content not included)... Normal [facility] RYNE SCREENING W TOMOon 01-23 RYNE SCREENING W DELFINA * * *Final Report* * * DATE OF EXAM: Jan 23 2025 10:12AM W 0582 - RYNE SCREENING W DELFINA / PROCEDURE REASON: multiple diagnoses * * * * Physician Interpretation * * * * RESULT: [place] [address] #[id number] - RYNE SCREENING W DELFINA HISTORY: 50 [...] Marisela Leal M.D. Electronically signed on: 01/27/2025 Dishtank Operator: CHANTEL Transcribe Date/Time: Jan 23 2025 9:38A Dictated by: MARISELA LEAL MD This examination was interpreted and the report reviewed and electronically signed by: MARISELA LEAL MD on Jan 27 2025 12:48PM EST [id number] Normal [facility] CNOVon 01-17-2025 CNOV Office Visit (OBGYWM ) EUNICE MUNOZ ([id number]) 1975 F [facility] Date Time Provider Department 01/17/25 3:30 PM LURDES FREGOSO OBGYWM During your visit today, we recorded the following information about you: Blood pressure Weight Height 116/64 79.1 kg 1.565 m Lurdes Fregoso APRN.CNP 01/17/2025 3:59 PM Signed 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 As applicable, any other physician, advance practice provider, medical student, or other health professional student that will be observing or involved in the sensitive examination for educational or training purposes was discussed with the Patient or Authorized Malted Milk Masher. The Patient or Authorized Malted Milk Masher has agreed to proceed with the sensitive [...] external genitalia normal, normal Bartholin's glands, urethra, [place]'s glands, no vulvar lesions, no cervical lesions, [...] year or sooner as needed Lurdes Fregoso APRN.PRESS SET UP PERSON Allergies As of Date: 01/17/2025 (No Known Allergies) Date Reviewed: 01/17/2025 Reviewed by: Lurdes Fregoso APRN.PRESS SET UP PERSON - Fully Assessed Reason for Visit: Well Woman [1463] Primary Visit Diagnosis:Encounter for gynecological examination (general) (routine) without abnormal findings [Z01.419] Other Visit Diagnosis:Encounter for screening mammogram for breast cancer [Z12.31] Order(s):RYNE SCREENING W DELFINA [1952485] Order #: [id number] FUTURE medroxyPROGESTERone (DEPO-PROVERA) 150 mg/mLInject 1 mL intramuscularly every 12 weeks.Disp: 1 eachRfl: 3 Prescriptions as of 01/17/2025 - medroxyPROGESTERone (DEPO-PROVERA) 150 mg/mL Inject 1 mL intramuscularly every 12 weeks. Facility-Administered Medications as of 01/17/2025 - med (more content not included)... Normal [facility] CNNURSEon 01-09-2025 CNNURSE Nurse Visit (OBGYWM) EUNICE MUNOZ ([id number]) 1975 F [facility] Date Time Provider Department 01/09/25 9:00 AM NURSE APPEALS REVIEWER [facility] WSTR OBGYWM During your visit today, we recorded the following information about you: Blood pressure Weight 108/76 79.4 kg Kerwin Lynch MA 01/09/2025 9:01 AM Signed Patient identified by name and date of . Eunice Munoz is here for a Depo Provera injection. Patient brought medication. Date last injected: 10/16/2024 Depo-Provera, 150 mg, administered IM left upper quadrant gluteus, Lot # [id number] , expiration date 06/22/2028 . Depo-Provera was [...] 1 mL intramuscularly every 12 weeks. - Drotichplnsqtkk-Qrmjkprnm-N M (BROMFED DM) 2-30-10 mg/5 mL syrup [...] for Encounter Date Provider Department Center 01/09/2025 [id number] APPEALS REVIEWER [facility] *OBGYWLana Chinchilla Encounter Status:Closed by KERWIN LYNCH on 01/09/25 Normal [facility] Urgent Care Visit Reporton 0 11-07-2024 Urgent Care Visit Report [facility] [address], [address] [place] [address] OFFICE VISIT Date of Service: 11/07/24 MR#: [id number] Acct: [id number] Name: EUNICE MUNOZ Rep #: [id number] : 1975 Provider: ROSE MARY Gomez Age/Sex: 49/F Location: [facility] Status: Signed Intake Vital Signs 02/26/24 07:59 11/07/24 15:12 Height 5 ft 2 in BP 118/80 Position Sitting Pulse 77 Temp 98.0 F Temp Source Oral Pulse Oximetry (%) 99 Oxygen Delivery Method room air Intake Visit Reasons: SINUS CONGESTION Accompanied by: Self Allergies No Known Allergies Allergy (Verified 11/07/24 15:16) Medications ???Medication ???Instructions ???Recorded ???Confirmed ???Type medroxyprogesterone 150 mg/mL 150 mg IM [id number] 11/11/22 History intramuscular syringe amoxicillin 875 mg-potassium 1 tab PO Q12H 10 days #20 tabs 11/07/24 Rx clavulanate 125 mg tablet ipratropium bromide 21 mcg (0.03 2 spray intranasal BID-TID PRN 11/07/24 Rx %) nasal spray postnasal drainage #30 mL Nurse's Note: Patient has sinus pressure,drainage,coughing and ST that started on . Patient states her right ear starting bothering her this morning. [facility] Medical History Anxiety and depression Murmur IBS [...] Date ____ (more content not included)... [facility] CNNURSEon 10-18-2024 [facility] Nurse Visit (OBGYWM) EUNICE MUNOZ ([id number]) 1975 [facility] Date Time Provider Department 10/18/24 9:00 AM NURSE APPEALS REVIEWER [facility] WSTR OBGYWM During your visit today, we recorded the following information about you: Blood pressure Weight 122/76 78 kg Dayami Dejesus LPN 10/18/2024 9:46 AM Signed Patient identified by name and date of . Eunice Munoz is here for a Depo Provera injection. Patient brought medication. Date last injected: 07/15/2024 Depo-Provera, 150 mg, administered IM right upper quadrant gluteus, Lot # [id number], expiration date 12/21/2028. Depo-Provera was given without [...] other contraceptive [Z30.49] Order(s):UA DIP,URINE HCG (POC) [[id number]] Order #: [id number]. #:[id number] -LAB Prescriptions as of 10/18/2024 - medroxyPROGESTERone (DEPO-PROVERA) 150 mg/mL Inject 1 mL intramuscularly every 12 weeks. - Ufelcnaxlkyavwv-Wyqnnncwi-Z M (BROMFED DM) 2-30-10 mg/5 mL syrup [...] for Encounter Date Provider Department Center 10/18/2024 [id number] APPEALS REVIEWER [facility] *OBGYWM [place] Chinchilla Encounter Status:Closed by DAYAMI DEJESUS on 10/18/24 Normal [facility] UA DIP,URINE HCG (POC)on Beta HCG ( test) Ql (U) Negative Negative [facility] Comment on above: Location:[facility], [address], [place], [address] Instructor Ballroom Dancing (POCT) Internal QC [facility] Location:[facility], [address], [place], [address] [facility] POINT OF CARE [facility] Ginger 10-09-2024 CNPN Telephone (OBGYWM) EUNICE MUNOZ ([id number]) 1975 F [facility] Date Time Provider Department 10/09/24 LURDES [...] (DEPO-PROVERA)Disp: Rfl: Prescriptions as of 10/09/2024 - Wsaikrfsfrqsgle-Mequkhstc-A M (BROMFED DM) 2-30-10 mg/5 mL syrup [...] Status:Closed by ROMAIN DUFF on 10/09/24 Normal [facility] Urgent Care Visit Reporton 0 - Urgent Care Visit Report [facility] [address], [address] [place] [address] OFFICE VISIT Date of Service: 08/07/24 MR#: [id number] Acct: [id number] Name: EUNICE MUNOZ Rep #: [id number] : 1975 Provider: ROSE MARY Lovelace Age/Sex: 49/F Location: [facility] Status: Signed Intake Vital Signs 02/26/24 07:59 08/07/24 11:49 Height 5 ft 2 in Weight: 176 lb BMI 32.1 BP 118/70 Blood Pressure Location Lt brachial Position Sitting Respiration 12 Pulse 97 Pulse Source NIBP Temp 100.0 F H Temp Source Oral Pulse Oximetry (%) 98 Oxygen Delivery Method room air Intake Visit Reasons: BODY ACHES, COUGH, CONGESTION Chief Complaint: BA, Cough, Congestion Acid Filler Required: No Is patient in pain?: No Allergies No Known Allergies Allergy (Verified 08/07/24 11:50) Medications ???Medication ???Instructions ???Recorded ???Confirmed ???Type medroxyprogesterone 150 mg/mL 150 mg IM [id number] 11/11/22 08/07/24 History intramuscular syringe meloxicam 15 [...] both influenza A and RSV currently. No [id number] taken to assist. No other associated symptoms [...] patient al (more content not included)... [facility] CNNURSEon 07-15-2024 [facility] Nurse Visit (OBGYWM) EUNICE MUNOZ ([id number]) 1975 F [facility] Date Time Provider Department 07/15/24 10:00 AM [facility] During your visit today, we recorded the following information about you: Blood pressure Weight 108/74 80.3 kg Nancy Sethi, RN 07/15/2024 10:08 AM Signed Patient identified by name and date of . Eunice Munoz is here for a Depo Provera injection. Patient brought medication. Date last injected: 04/08/24 negative UPT Depo-Provera, 150 mg, administered IM left upper quadrant gluteus, Lot # [id number], expiration date 11/21/2027. Depo-Provera was given without incident. Date of last menses: Patient's last menstrual period was 09/10/2021. Irregular bleeding - No Menses ceased - Yes Patient instructed to return to clinic on 12 weeks +/- 5 days. [email or web address] Provider Ivet Velazquez CNM was [...] of depo-Provera [Z30.42] Order(s):UA DIP,URINE HCG (POC) [5455248] Order #: [id number]. #:[id number] -LAB Prescriptions as of 07/15/2024 - metroNIDAZOLE 0.75 % cream - doxycycline monohydrate 100 mg tablet Take 1 tablet by mouth two times a day for 7 days. - Pblboqpxrkxudql-Xqkqlzhjh-B M (BROMFED DM) 2-30-10 mg/5 mL syrup [...] for Encounter Date Provider Department Center 07/15/2024 [id number] APPEALS REVIEWER [facility] *OBGYWM Vladislav Chinchilla Encounter Status:Closed by NANCY SETHI on 07/15/24 Normal [facility] UA DIP,URINE HCG (POC)on Beta HCG ( test) Ql (U) Negative Negative [facility] Comment on above: Location:[facility], [address], [place], [address] Instructor Ballroom Dancing (POCT) Internal QC [facility] Location:[facility], [address], [place], [address] [facility] POINT OF CARE [facility] CNOVon 07-14-2024 CNOV Office Visit (UCWSTR ) EUNICE MUNOZ ([id number]) 1975 [facility] Date Time Provider Department 07/14/24 11:45 AM ESSIE BEARDEN [facility] During your visit today, we recorded the following information about you: Temperature Pulse Respiration Blood pressure 99.4 degrees 72/minute 18/minute 121/71 Weight 80.9 kg Essie Bearden APRN.PRESS SET UP PERSON 07/14/2024 12:33 PM Signed Subjective Cough Associated [...] day for 7 days.Disp: 14 tabletRfl: 0 Bpzbfxacdcxkmdx-Bpjelqwvr-H M (BROMFED DM) 2-30-10 mg/5 mL syrupTake [...] J06.9 (primar (more content not included)... Normal [facility] COVID AND INFLUENZA A/B AND RSV PCR, ROUTINEon 07-14-2024 SARS-CoV-2 (COVID-19) RNA TEZ+probe Ql (Unsp spec) SARS-COV-2 (AGENT OF COVID-19) RNA: Not detected INFLUENZA A RNA: Not detected INFLUENZA B RNA: Not detected RESPIRATORY SYNCYTIAL VIRUS (RSV) RNA: Not detected Normal [facility] Comment on above: Performed By: #### C VFLRS ####[facility] LABCLIA [id number] [place] [address] [place] UA DIP,URINE HCG (POC)on Beta HCG ( test) Ql (U) Negative Negative [facility] Comment on above: Location:[facility], [address] [place] [address], [place], [address] Instructor Ballroom Dancing (POCT) Internal QC [facility] Location:[facility], [facility] [address], [place], [place], [id number] [place] [address] POINT OF CARE [facility] UA DIP,URINE HCG (POC)on Beta HCG ( test) Ql (U) Negative Negative [facility] Instructor Ballroom Dancing (POCT) Internal QC [facility] Absolute lymphocyte countOrd ered By: Dr. Waters on 01-16-2023 Lymphocytes Auto (Unsp spec) [#/Vol] 2.28 10*3/uL 0.83-4.51 [facility] Basophil percentageOrdered B y: Dr. Waters on 01-16-2023 Basophils/100 WBC (Bld) 0.5 % 0-1 [facility] Chloride [Moles/Vol] 108 mmol/L 98-107 [facility] Eosinophils/100 WBC (Bld) 2.2 % 0-5 [facility] Glucose [Mass/Vol] 101 mg/dL 74-106 [facility] Comment on above: Fasting Glucose resu lt from 100 to 125 mg/dL suggests IMPAIRED HOMEOSTASIS per A.D.A. criteria. Neutrophils (Bld) [#/Vol] 3.0 10*3/uL 2.0-7.7 [facility] Neutrophils/100 WBC (Bld) 50.7 % 47-70 [facility] Potassium [Moles/Vol] 3.7 mmol/L 3.5-5.1 [facility] Sodium [Moles/Vol] 139 mmol/L 136-145 [facility] WBC (Bld) [#/Vol] 6.0 10*3/uL 4.4-11.0 [facility] Blood erythrocytes count (nu mber/volume)Ordered By: Dr. Waters on 01-16-2023 RBC (Bld) [#/Vol] 4.75 10*6/uL 4.2-5.4 [facility] Blood hemoglobin measurement (mass/volume)Ordered By: Dr. Waters on 01-16-2023 Hemoglobin (Bld) [Mass/Vol] 14.2 g/dL 12.0-15.0 [facility] Blood lymphocytes/100 leukoc ytesOrdered By: Dr. Waters on 01-16-2023 Lymphocytes/100 WBC (Bld) 38.1 % 19-41 [facility] Blood monocytes/100 leukocyt esOrdered By: Dr. Waters on 01-16-2023 Monocytes/100 WBC (Bld) 8.2 % 0-10 [facility] Blood platelet mean volumeOr dered By: Dr. Waters on 01-16-2023 Platelet mean volume (Bld) [Entitic vol] 11.0 fL 6.2-12.0 [facility] Determination of erythrocyte mean corpuscular volume (MCV)Ordered By: Dr. Waters on 01-16-2023 MCV (RBC) [Entitic vol] 86.9 fL 81-99 [facility] Hematocrit Auto (Bld) [Volum e fraction]Ordered By: Dr. Waters on 01-16-2023 Hematocrit (Bld) [Volume fraction] 41.3 % 37-47 [facility] Laboratory - Chemistry and C hemistry - challengeOrdered By: Dr. Waters on 01-16-2023 CO2 [Moles/Vol] 25.0 mmol/L 21.0-32.0 [facility] Urea nitrogen/Creatinine [Mass ratio] 13.3 mg/mg 10-20 [facility] - Hematology and Cell countsOrdered By: Dr. Waters on 01-16-2023 Erythrocyte distribution width (RBC) [Entitic vol] 38.7 fL 35.1-43.9 [facility] Erythrocyte distribution width (RBC) [Ratio] 12.1 % 11.6-14.6 [facility] Immature granulocytes/100 WBC (Bld) 0.300 % 0.0-0.9 [facility] Comment on above: IG% - Immature Granu locytes (promyelocytes, myelocytes and metamyelocytes) > 1% indicates that a LEFT SHIFT is Present. MCH (RBC) [Entitic mass] 29.9 pg 27.0-32.0 [facility] Nucleated RBC/100 WBC (Bld) [Ratio] 0 % 0-5 [facility] MCHC Auto (RBC) [Mass/Vol]Or dered By: Dr. Waters on 01-16-2023 MCHC (RBC) [Mass/Vol] 34.4 g/dL 32-36 [facility] No Panel InformationOrdered By: Dr. Waters on 01-16-2023 Estimated Creatinine Clearance Calc 55.97 ml/min [facility] Estimated GFR (MDRD) Amer 73 mL/min >60 [facility] Comment on above: GFR Calc Estimated GFR (MDRD) Non-Af Amer 60 mL/min >60 [facility] Comment on above: Non- GFR Calc Troponin I High Sensitivity 4 pg/mL 3.0-54.0 [facility] Comment on above: Please Note: New Nereida t Units and Gender Specific Reference Ranges. For more information see Policy Stat Procedure [facility] High Sensitivity Troponin (TNIH) and attachments. Platelets bldOrdered By: Dr. Waters on 01-16-2023 Platelets (Bld) [#/Vol] 253 10*3/uL 150-450 [facility] Serum or plasma calcium robbie urement (mass/volume)Ordered By: Dr. Waters on 01-16-2023 Calcium [Mass/Vol] 9.6 mg/dL 8.5-10.1 [facility] Serum or plasma creatinine m easurement (mass/volume)Ordered By: Dr. Waters on 01-16-2023 Creatinine [Mass/Vol] 1.05 mg/dL 0.55-1.02 [facility] Comment on above: The validity of the calculated GFR & GFRAA in patients over 70 years has not been determined. Clinical correlation is essential. Serum or plasma urea nitroge n measurement (mass/volume)Ordered By: Dr. Waters on 01-16-2023 Urea nitrogen [Mass/Vol] 14 mg/dL 7-18 [facility] Thin prep Papanicolaou smear with manual screeningOrdered By: Dr. Waters on 01-16-2023 Thin prep Papanicolaou smear with manual screening 6 5-15 [facility] HCG QUAL UR B/Oon 12-26-2022 status Negative neg - pos [facility] Quality Check Yes [facility] Absolute lymphocyte countOrd ered By: Vi Gagnon on 11-29-2022 Lymphocytes Auto (Unsp spec) [#/Vol] 2.04 10*3/uL 0.83-4.51 [facility] Basophil percentageOrdered B y: Vi Chelsi on 11-29-2022 Basophils/100 WBC (Bld) 0.5 % 0-1 [facility] Bilirubin [Mass/Vol] 0.40 mg/dL 0.20-1.00 [facility] Comment on above: For patients on eltr ombopag therapy, use of Dimension [facility] TBIL is not recommended. Chloride [Moles/Vol] 107 mmol/L 98-107 [facility] Cholesterol [Mass/Vol] 158 mg/dL <200 [facility] Comment on above: <200 mg/dL Desirable 200-240 mg/dL Borderline >240 mg/dL High Risk Eosinophils/100 WBC (Bld) 2.0 % 0-5 [facility] Glucose [Mass/Vol] 92 mg/dL 74-106 [facility] Neutrophils (Bld) [#/Vol] 3.4 10*3/uL 2.0-7.7 [facility] Neutrophils/100 WBC (Bld) 56.4 % 47-70 [facility] Potassium [Moles/Vol] 4.1 mmol/L 3.5-5.1 [facility] Protein [Mass/Vol] 7.2 g/dL 6.4-8.2 [facility] Sodium [Moles/Vol] 139 mmol/L 136-145 [facility] Triglyceride [Mass/Vol] 88 mg/dL <199 [facility] Comment on above: The drugs N-Acetylcy steine and Metamizole may falsely depress this assay.Serum Triglycerides Reference Interval Normal <150 mg/dL Borderline high 150 - 199 mg/dL High 200 - 499 mg/dL Very High > or = 500 mg/dL WBC (Bld) [#/Vol] 6.1 10*3/uL 4.4-11.0 [facility] Blood erythrocytes count (nu mber/volume)Ordered By: Vi Gagnon on 11-29-2022 RBC (Bld) [#/Vol] 4.78 10*6/uL 4.2-5.4 [facility] Blood hemoglobin measurement (mass/volume)Ordered By: Vi Gagnon on 11-29-2022 Hemoglobin (Bld) [Mass/Vol] 14.1 g/dL 12.0-15.0 [facility] Blood lymphocytes/100 leukoc ytesOrdered By: Vi Gagnon on 11-29-2022 Lymphocytes/100 WBC (Bld) 33.7 % 19-41 [facility] Blood monocytes/100 leukocyt esOrdered By: Vi Gagnon on 11-29-2022 Monocytes/100 WBC (Bld) 7.1 % 0-10 [facility] Blood platelet mean volumeOr dered By: Vi Gagnon on 11-29-2022 Platelet mean volume (Bld) [Entitic vol] 12.1 fL 6.2-12.0 [facility] Determination of erythrocyte mean corpuscular volume (MCV)Ordered By: Vi Gagnon on 11-29-2022 MCV (RBC) [Entitic vol] 89.3 fL 81-99 [facility] Hematocrit Auto (Bld) [Volum e fraction]Ordered By: Vi Gagnon on 11-29-2022 Hematocrit (Bld) [Volume fraction] 42.7 % 37-47 [facility] Laboratory - Chemistry and C hemistry - challengeOrdered By: Vi Gagnon on 11-29-2022 ALP [Catalytic activity/Vol] 70 U/L 45-117 [facility] ALT [Catalytic activity/Vol] 53 U/L 13-56 [facility] CO2 [Moles/Vol] 27.0 mmol/L 21.0-32.0 [facility] Globulin (S) [Mass/Vol] 3.2 g/dL 2.2-4.2 [facility] Urea nitrogen/Creatinine [Mass ratio] 16.3 mg/mg 10-20 [facility] - Hematology and Cell countsOrdered By: Vi Gagnon on 11-29-2022 Erythrocyte distribution width (RBC) [Entitic vol] 40.4 fL 35.1-43.9 [facility] Erythrocyte distribution width (RBC) [Ratio] 12.2 % 11.6-14.6 [facility] Immature granulocytes/100 WBC (Bld) 0.300 % 0.0-0.9 [facility] Comment on above: IG% - Immature Granu locytes (promyelocytes, myelocytes and metamyelocytes) > 1% indicates that a LEFT SHIFT is Present. MCH (RBC) [Entitic mass] 29.5 pg 27.0-32.0 [facility] Nucleated RBC/100 WBC (Bld) [Ratio] 0 % 0-5 [facility] MCHC Auto (RBC) [Mass/Vol]Or dered By: Vi Gagnon on 11-29-2022 MCHC (RBC) [Mass/Vol] 33.0 g/dL 32-36 [facility] No Panel InformationOrdered By: Vi Gagnon on 11-29-2022 Estimated GFR (MDRD) Amer 78 mL/min >60 [facility] Comment on above: GFR Calc Estimated GFR (MDRD) Non-Af Amer 65 mL/min >60 [facility] Comment on above: Non- GFR Calc Thyroid Stimulating Hormone (TSH) 1.69 uIU/mL 0.358-3.74 [facility] Platelets bldOrdered By: Rebeca Gagnon on 11-29-2022 Platelets (Bld) [#/Vol] 249 10*3/uL 150-450 [facility] Serum or plasma albumin robbie urement (mass/volume)Ordered By: Vi Gagnon on 11-29-2022 Albumin [Mass/Vol] 4.0 g/dL 3.2-5.0 [facility] Serum or plasma albumin/glob ulin mass ratioOrdered By: Vi Gagnon on 11-29-2022 Albumin/Globulin [Mass ratio] 1.2 {ratio} 0.9-2.4 [facility] Serum or plasma calcium robbie urement (mass/volume)Ordered By: Vi Gagnon on 11-29-2022 Calcium [Mass/Vol] 9.2 mg/dL 8.5-10.1 [facility] Serum or plasma cholesterol in HDL measurement (mass/volume)Ordered By: Vi Gagnon on 11-29-2022 Cholesterol in HDL [Mass/Vol] 34 mg/dL >40 [facility] Comment on above: The drugs N-Acetylcy steine and Metamizole may falsely depress this assay. Reference Range HDL <40 mg/dL Low HDL Cholesterol HDL >or= 60 mg/dL High HDL Cholesterol Serum or plasma cholesterol in VLDL measurement (mass/volume)Ordered By: Vi Gagnon on 11-29-2022 Cholesterol in VLDL [Mass/Vol] 18 mg/dL 5-40 [facility] Serum or plasma creatinine m easurement (mass/volume)Ordered By: Vi Gagnon on 11-29-2022 Creatinine [Mass/Vol] 0.98 mg/dL 0.55-1.02 [facility] Comment on above: The validity of the calculated GFR & GFRAA in patients over 70 years has not been determined. Clinical correlation is essential. Serum or plasma low density lipoprotein (LDL) cholesterol measurement (mass/volume)Ordered By: Vi Gagnon on 11-29-2022 Cholesterol in LDL [Mass/Vol] 106 mg/dL 0-130 [facility] Serum or plasma urea nitroge n measurement (mass/volume)Ordered By: Vi Gagnon on 11-29-2022 Urea nitrogen [Mass/Vol] 16 mg/dL 7-18 [facility] Thin prep Papanicolaou smear with manual screeningOrdered By: Vi Gagnon on 11-29-2022 Thin prep Papanicolaou smear with manual screening 26 U/L 15-37 [facility] Thin prep Papanicolaou smear with manual screening 5 5-15 [facility] COLONOSCOPY SCREENINGon 09-22 [facility] Laboratory - Microbiology an d Antimicrobial susceptibilityon 10-03-2022 SARS-CoV-2 (COVID-19) RNA TEZ+probe Ql (Unsp spec) Not detected [facility] XR FOOT GENERAL 3V AP/LAT/OB L RIGHTon 08-31-2022 [facility] Vital Signs Date Time Vital Sign Value Performing Clinician Facility 05-26-2025 08:30-0500 Body height 157.48 cm Sonny BAZZI Work Phone: [facility] 05-26-2025 08:30-0500 Body mass index (BMI) [Ratio] 31.8 kg/m2 Sonny Wayt PA Work Phone: [facility] 05-26-2025 08:30-0500 Body temperature 97.9 [degF] Sonny Wayt PA Work Phone: [facility] 05-26-2025 08:30-0500 Body weight 78.92 kg Sonny Wayt PA Work Phone: [facility] 05-26-2025 08:30-0500 Diastolic blood pressure 80 mm[Hg] Sonny Wayt PA Work Phone: [facility] 05-26-2025 08:30-0500 Heart rate 74 /min Sonny Wayt PA Work Phone: [facility] 05-26-2025 08:30-0500 Respiratory rate 16 /min Sonny Wayt PA Work Phone: [facility] 05-26-2025 08:30-0500 SaO2% (BldA) [Mass fraction] 98 % Sonny Wayt PA Work Phone: [facility] 05-26-2025 08:30-0500 Systolic blood pressure 125 mm[Hg] Sonny Wayt PA Work Phone: [facility] 05-11-2025 18:41-0400 Body temperature 97 [degF] Sonny Wayt PA Work Phone: [facility] 05-11-2025 18:41-0400 Diastolic blood pressure 80 mm[Hg] Sonny Wayt PA Work Phone: [facility] 05-11-2025 18:41-0400 Heart rate 74 /min Sonny Wayt PA Work Phone: [facility] 05-11-2025 18:41-0400 Respiratory rate 14 /min Sonny Wayt PA Work Phone: [facility] 05-11-2025 18:41-0400 SaO2% (BldA) [Mass fraction] 97 % Sonny Wayt PA Work Phone: [facility] 05-11-2025 18:41-0400 Systolic blood pressure 119 mm[Hg] Sonny Horvatht PA Work Phone: [facility] 05-11-2025 15:53-0400 Body mass index (BMI) [Ratio] 31.8 kg/m2 Sonny Wayt PA Work Phone: [facility] 05-11-2025 15:53-0400 Body weight 79.06 kg Sonny Wayt PA Work Phone: [facility] 04-08-2025 15:04-0400 Body mass index (BMI) [Ratio] 32.15 kg/m2 Nurse Wstr Work Phone: [facility] 04-08-2025 15:04-0400 Body weight 78.74 kg Nurse Wstr Work Phone: [facility] 04-08-2025 15:04-0400 Diastolic blood pressure 80 mm[Hg] Nurse Wstr Work Phone: [facility] 04-08-2025 15:04-0400 Systolic blood pressure 108 mm[Hg] Nurse Wstr Work Phone: [facility] 03-14-2025 15:47-0400 Body height 157.48 cm Sonny Wayt PA Work Phone: [facility] 03-14-2025 15:47-0400 Body mass index (BMI) [Ratio] 32.1 kg/m2 Sonny Horvatht PA Work Phone: [facility] 03-14-2025 15:47-0400 Body temperature 98.1 [degF] Sonny Wayt PA Work Phone: [facility] 03-14-2025 15:47-0400 Body weight 79.83 kg Sonny Wayt PA Work Phone: [facility] 03-14-2025 15:47-0400 Diastolic blood pressure 72 mm[Hg] Sonny Horvatht PA Work Phone: [facility] 03-14-2025 15:47-0400 Heart rate 67 /min Sonny Murrieta PA Work Phone: [facility] 03-14-2025 15:47-0400 SaO2% (BldA) [Mass fraction] 97 % Sonny Murrieta PA Work Phone: [facility] 03-14-2025 15:47-0400 Systolic blood pressure 110 mm[Hg] Sonny Murrieta PA Work Phone: [facility] 01-17-2025 15:31-0400 Body height 156.5 cm Lurdes [place] SUPERINTENDENT LOGGING.PRESS SET UP PERSON Work Phone: [facility] 01-17-2025 15:31-0400 Body mass index (BMI) [Ratio] 32.3 kg/m2 Lurdes Zenobia SUPERINTENDENT LOGGING.PRESS SET UP PERSON Work Phone: [facility] 01-17-2025 15:31-0400 Body weight 79.11 kg Lurdes [place] SUPERINTENDENT LOGGING.PRESS SET UP PERSON Work Phone: [facility] 01-17-2025 15:31-0400 Diastolic blood pressure 64 mm[Hg] Lurdes [place] SUPERINTENDENT LOGGING.PRESS SET UP PERSON Work Phone: [facility] 01-17-2025 15:31-0400 Systolic blood pressure 116 mm[Hg] Lurdes Zenobia SUPERINTENDENT LOGGING.PRESS SET UP PERSON Work Phone: [facility] 01-09-2025 08:51-0400 Body mass index (BMI) [Ratio] 32.8 kg/m2 Nurse Wstr Work Phone: [facility] 01-09-2025 08:51-0400 Body weight 79.38 kg Nurse Wstr Work Phone: [facility] 01-09-2025 08:51-0400 Diastolic blood pressure 76 mm[Hg] Nurse Wstr Work Phone: [facility] 01-09-2025 08:51-0400 Systolic blood pressure 108 mm[Hg] Nurse Wstr Work Phone: [facility] 10-18-2024 09:18-0400 Body mass index (BMI) [Ratio] 32.23 kg/m2 Nurse Wstr Work Phone: [facility] 10-18-2024 09:18-0400 Body weight 78.02 kg Nurse Wstr Work Phone: [facility] 10-18-2024 09:18-0400 Diastolic blood pressure 76 mm[Hg] Nurse Wstr Work Phone: [facility] 10-18-2024 09:18-0400 Systolic blood pressure 122 mm[Hg] Nurse Wstr Work Phone: [facility] 07-15-2024 09:53-0500 Body mass index (BMI) [Ratio] 33.17 kg/m2 Nurse Wstr Work Phone: [facility] 07-15-2024 09:53-0500 Body weight 80.29 kg Nurse Wstr Work Phone: [facility] 07-15-2024 09:53-0500 Diastolic blood pressure 74 mm[Hg] Nurse Wstr Work Phone: [facility] 07-15-2024 09:53-0500 Systolic blood pressure 108 mm[Hg] Nurse Wstr Work Phone: [facility] 07-14-2024 12:15-0500 Body mass index (BMI) [Ratio] 33.42 kg/m2 Essie Bearden SUPERINTENDENT LOGGING.PRESS SET UP PERSON Work Phone: [facility] 07-14-2024 12:15-0500 Body temperature 99.39 [degF] Essie Praisler-Wood SUPERINTENDENT LOGGING.PRESS SET UP PERSON Work Phone: [facility] 07-14-2024 12:15-0500 Body weight 80.9 kg Essie Praisler-Wood SUPERINTENDENT LOGGING.PRESS SET UP PERSON Work Phone: [facility] 07-14-2024 12:15-0500 Diastolic blood pressure 71 mm[Hg] Essie Praisler-Michael SUPERINTENDENT LOGGING.PRESS SET UP PERSON Work Phone: [facility] 07-14-2024 12:15-0500 Heart rate 72 /min Essie Praluz marina-Michael SUPERINTENDENT LOGGING.PRESS SET UP PERSON Work Phone: [facility] 07-14-2024 12:15-0500 Respiratory rate 18 /min Essiehannah Bearden SUPERINTENDENT LOGGING.PRESS SET UP PERSON Work Phone: [facility] 07-14-2024 12:15-0500 SaO2% (BldA) [Mass fraction] 99 % Essiehannah Meraz-Michael SUPERINTENDENT LOGGING.PRESS SET UP PERSON Work Phone: [facility] 07-14-2024 12:15-0500 Systolic blood pressure 121 mm[Hg] Essiehannah Bearden SUPERINTENDENT LOGGING.PRESS SET UP PERSON Work Phone: [facility] 04-08-2024 15:55-0400 Body mass index (BMI) [Ratio] 32.61 kg/m2 Nurse Wstr Work Phone: [facility] 04-08-2024 15:55-0400 Body weight 78.93 kg Nurse Wstr Work Phone: [facility] 04-08-2024 15:55-0400 Diastolic blood pressure 70 mm[Hg] Nurse Wstr Work Phone: [facility] 04-08-2024 15:55-0400 Systolic blood pressure 105 mm[Hg] Nurse Wstr Work Phone: [facility] 01-05-2024 09:32-0400 Body mass index (BMI) [Ratio] 33.55 kg/m2 Nurse Wstr Work Phone: [facility] 01-05-2024 09:32-0400 Body weight 81.19 kg Nurse Wstr Work Phone: [facility] 01-05-2024 09:32-0400 Diastolic blood pressure 70 mm[Hg] Nurse Wstr Work Phone: [facility] 01-05-2024 09:32-0400 Systolic blood pressure 98 mm[Hg] Nurse Wstr Work Phone: [facility] 10-18-2023 19:11-0400 Body temperature 98.1 [degF] NINO Gagnon NP Work Phone: [facility] 10-18-2023 19:11-0400 Diastolic blood pressure 70 mm[Hg] 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 SPECIALIST-C Vi Gagnon 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 SPECIALIST Work Phone: [facility] 10-18-2023 19:11-0400 Heart rate 65 /min 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 SPECIALIST-C Vi Gagnon 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 SPECIALIST Work Phone: [facility] 10-18-2023 19:11-0400 Respiratory rate 16 /min 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 SPECIALIST-C Vi Gagnon 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 SPECIALIST Work Phone: [facility] 10-18-2023 19:11-0400 SaO2% (BldA) [Mass fraction] 99 % 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 SPECIALIST-C Vi Gagnon 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 SPECIALIST Work Phone: [facility] 10-18-2023 19:11-0400 Systolic blood pressure 120 mm[Hg] 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 SPECIALIST-C Vi Gagnon 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 SPECIALIST Work Phone: [facility] 10-18-2023 17:12-0400 Body height 154.94 cm 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 SPECIALIST-C Vi Gagnon 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 SPECIALIST Work Phone: [facility] 10-18-2023 17:12-0400 Body mass index (BMI) [Ratio] 34.4 kg/m2 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 SPECIALIST-C Vi Gagnon 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 SPECIALIST Work Phone: [facility] 10-18-2023 17:12-0400 Body weight 82.72 kg 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 SPECIALIST-C Vi Gagnon 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 SPECIALIST Work Phone: [facility] 10-17-2023 11:29-0400 Body height 155.6 cm Lurdes [place] SUPERINTENDENT LOGGING.PRESS SET UP PERSON Work Phone: [facility] 10-17-2023 11:29-0400 Body weight 82.28 kg Lurdes Zenobia SUPERINTENDENT LOGGING.PRESS SET UP PERSON Work Phone: [facility] 10-17-2023 11:29-0400 Diastolic blood pressure 60 mm[Hg] Lurdes Zenobia SUPERINTENDENT LOGGING.PRESS SET UP PERSON Work Phone: [facility] 10-17-2023 11:29-0400 Systolic blood pressure 90 mm[Hg] Lurdes Zenobia SUPERINTENDENT LOGGING.PRESS SET UP PERSON Work Phone: [facility] 10-11-2023 16:11-0400 Body weight 82.56 kg Nurse Wstr Work Phone: [facility] 10-11-2023 16:11-0400 Diastolic blood pressure 70 mm[Hg] Nurse Wstr Work Phone: [facility] 10-11-2023 16:11-0400 Systolic blood pressure 102 mm[Hg] Nurse Wstr Work Phone: [facility] 10-06-2023 15:25-0400 Body temperature 98 [degF] 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 SPECIALIST-C Vi Gagnon 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 SPECIALIST Work Phone: [facility] 10-06-2023 15:25-0400 Diastolic blood pressure 68 mm[Hg] 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 SPECIALIST-C Vi Gagnon 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 SPECIALIST Work Phone: [facility] 10-06-2023 15:25-0400 Heart rate 87 /min 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 SPECIALIST-C Vi Gagnon 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 SPECIALIST Work Phone: [facility] 10-06-2023 15:25-0400 Respiratory rate 15 /min 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 SPECIALIST-C Vi Gagnon 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 SPECIALIST Work Phone: [facility] 10-06-2023 15:25-0400 SaO2% (BldA) [Mass fraction] 98 % 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 SPECIALIST-C Vi Gagnon 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 SPECIALIST Work Phone: [facility] 10-06-2023 15:25-0400 Systolic blood pressure 110 mm[Hg] 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 SPECIALIST-C Vi Gagnon 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 SPECIALIST Work Phone: [facility] 03-21-2023 09:18-0400 Body weight 81.19 kg Nurse Wstr Work Phone: [facility] 03-21-2023 09:18-0400 Diastolic blood pressure 64 mm[Hg] Nurse Wstr Work Phone: [facility] 03-21-2023 09:18-0400 Systolic blood pressure 102 mm[Hg] Nurse Wstr Work Phone: [facility] 01-16-2023 10:19-0400 Heart rate 83 /min [facility] Work Phone: 1(361)826-310609 [place] [address] 01-16-2023 09:02-0400 SaO2% (BldA) [Mass fraction] 97 % [facility] Work Phone: 7(441)017-508909 [place] [address] 01-16-2023 08:47-0400 Body height 160.02 cm [facility] Work Phone: 4(544)833-060909 [place] [address] 01-16-2023 08:47-0400 Body mass index (BMI) [Ratio] 30.9 kg/m2 [facility] Work Phone: 0(919)529-136709 [place] [address] 01-16-2023 08:47-0400 Body temperature 96.8 [degF] [facility] Work Phone: 1(253)862-581409 [place] [address] 01-16-2023 08:47-0400 Body weight 79.37 kg [facility] Work Phone: 4(934)616-254509 [place] [address] 01-16-2023 08:47-0400 Diastolic blood pressure 71 mm[Hg] [facility] Work Phone: 3(220)440-469009 [place] [address] 01-16-2023 08:47-0400 Respiratory rate 18 /min [facility] Work Phone: 8(132)848-805709 [place] [address] 01-16-2023 08:47-0400 Systolic blood pressure 149 mm[Hg] [facility] Work Phone: 8(331)475-843009 [place] [address] 01-10-2023 15:53-0400 Body mass index (BMI) [Ratio] 31.3 kg/m2 [facility] Work Phone: 9(162)001-620309 [place] [address] 01-10-2023 15:53-0400 Body temperature 98 [degF] [facility] Work Phone: 6(097)557-306109 [place] [address] 01-10-2023 15:53-0400 Body weight 80.28 kg [facility] Work Phone: 0(287)449-485409 [place] [address] 01-10-2023 15:53-0400 Diastolic blood pressure 60 mm[Hg] [facility] Work Phone: 0(316)531-063009 [place] [address] 01-10-2023 15:53-0400 Heart rate 82 /min [facility] Work Phone: 3(632)577-691170 [address] 01-10-2023 15:53-0400 Respiratory rate 16 /min [facility] Work Phone: 1(603)751-607209 [place] [address] 01-10-2023 15:53-0400 SaO2% (BldA) [Mass fraction] 97 % [facility] Work Phone: 1(358)145-056109 [place] [address] 01-10-2023 15:53-0400 Systolic blood pressure 108 mm[Hg] [facility] Work Phone: 6(210)272-456609 [place] [address] 12-26-2022 15:57-0400 Body weight 79.83 kg Nurse Wstr Work Phone: [facility] 12-26-2022 15:57-0400 Diastolic blood pressure 62 mm[Hg] Nurse Wstr Work Phone: [facility] 12-26-2022 15:57-0400 Systolic blood pressure 98 mm[Hg] Nurse Wstr Work Phone: [facility] 11-29-2022 08:51-0400 Body height 160.02 cm [facility] Work Phone: 1(392)548-128309 [place] [address] 11-29-2022 08:51-0400 Body mass index (BMI) [Ratio] 29.4 kg/m2 [facility] Work Phone: 8(729)356-526809 [place] [address] 11-29-2022 08:51-0400 Body temperature 98.8 [degF] [facility] Work Phone: 3(275)516-696309 [place] [address] 11-29-2022 08:51-0400 Body weight 75.29 kg [facility] Work Phone: 2(498)627-376709 [place] [address] 11-29-2022 08:51-0400 Diastolic blood pressure 74 mm[Hg] [facility] Work Phone: 8(480)220-372109 [place] [address] 11-29-2022 08:51-0400 Heart rate 74 /min [facility] Work Phone: 7(114)251-149409 [place] [address] 11-29-2022 08:51-0400 Respiratory rate 12 /min [facility] Work Phone: 7(460)299-071209 [place] [address] 11-29-2022 08:51-0400 SaO2% (BldA) [Mass fraction] 98 % [facility] Work Phone: [facility] 11-29-2022 08:51-0400 Systolic blood pressure 106 mm[Hg] [facility] Work Phone: [facility] 10-19-2022 10:28-0400 Heart rate 63 /min Aaliyah Aguilar MD Work Phone: [facility] 10-19-2022 10:28-0400 Respiratory rate 16 /min Aaliyah Aguilar MD Work Phone: [facility] 10-19-2022 10:28-0400 SaO2% (BldA) [Mass fraction] 100 % Aaliyah Aguilar MD Work Phone: [facility] 10-19-2022 10:18-0400 Diastolic blood pressure 61 mm[Hg] Aaliyah Aguilar MD Work Phone: [facility] 10-19-2022 10:18-0400 Systolic blood pressure 113 mm[Hg] Aaliyah Aguilar MD Work Phone: [facility] 10-19-2022 09:08-0400 Body temperature 97.39 [degF] Aaliyah Aguilar MD Work Phone: [facility] 10-05-2022 11:07-0400 Body temperature 98.6 [degF] Essie Praisler-Wood SUPERINTENDENT LOGGING.PRESS SET UP PERSON Work Phone: [facility] 10-05-2022 11:07-0400 Body weight 77.29 kg Essie Praisler-Wood SUPERINTENDENT LOGGING.PRESS SET UP PERSON Work Phone: [facility] 10-05-2022 11:07-0400 Diastolic blood pressure 64 mm[Hg] Essie Praisler-Wood SUPERINTENDENT LOGGING.PRESS SET UP PERSON Work Phone: [facility] 10-05-2022 11:07-0400 Heart rate 72 /min Essie Praisler-Wood SUPERINTENDENT LOGGING.PRESS SET UP PERSON Work Phone: [facility] 10-05-2022 11:07-0400 Respiratory rate 23 /min Essie Praluz marina-Wood SUPERINTENDENT LOGGING.PRESS SET UP PERSON Work Phone: [facility] 10-05-2022 11:07-0400 SaO2% (BldA) [Mass fraction] 100 % Essie Praisler-Wood SUPERINTENDENT LOGGING.PRESS SET UP PERSON Work Phone: [facility] 10-05-2022 11:07-0400 Systolic blood pressure 98 mm[Hg] Essie Praisler-Wood SUPERINTENDENT LOGGING.PRESS SET UP PERSON Work Phone: [facility] 10-03-2022 08:20-0400 Body temperature 97.6 [degF] [facility] Work Phone: [facility] 10-03-2022 08:20-0400 Diastolic blood pressure 76 mm[Hg] [facility] Work Phone: [facility] 10-03-2022 08:20-0400 Heart rate 71 /min [facility] Work Phone: 8(581)120-283357 [place] [address] 10-03-2022 08:20-0400 Respiratory rate 16 /min [facility] Work Phone: 0(670)486-575357 [place] [address] 10-03-2022 08:20-0400 SaO2% (BldA) [Mass fraction] 98 % [facility] Work Phone: [facility] 10-03-2022 08:20-0400 Systolic blood pressure 108 mm[Hg] [facility] Work Phone: [facility] 09-15-2022 08:15-0500 Body height 160 cm Aaliyah Aguilar MD Work Phone: [facility] 09-15-2022 08:15-0500 Body temperature 97.9 [degF] Aaliyah Aguilar MD Work Phone: [facility] 09-15-2022 08:15-0500 Body weight 77.29 kg Aaliyah Aguilar MD Work Phone: [facility] 09-15-2022 08:15-0500 Diastolic blood pressure 78 mm[Hg] Aaliyah Aguilar MD Work Phone: [facility] 09-15-2022 08:15-0500 Heart rate 89 /min Aaliyah Aguilar MD Work Phone: [facility] 09-15-2022 08:15-0500 SaO2% (BldA) [Mass fraction] 100 % Aaliyah Aguilar MD Work Phone: [facility] 09-15-2022 08:15-0500 Systolic blood pressure 110 mm[Hg] Aaliyah Aguilar MD Work Phone: [facility] 09-06-2022 08:00-0500 Body height 156.8 cm Lurdes Zenobia SUPERINTENDENT LOGGING.PRESS SET UP PERSON Work Phone: [facility] 09-06-2022 08:00-0500 Body weight 77.47 kg Lurdes Zenobia SUPERINTENDENT LOGGING.PRESS SET UP PERSON Work Phone: [facility] 09-06-2022 08:00-0500 Diastolic blood pressure 70 mm[Hg] Lurdes [place] SUPERINTENDENT LOGGING.PRESS SET UP PERSON Work Phone: [facility] 09-06-2022 08:00-0500 Systolic blood pressure 100 mm[Hg] Lurdes Zenobia SUPERINTENDENT LOGGING.PRESS SET UP PERSON Work Phone: [facility] 06-08-2022 14:48-0500 Body weight 74.39 kg Nurse Wstr Work Phone: [facility] 06-08-2022 14:48-0500 Diastolic blood pressure 64 mm[Hg] Nurse Wstr Work Phone: [facility] 06-08-2022 14:48-0500 Systolic blood pressure 108 mm[Hg] Nurse Wstr Work Phone: [facility] 03-23-2022 08:23-0400 Body temperature 98.2 [degF] No Primary Care Physician [facility] Work Phone: 03-23-2022 08:23-0400 Diastolic blood pressure 66 mm[Hg] No Primary Care Physician [facility] Work Phone: 03-23-2022 08:23-0400 Heart rate 74 /min No Primary Care Physician [facility] Work Phone: 03-23-2022 08:23-0400 Respiratory rate 14 /min No Primary Care Physician [facility] Work Phone: 03-23-2022 08:23-0400 SaO2% (BldA) [Mass fraction] 99 % No Primary Care Physician [facility] Work Phone: 03-23-2022 08:23-0400 Systolic blood pressure 118 mm[Hg] No Primary Care Physician [facility] Work Phone: 02-13-2022 10:13-0400 Body temperature 98.29 [degF] Essie Praisler-Wood SUPERINTENDENT LOGGING.PRESS SET UP PERSON Work Phone: [facility] 02-13-2022 10:13-0400 Body weight 74.39 kg Essie Praisler-Wood SUPERINTENDENT LOGGING.PRESS SET UP PERSON Work Phone: [facility] 02-13-2022 10:13-0400 Diastolic blood pressure 80 mm[Hg] Essie Praisler-Wood SUPERINTENDENT LOGGING.PRESS SET UP PERSON Work Phone: [facility] 02-13-2022 10:13-0400 Heart rate 63 /min Essie Praisler-Wood SUPERINTENDENT LOGGING.PRESS SET UP PERSON Work Phone: [facility] 02-13-2022 10:13-0400 Respiratory rate 16 /min Essie Praisler-Wood SUPERINTENDENT LOGGING.PRESS SET UP PERSON Work Phone: [facility] 02-13-2022 10:13-0400 SaO2% (BldA) [Mass fraction] 98 % Essie Praisler-Wood SUPERINTENDENT LOGGING.PRESS SET UP PERSON Work Phone: [facility] 02-13-2022 10:13-0400 Systolic blood pressure 106 mm[Hg] Essie Praisler-Wood SUPERINTENDENT LOGGING.PRESS SET UP PERSON Work Phone: [facility] Encounters Encounter Date Encounter Type Care Provider Facility Start: 06-17-2025 ambulatory Jeramie Fabian Facility :[facility] Start: 05-30-2025 ambulatory Susanne Wren Facility :[facility] Start: 05-26-2025 End: 05-26-2025 ambulatory [facility] Facility:[facility] Start: 05-16-2025 End: 05-16-2025 ambulatory [facility] Facility:[facility] Start: 05-11-2025 End: 05-11-2025 Emergency department patient visit Dr. Angelito Hatfield MD -Emergency Department Work Phone: Start: 04-22-2025 End: 04-22-2025 Patient encounter procedure Vicente Ross [facility] Work Phone: Start: 04-22-2025 End: 04-22-2025 ambulatory Sonny BAZZI Work Phone: [facility] Start: 04-08-2025 End: 04-08-2025 Nursing evaluation of patient and report Nurse Fur Sorter [facility] Work Phone: OB/Gynecology Comment on above: Encounter for manage ment and injection of depo-Provera (Primary Dx) Start: 04-08-2025 End: 04-08-2025 ambulatory MARKUS MAURER Facility:[facility] Start: 04-04-2025 ambulatory Sonny Murrieta Facility:[facility] Start: 03-14-2025 End: 03-14-2025 Patient encounter procedure Vicente Ross [place] [facility] Work Phone: Start: 03-14-2025 End: 03-14-2025 ambulatory Sonny BAZZI Work Phone: -[facility] Start: 01-28-2025 End: 03-30-2025 Follow-up encounter Romain Duff MD Work Phone: OB/Gynecology Start: 01-23-2025 ambulatory MARKUS MAURER Fa cility:[facility] Start: 01-23-2025 Encounter for gynecological examination (general) (routine) without abnormal findings MARKUS MAURER [facility] Start: 01-23-2025 End: 01-23-2025 Patient encounter status Screen [facility] Start: 01-23-2025 End: 01-23-2025 Subsequent hospital visit by physician Screen Mammo [facility] Mammogram Comment on above: Encounter for gyneco logical examination (general) (routine) without abnormal findings [Z01.419] Start: 01-17-2025 End: 01-17-2025 Patient encounter procedure Lurdes Fregoso KIM.PRESS SET UP PERSON Work Phone: OB/Gynecology Comment on above: Encounter for gyneco logical examination (general) (routine) without abnormal findings (Primary Dx); Encounter for screening mammogram for breast cancer Start: 01-17-2025 End: 01-17-2025 Patient encounter status Lurdes Fregoso KIM.PRESS SET UP PERSON Work Phone: [facility] Start: 01-17-2025 End: 01-17-2025 [facility] Facility:[facility] Start: 01-09-2025 End: 01-09-2025 Nursing evaluation of patient and report Nurse Fur Sorter [facility] Work Phone: OB/Gynecology Comment on above: Encounter for survei llance of other contraceptive (Primary Dx) Start: 01-09-2025 End: 01-09-2025 [facility] Facility:[facility] Start: 01-06-2025 End: 01-06-2025 Refill Ashly Berumen APRN.PRESS SET UP PERSON Work Phone: OB/Gynecology Comment on above: Refill Request Start: 01-03-2025 End: 01-03-2025 Refill Ashly Berumen APRN.PRESS SET UP PERSON Work Phone: OB/Gynecology Comment on above: Refill Request Start: 11-07-2024 End: 11-07-2024 ambulatory [facility] Facility:[facility] Start: 10-18-2024 End: 10-18-2024 ambulatory [facility] Facility:[facility] Start: 10-18-2024 End: 10-18-2024 Nursing evaluation of patient and report Nurse Fur Sorter [facility] Work Phone: OB/Gynecology Comment on above: Encounter for survei llance of other contraceptive (Primary Dx) Start: 10-16-2024 End: 10-18-2024 Refill Ashly Berumen KIM.PRESS SET UP PERSON Work Phone: OB/Gynecology Comment on above: Appointment Start: 10-09-2024 End: 10-09-2024 Telephone encounter Lurdes Fregoso APRN.PRESS SET UP PERSON Work Phone: OB/Gynecology Comment on above: Orders Start: 08-07-2024 End: 08-07-2024 ambulatory Sonny Glenny Facility:[facility] Start: 08-03-2024 End: 08-03-2024 Letter encounter [facility] Start: 07-15-2024 End: 07-15-2024 [facility]ulatory [facility] Start: 07-15-2024 End: 07-15-2024 Nursing evaluation of patient and report Nurse Fur Sorter [facility] Work Phone: OB/Gynecology Comment on above: Depo-Provera contrac eptive status (Primary Dx); Encounter for management and injection of depo-Provera Start: 07-14-2024 End: 07-14-2024 [facility] Facility:[facility] Start: 07-14-2024 End: 07-14-2024 Patient encounter procedure Essie Bearden APRN.PRESS SET UP PERSON Work Phone: [facility] Comment on above: Viral URI with cough (Primary Dx); Lower resp. tract infection Start: 04-28-2024 End: 04-28-2024 Letter encounter [facility] Start: 04-08-2024 End: 04-08-2024 Nursing evaluation of patient and report Nurse Fur Sorter [facility] Work Phone: OB/Gynecology Comment on above: Encounter for manage ment and injection of depo-Provera (Primary Dx) Start: 01-10-2024 Patient encounter status Tony ruben Murrieta PA Work Phone: [facility] Start: 01-05-2024 End: 01-05-2024 Nursing evaluation of patient and report Nurse Fur Sorter [facility] Work Phone: OB/Gynecology Comment on above: Encounter for manage ment and injection of depo-Provera (Primary Dx) Start: 10-31-2023 Documentation procedure Mammog leti Coordinator [facility] Start: 10-31-2023 Letter encounter Mammography Coordinator [facility] Department Start: 10-18-2023 End: 10-18-2023 Emergency department patient visit 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 SPECIALIST-C Vi Gagnon 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 SPECIALIST Work Phone: [facility] Work Phone: Start: 10-17-2023 End: 10-17-2023 Patient encounter procedure Lurdes Fregoso APRN.PRESS SET UP PERSON Work Phone: OB/Gynecology Comment on above: Encounter for gyneco logical examination (general) (routine) without abnormal findings (Primary Dx); Encounter for screening mammogram for breast cancer; Dense breast tissue; Encounter for surveillance of injectable contraceptive Start: 10-17-2023 End: 10-17-2023 Patient encounter status Lurdes Fregoso APRN.PRESS SET UP PERSON Work Phone: [facility] Start: 10-17-2023 End: 10-17-2023 Subsequent hospital visit by physician Screen Mammo [facility] Mammogram Comment on above: Encounter for screen ing mammogram for malignant neoplasm of breast [Z12.31] Start: 10-11-2023 End: 10-11-2023 Nursing evaluation of patient and report Nurse Fur Sorter [facility] Work Phone: OB/Gynecology Comment on above: Encounter for manage ment and injection of depo-Provera (Primary Dx) Start: 10-10-2023 Refill Lurdes Fregoso APRN.PRESS SET UP PERSON Work Phone: OB/Gynecology Comment on above: Refill Request Start: 10-06-2023 End: 10-06-2023 Patient encounter procedure 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 SPECIALIST-C Vi Gagnon 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 SPECIALIST Work Phone: [facility] Work Phone: Start: 06-23-2023 End: 06-23-2023 Patient encounter procedure 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 SPECIALIST-C Vi Gagnon 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 SPECIALIST Work Phone: [facility] Work Phone: Start: 03-21-2023 End: 03-21-2023 Nursing evaluation of patient and report Nurse Fur Sorter [facility] Work Phone: OB/Gynecology Comment on above: Encounter for manage ment and injection of depo-Provera (Primary Dx) Start: 01-16-2023 End: 01-16-2023 Emergency department patient visit [facility] Work Phone: [facility] Start: 01-10-2023 End: 01-10-2023 Patient encounter procedure [facility] Work Phone: [facility] Start: 12-26-2022 End: 12-26-2022 Nursing evaluation of patient and report Nurse Fur Sorter [facility] Work Phone: OB/Gynecology Comment on above: Depo-Provera contrac eptive status (Primary Dx); Encounter for management and injection of depo-Provera Start: 11-29-2022 End: 11-29-2022 ambulatory [facility] Work Phone: [facility] Work Phone: Start: 11-29-2022 End: 11-29-2022 Patient encounter procedure [facility] Work Phone: [facility] Start: 11-29-2022 End: 11-29-2022 Patient encounter procedure [facility] Work Phone: [facility] Start: 11-14-2022 End: 11-14-2022 Patient encounter procedure [facility] Work Phone: [facility] Start: 11-11-2022 End: 11-11-2022 Patient encounter procedure [facility] Work Phone: [facility] Start: 10-24-2022 Letter encounter Blake zuniga Start: 10-19-2022 End: 10-19-2022 Subsequent hospital visit by physician Aaliyah Aguilar MD Work Phone: Ambulatory Surgery Comment on above: Screening for colon cancer [Z12.11] Start: 10-14-2022 End: 10-14-2022 Patient encounter procedure [facility] Work Phone: [facility] Start: 10-12-2022 End: 10-12-2022 Patient encounter procedure [facility] Work Phone: [facility] Start: 10-10-2022 End: 10-10-2022 Patient encounter procedure [facility] Work Phone: [facility] Start: 10-05-2022 End: 10-05-2022 Patient encounter procedure Essie Bearden APRN.PRESS SET UP PERSON Work Phone: [facility] Comment on above: Other acute nonsuppu rative otitis media of both ears, recurrence not specified (Primary Dx); Viral URI with cough Start: 10-03-2022 End: 10-03-2022 Patient encounter procedure [facility] Work Phone: [facility] Start: 09-15-2022 End: 09-15-2022 Patient encounter procedure Aaliyah Aguilar MD Work Phone: General Surgery Comment on above: Screening for colon cancer (Primary Dx) Start: 09-06-2022 End: 09-06-2022 Patient encounter procedure Lurdes Fregoso APRN.PRESS SET UP PERSON Work Phone: OB/Gynecology Comment on above: Encounter for gyneco logical examination (general) (routine) without abnormal findings (Primary Dx); Encounter for surveillance of injectable contraceptive; Encounter for screening for malignant neoplasm of colon Start: 09-06-2022 End: 09-06-2022 Patient encounter status Lurdes Fregoso APRN.PRESS SET UP PERSON Work Phone: OB/Gynecology Start: 08-31-2022 End: 08-31-2022 Subsequent hospital visit by physician [facility] Work Phone: Radiology Comment on above: Ganglion cyst [M67.4 0] Start: 08-31-2022 End: 08-31-2022 Patient encounter procedure Sonny Staton Work Phone: Podiatry Comment on above: Ganglion cyst (Prima ry Dx) Start: 06-08-2022 End: 06-08-2022 Nursing evaluation of patient and report Nurse Fur Sorter [facility] Work Phone: OB/Gynecology Comment on above: Encounter for manage ment and injection of depo-Provera (Primary Dx) Start: 06-02-2022 Telephone encounter Lurdes lindsey SUPERINTENDENT LOGGING.PRESS SET UP PERSON Work Phone: OB/Gynecology Comment on above: Orders Start: 03-30-2022 End: 03-30-2022 ambulatory No Primary Care Physician [facility] Work Phone: Start: 03-30-2022 End: 03-30-2022 Patient encounter procedure No Primary Care Physician [facility] Start: 03-24-2022 Registered Recurring No Primar y Care Physician [facility] Start: 03-23-2022 End: 03-23-2022 Patient encounter procedure No Primary Care Physician [facility] Start: 03-08-2022 Refill Lurdesluke Fregoso SUPERINTENDENT LOGGING.PRESS SET UP PERSON Work Phone: OB/Gynecology Comment on above: Refill Request Start: 02-13-2022 End: 02-13-2022 Patient encounter procedure Essie Bearden SUPERINTENDENT LOGGING.PRESS SET UP PERSON Work Phone: [facility] Comment on above: Viral illness (Prima ry Dx) Start: 12-22-2021 End: 12-22-2021 Patient encounter procedure No Primary Care Physician [facility] Start: 12-17-2021 ambulatory Jennifer Bhat MA [facility] Childbirth Educator rdinated Care Comment on above: ADVERTISING EDITOR - O THER Start: 11-01-2021 ambulatory Zahira Simmons RN [facility] C oordinated Care Comment on above: WEIGHT PROBLEM Start: 10-27-2021 ambulatory Mercedes Jackman MA [facility] Coordinated Care Comment on above: ADVERTISING EDITOR - O THER Procedures Date Procedure Procedure Detail Performing Clinician Start: 05-16-2025 Thyroglobulin antibo dy measurement Sonny BAZZI Work Phone: Comment on above: Thyroglobulin Antibo dy measured by ZympiMethodologyIt should be noted that the presence of thyroglobulinantibodies may not be pathogenic nor diagnostic, especiallyat very low levels. The assay quality control coordinator has found thatfour percent of individuals without [...] [facility] Provider Start: 01-16-2023 Plain chest X-ray [facility] Work Phone: Start: 12-26-2022 Urine test visual color cmprsn sadiq Owen SUPERINTENDENT LOGGING.CNM Work Phone: Start: 10-19-2022 Colonoscopy flx dx [...] Activity Detail Author Start: 10-19-2032 Colonoscopy COLONOSCOPY [facility] Start: 10-19-2032 COLORECTAL CANCER SCREENING COLORECTAL CANCER SCREENING [facility] Start: 10-19-2032 Screening for malignant neoplasm of colon [facility] Start: 04-21-2032 Urine microalbumin profile DTaP,Tdap,Td Vaccine (3 - Td or Tdap) [facility] Start: 2027 Shingles (RZV) Vaccine (1 of 2) Shingles (RZV) Vaccine (1 of 2) [facility] Start: 10-15-2026 Lipid 1996 panel - Serum or Plasma Lipid Screening [facility] Start: 10-15-2026 Lipid panel Lipid Screening [facility] Start: 10-15-2026 LIPID SCREEN LIPID SCREEN [facility] Start: 09-02-2026 HPV TESTING HPV TESTING [facility] Start: 09-02-2026 PAP TESTING PAP TESTING [facility] Start: 09-02-2026 Screening for malignant neoplasm of cervix [facility] Start: 01-23-2026 Screening for malignant neoplasm of breast Mammogram Screening [facility] Start: 01-20-2026 End: 01-20-2026 Patient encounter procedure 01/20/2026 11:30 AM EDT Office Visit OB/Gynecology [address] [place] [address] Lurdes Fregoso APRN.PRESS SET UP PERSON [address] [place] [address] Annual OB/Gynecology Comment on above: Annual Start: 07-01-2025 End: 07-01-2025 Nursing evaluation of patient and report 07/01/2025 4:00 PM EST Nurse Visit OB/Gynecology [address] [place] [address] Wstr, Nurse Fur Sorter [facility] [address] [place] [address] Depo OB/Gynecology Comment on above: Depo Start: 05-26-2025 End: 05-26-2025 Patient encounter procedure Change in bowel habits -[facility] Work Phone: Start: 05-16-2025 End: 05-16-2025 Patient encounter procedure Departed Clinical -Laboratory Rosalia Ascencio Start: 05-11-2025 [facility] Start: 04-03-2025 End: 04-03-2025 Nursing evaluation of patient and report 04/03/2025 3:00 PM EDT Nurse Visit OB/Gynecology [address] [address] Wstr, Nurse Fur Sorter [facility] [address] [place] [address] Depo injection OB/Gynecology Comment on above: Depo injection Start: 03-24-2025 Influenza vaccination [facility] Start: 01-23-2025 End: 01-23-2025 Patient encounter procedure 01/23/2025 9:30 AM EDT Appointment Mammogram [address] [place] [address] Encounter for gynecological examination (general) (routine) without abnormal findings [Z01.419]; Encounter for screening mammogram for breast cancer [Z12.31] Mammogram Comment on above: Encounter for gynecological examination (general) (routine) without abnormal findings [Z01.419]; Encounter for screening mammogram for breast cancer [Z12.31] Start: 01-10-2025 End: 01-10-2025 Patient encounter procedure 01/10/2025 3:00 PM EDT Office Visit OB/Gynecology [address] [place] [address] Lurdes Fregoso APRN.PRESS SET UP PERSON [address] [place] [address] Annual OB/Gynecology Comment on above: Annual Start: [...] Visit OB/Gynecology [address] [place] [address] Wstr, Nurse Fur Sorter [facility] [address] [place] [address] Depo OB/Gynecology Comment on above: Depo Start: 10-16-2024 Screening for malignant neoplasm of breast Mammogram Screening [facility] Start: 10-07-2024 End: 10-07-2024 Nursing evaluation of patient and report 10/07/2024 4:00 PM EDT Nurse Visit OB/Gynecology [address] [place] [address] Wstr, Nurse Fur Sorter [facility] [address] [place] [address] Depo OB/Gynecology Comment on above: Depo Start: 07-15-2024 End: 07-15-2024 Nursing evaluation of patient and report 07/15/2024 10:00 AM EST Nurse Visit OB/Gynecology [address] [place] [address] Wstr, Nurse Fur Sorter [facility] [address] [place] [address] depo OB/Gynecology Comment on above: depo Start: 07-01-2024 End: 07-01-2024 Nursing evaluation of patient and report 07/01/2024 3:00 PM EST Nurse Visit OB/Gynecology [address] [place] [address] Wstr, Nurse Fur Sorter [facility] [address] [place] [address] depo shot OB/Gynecology Comment on above: depo shot Start: 03-29-2024 End: 03-29-2024 Nursing evaluation of patient and report 03/29/2024 9:00 AM EDT Nurse Visit OB/Gynecology [address] [place] [address] Wstr, Nurse Fur Sorter [facility] [address] [place] [address] Depo OB/Gynecology Comment on above: Depo Start: 03-24-2024 COVID-19 Vaccine ( season) COVID-19 Vaccine ( season) [facility] Start: 03-24-2024 COVID-19 Vaccine ( season) COVID-19 Vaccine ( season) [facility] Start: 03-24-2024 Covid-19 Vaccine ( season) Covid-19 Vaccine () [facility] Start: 03-24-2024 Covid-19 Vaccine ( season) Covid-19 Vaccine ( season) [facility] Start: 03-24-2024 Influenza vaccination Influenza Vaccine (#1) [facility] Start: 10-18-2023 [facility] Start: 07-24-2023 Depression Assessment Depression Assessment [facility] Start: 03-24-2023 Covid-19 Vaccine ( season) Covid-19 Vaccine () [facility] Start: 03-24-2023 Influenza vaccination [facility] Start: 01-16-2023 End: 01-16-2023 [facility] Start: 07-24-2022 DEPRESSION ASSESSMENT DEPRESSION ASSESSMENT [facility] Start: 03-24-2022 Influenza vaccination INFLUENZA (#1) [facility] Start: 02-13-2022 End: 02-27-2022 Influenza virus A and B RNA and SARS-CoV-2 (COVID-19) N gene panel - Respiratory specimen by TEZ with probe detection CAREGIVER COVID + FLU A/B, ROUTINE Microbiology Routine Viral illness Expected: 02/13/2022, Expires: 02/27/2022 [facility] Work Phone: Comment on above: Expected: 02/13/2022, Expires: Start: 2022 Cholesterol [Mass/volume] in Serum or Plasma Cholesterol [facility] Start: 2022 COLOGUARD (FIT-DNA) COLOGUARD (FIT-DNA) [facility] Start: 2022 Colonoscopy COLONOSCOPY [facility] Start: 2022 COLORECTAL CANCER SCREENING COLORECTAL CANCER SCREENING [facility] Start: [address] COLONOGRAPHY [facility] Start: 2022 DIABETES SCREEN DIABETES SCREEN [facility] Start: 2022 Diabetes Screening Diabetes Screening [facility] Start: 2022 FECAL OCCULT BLOOD FECAL OCCULT BLOOD [facility] Start: 2022 Lipid panel Cholesterol [facility] Start: 2022 Screening for malignant neoplasm of colon [facility] Start: 2022 SIGMOIDOSCOPY SIGMOIDOSCOPY [facility] Start: 12-01-2021 COVID-19 VACCINE (3 - Booster for Ananya series) COVID-19 VACCINE (3 - Booster for Ananya series) [facility] Start: 07-24-2021 DEPRESSION ASSESSMENT DEPRESSION ASSESSMENT [facility] Start: 2017 Mammography [facility] Start: 2017 Screening for malignant neoplasm of breast [facility] Start: 1998 Screening for malignant neoplasm of cervix Pap Smear [facility] Start: 01-22-1996 Hepatitis A (HAV) Vaccine (optional start 19+ years) Hepatitis A (HAV) Vaccine (optional start 19+ years) [facility] Start: 01-22-1996 Hepatitis B vaccination Hepatitis B (HBV) Vaccine (1 of 3 - 19+ 3-dose series) [facility] Start: 01-22-1996 Hepatitis B Vaccine (1 of 3 - 19+ 3-dose series) Hepatitis B Vaccine (1 of 3 - 19+ 3-dose series) [facility] Start: 01-22-1996 Tetanus vaccination Tetanus (Td or Tdap) Booster [facility] Start: 01-22-1996 Urine microalbumin profile DTAP,TDAP,TD (1 - Tdap) [facility] Start: 1995 HEPATITIS C SCREENING HEPATITIS C SCREENING [facility] Start: 1995 [facility] Start: 1995 HIV SCREENING HIV SCREENING [facility] Start: 1995 HIV screening HIV Screening [facility] Start: 1995 Tetanus + diphtheria + acellular pertussis vaccine (product) Tdap Booster [facility] Start: 01-22-1992 HIV screening HIV Test [facility] Start: 1989 Adult depression screening assessment DEPRESSION SCREENING [facility] Start: 1977 COVID-19 Vaccine (#1) COVID-19 Vaccine (#1) [facility] Start: 1977 HEPATITIS B (1 of 3 - 3-dose series) HEPATITIS B (1 of 3 - 3-dose series) [facility] Start: 1977 Hepatitis B Vaccine (1 of 3 - 3-dose series) Hepatitis B Vaccine (1 of 3 - 3-dose series) [facility] Start: 1977 Screening for malignant neoplasm of colon Colonoscopy [facility] COVID & INFLUENZA A/ B & RSV PCR, ROUTINE COVID & INFLUENZA A/B & RSV PCR, ROUTINE Microbiology Routine Viral URI with cough Ordered: 07/14/2024 [facility] Work Phone: Comment on above: Ordered: 07/14/2024 End: 11-15-2024 DBT Breast - bilateral screening RYNE SCREENING [facility] Routine Encounter for screening mammogram for breast cancer Dense breast tissue 1 Occurrences starting 10/17/2023 until 11/15/2024 [facility] Work Phone: Comment on above: 1 Occurrences starting 10/17/2023 until 11/15/2024 DBT Breast - bilater al screening RYNE SCREENING [facility]iology Routine Encounter for screening mammogram for malignant neoplasm of breast 10/17/2023 11:20 AM EDT [facility] Work Phone: End: 02-16-2026 DBT Breast - bilateral screening RYNE SCREENING [facility] Routine Encounter for gynecological examination (general) (routine) without abnormal findings Encounter for screening mammogram for breast cancer 1 Occurrences starting 01/17/2025 until 02/16/2026 [facility] Work Phone: Comment on above: 1 Occurrences starting 01/17/2025 until 02/16/2026 DBT Breast - bilater al screening RYNE SCREENING [facility] Routine Encounter for gynecological examination (general) (routine) without abnormal findings Encounter for screening mammogram for breast cancer 01/23/2025 10:12 AM EDT [facility] Work Phone: Patient Education [facility] Work Phone: Patient referral [facility] Work Phone: End: 09-15-2023 Screening colonoscopy COLONOSCOPY SCREENING Endoscopy Routine Screening for colon cancer 1 Occurrences starting 09/15/2022 until 09/15/2023 [facility] Work Phone: Comment on above: 1 Occurrences starting 09/15/2022 until 09/15/2023 End: 09-30-2023 XR FOOT GENERAL 3V AP/LAT/OBL RIGHT XR FOOT GENERAL 3V AP/LAT/OBL RIGHT Radiology Routine Ganglion cyst 1 Occurrences starting 08/31/2022 until 09/30/2023 [facility] Work Phone: Comment on above: 1 Occurrences starting 08/31/2022 until 09/30/2023 XR FOOT GENERAL 3V AP/LAT/OBL RIGHT XR FOOT GENERAL 3V AP/LAT/OBL RIGHT Radiology Routine Ganglion cyst 08/31/2022 1:48 PM EST [facility] Work Phone: [facility] Immunizations Immunization Date Immunization Notes Care Provider Shaila beaver 06-23-2023 influenza, injectabl e, quadrivalent, preservative free 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 SPECIALIST-C Vi Gagnon 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 SPECIALIST Work Phone: [facility] 06-23-2023 influenza virus vaccine, unspecified formulation Nurse Wstr Work Phone: [facility] 06-10-2022 influenza, injectabl e, quadrivalent, preservative free 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 SPECIALIST-C Vi Gagnon 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 SPECIALIST Work Phone: [facility] 06-10-2022 influenza, seasonal, injectable [facility] Work Phone: [facility] 06-10-2022 influenza virus vaccine, unspecified formulation Aaliyah Aguilar MD Work Phone: [facility] 04-21-2022 tetanus toxoid, redu eldon diphtheria toxoid, and acellular pertussis vaccine, adsorbed [facility] Work Phone: [facility] 2022 tetanus toxoid, redu eldon diphtheria toxoid, and acellular pertussis vaccine, adsorbed No Primary Care Physician [facility] 10-06-2021 Covid (Pfizer) [facility] Work Phone: [facility] 10-06-2021 COVID-19 vaccine, ag e 12+ yr ([employer] - [facility]) Mercedes Jackman MA [facility] Work Phone: 07-26-2021 influenza, injectabl e, quadrivalent, contains preservative Lurdes Zenobia SUPERINTENDENT LOGGING.PRESS SET UP PERSON Work Phone: [facility] 07-26-2021 influenza, injectabl e, quadrivalent, preservative free 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 SPECIALIST-C Vi Gagnon 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 SPECIALIST Work Phone: [facility] 07-26-2021 influenza, seasonal, injectable [facility] Work Phone: [facility] 12-08-2020 COVID-19 vaccine (ANANYA) Mercedes Jackman MA [facility] Work Phone: Payers Date Payer Category Payer Unknown [id number] 2024 Self-pay [id number] 2023 Medicaid [id number] 2023 Private Health Insurance [facility] [id number] 2023-Present [phone] [address] [place] [address] PPO [id number] 2021 Private Health Insurance EHP AET NA EHP STAFF/NON STAFF / EHP [facility] [id number] 2021-Present [address] [place] [address] EPO [id number] 2021 Medicaid [employer] [employer] [employer] MED[employer] [id number] 2021-Present [phone] [address] [place] [address] Medicaid [id number] 2021 Medicaid [id number] Unknown [facility] [id number] Unknown [id number] Unknown [id number] 462 Unknown [id number] 462 Unknown [id number] 462 Unknown [id number] 462 Unknown [id number] 462 Unknown [id number] 462 Unknown [id number] 462 Unknown [id number] 462 Unknown [id number] 462 Social History Date Type Detail Facility Start: 07-24-2021 End: 10-17-2023 Tobacco smoking status NHIS Never smoked tobacco [facility] Start: 07-24-2021 End: 10-17-2023 Tobacco use and exposure Smokeless tobacco non-user [facility] Start: 10-13-2021 End: 01-17-2025 Alcohol intake Current drinker of alcohol (finding) [facility] Start: 09-02-2021 History SDOH Alcohol Comment rare [facility] Start: 1975 Sex Assigned At Female [facility] Start: 10-03-2021 End: 03-09-2022 Exposure to SARS-CoV-2 (event) Not sure [facility] Start: 03-23-2022 End: 10-18-2023 Tobacco smoking status NHIS Unknown if ever smoked [facility] Start: 1975 Sex [facility]igned [facility] Start: 11-23-2022 End: 03-21-2023 History of Social function [facility] Start: 11-23-2022 End: 03-21-2023 Tobacco use panel [facility] Start: 06-23-2021 National Score (1-100), lower number is lower risk 72 [facility] Start: 08-31-2021 Gender identity Identifies as female gender (finding) [facility] Start: 08-31-2021 Sexual orientation Heterosexual (fin ding) [facility] Start: 07-29-2022 Sex [facility] (finding[facility] Start: 01-10-2024 End: 05-26-2025 Tobacco smoking status NHIS Ex-smoker (finding) [facility] NEGATED: Highlighted row [facility] NEGATED: Highlighted rowStart: NINF History of tobacco use Passive smoker [facility] Goals Date Patient Goal Desired Activity /State Mental Status Date Assessment Result Facility 10-18-2023 Cognitive function Level Of Cons ciousness Awake;Alert;Appropriate;Follow s Commands [facility] Work Phone: 01-16-2023 Cognitive function Voice/Name [facility] Work Phone: Clinical Notes 11-01-2021 to 05-11-2025 Note Date & Type Note Facility 05-11-2025 Discharge summary [facility] 05-11-2025 Radiology Diagnostic study note [facility] Imaging Services [address] [place] [id number] Knee 4 or More Views MR#: [id number] Acct: [id number] Name: EUNICE MUNOZ (JULIE) Rep #: [id number] : 1975 F 50 From: Juan Manuel Garcia MD PCP: DAVIDE Oliver, 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 SPECIALIST-C Status: PRE ER Study:Knee 4 or More Views Date of Exam: 05/11/25 Exam# [id number] Ordering Dr: Provider ,Ed P. PROCEDURE: RIGHT [...] dislocation. No significant joint effusion. Reading Location: [id number] CC: [facility] 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 SPECIALIST-C Ivet Foss; ED PHYSICIAN PROVIDER ~ Dishtank Operator: Signed [facility] 05-11-2025 Discharge summary Note Date/Time May 11, 2025 7:47pm [facility] Medical Records Department [address] [place] [address] Emergency Department Summary 05/11/25 MR#: [id number] Acct: [id number] Name: EUNICE MUNOZ HARSH Rep #:[id number] : 1975 50 From: Angelito Hatfield MD PCP: Ivet Foss, Joey, 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 SPECIALIST-C Statu s:REG ER Location: ED HPI History [...] ?Type medroxyprogesterone 150 mg/mL 150 mg IM [id number] 11/11 Unknown History intramuscular syringe Allergy/AdvReac Type [...] girdle intact. Hips are nontender. Patient hasnormal snap shearer strength and dorsi and plantarflexion bilaterally. Normal [...] dislocation. No significant joint effusion. Reading Location: [id number] Right knee x-ray, 4 views, interpreted by [...] medroxyprogesterone 150 mg/mL syringe 150 mg IM [id number] Primary Care Provider: Ivet Foss Referrals: Ivet Foss, 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 SPECIALIST-C [Primary Care Provider, Family Practice] - 1 Week if not improving Activity Restrictions/Additional Instructions: Direct trauma to the knee causing a contusion and sprain or strain of your rightmedial collateral ligament. Ice to the area decrease pain and swelling. Elevate. Motrin for pain and swelling Tylenol for pain. This should progressively improve. You can get an onfk-kae-jykdhfj copper or a neoprene or Velcro sleeve for your knee at like a sporting goods store or a pharmacy. Just use it for a week or 2 and it should progressively get better. Follow-up if not improving. Print Language: Icelandic Disposition Disposition: Home, Self Care What to do if you have Problems For any increased pain, shortness of breath, bleeding, nausea or vomiting, chestpain, or any unexpected problems, contact your Primary Care Provider. Call [facility] ([phone]) or report to the closest Emergency Room. Call 911 if necessary. 05/11/251846 <Electronically signed by Angelito Hatfield MD> Cosigner Signature (if applicable): CC: Joey 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 SPECIALISTCindy Foss ~ Signed [facility] Work Phone: 1(610) 495-158909-30-2025 [facility] [address] [place] [address] OFFICE VISIT Date of Service: 04/22/25 MR#: [id number] Acct: [id number] Patient: EUNICE MUNOZ (JULIE) Rep #: [id number] : 1975 Provider: ROSE MARY Lovelace Age/Sex: 50/F Location: [facility] Status: Signed Intake Vital Signs 03/14/25 15:47 [...] Parnell Signature: Date (if applicable) CC: ~ [facility]09-30-2025 Progress note Author Vicente Ross [facility] Note Date/Time April 22, 2025 5:04pm [facility] [address] [place] [address] OFFICE VISIT Date of Service: 04/22/25 MR#: [id number] Acct: [id number] Patient: EUNICE MUNOZ (JULIE) Rep #: [id number] : 1975 Provider: ROSE MARY Lovelace Age/Sex: 50/F Location: [facility] Status: Signed Intake Vital Signs 03/14/25 15:47 Height 5 ft 2 in Weight: 176 lb BMI 32.1 BP 110/72 Blood Pressure Location Lt brachial Position Sitting Pulse 67 Pulse Source Monitor Temp 98.1 F Temp Source Oral Pulse Oximetry (%) 97 Oxygen Delivery Method room air Intake Visit Reasons: PE NON DOT DRUG SCREEN/[facility] Chief Complaint: mirgraine Allergies No Known Allergies Allergy (Verified 03/14/25 15:47) Office Procedures [facility] Billing Sheet Testing Drug Screen Collection Only: Yes 04/22/25 3117 <Electronically signed by Vicente BAZZI> Date _ Vicente BAZZI Cosigner Signature: Date (if applicable) CC: ~ [facility] Work Phone: 1(390) 850-732809-16-2025 NoteHNO ID: [id number] Author: VICENTE ARZOLA RN Service: ? Author Type: Registered Nurse Type: Progress Notes Filed: 04/08/2025 15:10 Note Text: Patient identified by name and date of . Eunice Munoz is here for a Depo Provera injection. Patient brought medication. Date last injected: 01/09/2025 Depo-Provera, 150 mg, administered IM right upper quadrant gluteus, Lot # [id number], expiration date 03/23/2029. Depo-Provera was given without incident. Date of last menses: No LMP recorded (lmp unknown). Patient has had an injection. Irregular bleeding - No Menses ceased - Yes Patient instructed to return to clinic in 12 weeks. [email or web address]-[email or web address].pdf Provider SRAVAN was present in office at time of injection. [facility] History of Present illness Narrative* Vicente Arzola RN - 04/08/2025 2:53 PM EDT Patient identified by name and date of . Eunice Munoz is here for a Depo Provera injection. Patient brought medication. Date last injected: 01/09/2025 Depo-Provera, 150 mg, administered IM right upper quadrant gluteus, Lot # [id number], expiration date 03/23/2029. Depo-Provera was given without incident. Date of last menses: No LMP recorded (lmp unknown). Patient has had an injection. Irregular bleeding - No Menses ceased - Yes Patient instructed to return to clinic in 12 weeks. [email or web address]-Provera%[email or web address].pdf Provider SRAVAN was present in office at time of injection. Vicente Arzola RN [facility] History of Present illness Narrative* Emelia [...] PATIENT PRESENTS WITH AN IMPLANTABLE OR ATTACHED ASSISTANT PROFESSOR OF BIOCHEMISTRY: No RADIOLOGY DEPARTMENT: Mammography PERIPHERAL IV DATA: Not applicable SIGNED BY: Aaliyah Drummond January 23, 2025 9:10 AM documented in [facility] encounter[facility]-2025 NoteHNO ID: [id number] Author: EMELIA MARY Mammo Tech Service: ? Author Type: Client Resolution Specialist Type: Progress Notes Filed: 01/23/2025 09:10 Note [...] PATIENT PRESENTS WITH AN IMPLANTABLE OR ATTACHED ASSISTANT PROFESSOR OF BIOCHEMISTRY: No RADIOLOGY DEPARTMENT: Mammography PERIPHERAL IV DATA: Not applicable SIGNED BY: Aaliyah Drummond January 23, 2025 9:10 [facility]06-27-2025 NoteHNO ID: [id number] Author: LURDES FREGOSO APRN.PRESS SET UP PERSON Service: ? Author Type: Nurse Practitioner Type: Progress Notes Filed: 01/17/2025 15:59 Note Text: 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 As applicable, any other physician, advance practice provider, medical student, or other health professional student that will be observing or involved in the sensitive examination for educational or training purposes was discussed with the Patient or Authorized Malted Milk Masher. The Patient or Authorized Malted Milk Masher has agreed to proceed with the sensitive [...] external genitalia normal, normal Bartholin's glands, urethra, [place] Sho[place]'s glands, no vulvar lesions, no cervical lesions, [...] year or sooner as needed Lurdes Fregoso APRN.[facility]06-27-2025 History of Present illness Narrative* Lurdes Fregoso APRN.PRESS SET UP PERSON - 01/17/2025 3:22 PM EDT Patient declined senior hr business partner. Marta is a 49 year old who presents for an annual gynecologic exam without complaints. 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 As applicable, any other physician, advance practice provider, medical student, or other health professional student that will be observing or involved in the sensitive examination for educational or training purposes was discussed with the Patient or Authorized Malted Milk Masher. The Patient or Authorized Malted Milk Masher has agreed to proceed with the sensitive [...] external genitalia normal, normal Bartholin's glands, urethra, [place] Sho[place]'s glands, no vulvar lesions, no cervical lesions, [...] Lurdes Fregoso APRN.ANA PAULA documented in this encounterPark[facility]06-[facility]25 NoteHNO ID: [id number] Author: KERWIN LYNCH MA Service: ? Author Type: Artificial Snow Making Machine Operator Type: Progress Notes Filed: 01/09/2025 09:01 Note Text: Patient identified by name and date of . Eunice Munoz is here for a Depo Provera injection. Patient brought medication. Date last injected: 10/16/2024 Depo-Provera, 150 mg, administered IM left upper quadrant gluteus, Lot # [id number] , expiration date 06/22/2028 . Depo-Provera was given without incident. Date of last menses: Patient's last menstrual period was 09/10/2021. Irregular bleeding - No Menses ceased - Yes STD prevention discussed: Yes Patient instructed to return to clinic in 12 weeks. [email or web address]/contraception/Depo-Provera%20dosing%20calendar.pdf Provider Jessica Owen CNM was present in office at time of injection. [facility]06-19-2025 History of Present illness Narrative* Kerwin Lynch MA - 01/09/2025 8:48 AM EDT Patient identified by name and date of . Eunice Munoz is here for a Depo Provera injection. Patient brought medication. Date last injected: 10/16/2024 Depo-Provera, 150 mg, administered IM left upper quadrant gluteus, Lot # [id number] , expiration date 06/22/2028 . Depo-Provera was given without incident. Date of last menses: Patient's last menstrual period was 09/10/2021. Irregular bleeding - No Menses ceased - Yes STD prevention discussed: Yes Patient instructed to return to clinic in 12 weeks. [email or web address]/contraception/Depo-Provera%20dosing%20calendar.pdf Provider Jessica Owen CNM was present in office at time of injection. documented in this encounterParkview [facility]06-16-2025 Telephone encounter Note * Telephone Encounter - Sapphire Bateman RN - 01/06/2025 11:17 AM EDT Refill request received via [employer]. Patient last seen for annual exam on 10/17/23. Patient has upcoming nurse visit for Depo injection on 01/09/25. Appointment note updated to have patient schedule annual. Sapphire Bateman RN [facility]06-16-2025 Miscellaneous Notes* Telephone Encounter - Sapphire Bateman RN - 01/06/2025 11:17 AM EDT Refill request received via [employer]. Patient last seen for annual exam on 10/17/23. Patient has upcoming nurse visit for Depo injection on 01/09/25. Appointment note updated to have patient schedule annual. Sapphire Bateman RN documented in this encounterParkview Health [facility]03-28-2025 Telephone encounter Note * Telephone Encounter - Nancy Sethi RN - 10/18/2024 9:11 AM EDT Patient here in the office now for Depo. Nancy Sethi RN [facility]03-28-[facility] Miscellaneous Notes* Telephone Encounter - Nancy Sethi RN - 10/18/2024 9:11 AM EDT Patient here in the office now for Depo. Nancy Sethi RN documented in this encounterParkview Health [facility] Hospital03-28-2025 NoteHNO ID: [id number] Author: DAYAMI DEJESUS LPN Service: ? Author Type: LICENSED NURSE Type: Progress Notes Filed: 10/18/2024 09:46 Note Text: Patient identified by name and date of . Eunice Munoz is here for a Depo Provera injection. Patient brought medication. Date last injected: 07/15/2024 Depo-Provera, 150 mg, administered IM right upper quadrant gluteus, Lot # [id number], expiration date 12/21/2028. Depo-Provera was given without incident. Date of last menses: Patient's last menstrual period was 09/10/2021. Irregular bleeding - No Menses ceased - Yes STD prevention discussed: Yes Patient instructed to return to clinic in 12 weeks. [email or web address]/contraception/Depo-Provera%20dosing%20calendar.pdf Provider Amy Velazquez was present in office at time of injection. [facility] History of Present illness Narrative* Dayami Dejesus LPN - 10/18/2024 9:02 AM EDT Patient identified by name and date of . Eunice Munoz is here for a Depo Provera injection. Patient brought medication. Date last injected: 07/15/2024 Depo-Provera, 150 mg, administered IM right upper quadrant gluteus, Lot # [id number], expiration date 12/21/2028. Depo-Provera was given without incident. Date of last menses: Patient's last menstrual period was 09/10/2021. Irregular bleeding - No Menses ceased - Yes STD prevention discussed: Yes Patient instructed to return to clinic in 12 weeks. [email or web address]/contraception/Depo-Provera%20dosing%20calendar.pdf Provider Amy Velazquez was present in office at time of injection. Dayami Dejesus LPN documented in this encounterParkview Health [facility]03-26-2025 Telephone encounter Note * Telephone Encounter - Dayami Dejesus LPN - 10/16/2024 4:54 PM EDT RM patient called to schedule nurse visit for depo injection. [facility] Miscellaneous Notes* Telephone Encounter - Dayami Dejesus LPN - 10/16/2024 4:54 PM EDT RM patient called to schedule nurse visit for depo injection. Needs Rx sent to [facility] documented in this encounterParkview Health [facility]03-19-2025 Telephone encounter Note * Telephone Encounter - Savanna Jimenez RN - 10/09/2024 1:44 PM EDT Patient coming in today for depo nurse visit. Please file CAM order. Savanna Jimenez RN [facility]03-19-2025 Miscellaneous Notes* Telephone Encounter - Savanna Jimenez RN - 10/09/2024 1:44 PM EDT Patient coming in today for depo nurse visit. Please file CAM order. Savanna Jimenez RN documented in this encounterParkview Health [facility] Hospital12-23-2024 NoteHNO ID: [id number] Author: NANCY SETHI RN Service: ? Author Type: Registered Nurse Type: Progress Notes Filed: 07/15/2024 10:08 Note Text: Patient identified by name and date of . Eunice Munoz is here for a Depo Provera injection. Patient brought medication. Date last injected: 04/08/24 negative UPT Depo-Provera, 150 mg, administered IM left upper quadrant gluteus, Lot # [id number], expiration date 11/21/2027. Depo-Provera was given without incident. Date of last menses: Patient's last menstrual period was 09/10/2021. Irregular bleeding - No Menses ceased - Yes Patient instructed to return to clinic on 12 weeks +/- 5 days. [email or web address]/Depo-Provera%20dosing%20calendar.pdf Provider Ivet Velazquez CNM was present in office at time of injection. [facility] History of Present illness Narrative* Nancy Sethi RN - 07/15/2024 9:46 AM EST Patient identified by name and date of . Eunice Munoz is here for a Depo Provera injection. Patient brought medication. Date last injected: 04/08/24 negative UPT Depo-Provera, 150 mg, administered IM left upper quadrant gluteus, Lot # [id number], expiration date 11/21/2027. Depo-Provera was given without incident. Date of last menses: Patient's last menstrual period was 09/10/2021. Irregular bleeding - No Menses ceased - Yes Patient instructed to return to clinic on 12 weeks +/- 5 days. [email or web address]/contraception/Depo-Provera%20dosing%20calendar.pdf Provider Ivet Velazquez CNM was present in office at time of injection. Nancy Sethi RN documented in this encounterParkview Health [facility]12-22-2024 Instructions* Patient Instructions* Essie Bearden, KIM.PRESS SET UP PERSON - 07/14/2024 12:33 PM EST ASSESSMENT/PLAN: 1. Viral URI with cough - ICD9: 465.9, ICD10: J06.9 (primary diagnosis) - Discussed viral etiology and rationale for treatment. - Symptomatic treatment with prn analgesia - Supportive care with fluids and rest - COVID & INFLUENZA A/B & RSV PCR, ROUTINE - PTHRYUKDVECUZSM-OBSMCXMVTBUVXID-QT 2 MG-30 MG-10 MG/5 ML ORAL SYRUP [...] Discussed expected course of illness Essie Bearden APRN.[facility] PATIENT INFO PNEUMONIA OVERVIEW Pneumonia is an [...] the community, rather than in a hospital, shelter, or assisted-living facility. About four million cases [...] respiratory secretions, people with pneumonia should limit pzvm-hk-fnmf contact with uninfected family and friends. The mouth and nose should be covered while coughing or sneezing, and tissues should be disposed of immediately. Sneezing/coughing into the sleeve of one's clothing (at the inner elbow) is another means of containing sprays of saliva and secretions and has the advantage of not contaminating the hands. documented in this encounterParkview Health [facility] Hospital12-22-2024 NoteHNO ID: [id number] Author: ESSIE BEARDEN APRN.PRESS SET UP PERSON Service: ? Author Type: Nurse Practitioner Type: [...] day for 7 days.Disp: 14 tabletRfl: 0 Pdkaqmoiulsffkn-Nkfwzfnha-RK (BROMFED DM) 2-30-10 mg/5 mL syrupTake 5 [...] INFLUENZA A/B AND RSV PCR, ROUTINE - ISLLSMHNTOQYOGZ-JAOVEHUPFILGSZP-AT 2 MG-30 MG-10 MG/5 ML ORAL SYRUP [...] Discussed expected course of illness Essie Bearden APRN.[facility]12-22-2024 History of Present illness Narrative* Essie Bearden APRN.PRESS SET UP PERSON - 07/14/2024 12:27 PM EST Subjective Cough [...] day for 7 days.^Disp: 14 tablet^Rfl: 0 Wociqwmixgcxpgv-Fmcyssnug-TP (BROMFED DM) 2-30-10 mg/5 mL syrup^Take 5 [...] INFLUENZA A/B & RSV PCR, ROUTINE - OCQMHTPZQLWCQRD-EPOCBTIHMXCCATQ-PK 2 MG-30 MG-10 MG/5 ML ORAL SYRUP [...] Discussed expected course of illness Essie Bearden APRN.PRESS SET UP PERSON documented in this encounterParkview Health [facility] Hospital09-16-2024 History of Present illness Narrative* Savanna Jimenez RN - 04/08/2024 3:54 PM EDT Patient identified by name and date of . Eunice Munoz is here for a Depo Provera injection. Patient brought medication. Date last injected: 01/05/2024 - negative test Depo-Provera, 150 mg, administered IM right upper quadrant gluteus, Lot # [id number], expiration date 10/22/2027. Depo-Provera was given without incident. Date of last menses: Patient's last menstrual period was 09/10/2021. Irregular bleeding - No Menses ceased - Yes Patient instructed to return to clinic on 12 weeks. [email or web address]/Depo-Provera%20dosing%20calendar.pdf Provider Dr. Duff was present in office at time of injection. Savanna Jimenez RN documented in this encounterParkview Health [facility]06-14-2024 History of Present illness Narrative* Nancy Sethi RN - 01/05/2024 9:29 AM EDT Patient identified by name and date of . Eunice Munoz is here for a Depo Provera injection. Patient brought medication. Date last injected: 10/11/23 Depo-Provera, 150 mg, administered IM left upper quadrant gluteus, Lot # [id number], expiration date 08/2025. Depo-Provera was given without incident. Date of last menses: Patient's last menstrual period was 09/10/2021. Medication verified by dispensing pharmacist. Patient instructed to return to clinic on 12 weeks. [email or web address]/contraception/Depo-Provera%20dosing%20calendar.pdf Provider Lori Briceño MD was present in office at time of injection. Nancy Sethi RN documented in this encounterParkview Health [facility] Hospital04-09-2024 Miscellaneous Notes* Letter - Coordinator, Mammography - 10/31/2023 1:04 PM EDT October 31, 2023 PID: [id number] Eunice Munoz [address] [place] [address] Dear Ms. Munoz, Your prior imaging studies [...] report will be [facility] as part of your permanent medical record and are available for your continuing care. Thank you for allowing us to help in meeting your health care needs. Sincerely, Dr. Santoyo Interpreting Radiologist [facility] ([employer] compared) documented in this encounterParkview Health [facility] Hospital03-27-2024 Discharge summary Author Angelito Hatfield [facility] October 18, 2023 7:04pm Note Date/Time October 18, 2023 6:0 3pm [facility] Medical Records Department [address] [place] [address] Emergency Department Summary 10/18/23 MR#: [id number] Acct: [id number] Name: EUNICE MUNOZ Rep #:[id number] : 1975 48 From: Angelito Hatfield MD [...] 150 mg/mL intramuscular syringe 150 mg IM [id number] 11/11/22 [History Last Taken Unknown] buspirone 5 [...] all 4 extremities. 5 out of 5 snap shearer strength. Dorsi plantarflexion intact. Ktjz-ja-soqh and fingertip to nose within normal limits. [...] impaired, lethargic or stuporous Coordination / Balance: vpzuxy-eo-eeab test normal and sscu-vn-xgkv test normal Speech: speech normal Motor Exam: [...] medroxyprogesterone 150 mg/mL syringe 150 mg IM [id number] Nurtec ODT 75 mg tablet,disintegrating 75 mg [...] your Primary Care Provider. Call [facility] ([phone]) or report to the closest Emergency Room. Call 911 if necessary. 10/18/231903 <Electronically signed by Angelito Hatfield MD> Cosigner Signature (if applicable): CC: Markus Maurer DO ~ Signed [facility] Work Phone: 1(220) 738-560203-26-2024 History of Present illness Narrative* Lurdes Fregoso APRN.PRESS SET UP PERSON - 10/17/2023 11:29 AM EDT Patch Driller offered: Patient declines. Marta is a 48 year old who presents for an annual gynecologic exam without complaints. 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 History Comments: Sexual Activity: Yes; Male Contraception: [...] external genitalia normal, normal Bartholin's glands, urethra, [place] Sho[place]'s glands, no vulvar lesions, no cervical lesions, [...] needed Lurdes Fregoso APRN.CNP documented in this encounterParkview Health [facility] Hospital03-26-2024 History of Present illness Narrative* Jessica [...] PATIENT PRESENTS WITH AN IMPLANTABLE OR ATTACHED ASSISTANT PROFESSOR OF BIOCHEMISTRY: No RADIOLOGY DEPARTMENT: Mammography PERIPHERAL IV DATA: Not applicable SIGNED BY: RT Dionicio(R) October 17, 2023 10:48 AM documented in this encounterParkview Health [facility] Hospital03-20-2024 History of Present illness Narrative* Nacny Sethi RN - 10/11/2023 4:08 PM EDT Patient identified by name and date of . Eunice Munoz is here for a Depo Provera injection. Patient brought medication. Date last injected: out of range - negative UPT Depo-Provera, 150 mg, administered IM right upper quadrant gluteus, Lot # [id number], expiration date 10/2024. Depo-Provera was given without incident. Date of last menses: Patient's last menstrual period was 09/10/2021. Medication verified by dispensing pharmacist Patient instructed to return to clinic on 12 weeks. [email or web address]-Provera%20dosing%20calendar.pdf Provider Ivet Velazquez CNM was present in office at time of injection. Nancy Sethi RN documented in this encounterParkview Health [facility] Hospital03-19-2024 Miscellaneous Notes* Telephone Encounter - Savanna Jimenez RN - 10/10/2023 1:22 PM EDT Next depo nurse visit scheduled for tomorrow. [employer] message sent in different encounter to schedule annual while in office tomorrow. CAM order pending too. Requested Prescriptions Pending Prescriptions Disp Refills medroxyPROGESTERone (DEPO-PROVERA) 150 mg/mL 1 Each 0 Sig: Inject 1 mL intramuscularly every 12 weeks. medroxyPROGESTERone 150 mg injection (DEPO-PROVERA) Savanna Jimenez RN documented in this encounterParkview Health [facility] Hospital08-29-2023 History of Present illness Narrative* Savanna Jimenez RN - 03/21/2023 9:16 AM EDT Patient identified by name and date of . Eunice Munoz is here for a Depo Provera injection. Patient brought medication. Date last injected: 12/26/22 Depo-Provera, 150 mg, administered IM left upper quadrant gluteus, Lot # [id number], expiration date 10/21/2024. Depo-Provera was given without incident. Date of last menses: Patient's last menstrual period was 09/10/2021. Irregular bleeding - No Menses ceased - Yes STD prevention discussed: Yes Patient instructed to return to clinic on 12 weeks. [email or web address]/Depo-Provera%20dosing%20calendar.pdf Provider Dr. Briceño was present in office at time of injection. Savanna Jimenez RN documented in this encounterParkview Health [facility] Hospital06-05-2023 History of Present illness Narrative* Nancy Sethi RN - 12/26/2022 3:55 PM EDT Patient identified by name and date of . Eunice Munoz is here for a Depo Provera injection. Patient brought medication. Date last injected: 08/31/22 - negative test. Depo-Provera, 150 mg, administered IM right upper quadrant gluteus, Lot # [id number], expiration date 08/2024. Depo-Provera was given without incident. Medication verified by dispensing pharmacist Patient instructed to return to clinic on 12 weeks. [email or web address]/contraception/Depo-Provera%20dosing%20calendar.pdf Provider Jessica Owen CNM was present in office at time of injection. Nancy Sethi RN documented in this encounterParkview Health [facility] Hospital03-29-2023 History and physical note * Aaliyah [...] entered by the nurse and reviewed by ga Nursing Notes: Iza Jean-Baptiste LPN 09/15/2022 8:20 [...] (97.9 F), height 160 cm (5' 3), .3 kg (170 lb 6.4 oz), last menstrual [...] entered by the nurse and reviewed by ga Nursing Notes: Iza Jean-Baptiste LPN 09/15/2022 8:20 [...] (97.9 F), height 160 cm (5' 3), cqpnyj60.3 kg (170 lb 6.4 oz), last menstrual [...] cancer (primary encounter diagnosis) documented in this encounterParkview Health Bryan Hospital03-29-2023 Nurse Note* Kristina Vázquez RN - 10/19/2022 9:48 AM EDT Arrived in phase II via cart. Left lateral position. Sedated, but responds to verbal stimuli. Colornormal; skin warm and dry. Respirations wnl and unlabored. Abdomen soft and with + bowel sounds in quads X 4. Patient resting comfortably. Kristina Vázquez RN documented in this encounterParkview Health [facility] Hospital03-15-2023 Instructions* Patient Instructions* Essie Bearden APRN.ANA [...] Essie Bearden APRN.ANA PAULA documented in this encounterParkview Health [facility] Hospital03-15-2023 History of Present illness Narrative* Essie [...] Essie Bearden APRN.ANA PAULA documented in this encounterParkview Health [facility] Hospital02-24-2023 History of Present illness Narrative* Aaliyah [...] (97.9 F), height 160 cm (5' 3), kiwvwl58.3 kg (170 lb 6.4 oz), last menstrual [...] patient will be scheduled for colonosocpy at [facility]. I spent a total of 35 minutes on the date of the service which included preparing to see the patient with review of any pertinent laboratory studies/radiological imaging/medical records, lqwx-kb-rttopqmnqyc care, obtaining oral medical history from the patient in this encounter, performing a medically appropriate examination, counseling and educating the patient/family/caregiver, and ordering and/or scheduling of medications/tests/procedures, and completing appropriate medical documentation. Aaliyah Aguilar MD documented in this encounterParkview Health [facility] Hospital02-23-2023 Instructions* Patient Instructions* Aaliyah Aguilar MD [...] If you do not have a responsible hazmat cdl a driver (family member or friend) with you to [...] your exam. 2 06/2019 documented in this encounterParkview Health [facility] Hospital02-23-2023 Nurse Note* Iza Jean-Baptiste LPN - [...] 2017 Iza Jean-Baptiste LPN documented in this encounterParkview Health [facility] Hospital02-14-2023 History of Present illness Narrative* Lurdes Fregoso, SUPERINTENDENT LOGGING.PRESS SET UP PERSON - 09/06/2022 7:58 AM EST Marta is a 47 year old who presents for an annual gynecologic exam without complaints. 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 History Comments: Sexual Activity: Yes; Male Contraception: [...] external genitalia normal, normal Bartholin's glands, urethra, [place]'s glands, no vulvar lesions, no cervical lesions, [...] SURGERY Lurdes Fregoso APRN.CNP documented in this encounterParkview Health [facility] Hospital02-08-2023 History of Present illness Narrative* Johana [...] 31, 2022 1:40 PM documented in this encounterParkview Health [facility] Hospital02-08-2023 Instructions* Patient Instructions* Sonny Maderamino - 08/31/2022 1:23 PM EST Get xray to further access Could pop the cyst vs aspirate vs removal Will get xrays and then discuss further thereafter. documented in this encounterParkview Health Bryan Hospital02-08-2023 History of Present illness Narrative* Sonny [...] [place] DPM Podiatry [address] [facility] [address] Dept: [phone] Dept * Diane Perez RN - 08/31/2022 1:06 PM EST Patient presents with: Right 4th Toe - New Patient, Cyst Patient c/o cyst to R 4th toe. Rubs when she wears certain shoes - hey dudes. She has popped it before and clear drainage came out. She has had these in the past. documented in this encounterParkview Health [facility] Hospital11-16-2022 History of Present illness Narrative* Savanna Jimenez RN - 06/08/2022 2:47 PM EST Patient identified by name and date of . Eunice Munoz is here for a Depo Provera injection. Patient brought medication. Date last injected: 03/09/22 Depo-Provera, 150 mg, administered IM left upper quadrant gluteus, Lot # [id number], expiration date 11/2023. Depo-Provera was given without incident. Date of last menses: Patient's last menstrual period was 09/10/2021. Irregular bleeding - No Menses ceased - Yes Patient instructed to return to clinic on 12 weeks. [email or web address]-Provera%20dosing%20calendar.pdf Provider Dr. Gusman was present in office at time of injection. Savanna Jimenez RN documented in this encounterPark[facility]-10-2022 Miscellaneous Notes* Telephone Encounter - Lurdes Fregoso APRN.CNP - 06/02/2022 8:28 AM EST Order filed. Lurdes Fregoso APRN.CNP * Telephone Encounter - Deepthi Mccain LPN - 06/02/2022 7:59 AM EST Please see pended cam order below. Deepthi Mccain LPN documented in this encounterPark[facility] Hospital10-05-2022 Miscellaneous Notes* [facility] Outreach Note - Jennifer Bhat MA - 04/27/2022 2:08 PM EDT Member on Termed list. No [facility] Number Coverage Terminated on 11/20/21 Closed from Weight Program documented in this encounterParkview [facility] Hospital07-24-2022 History of Present illness Narrative* Essie Bearden APRN.PRESS SET UP PERSON - 02/13/2022 10:33 AM EDT Subjective HPI [...] Wt 74.4 kg (164 lb) LMP 09/10/2021 QxO177% BMI 29.05 kg/m PAST MEDICAL HISTORY Diagnosis [...] illness Essie Bearden APRN.CNP documented in this encounterParkview Health [facility] Hospital07-24-2022 Instructions* Patient Instructions* Essie Bearden APRN.CNP [...] Discussed expected course of illness Essie Bearden APRN.PRESS SET UP PERSON Beginning Home Isolation Isolation is used to [...] to your local emergency facility: Notify the decorating machine operator that you are seeking care for [...] or concerning to you. documented in this encounterParkview Health [facility] Hospital04-11-2022 Miscellaneous Notes* [facility] Outreach Note - Zahira Simmons RN [...] medication refills N/A Enroll in weight management [facility] Transfer to [place] documented in this encounterParkview Health Bryan HospitalDischarge summary Author Dr. Waters [facility] January 16, 2023 10:08am Note Date/Time January 16, 2023 9:07 am [facility] Medical Records Department [address] [place] [address] Emergency Department Summary 01/16/23 MR#: [id number] Acct: [id number] Name: EUNICE MUNOZ Rep #:[id number] : 1975 47 From: Garrett Waters MD PCP: Vi Gagnon, 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 SPECIALIST-C Status:REG ER Location: ED HPI History of [...] Hypercholesterolemia, Family History 1' </=55 or Smoking [facility] Medical History Anxiety and depression H/O pyloric stenosis IBS (irritable bowel syndrome) Laceration of right hand Murmur Right foot sprain Scoliosis Home Medications medroxyprogesterone 150 mg/mL intramuscular syringe 150 mg IM [id number] 11/11/22 [History Last Taken Unknown] buspirone 5 [...] % (Auto) 50.7 Lymph % (Auto) 38.1 Erath % (Auto) 8.2 Eos % (Auto) 2.2 [...] medroxyprogesterone 150 mg/mL syringe 150 mg IM [id number] Nurtec ODT 75 mg tablet,disintegrating 75 mg PO QDAY PRN (Reason: migraine headache) Qty: 20 1RF Rx Instructions: as a single dose buspirone 5 mg tablet 5 mg PO BID Qty: 180 2RF Primary Care Provider: Vi Gagnon NP Referrals: Vi Gagnon NP, 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 SPECIALIST-C [Primary Care Provider] - 1-2 Weeks Disposition Disposition: Home, Self Care What to do if you have Problems For any increased pain, shortness of breath, bleeding, nausea or vomiting, chestpain, or any unexpected problems, contact your Primary Care Provider. Call [facility] ([phone]) or report to the closest Emergency Room. Call 911 if necessary. 01/16/23 1008 <Electronically signed by Garrett Waters MD> Cosigner Signature (if applicable): CC: 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 SPECIALIST-Joey Gagnon ~ Signed [facility] Work Phone: Evaluation note* Diagnosis Viral illness- Primary Unspecified viral infection, in conditions classified elsewhere and of unspecified site documented in this encounter [facility] note* Diagnosis Onset Date Resolution Status Physical exam, pre-employment acute Right foot sprain acute [facility] Work Phone: Evaluation note* Diagnosis Encounter for management and injection of depo-Provera- Primary Surveillance of other previously prescribed contraceptive method documented in this encounter [facility] note* Diagnosis Encounter for management and injection of depo-Provera- Primary Surveillance of other previously prescribed contraceptive method documented in this encounter [facility] note* Diagnosis Ganglion cyst- Primary Ganglion, unspecified documented in this encounter [facility] note* Diagnosis Encounter for gynecological examination (general) (routine) without abnormal findings- Primary Encounter for surveillance of injectable contraceptive Surveillance of other previously prescribed contraceptive method Encounter for screening for malignant neoplasm of colon Special screening for malignant neoplasms, colon documented [facility]* Diagnosis Screening for colon cancer- Primary Special screening for malignant neoplasms, colon documented in this encounter [facility]* Diagnosis Other acute nonsuppurative otitis media of both ears, recurrence not specified- Primary Viral URI with cough Acute upper respiratory infections of unspecified site documented in this encounter [facility]* Diagnosis Onset Date Resolution Status Acute sinusitis acute Contact with or suspected ex posure to other viral communicable disease acute Migraine chronic Anxiety and depression chron ic Migraine chronic [facility] Work Phone: Evaluation note* Diagnosis Depo-Provera contraceptive status- Primary Surveillance of other previously prescribed contraceptive method Encounter for management and injection of depo-Provera Surveillance of other previously prescribed contraceptive method documented [facility] this encounter [facility]* Diagnosis Onset Date Resolution Status Acute sinusitis acute Contact with or suspected ex posure to other viral communicable disease acute Migraine chronic Anxiety and depression chron ic Migraine chronic Anxiety and depression chron ic Migraine chronic [facility] Work Phone: Evaluation note* Diagnosis Encounter for management and injection of depo-Provera- Primary Surveillance of other previously prescribed contraceptive method documented in this encounter [facility]* Diagnosis Ganglion cyst Ganglion, unspecified documented in this encounter [facility]* Diagnosis Screening for colon cancer- Primary Special screening for malignant neoplasms, colon documented in this encounter [facility]* Diagnosis Encounter for management and injection of depo-Provera- Primary Surveillance of other previously prescribed contraceptive method documented in this encounter [facility]* Diagnosis Encounter for gynecological examination (general) (routine) without abnormal findings- Primary Encounter for screening mammogram for breast cancer Dense breast tissue Encounter for surveillance of injectable contraceptive Surveillance of other previously prescribed contraceptive method documented in this encounter [facility]* Diagnosis Encounter for screening mammogram for malignant neoplasm of breast Other screening mammogram documented in this encounter [facility]* Diagnosis Onset Date Resolution Status Migraine chronic [facility] Work Phone: Evaluation note* Diagnosis Encounter for management and injection of depo-Provera- Primary Surveillance of other previously prescribed contraceptive method documented in this encounter [facility] note* Diagnosis Viral URI with cough- Primary Acute upper respiratory infections of unspecified site Lower resp. tract infection Other diseases of respiratory system, not elsewhere classified documented in this encounter [facility] note* Diagnosis Depo-Provera contraceptive status- Primary Surveillance of other previously prescribed contraceptive method Encounter for management and injection of depo-Provera Surveillance of other previously prescribed contraceptive method documented in this encounter [facility] note* Diagnosis Depo-Provera contraceptive status- Primary Surveillance of other previously prescribed contraceptive method [facility] Diagnosis Encounter for surveillance of other contraceptive- Primary [facility]* Diagnosis Encounter for surveillance of other contraceptive- Primary documented in this encounter [facility] note* Diagnosis Encounter for gynecological examination (general) (routine) without abnormal findings- Primary Encounter for screening mammogram for breast cancer documented in this encounter [facility] note* Diagnosis Encounter for gynecological examination (general) (routine) without abnormal findings Encounter for screening mammogram for breast cancer documented in this encounter [facility] noteNo assessment information availableProvidence [facility] Work Phone: Evaluation note* Diagnosis Onset Date Resolution Status Admit Date Change in bowel habits acute No [id number] 8:11am Rectal bleeding acute May 26, 2025 8:11am [facility] Work Phone: Hospital Discharge instructions Additional Instructions Plenty of fluids and rest. Motrin and Tylenol for pain. Follow-up if not improving or return if feeling a lot worse.[facility] Work Phone: Hospital Discharge instructionsAdditional Instructions Direct trauma to the knee causing a contusion and sprain or strain of your right medial collateral ligament. Ice to the area decrease pain and swelling. Elevate. Motrin for pain and swelling Tylenol for pain. This should progressively improve. You can get an [id number]-ocipftv copper or a neoprene or Velcro sleeve for your knee at like a sporting goods store or a pharmacy. Just use it for a week or 2 and it should progressively get better. Follow-up if not improving.[facility] Work Phone: [facility] for referral (narrative)* Diagnostic Procedure Only (Routine) - Closed Specialty Diagnoses / Procedures Referred By Contac t Referred To Contact [facility] IMAGING Diagnoses Ganglion cyst Procedures XR FOOT GENERAL 3V AP/LAT/OBL RIGHT RADEX FOOT COMPLETE MINIMUM 3 VIEWS Sonny Staton [address] [place] [address] Xr Imaging Referral ID Status Reason Start Date Expiration Date V isits Requested Visits Authorized [id number] Closed Auto-Generate d Referral 08/31/2022 09/30/2023 1 1 [facility] for referral (narrative)* Outpatient Procedure (Routine) - Authorized Specialty Diagnoses / Procedures Referred By Contac t Referred To Contact [facility] Diagnoses Screening for colon cancer Procedures COLONOSCOPY SCREENING COLONOSCOPY FLX DX W/COLLJ SPEC WHEN PFRMD Aaliyah Aguilar MD [address] [place] [address] [facility] [address] [place] [address] Referral ID Status Reason Start Date Expiration Date Visits Requested Visits Authorized [id number] Authorized Auto-Generat ed Referral 09/15/2022 09/15/2023 1 1 [facility] for referral (narrative)* Diagnostic Procedure Only (Routine) - Closed Specialty Diagnoses / Procedures Referred By Contac t Referred To Contact XR IMAGING Diagnoses Ganglion cyst Procedures XR FOOT GENERAL 3V AP/LAT/OBL RIGHT RADEX FOOT COMPLETE MINIMUM 3 VIEWS Sonny Staton [address] [place] [address] [place] [address] Referral ID Status Reason Start Date Expiration Date V isits Requested Visits Authorized [id number] Closed Auto-Generate d Referral 08/31/2022 09/30/2023 1 1 [facility] for referral (narrative)* Outpatient Procedure (Routine) - Closed Specialty Diagnoses / Procedures Referred By Contac t Referred To Contact [facility] Diagnoses Screening for colon cancer Procedures COLONOSCOPY SCREENING COLONOSCOPY FLX DX W/COLLJ SPEC WHEN Aaliyah Nelson MD [address] [place] [address] [facility] [address] [place] [address] Referral ID Status Reason Start Date Expiration Date V isits Requested Visits Authorized [id number] Closed Auto-Generate d Referral 09/15/2022 09/15/2023 1 1 [facility] for referral (narrative)* Diagnostic Procedure Only (Routine) - Authorized Specialty Diagnoses / Procedures Referred By Contac t Referred To Contact [facility] Diagnoses Encounter for screening mammogram for breast cancer Dense breast tissue Procedures RYNE SCREENING W DELFINA SCREENING DIGITAL BREAST TOMOSYNTHESIS BI SCREENING MAMMOGRAPHY BI 2-VIEW BREAST INC Lurdes Perdomo, RADHA [address] [place] [address] [facility] [address] [place] [phone] Referral ID Status Reason Start Date Expiration Date Visits Requested Visits Authorized [id number] Authorized Auto-Generat ed Referral 10/17/2023 11/15/2024 1 1 [facility] for referral (narrative)No reason for referral information availableSt. [facility] Work Phone: Reason for visit Narrative* Diagnostic Procedure Only (Routine) - Closed Specialty Diagnoses / Procedures Referred By Contac t Referred To Contact XR IMAGING Diagnoses Ganglion cyst Procedures XR FOOT GENERAL 3V AP/LAT/OBL RIGHT RADEX FOOT COMPLETE MINIMUM 3 VIEWS Sonny Staton [address] [place] [address] [place] [id number] Referral ID Status Reason Start Date Expiration Date V isits Requested Visits Authorized [id number] Closed Auto-Generate d Referral 08/31/2022 09/30/2023 1 1 [facility] for visit Narrative* Outpatient Procedure (Routine) - Closed Specialty Diagnoses / Procedures Referred By Ezio t Referred To Contact [facility] Diagnoses Screening for colon cancer Procedures COLONOSCOPY SCREENING COLONOSCOPY FLX DX W/COLLJ SPEC WHEN Aaliyah Nelson MD [address] [place] [address] [facility] [address] [place] [address] Referral ID Status Reason Start Date Expiration Date V isits Requested Visits Authorized [id number] Closed Auto-Generate d Referral 09/15/2022 09/15/2023 1 1 [facility] for visit Narrative* Diagnostic Procedure Only (Routine) - Closed Specialty Diagnoses / Procedures Referred By Ezio live Referred To Contact [facility] Diagnoses Encounter for screening mammogram for malignant neoplasm of breast Procedures RYNE SCREENING W DELFINA SCREENING DIGITAL BREAST TOMOSYNTHESIS BI SCREENING MAMMOGRAPHY BI 2-VIEW BREAST INC CAD [place], SUPERINTENDENT LOGGING.PRESS SET UP PERSON [address] [place] [address] [facility] [address] [place] [address] Referral ID Status Reason Start Date Expiration Date V isits Requested Visits Authorized [id number] Closed Auto-Generate d Referral 07/28/2023 08/25/2024 1 1 [facility] for visit Narrative* Diagnostic Procedure Only (Routine) - Closed Specialty Diagnoses / Procedures Referred By Ezio t Referred To Contact [facility] Diagnoses Encounter for gynecological examination (general) (routine) without abnormal findings Encounter for screening mammogram for breast cancer Procedures RYNE SCREENING W DELFINA SCREENING DIGITAL BREAST TOMOSYNTHESIS BI SCREENING MAMMOGRAPHY BI 2-VIEW BREAST INC CAD ZenobiaLurdes, SUPERINTENDENT LOGGING.PRESS SET UP PERSON [address] [place] [address] Phone: tel: fax: [facility] [address] [place] [address] Referral ID Status Reason Start Date Expiration Date V isits Requested Visits Authorized [id number] Closed Auto-Generate d Referral 01/17/2025 02/16/2026 1 1 [facility] Concerns Infection Onset Date Last [...] PAY TB READ MIGRAINE 2ND STEP TB 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 SPECIALIST. EST CARE (REQ. VI) Reason for Visit Acute sinusitis Contact with or suspected exposure to other viral communicable disease Migraine Anxiety and depression Migraine Chief Complaint CONGESTION/AGARWAL/BA/SOR E THROAT COVID TEST/BMS EMPLOYEE TB TEST/SELF PAY TB READ MIGRAINE 2ND STEP TB 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 SPECIALIST. EST CARE (REQ. VI) 6 wk FU [...] Will No July 20 7:57pm Power of Shoulder Pad Molder No July 20, 2021 7:57pm Advance Directive Response Recorded Date/ Time Living Will No January 16, 2023 9:06am Power of Shoulder Pad Molder No January 16 9:06am Advance Directive Response Recorded Date/ Time Living Will No October 18, 2023 6:18pm Power of Shoulder Pad Molder No October 17 6:18pm Advance Directive Response Recorded Date/ Time Do you have a Healthcare Power of Shoulder Pad Molder? No May 11, 2025 4:57pm Medications Administered [...] colon Procedures CONSULT TO GENERAL SURGERY OFFICE/OUTPATIENT [facility] 60-74 MINUTES Lurdes Fregoso APRN.PRESS SET UP PERSON [address] [place] [address] Referral ID Status Reason Start Date Expiration Date Visits Requested Visits Authorized [id number] Authorized PCP Requested Referral 09/06/2022 09/06/2023 1 [...] or prosecute any alcohol or drug abuse patient.[facility] HospitalIn the event this information is protected by the Federal Confidentiality of Alcohol and Drug Abuse Patient Records regulations: The Federal rules restrict any use of the information to criminally investigate or prosecute any alcohol or drug abuse patient.[facility] HospitalIn the event this information is protected by the Federal Confidentiality of Alcohol and Drug Abuse Patient Records regulations: The Federal rules restrict any use of the information to criminally investigate or prosecute any alcohol or drug abuse patient.[facility] HospitalIn the event this information is protected by the Federal Confidentiality of Alcohol and Drug Abuse Patient Records regulations: The Federal rules restrict any use of the information to criminally investigate or prosecute any alcohol or drug abuse patient.[facility] HospitalIn the event this information is protected by the Federal Confidentiality of Alcohol and Drug Abuse Patient Records regulations: The Federal rules restrict any use of the information to criminally investigate or prosecute any alcohol or drug abuse patient.[facility] HospitalIn the event this information is protected by the Federal Confidentiality of Alcohol and Drug Abuse Patient Records regulations: The Federal rules restrict any use of the information to criminally investigate or prosecute any alcohol or drug abuse patient.[facility] HospitalIn the event this information is protected by the Federal Confidentiality of Alcohol and Drug Abuse Patient Records regulations: The Federal rules restrict any use of the information to criminally investigate or prosecute any alcohol or drug abuse patient.[facility] HospitalIn the event this information is protected by the Federal Confidentiality of Alcohol and Drug Abuse Patient Records regulations: The Federal rules restrict any use of the information to criminally investigate or prosecute any alcohol or drug abuse patient.[facility] HospitalIn the event this information is protected by the Federal Confidentiality of Alcohol and Drug Abuse Patient Records regulations: The Federal rules restrict any use of the information to criminally investigate or prosecute any alcohol or drug abuse patient.[facility] HospitalIn the event this information is protected by the Federal Confidentiality of Alcohol and Drug Abuse Patient Records regulations: The Federal rules restrict any use of the information to criminally investigate or prosecute any alcohol or drug abuse patient.[facility] HospitalIn the event this information is protected by the Federal Confidentiality of Alcohol and Drug Abuse Patient Records regulations: The Federal rules restrict any use of the information to criminally investigate or prosecute any alcohol or drug abuse patient.[facility] HospitalIn the event this information is protected by the Federal Confidentiality of Alcohol and Drug Abuse Patient Records regulations: The Federal rules restrict any use of the information to criminally investigate or prosecute any alcohol or drug abuse patient.[facility] HospitalIn the event this information is protected by the Federal Confidentiality of Alcohol and Drug Abuse Patient Records regulations: The Federal rules restrict any use of the information to criminally investigate or prosecute any alcohol or drug abuse patient.[facility] HospitalIn the event this information is protected by the Federal Confidentiality of Alcohol and Drug Abuse Patient Records regulations: The Federal rules restrict any use of the information to criminally investigate or prosecute any alcohol or drug abuse patient.[facility] HospitalIn the event this information is protected by the Federal Confidentiality of Alcohol and Drug Abuse Patient Records regulations: The Federal rules restrict any use of the information to criminally investigate or prosecute any alcohol or drug abuse patient.[facility] HospitalIn the event this information is protected by the Federal Confidentiality of Alcohol and Drug Abuse Patient Records regulations: The Federal rules restrict any use of the information to criminally investigate or prosecute any alcohol or drug abuse patient.[facility] HospitalIn the event this information is protected by the Federal Confidentiality of Alcohol and Drug Abuse Patient Records regulations: The Federal rules restrict any use of the information to criminally investigate or prosecute any alcohol or drug abuse patient.[facility] HospitalIn the event this information is protected by the Federal Confidentiality of Alcohol and Drug Abuse Patient Records regulations: The Federal rules restrict any use of the information to criminally investigate or prosecute any alcohol or drug abuse patient.[facility] HospitalIn the event this information is protected by the Federal Confidentiality of Alcohol and Drug Abuse Patient Records regulations: The Federal rules restrict any use of the information to criminally investigate or prosecute any alcohol or drug abuse patient.[facility] HospitalIn the event this information is protected by the Federal Confidentiality of Alcohol and Drug Abuse Patient Records regulations: The Federal rules restrict any use of the information to criminally investigate or prosecute any alcohol or drug abuse patient.[facility] HospitalIn the event this information is protected by the Federal Confidentiality of Alcohol and Drug Abuse Patient Records regulations: The Federal rules restrict any use of the information to criminally investigate or prosecute any alcohol or drug abuse patient.[facility] HospitalIn the event this information is protected by the Federal Confidentiality of Alcohol and Drug Abuse Patient Records regulations: The Federal rules restrict any use of the information to criminally investigate or prosecute any alcohol or drug abuse patient.[facility] HospitalIn the event this information is protected by the Federal Confidentiality of Alcohol and Drug Abuse Patient Records regulations: The Federal rules restrict any use of the information to criminally investigate or prosecute any alcohol or drug abuse patient.[facility] HospitalIn the event this information is protected by the Federal Confidentiality of Alcohol and Drug Abuse Patient Records regulations: The Federal rules restrict any use of the information to criminally investigate or prosecute any alcohol or drug abuse patient.[facility] HospitalIn the event this information is protected by the Federal Confidentiality of Alcohol and Drug Abuse Patient Records regulations: The Federal rules restrict any use of the information to criminally investigate or prosecute any alcohol or drug abuse patient.[facility] HospitalIn the event this information is protected by the Federal Confidentiality of Alcohol and Drug Abuse Patient Records regulations: The Federal rules restrict any use of the information to criminally investigate or prosecute any alcohol or drug abuse patient.[facility] HospitalIn the event this information is protected by the Federal Confidentiality of Alcohol and Drug Abuse Patient Records regulations: The Federal rules restrict any use of the information to criminally investigate or prosecute any alcohol or drug abuse patient.[facility] HospitalIn the event this information is protected by the Federal Confidentiality of Alcohol and Drug Abuse Patient Records regulations: The Federal rules restrict any use of the information to criminally investigate or prosecute any alcohol or drug abuse patient.[facility] HospitalIn the event this information is protected by the Federal Confidentiality of Alcohol and Drug Abuse Patient Records regulations: The Federal rules restrict any use of the information to criminally investigate or prosecute any alcohol or drug abuse patient.[facility] HospitalIn the event this information is protected by the Federal Confidentiality of Alcohol and Drug Abuse Patient Records regulations: The Federal rules restrict any use of the information to criminally investigate or prosecute any alcohol or drug abuse patient.[facility] HospitalIn the event this information is protected by the Federal Confidentiality of Alcohol and Drug Abuse Patient Records regulations: The Federal rules restrict any use of the information to criminally investigate or prosecute any alcohol or drug abuse patient.[facility] HospitalIn the event this information is protected by the Federal Confidentiality of Alcohol and Drug Abuse Patient Records regulations: The Federal rules restrict any use of the information to criminally investigate or prosecute any alcohol or drug abuse patient.[facility] HospitalIn the event this information is protected by the Federal Confidentiality of Alcohol and Drug Abuse Patient Records regulations: The Federal rules restrict any use of the information to criminally investigate or prosecute any alcohol or drug abuse patient.[facility] HospitalIn the event this information is protected by the Federal Confidentiality of Alcohol and Drug Abuse Patient Records regulations: The Federal rules restrict any use of the information to criminally investigate or prosecute any alcohol or drug abuse patient.[facility] HospitalIn the event this information is protected by the Federal Confidentiality of Alcohol and Drug Abuse Patient Records regulations: The Federal rules restrict any use of the information to criminally investigate or prosecute any alcohol or drug abuse patient.[facility] Reason for Visit (unrecogniz ed section and content) Reason Onset Date Comments Sorority Supervisor - Other 10/27/2021 Reason Onset Date Comments Weight Problem 11/01/2021 Reason Comments Cough sore throat, runny n ose, x3days Reason Onset Date Comments Refill Request 03/08/2022 Reason Onset Date Comments Sorority Supervisor - Other 12/17/2021 Reason Comments Orders Reason Onset Date Comments Depo Provera Injection 06/08/2022 Specialty Diagnoses / Procedures Referred By Conthernando t Referred To Contact APPEALS REVIEWER [employer]ETERAN Diagnoses Depo shot Procedures DEPO PROVERA INJECTION Self Wstr, Nurse Fur Sorter [facility] [address] [place] [address] Referral ID Status Reason Start Date Expiration Date V isits Requested Visits Authorized [id number] Authorized 07/24/2021 07/23/2022 4 4 Reason Comments [...] Care Teams (unrecognized sec tion and content) Panel Maker Relationship Specialty Start Date End Date Zahira Simmons RN P Sorority Supervisor 10/27/21 Panel Maker Relationship Specialty Start Date End Date Zahira Simmons RN P Sorority Supervisor 10/27/21 Panel Maker Relationship Specialty Start Date End Date Jennifer Bhat MA [facility] Sorority Supervisor 11/02/21 12/21/21 Team Status: Active Member Role Status Dates [facility] Primary Care Provider A ctive Team Status: Inactive Member Role Status Dates [facility] Primary Care Provider, Referring Provider Active Swapnil Broderick PA, PA Attending Provider Active Team Status: Inactive Member Role Status Dates [facility] Primary Care Provider, Referring Provider Active Vi Gagnon 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 SPECIALIST, 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 SPECIALIST-C Attending Provider Active Team Status: Inactive Member Role Status Dates [facility] Primary Care Provider, Referring Provider Active Vicente Ross PA, PA Attending Provider Active Team Status: Inactive Member Role Status Dates [facility] Primary Care Provider A ctive Vi Gagnon 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 SPECIALIST, 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 SPECIALIST-C Attending Provider Active Team Status: Active Member Role Status Dates Vi Gagnon 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 SPECIALIST, 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 SPECIALIST-C Primary Care Provider Active Team Status: Inactive Member Role Status Dates Vi Gagnon 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 SPECIALIST, 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 SPECIALIST-C Primary Care Provider Active Dr. Garrett Waters MD Emergency Provider Active Panel Maker Relationship Specialty Start Date End Date Markus Maurer, DO [address] [place] [address] PCP - General Family Medicine 09/18/23 Panel Maker Relationship Specialty Start Date End Date Markus Maurer DO [address] [place] [address] PCP - General Family Medicine 09/18/23 Panel Maker Relationship Specialty Start Date End Date Markus Maurer DO [address] [place] [address] PCP - General Family Medicine 09/18/23 Panel Maker Relationship Specialty Start Date End Date Markus Maurer, DO [address] [place] [address] PCP - General Family Medicine 09/18/23 Team Status: Active Member Role Status Dates Markus Maurer DO Primary Care Provider Active Team Status: Inactive Member Role Status Dates iV Gagnon 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 SPECIALIST, 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 SPECIALIST-C Primary Care Provider, Juliane moyer Active Swapnil BAZZI, PA Attending Provider Active Team Status: Inactive Member Role Status Dates Swapnil BAZZI PA Attending Provider Active Team Status: Inactive Member Role Status Dates Dr. Angelito Hatfield MD Emergency Provider Active Markus Maurer DO Primary Care Provider Active Panel Maker Relationship Specialty Start Date End Date Markus Maurer DO [address] [facility] [address] [place] [address] PCP - General Family Medicine 09/18/23 Panel Maker Relationship Specialty Start Date End Date Markus Maurer DO [address] [facility] [address] [place] [address] PCP - General Family Medicine 09/18/23 Panel Maker Relationship Specialty Start Date End Date Markus Maurer DO [address] [facility] [address] [place] [address] PCP - General Family Medicine 09/18/23 Panel Maker Relationship Specialty Start Date End Date Markus Maurer DO PCP - General Family Medicine 09/18/23 Panel Maker Relationship Specialty Start Date End Date Markus Maurer DO PCP - General Family Medicine 09/18/23 Panel Maker Relationship Specialty Start Date End Date Markus Maurer DO PCP - General Family Medicine 09/18/23 Panel Maker Relationship Specialty Start Date End Date Markus Maurer DO PCP - General Family Medicine 09/18/23 Panel Maker Relationship Specialty Start Date End Date Markus Maurer DO PCP - General Family Medicine 09/18/23 Panel Maker Relationship Specialty Start Date End Date Markus Maurer DO PCP - General Family Medicine 09/18/23 Panel Maker Relationship Specialty Start Date End Date Markus Maurer DO PCP - General Family Medicine 09/18/23 Panel Maker Relationship Specialty Start Date End Date Markus [...] 2025 End: April 22, 2025 ROSE MARY Doa Attending physician Active Start: April 22, 2025 [...] 11, 2025 Dr. Angelito Hatfield MD Emergency [facility] Physician Active Start: May 11, 2025 End: [...] section and content) DATE CREATED AUTHOR 04/09/2025 [facility] DATE CREATED AUTHOR AUTHOR'S BURTON ZAMBRANO 06/04/2025 [facility] FOR RECORDS PERTAINING TO PATIENTS WHO [...] BE BASED ON THE PRIMARY CLINICAL RECORDS. [employer] [facility]. provides no warranty or guarantee of the accuracy or completeness of information in this document.
--- NOTE | 2025-07-16 12:00 | PCM.CONS.C ---
Assessment & Plan Assessment/Plan (1) Syncope: PLAN: ? At this point unsure of specific etiology however patient reports prior episodes of syncope as a child as well as post anesthesia. ? Echocardiogram with no significant abnormalities appreciated ? If patient remains okay on telemetry with no further events then okay for discharge from cardiology standpoint. ? For now cardiology will drop to standby. Please call with questions. (2) Obstructive sleep apnea of adult: PLAN: ? Recommend compliance with treatment recommendations (3) Obesity (BMI 30-39.9): PLAN: ? Encourage diet and exercise along with weight loss. PLAN: Plan ? Unsure of etiology for event. For now since patient has a history of this I am not sure she would benefit from a library monitor as an outpatient. ? For now recommend discharge tomorrow if no further events. Follow-up in office with her PCP for general monitoring. Aggressive lifestyle/risk factor modification along with weight loss encouraged. ? Cardiology will drop to standby. Please call with questions. HPI Consult Data Date of Consult: 07/16/25 HPI Narrative Reason for Consultation: Syncope HPI Narrative: CLEVE MOROCHO, is a 50 F with past medical history of anxiety/depression, obesity, osteoarthritis, and obstructive sleep apnea presented to the hospital for planned outpatient right knee surgery. Patient was doing well and postop reports feeling some lightheadedness and like she was about to pass out and this was followed by significant bradycardia heart rate approximately 10 bpm as well as hypotension. CODE BLUE was called and initiation of CPR for short period of time followed by patient having return of consciousness. Patient reports that she has a history of syncope however it has been sometime since her last event. She reports that she has had similar issues but not as severe with previous surgeries and anesthesia. Cardiology consulted for help with management. During my evaluation patient reports feeling well she is still somewhat groggy/fatigued but no other concerning cardiovascular plaints or issues. Review of telemetry and normal sinus rhythm noted with no significant arrhythmias. Review of telemetry during event and appeared to be severe bradycardia noted and unlikely a true sinus pause. [facility] Medical History Injury of head and neck History of stress test Wears glasses Hx of fracture of face bones Loss of consciousness Non-smoker Loose body of right knee Tear of lateral meniscus of right knee Arthritis IBS (irritable bowel syndrome) H/O pyloric stenosis Migraine Home Medications ?Medication ?Instructions ?Recorded ?Last Taken ?Type medroxyprogesterone 150 mg/mL 150 mg IM [id number] 11/11/22 07/07/25 History intramuscular syringe cholecalciferol (vitamin D3) 125 125 mcg PO QDAY 05/26/25 Unknown History mcg (5,000 unit) capsule cyanocobalamin (vitamin B-12) 1,000 mcg IM QMONTH 07/09/25 07/15/25 History 1,000 mcg/mL injection solution crgtsgukoihikgc-gyspnlhcpcrncgv-BT 7.5 ml PO Q4-6H PRN cold symptoms 07/10/25 07/15/25 Rx 2 mg-30 mg-10 mg/5 mL oral syrup #100 mL (Bromfed DM) aspirin 81 mg tablet 81 mg PO BID vte prop 1 month #60 07/16/25 Unknown Rx tabs oxycodone-acetaminophen 5 mg-325 1 tab PO Q4H PRN pain 5 days #20 07/16/25 Unknown Rx mg tablet (Percocet) tabs Allergy/AdvReac Type Severity Reaction Status Date / Time No Known Allergies Allergy Verified 07/10/25 15:38 Family History Mother Arthritis Arthritis or polyarthritis, rheumatoid Osteoporosis Grandmother Breast cancer Arthritis Father Skin cancer Brother Seizures Grandfather Cancer Arthritis Surgical History Hx of eye surgery Hx of colonoscopy Hx of tympanostomy tubes History of bunionectomy History of section Social History adopted: No housing: apartment current occupational status: unemployed Smoking Status: Former smoker quit date: 07/24/17 alcohol intake: current alcohol intake frequency: holidays/special occasions only substance use type: does not use what type of physical activity do you participate in: none frequency: 1-2 times per week seatbelt use: always do you feel safe at home: Yes ROS ROS Narrative 12 systems reviewed and negative unless stated above Physical Exam Const alert, oriented x3 and no apparent distress Orientation / Consciousness: awake HEENT normocephalic Eyes PERRL Neck no JVD and no carotid bruits Resp normal respiratory effort and clear to auscultation bilaterally Cardio regular rate, regular rhythm, no murmurs, no rub and no gallops GI normal to inspection, nondistended, normoactive bowel sounds and soft to palpation Extremity no pedal edema Skin no rashes or lesions noted Neuro Neuro Narrative: Moves all extremities with good sensation Psych Psych Narrative: Normal mood and affect Charges/Coding Visit Charges Inpatient E&M: 56280 Init Hosp L2 Objective Data Vital Signs: Vital Signs Temp Pulse Resp BP Pulse Ox O2 Del Method O2 Flow Rate 96.5 F L 80 14 114/83 H 95 Room Air 2 07/16/25 11:00 07/16/25 11:30 07/16/25 11:30 07/16/25 11:30 07/16/25 11:30 07/16/25 11:30 07/16/25 10:42 Oxygen Flow Rate (L/min) 2 Oxygen Delivery Method Room Air Weight: 181 lb 7.047 oz Body Mass Index (BMI) 32.1 Intake & Output: Intake and Output for Last 24 Hours 07/14/25 07/15/25 07/16/25 23:59 23:59 23:59 Output Total 5 / 5 Balance -5 / -5 Lab / Micro Data Attestation: I reviewed the patient's lab results. Lab results narrative: Labs reviewed and pertinent results discussed with the patient Labs: Laboratory Results - last 24 hr 07/16/25 07:00: Urine Test Negative 07/16/25 10:00: Troponin T High Sens 20 H 07/16/25 10:05: POC Glucose 122 H Rhythm Strip Rhythm Strip: Sinus Rhythm Cardiology Labs/Tests Rhythm: EKG: ECHO: [personally reviewed and interpreted] low normal ejection fraction estimated at 50-55% with no significant valvular heart disease appreciated. Stress Test: Cardiac Cath: PCI: CT Surgery: Holter monitor: EPS: PPM: CXR: Chest CT Scan: JENSEN Risk Score for UA/STEMI Assesmment (YES = 1) Risk Stratification Applicable: No
[2025-07-16 12:17] LABS: Hematocrit 37.7 % (37-47); Hemoglobin 12.5 g/dL (12.0-15.0); Immature Granulocytes Count 0.090 X10^3/uL (0.0-0.0); Mean Corp Hgb Conc 33.2 g/dL (32-36); Mean Corpuscular Volume 86.9 fL (81-99); Mean Platelet Vol. 11.8 fl (6.2-12.0); NRBC Flagged by Analyzer 0 % (0-5); Platelet Count 215 K/mm3 (150-450); RBC Distribution Width CV 12.2 % (11.6-14.6); RBC Distribution Width SD 38.9 fl (35.1-43.9); Red Blood Count 4.34 M/mm3 (4.2-5.4); White Blood Count 9.3 K/mm3 (4.4-11.0)
[2025-07-16] MEDS: HYDROcodone Bitartrate/Apap 5/325 Tablet PO ×2 (12:30→19:09)
[2025-07-16 12:44] LABS: AST(SGOT) 22 U/L (<=31); Alanine Aminotransfer ALT/SGPT 22 U/L (<=34); Albumin, Serum 4.0 g/dL (3.5-5.0); Alkaline Phosphatase 59 U/L (35-104); Anion Gap 14 (7-18); BUN 22 mg/dL (4-19); BUN/Creat Ratio 21.6 RATIO (10-20); Calcium,Total 8.7 mg/dL (7.6-11.0); Carbon Dioxide 22.1 mmol/L (20.0-29.0); Chloride 109 mmol/L (96-106); Estimated Creatinine Clearance 68.53 ml/min (50-250); Globulin 1.7 g/dL (2.2-4.2); Glucose 115 mg/dL (70-99); Magnesium 2.1 mg/dL (1.5-2.2); Potassium 4.3 mmol/L (3.5-5.1)
[2025-07-16 12:56] LABS: Prothrombin Time (Protime)PT. 14.3 SECONDS (11.7-14.9)
--- NOTE | 2025-07-16 14:05 | NURSING ---
Report give to Carter QUISPE who is taking over care of pt at this time.
[2025-07-17] VITALS (11 sets, daily range): BP systolic 94–113; BP diastolic 68–79; PULSE 55–81; RESP 11–16; TEMP 36.7; O2SAT 97–98; BMI 32.3
[2025-07-17] MEDS: HYDROcodone Bitartrate/Apap 5/325 Tablet PO ×2 (01:24→08:41)
--- NOTE | 2025-07-17 08:44 | DS.PCM_ITS ---
Providers Date of Admission: 07/16/25 Date of Discharge: 07/17/25 Primary Care Physician: NINO Boateng Consultations 07/16/25 10:55 Consult: Cardiology Routine Consulting Provider: Eulalio Jung Reason for Consult: post op syncope EMERGENT Consult: No MD Notified: Yes Date Notified: 07/16/25 Time Notified: 10:58 Method of Notification: Text Reason For Visit: Right knee Arthroscopy, removal of loose body, me Diagnosis Discharge Diagnosis (1) Syncope: Status: Acute Code(s): R55 - Syncope and collapse (2) Obstructive sleep apnea of adult: Status: Acute Code(s): G47.33 - Obstructive sleep apnea (adult) (pediatric) (3) Obesity (BMI 30-39.9): Status: Acute Code(s): E66.9 - Obesity, unspecified Medications at Discharge Home Medications medroxyprogesterone 150 mg/mL intramuscular syringe 150 mg IM [id number] 11/11/22 cholecalciferol (vitamin D3) 125 mcg (5,000 unit) capsule 125 mcg PO QDAY 05/26/25 cyanocobalamin (vitamin B-12) 1,000 mcg/mL injection solution 1,000 mcg IM QMONTH 07/09/25 kzpldgxnaqpnidx-vkkkwdcgyxjeifu-VK 2 mg-30 mg-10 mg/5 mL oral syrup (Bromfed DM) 7.5 ml PO Q4-6H PRN cold symptoms #100 mL 07/10/25 aspirin 81 mg tablet 81 mg PO BID vte prop 1 month #60 tabs 07/16/25 oxycodone-acetaminophen 5 mg-325 mg tablet (Percocet) 1 tab PO Q4H PRN pain 5 days #20 tabs 07/16/25 Hospital Course Summary of Care Provided Minutes Spent on Discharge: 25 Hospital Course: CLEVE MOROCHO, is a 50 F who presented to [facility] for outpatient meniscal repair of her right knee with Dr. Gentile. The surgery went well and the patient was in the PACU. She complained of intense right lower extremity pain and they were preparing to do a nerve block however she complained of lightheadedness and the feeling that she was going to pass out. Fluids were opened wide by the nursing staff and the patient bradycardia down developed hypotension and had a periods of sinus pause that were about 5 seconds long. There were 4 episodes of this. She had no signs of heart block prior to that or following. She was given 1 dose of atropine by anesthesia at which time her heart rate began to improve and along with that her blood pressure improved. Mentation slowly improved with improved blood pressure and heart rate as cardiac output increased. CBC, CMP, troponin, magnesium, phosphorus were all sent and pending at the time of admission. We are highly suspicious of vasovagal syncope. EKG was performed and was normal sinus rhythm with normal intervals and no ST-T wave changes concerning for acute ischemia. She was admitted to the intensive care unit with a cardiac enzyme having a troponin of 20 and an echocardiogram was obtained with a cardiology consult. Echocardiogram showed an EF of 50 to 55% with normal diastolic dysfunction, normal IVC size with collapse and no valvular abnormalities. Cardiology evaluated the patient and was also unclear on any specific etiology. We do suspect this was vagally mediated as she was having significant pain and she did have bradycardia with hypotensive during the event. She had no further telemetry events while monitored overnight and felt well overall. She be discharged home in stable condition. Follow-up per orthopedic surgery's recommendations in 2 weeks. She will need to follow-up with her primary care physician as needed. Discharge diagnoses: Syncope-suspect related to vasovagal event Sinus pause x 4 Right knee meniscal repair GADIEL Obesity History of tobacco abuseNo Physical Exam Const alert, oriented x3, no apparent distress, no limitations, healthy appearing and well nourished; Negative for average body habitus Constitutional Narrative: Middle-aged, white female, obese, sitting up in bed, appears comfortable, looks well, nontoxic-appearing. General Appearance: cooperative, comfortable, well kempt and well developed HEENT normocephalic and head/scalp atraumatic HEENT Narrative: Mallampati 3, no thrush Resp normal respiratory effort, no retractions, no use of accessory muscles and clear to auscultation bilaterally Auscultation: Negative for rales, rhonchi or wheezes Cardio regular rate, regular rhythm, S1 normal heart sound, S2 normal heart sound, no murmurs, no rub, no gallops and no clicks GI normal to inspection, nondistended, normoactive bowel sounds, soft to palpation and non-tender Extremity no clubbing, cyanosis or edema Extremity Narrative: Right knee wrapped postoperatively, pedal pulses are 2+, radial pulses are 2+ Neuro no focal motor deficits Neuro Narrative: Decreased movement right lower extremity due to pain Speech: speech normal Psych affect normal Psych Narrative: Eye contact is good, patient interacts appropriately Weight / BMI Weight Weight: 82.7 kg Body Mass Index (BMI) 32.3 ABG / Lab / Microbiology Data 07/16/25 10:00 07/16/25 10:00 Laboratory: Laboratory Results - last 24 hr 07/16/25 10:00: WBC 9.3, RBC 4.34, Hgb 12.5, Hct 37.7, MCV 86.9, MCH 28.8, MCHC 33.2, RDW Std Deviation 38.9, RDW Coeff of Mayuri 12.2, Plt Count 215, MPV 11.8, I mmature Gran % (Auto) 1.000 H, Neut % (Auto) 68.3, Lymph % (Auto) 26.7, [place] % (Auto) 2.8, Eos % (Auto) 0.8, Baso % (Auto) 0.4, Absolute Neuts (auto) 6.3, Absolute Lymphs (auto) 2.48, Nucleated RBC % 0, Sodium 145, Potassium 4.3, C hloride 109 H, Carbon Dioxide 22.1, Anion Gap 14, BUN 22 H, Creatinine 1.02, Estim Creat Clear Calc 68.53, Est GFR (MDRD) Non-Af 68, BUN/Creatinine Ratio 21.6 H, Glucose 115 H, Calcium 8.7, Phosphorus 3.7, Magnesium 2.1, Total Bilirubin 0.29, AST 22, ALT 22, Alkaline Phosphatase 59, Troponin T High Sens 20 H, Total Protein 5.7 L, Albumin 4.0, Globulin 1.7 L, Albumin/Globulin Ratio 2.3 07/16/25 10:05: POC Glucose 122 H 07/16/25 11:45: PT Cancelled, INR Cancelled 07/16/25 12:30: PT 14.3, INR 1.1 Radiography Diagnostic Testing: Radiology Impression Echocardiogram 07/16/25 10:55 Interpretation Summary The estimated ejection fraction is 50???55 %. Normal diastology for age. Normal sized IVC that collapses with respiration/sniff. No significant valvular heart disease appreciated. Ordering Physician: Shey Yanez Referring Physician: SUSANNE WREN Performed By: Jessica Lloyd LIAM D/C Instructions Discharge Activity: Return to Normal Activity Weight Bearing Status: Weight bearing as tolerated Keep extremity elevated above heart level: Operative Extremity Additional Activity Instructions: ok to remove brace at rest, no flexion over 90 degrees Call your doctor if your incision/area has: Continuous Slow Oozing, Sudden Increased Bleeding, Increased Pain/ Swelling, Increased Redness, Foul Smelling Discharge and Swelling at the incision site Call your doctor if you observe: Fever of 101 or Higher, Coldness, Increased Pain and Numbness or Tingling DC O2, CPAP, BIPAP Needs Home O2 Discharge instructions: No DC home with Oxygen: No Please Follow Up With: Sheng Gentile MD When: within 2 weeks Patient's Goals Of Care - F/U Goals Reviewed Goals of care reviewed with patient: Yes - No change Meaningful Use Info Meaningful Use Meaningful Use Diagnoses (Choose all that apply): None applicable Discharge Plan Admission Admit Date/Time: 07/16/25 10:37 Primary Reason for Your Visit: Syncope Attending Provider: Shey Yanez Primary Care Provider: Susanne Wren Consulting Providers: Eulalio Jung Instructions Patient Instructions: Surgery for Meniscus Tear Discharge Orders/Prescriptions Prescriptions: New oxycodone-acetaminophen [Percocet] 5-325 mg tablet 1 tab PO Q4H MDD 6 PRN (Reason: pain) 5 Days Qty: 20 0RF aspirin 81 mg tablet 81 mg PO BID MDD 2 30 Days Qty: 60 0RF Continued medroxyprogesterone 150 mg/mL syringe 150 mg IM [id number] cholecalciferol (vitamin D3) 125 mcg (5,000 unit) capsule 125 mcg PO QDAY [id number]-nkbuyafxz-GE [Bromfed DM] 2-30-10 mg/5 mL syrup 7.5 ml PO Q4-6H PRN (Reason: cold symptoms) Qty: 100 0RF cyanocobalamin (vitamin B-12) 1,000 mcg/mL solution 1,000 mcg IM QMONTH Patient Comments: [NO ORIGINAL SIG] Referrals / Follow Up: Sheng Gentile MD [Med Staff - Active Staff, Orthopedics] Susanne Wren NP-C [Primary Care Provider, Family Practice] - See Referral Note Referral Note: As needed Disposition Disposition (needs filled in before D/C Order can be placed): Home, Self Care Charges/Coding Visit Charges Inpatient E&M: 16421 Disch Hosp
== END 2025-07-17 09:55 | disposition home or self-care (01) ==
LOC: SDC 10:46 → ICU 10:46
PROVIDERS: Anesthesiology; Admitting Provider Internal Medicine; PCP Nurse Practitioner Family; Referring Provider Orthopaedic Surgery Sports Medicine; Visit Provider Internal Medicine
PROC: (CPT 29870; principal; 2025-07-16 08:10)
DX: R55 Syncope and collapse (principal); S83.241A Other tear of medial meniscus, current injury, right knee, initial encounter; G47.33 Obstructive sleep apnea (adult) (pediatric); Z79.82 Long term (current) use of aspirin; I95.9 Hypotension, unspecified; E66.9 Obesity, unspecified; Z68.32 Body mass index [BMI] 32.0-32.9, adult; Z87.891 Personal history of nicotine dependence; M17.11 Unilateral primary osteoarthritis, right knee; S83.281A Other tear of lateral meniscus, current injury, right knee, initial encounter; X58.XXXA Exposure to other specified factors, initial encounter; M23.41 Loose body in knee, right knee; Z79.899 Other long term (current) drug therapy; R00.0 Tachycardia, unspecified
CPT/HCPCS: 29882; 29881; 01400; 80053; 81025; 82962; 83735; 84100; 84484; 85025; 85610; 92950; 93005; 93306; 99221; C1713; G0378; J2405